=== PATIENT | female | born 1950 | race Hispanic/Latino ===

== ENCOUNTER 2017-02-11 02:32 | Observation (INO) | payer MEDICARE ==
[2017-02-11 02:33] VITALS: BMI 30.9
--- NOTE | 2017-02-11 03:43 | ED PDOC ---
HPI: Chest Pain Time Seen by Provider: 02/11/17 02:54 Chief Complaint (Nursing): Medical Clearance Chief Complaint (Provider): Chest Pain History Per: Patient History/Exam Limitations: no limitations Onset/Duration Of Symptoms: Hrs (x12) Current Symptoms Are (Timing): Still Present Context: Other (Chemotherapy round) Pain Scale Rating Of: 9 Quality: Pressure Exacerbating Factors: Deep Breathing Additional Complaint(s): 66 year old female presents to ED with complaints of chest pain x12 hours and has a past medical history of myasthenia gravis, kidney stones, and questionable "bone cancer". Patient states that she recently underwent a cycle of chemotherapy in which she was given an "immune shot". Notes that she was advised to take ibuprofen to mitigate the "bone pain" that she would feel in her chest, but that the pain has become increasingly worse with time. Describes the pain as a "band" that goes around her entire chest wall, rates it a 9/10 in severity, and notes that the pain worsens with breathing. (-) fever, cough, nausea, vomiting, or diarrhea. PCP: Steven Past Medical History Reviewed: Historical Data, Nursing Documentation, Vital Signs Vital Signs: Last Vital Signs Temp 98.7 F 02/11/17 21:15 Pulse 73 02/11/17 21:15 Resp 18 02/11/17 21:15 BP 136/83 02/11/17 21:15 Pulse Ox 98 02/11/17 21:27 - Medical History PMH: Kidney Stones, Malignancy (bone), Multiple Sclerosis Denies: No Chronic Diseases Other PMH: Myasthenia gravis - Surgical History Surgical History: Appendectomy, Cholecystectomy - Family History Family History: States: No Known Family Hx - Social History Current smoker - smoking cessation education provided: No Ex-Smoker (has not smoked in the last 12 months): No Alcohol: None Drugs: Denies - Allergies Allergies/Adverse Reactions: Allergies Allergy/AdvReac Type Severity Reaction Status Date / Time codeine Allergy RASH Verified 02/11/17 03:06 Penicillins Allergy RASH Verified 02/11/17 03:06 Review of Systems ROS Statement: Except As Marked, All Systems Reviewed And Found Negative Constitutional: Negative for: Fever Cardiovascular: Positive for: Chest Pain Respiratory: Negative for: Cough Gastrointestinal: Negative for: Nausea, Vomiting, Diarrhea Physical Exam - Reviewed Nursing Documentation Reviewed: Yes Vital Signs Reviewed: Yes - Physical Exam Appears: Positive for: Uncomfortable Head Exam: Positive for: ATRAUMATIC, NORMOCEPHALIC Skin: Positive for: Normal Color, Warm, Dry Eye Exam: Positive for: Normal appearance ENT: Positive for: Normal ENT Inspection Neck: Positive for: Normal Cardiovascular/Chest: Positive for: Regular Rate, Rhythm Respiratory: Positive for: Decreased Breath Sounds (decreased air entry at bases of lungs bilaterally). Negative for: Respiratory Distress Gastrointestinal/Abdominal: Positive for: Soft. Negative for: Tenderness Back: Positive for: Normal Inspection Extremity: Positive for: Normal ROM. Negative for: Deformity Neurologic/Psych: Positive for: Alert, Oriented. Negative for: Motor/Sensory Deficits - Laboratory Results Result Diagrams: 02/11/17 03:55 02/11/17 03:55 - ECG O2 Sat by Pulse Oximetry: 98 (RA) Pulse Ox Interpretation: Normal Medical Decision Making Medical Decision Makin Initial impression: chest pain in setting of recent cycle of chemotherapy for bone malignancy Initial plan: * EKG * Labs * Trop I * D Dimer * CXR * Morphine 4mg IVP * BCx * Re-eval 0330 Patient will be put it ED OBS. All further documentation will take place in the ED OBS note. Scribe Attestation: Documented by Maty Jacobson acting as a scribe for Dane Golden MD. Scribe Attestation: All medical record entries made by the Scribe were at my direction and personally dictated by me. I have reviewed the chart and agree that the record accurately reflects my personal performance of the history, physical exam, medical decision making, and the department course for this patient. I have also personally directed, reviewed, and agree with the discharge instructions and disposition. ED OBSERVATION Date of observation admission: 02/11/17 Time of observation admission: 03:30 - Observation admission statement Patient is being placed in observation because:: for further workup of chest pain and CT - Goals of Observation Goals of observation are:: CT results Disposition - Clinical Impression Clinical Impression: Chest pain Counseled Patient/Family Regarding: Studies Performed, Diagnosis - Disposition Disposition: Transfer of Care Disposition Time: 03:30 Condition: FAIR Patient Signed Over To: Jose Chery Jr. (Pending CT) Handoff Comments: Handoff at 0700
[2017-02-11 03:58] LABS: BASO % 0.7 % (0.0-2.0); EOS # 0.3 K/uL (0.0-0.7); EOS % 11.3 % (0.0-4.0); HEMATOCRIT 36.8 % (34.0-47.0); LYMPH # 1.4 K/uL (1.0-4.3); LYMPH % 48.4 % (20.0-40.0); MEAN CELL VOLUME 64.8 fl (81.0-99.0); MEAN CORPUSCULAR HEMOGLOBIN 23.1 pg (27.0-31.0); MEAN CORPUSCULAR HGB CONC 35.7 g/dL (33.0-37.0); MEAN PLATELET VOLUME 8.7 fl (7.2-11.7); MONO # 0.4 K/uL (0.0-0.8); MONO % 13.4 % (0.0-10.0); NEUT # 0.8 K/uL (1.8-7.0); NEUT % 26.2 % (50.0-75.0); NRBC % 3.9 % (0.0-0.0); RED CELL DISTRIBUTION WIDTH 19.2 % (11.5-14.5); WHITE BLOOD COUNT 2.9 K/uL (4.8-10.8)
[2017-02-11 04:21] LABS: ALB/GLOB RATIO 0.6 (1.0-2.1); ALKALINE PHOSPHATASE 77 U/L (38-126); ALT/SGPT 62 U/L (9-52); AST/SGOT 45 U/L (14-36); BILIRUBIN,TOTAL 0.6 mg/dl (0.2-1.3); BLOOD UREA NITROGEN 29 mg/dl (7-17); CALCIUM 10.3 mg/dL (8.4-10.2); CARBON DIOXIDE 29 mmol/L (22-30); CHLORIDE 101 mmol/L (98-107); GFR AFRICAN-AMERICAN > 60; GLUCOSE,RANDOM 142 mg/dL (65-105); POTASSIUM 5.2 MMOL/L (3.6-5.0); SODIUM 141 mmol/l (132-148); TOTAL PROTEIN 8.7 G/DL (6.3-8.2)
[2017-02-11] MEDS ORDERED: Sodium Chloride 0.9% 50 ML IV ONE (05:50)
[2017-02-11] MEDS ORDERED: Iodixanol 320 MG/ML 100 ML BOTTLE IV ONE (05:50)
[2017-02-11] MEDS: Sodium Chloride 0.9% 500 ML IV SCH ×3 (08:36→15:26)
[2017-02-11] MEDS ORDERED: Moxifloxacin IV 400mg/250ml NS 250 ML IVPB STA (09:53)
--- NOTE | 2017-02-11 10:01 | CT ---
PROCEDURE: CT Chest with contrast (Pulmonary Angiogram) HISTORY: chest pain r/o PE COMPARISON: None available. TECHNIQUE: Axial computed tomography images were obtained of the chest in the pulmonary arterial phase of enhancement. Coronal and sagittal reformatted images were created and reviewed. Maximum intensity projection (MIP) reconstructed images in the following planes: Axial projection only. Intravenous contrast dose: 95 cc Visipaque 320. Radiation dose: Total exam DLP = 410.98 mGy-cm. This CT exam was performed using one or more of the following dose reduction techniques: Automated exposure control, adjustment of the mA and/or kV according to patient size, and/or use of iterative reconstruction technique. FINDINGS: PULMONARY ARTERIES: Unremarkable. No pulmonary embolism. AORTA: No acute findings. No thoracic aortic aneurysm. LUNGS: Interval improvement in infiltrates identified at the lung bases on the prior studies. Residual right middle lobe infiltrate. PLEURAL SPACES: Unremarkable. No effusion or pneuomothorax. HEART: Unremarkable. No cardiomegaly. No significant pericardial effusion. LYMPH NODES: Bilateral (right greater than left) axillary and sub carinal adenopathy. BONES, CHEST WALL: Unremarkable. No fracture or destructive lesion OTHER FINDINGS: Questionable mass right hepatic lobe near the dome of the liver. This measures 2.2 x 2.7 cm. Prominence of the pancreatic head a finding not seen on the prior study. Follow-up CT of the abdomen pelvis advised for assessment of both of these findings. IMPRESSION: 1. Negative study for pulmonary embolism. 2. Bilateral axillary and mediastinal adenopathy. 3. Pancreatic head fullness. This represents potentially new finding compared to the prior study. Mass lesion in the dome of the liver. Follow-up CT scan abdomen and pelvis advised for further evaluation, characterization of these findings. Concordant results (preliminary interpretation) provided by [facility]. Procedure Completed: 06:19. Preliminary ([facility]) Report: Dictated and Authenticated: 07:59. Final Interpretation: 09:59. February 11, 2017.
[2017-02-11 10:07] VITALS: RESP 18
--- NOTE | 2017-02-11 10:20 | RAD ---
HISTORY: chest pain COMPARISON: 05/15/2015 TECHNIQUE: Chest PA and lateral FINDINGS: The right subclavian line terminates in the SVC. LUNGS: The lungs are well inflated and clear. PLEURA: No significant pleural effusion identified. No pneumothorax apparent. CARDIOVASCULAR: The heart is normal in size. Status post median sternotomy. OSSEOUS STRUCTURES: No significant abnormalities. VISUALIZED UPPER ABDOMEN: Normal. OTHER FINDINGS: None. IMPRESSION: No active pulmonary disease.
--- NOTE | 2017-02-11 10:47 | CP.PCM.HP ---
History of Present Illness - History of Present Illness History of Present Illness: 66 yo female with history of "bone cancer" and Myasthenia Gravis came in with severe pain around the chest since yesterday. The pain was constant, 10/10, not related to movement and not amenable to over the counter medications, such as Ibuprofen. She claimed she was forewarned about this before receiving her 2 days of chemotherapy (02/08 and 02/09) and immune booster shot yesterday. She however didn't realized it was going to be this bad since she was advised only to take Ibuprofen for the pain. Patient denied coughing, SOB, fever or chills. Present on Admission - Present on Admission Any Indicators Present on Admission: No History of DVT/PE: No History of Uncontrolled Diabetes: No Urinary Catheter: No Decubitus Ulcer Present: No Review of Systems - Review of Systems All systems: reviewed and no additional remarkable complaints except (aside from those mentioned above, 12 point system review were negative by me) Past Patient History - Infectious Disease Hx of Infectious Diseases: None - Past Medical History & Family History Past Medical History?: Yes - Past Social History Smoking Status: Former Smoker Chewing Tobacco Use: No Cigar Use: No Alcohol: None Drugs: Denies - CARDIAC Hx Cardiac Disorders: No - PULMONARY Hx Respiratory Disorders: No - NEUROLOGICAL Hx Neurological Disorder: No - HEENT Hx HEENT Problems: No - RENAL Hx Kidney Stones: Yes - ENDOCRINE/METABOLIC Hx Endocrine Disorders: Yes (Myasthenia Gravis) Other/Comment: Myasthenia Gravis, had thymectomy 15 yrs ago - HEMATOLOGICAL/ONCOLOGICAL Hx Cancer: Yes (bone cancer) Hx Chemotherapy: Yes (3 days ago (2 series)) - INTEGUMENTARY Hx Dermatological Problems: No - MUSCULOSKELETAL/RHEUMATOLOGICAL Hx Musculoskeletal Disorders: Yes (Bone cancer, on chemo) - GENITOURINARY/GYNECOLOGICAL Hx Genitourinary Disorders: No - PSYCHIATRIC Hx Psychophysiologic Disorder: No Hx Substance Use: No - SURGICAL HISTORY Hx Appendectomy: Yes Hx Cholecystectomy: Yes Other/Comment: Thymectomy, 15 yrs ago; Biopsy on right ankle - ANESTHESIA Hx Anesthesia: Yes Hx Anesthesia Reactions: No Hx Malignant Hyperthermia: No Meds Allergies/Adverse Reactions: Allergies Allergy/AdvReac Type Severity Reaction Status Date / Time codeine Allergy RASH Verified 02/11/17 03:06 Penicillins Allergy RASH Verified 02/11/17 03:06 Physical Exam - Constitutional Appears: No Acute Distress - Head Exam Head Exam: ATRAUMATIC - Eye Exam Eye Exam: absent: Scleral icterus - ENT Exam ENT Exam: Mucous Membranes Moist - Neck Exam Neck exam: Negative for: Meningismus - Respiratory Exam Respiratory Exam: absent: Rhonchi, Wheezes, Respiratory Distress - Cardiovascular Exam Cardiovascular Exam: REGULAR RHYTHM, +S1, +S2 - GI/Abdominal Exam GI & Abdominal Exam: Soft. absent: Tenderness - Rectal Exam Rectal Exam: Deferred - Extremities Exam Extremities exam: Negative for: calf tenderness, pedal edema - Back Exam Back exam: absent: tenderness - Neurological Exam Neurological exam: Alert, Oriented x3 - Psychiatric Exam Psychiatric exam: Normal Affect - Skin Skin Exam: Dry, Intact Results - Vital Signs Recent Vital Signs: Last Vital Signs Temp 97.8 F 02/11/17 08:38 Pulse 82 02/11/17 10:06 Resp 18 02/11/17 10:06 BP 126/96 H 02/11/17 10:06 Pulse Ox 95 02/11/17 10:06 - Labs Result Diagrams: 02/11/17 03:55 02/11/17 03:55 Labs: Laboratory Results - last 24 hr 02/11/17 03:55 WBC 2.9 L D RBC 5.69 H Hgb 13.1 Hct 36.8 MCV 64.8 L MCH 23.1 L MCHC 35.7 RDW 19.2 H Plt Count 253 MPV 8.7 Neut % (Auto) 26.2 L Lymph % (Auto) 48.4 H [place] % (Auto) 13.4 H Eos % (Auto) 11.3 H Baso % (Auto) 0.7 Neut # 0.8 L Lymph # 1.4 [place] # 0.4 Eos # 0.3 Baso # 0.0 D-Dimer, Quantitative 1.23 H Sodium 141 Potassium 5.2 H Chloride 101 Carbon Dioxide 29 Anion Gap 16 BUN 29 H Creatinine 0.6 L Est GFR ( Amer) > 60 Est GFR (Non-Af Amer) > 60 Random Glucose 142 H Calcium 10.3 H Total Bilirubin 0.6 AST 45 H ALT 62 H D Alkaline Phosphatase 77 Troponin I < 0.0120 Total Protein 8.7 H Albumin 3.3 L Globulin 5.4 H Albumin/Globulin Ratio 0.6 L Assessment & Plan (1) Intractable pain Status: Acute Comment: place on observation in med/surg. Morphine 2mg IV q 4hrs prn for pain. Flexeril 5mg PO TID prn. pain probably secondary to chemotherapy (2) Bone cancer Status: Acute Comment: follow up name of chemo given to patient (3) Myasthenia gravis Status: Acute Comment: stable
[2017-02-11] MEDS ORDERED: Sod Polystyrene Sulf 15 gm/60 ml Oral Susp PO ONE (11:02)
[2017-02-11] MEDS: Pantoprazole 40 mg EC Tab PO SCH (11:59)
[2017-02-11] MEDS ORDERED: Alum-Mag Hydrox-Simethicone Susp (30 mL) PO PRN (14:06)
[2017-02-11 15:56] LABS: RBC URINE 8 /hpf (0-3); URINE BILIRUBIN NEGATIVE (NEGATIVE); URINE BLOOD MODERATE (NEGATIVE); URINE COLOR YELLOW (YELLOW); URINE GLUCOSE (UA) NEG (Normal); URINE KETONE NEGATIVE (NEGATIVE); URINE LEUKOCYTE ESTERASE NEG Leu/uL (Negative); URINE PROTEIN 100 mg/dL (NEGATIVE); URINE UROBILINOGEN 0.2-1.0 mg/dL (0.2-1.0); WBC URINE 2 /hpf (0-5)
--- NOTE | 2017-02-11 18:18 | CARD ---
APPROVED REPORT EKG Measurement Heart [id number] <Conclusion> Normal sinus rhythm Moderate voltage criteria for LVH, may be normal variant Borderline ECG
[2017-02-12] MEDS: Sodium Chloride 0.9% 500 ML IV SCH ×3 (03:11→06:38)
[2017-02-12 07:42] LABS: BASO % 0.3 % (0.0-2.0); EOS # 0.2 K/uL (0.0-0.7); EOS % 5.7 % (0.0-4.0); HEMATOCRIT 32.4 % (34.0-47.0); LYMPH # 1.4 K/uL (1.0-4.3); LYMPH % 37.9 % (20.0-40.0); MEAN CELL VOLUME 65.5 fl (81.0-99.0); MEAN CORPUSCULAR HEMOGLOBIN 22.5 pg (27.0-31.0); MEAN CORPUSCULAR HGB CONC 34.4 g/dL (33.0-37.0); MEAN PLATELET VOLUME 8.9 fl (7.2-11.7); MONO # 0.5 K/uL (0.0-0.8); MONO % 13.5 % (0.0-10.0); NEUT # 1.6 K/uL (1.8-7.0); NEUT % 42.6 % (50.0-75.0); NRBC % 0.5 % (0.0-0.0); RED CELL DISTRIBUTION WIDTH 19.7 % (11.5-14.5); WHITE BLOOD COUNT 3.8 K/uL (4.8-10.8)
[2017-02-12 08:05] LABS: BLOOD UREA NITROGEN 18 mg/dl (7-17); CALCIUM 8.8 mg/dL (8.4-10.2); CARBON DIOXIDE 31 mmol/L (22-30); CHLORIDE 100 mmol/L (98-107); GFR AFRICAN-AMERICAN > 60; GLUCOSE,RANDOM 101 mg/dL (65-105); POTASSIUM 4.1 MMOL/L (3.6-5.0); SODIUM 138 mmol/l (132-148)
[2017-02-12 08:16] VITALS: BP 147/77; PULSE 59; TEMP 98.6; O2SAT 94
[2017-02-12] MEDS: Pantoprazole 40 mg EC Tab PO SCH (08:32)
--- NOTE | 2017-02-12 12:19 | CP.PCM.DIS ---
Provider - Provider Date of Admission: 02/11/17 09:53 Attending physician: Alec Inman MD Time Spent in preparation of Discharge (in minutes): 35 Diagnosis - Discharge Diagnosis (1) Intractable pain Status: Acute Comment: pain was relieved by Morphine. presently just complained of mild bearable pain. Neurontin 300mg PO BID (2) Myasthenia gravis Status: Acute Comment: asymptomatic (3) Lymphoma Status: Acute Comment: follow up with Oncologist Hospital Course - Lab Results Lab Results: Most Recent Lab Values WBC 3.8 K/uL (4.8-10.8) L 02/12/17 05:30 RBC 4.95 Mil/uL (3.80-5.20) 02/12/17 05:30 Hgb 11.2 g/dL (12.0-16.0) L 02/12/17 05:30 Hct 32.4 % (34.0-47.0) L 02/12/17 05:30 MCV 65.5 fl (81.0-99.0) L 02/12/17 05:30 MCH 22.5 pg (27.0-31.0) L 02/12/17 05:30 MCHC 34.4 g/dL (33.0-37.0) 02/12/17 05:30 RDW 19.7 % (11.5-14.5) H 02/12/17 05:30 Plt Count 224 K/uL (130-400) 02/12/17 05:30 MPV 8.9 fl (7.2-11.7) 02/12/17 05:30 Neut % (Auto) 42.6 % (50.0-75.0) L 02/12/17 05:30 Lymph % (Auto) 37.9 % (20.0-40.0) 02/12/17 05:30 [place] % (Auto) 13.5 % (0.0-10.0) H 02/12/17 05:30 Eos % (Auto) 5.7 % (0.0-4.0) H 02/12/17 05:30 Baso % (Auto) 0.3 % (0.0-2.0) 02/12/17 05:30 Neut # 1.6 K/uL (1.8-7.0) L 02/12/17 05:30 Lymph # 1.4 K/uL (1.0-4.3) 02/12/17 05:30 [place] # 0.5 K/uL (0.0-0.8) 02/12/17 05:30 Eos # 0.2 K/uL (0.0-0.7) 02/12/17 05:30 Baso # 0.0 K/uL (0.0-0.2) 02/12/17 05:30 D-Dimer, Quantitative 1.23 mg/L FEU (0-0.50) H 02/11/17 03:55 Sodium 138 mmol/l (132-148) 02/12/17 05:30 Potassium 4.1 MMOL/L (3.6-5.0) 02/12/17 05:30 Chloride 100 mmol/L (98-107) 02/12/17 05:30 Carbon Dioxide 31 mmol/L (22-30) H 02/12/17 05:30 Anion Gap 11 (10-20) 02/12/17 05:30 BUN 18 mg/dl (7-17) H 02/12/17 05:30 Creatinine 0.5 mg/dL (0.7-1.2) L 02/12/17 05:30 Est GFR ( Amer) > 60 02/12/17 05:30 Est GFR (Non-Af Amer) > 60 02/12/17 05:30 Random Glucose 101 mg/dL (65-105) 02/12/17 05:30 Calcium 8.8 mg/dL (8.4-10.2) 02/12/17 05:30 Total Bilirubin 0.6 mg/dl (0.2-1.3) 02/11/17 03:55 AST 45 U/L (14-36) H 02/11/17 03:55 ALT 62 U/L (9-52) H D 02/11/17 03:55 Alkaline Phosphatase 77 U/L (38-126) 02/11/17 03:55 Troponin I < 0.0120 ng/mL (0.00-0.120) 02/11/17 03:55 Total Protein 8.7 G/DL (6.3-8.2) H 02/11/17 03:55 Albumin 3.3 g/dL (3.5-5.0) L 02/11/17 03:55 Globulin 5.4 gm/dL (2.2-3.9) H 02/11/17 03:55 Albumin/Globulin Ratio 0.6 (1.0-2.1) L 02/11/17 03:55 Urine Color Yellow (YELLOW) 02/11/17 15:42 Urine Clarity Clear (Clear) 02/11/17 15:42 Urine pH 5.0 (5.0-8.0) 02/11/17 15:42 Ur Specific [place] 1.057 (1.003-1.030) H 02/11/17 15:42 Urine Protein 100 mg/dL (NEGATIVE) 02/11/17 15:42 Urine Glucose (UA) Neg mg/dL (Normal) 02/11/17 15:42 Urine Ketones Negative mg/dL (NEGATIVE) 02/11/17 15:42 Urine Blood Moderate (NEGATIVE) 02/11/17 15:42 Urine Nitrate Negative (NEGATIVE) 02/11/17 15:42 Urine Bilirubin Negative (NEGATIVE) 02/11/17 15:42 Urine Urobilinogen 0.2-1.0 mg/dL (0.2-1.0) 02/11/17 15:42 Ur Leukocyte Esterase Neg [place]/uL (Negative) 02/11/17 15:42 Urine RBC (Auto) 8 /hpf (0-3) H 02/11/17 15:42 Urine Microscopic WBC 2 /hpf (0-5) 02/11/17 15:42 Ur Squamous Epith Cells 1 /hpf (0-5) 02/11/17 15:42 - Hospital Course Hospital Course: 66 yo female with history of Lymphoma and Myasthenia Gravis came in with severe pain around the chest since yesterday. The pain was constant, 10/10, not related to movement and not amenable to Ibuprofen. She claimed she was forewarned about this before receiving her 2 days of chemotherapy and immune booster. Patient felt a lot better after receiving pain medications. She is now ready for discharge. Discharge Exam - Head Exam Head Exam: ATRAUMATIC, NORMOCEPHALIC - Eye Exam Eye Exam: absent: Scleral icterus - ENT Exam ENT Exam: Mucous Membranes Moist - Respiratory Exam Respiratory Exam: absent: Wheezes, Respiratory Distress - Cardiovascular Exam Cardiovascular Exam: REGULAR RHYTHM, +S1, +S2 - GI/Abdominal Exam GI & Abdominal Exam: Soft. absent: Tenderness - Rectal Exam Rectal Exam: Deferred - Neurological Exam Neurological exam: Alert, Oriented x3 - Psychiatric Exam Psychiatric exam: Normal Affect - Skin Skin Exam: Dry, Intact Discharge Plan - Discharge Medications Prescriptions: Lactulose Packet [Kristalose] 10 gm PO PRN PRN #10 packet PRN Reason: Constipation Gabapentin [Neurontin] 300 mg PO BID #28 cap - Follow Up Plan Condition: FAIR Disposition: HOME/ ROUTINE Instructions: Constipation (DC), High Fiber Diet (DC), Eating During Cancer Treatment (DC), Chest Wall Pain (GEN)
== END 2017-02-12 14:23 | disposition home or self-care (01) ==
LOC: H.ER 02:32 → H.EROBSV 03:28 → OBSVTOIN 09:53 → H.ERHOLD 09:53 → INTOOBSV 09:53 → H.MEDSURG1 10:38
DX: R07.89 Other chest pain (principal); T45.1X5A Adverse effect of antineoplastic and immunosuppressive drugs, initial encounter; C85.90 Non-Hodgkin lymphoma, unspecified, unspecified site; G70.00 Myasthenia gravis without (acute) exacerbation; G35 Multiple sclerosis; Z87.442 Personal history of urinary calculi; Z90.49 Acquired absence of other specified parts of digestive tract; Y92.9 Unspecified place or not applicable
CPT/HCPCS: 36415; 71020; 71275; 80048; 80053; 81003; 84484; 85025; 85378; 87040; 93005; 96361; 96374; 96375; 96376; 99285; G0378; J2270; J7040; Q9967

== ENCOUNTER 2017-03-03 06:09 | Observation (INO) | payer MEDICARE ==
--- NOTE | 2017-03-03 06:40 | ED PDOC ---
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 Patient currently completing cycle of chemotherapy (oncologist is Dr. Juarez) at [facility] and [place]. Patient reports at midnight she developed lower abdominal pain that is described as sharp, constant, severe, and 9/10. States after chemo she completed 5 day course of prednisone that she just finished yesterday. Denies n/v/d, urinary symptoms, fever. Past Medical History Reviewed: Historical Data, Nursing Documentation, Vital Signs Vital Signs: Last Vital Signs Temp 97.5 F L 03/04/17 00:34 Pulse 74 03/04/17 00:34 Resp 20 03/04/17 00:34 BP 125/86 03/04/17 00:34 Pulse Ox 96 03/04/17 00:34 - Medical History PMH: Kidney Stones, Malignancy (bone), Multiple Sclerosis, Chronic Kidney Disease Other PMH: lymphoma, Myasthenia gravis, inclusion body myositis - Surgical History Surgical History: Appendectomy, Cholecystectomy - Family History Family History: States: No Known Family Hx - Social History Current smoker - smoking cessation education provided: No Alcohol: None Drugs: Denies - Home Medications Home Medications: Ambulatory Orders Medication Instructions Recorded No Known Home Med 03/03/17 - Allergies Allergies/Adverse Reactions: Allergies Allergy/AdvReac Type Severity Reaction Status Date / Time codeine Allergy RASH Verified 02/11/17 03:06 Penicillins Allergy RASH Verified 02/11/17 03:06 Review of Systems ROS Statement: Except As Marked, All Systems Reviewed And Found Negative Constitutional: Negative for: Fever Gastrointestinal: Positive for: Abdominal Pain. Negative for: Nausea, Vomiting , Diarrhea Genitourinary Female: Negative for: Dysuria, Frequency, Incontinence, Hematuria Physical Exam - Reviewed Nursing Documentation Reviewed: Yes Vital Signs Reviewed: Yes - Physical Exam Appears: Positive for: Well, No Acute Distress, Uncomfortable Head Exam: Positive for: ATRAUMATIC, NORMAL INSPECTION, NORMOCEPHALIC Skin: Positive for: Normal Color, Warm, Dry Eye Exam: Positive for: Normal appearance, EOMI, PERRL ENT: Positive for: Normal ENT Inspection Neck: Positive for: Normal, Painless ROM, Supple Cardiovascular/Chest: Positive for: Regular Rate, Rhythm. Negative for: Murmur , Tachycardia Respiratory: Positive for: Normal Breath Sounds. Negative for: Wheezing, Respiratory Distress Gastrointestinal/Abdominal: Positive for: Soft, Tenderness (mild periumbilical ) . Negative for: Guarding, Rebound Back: Positive for: Normal Inspection. Negative for: L CVA Tenderness, R CVA Tenderness Extremity: Positive for: Normal ROM. Negative for: Deformity, Swelling Neurologic/Psych: Positive for: Alert, Oriented - Laboratory Results Result Diagrams: 03/03/17 06:45 03/03/17 06:45 - ECG O2 Sat by Pulse Oximetry: 100 Pulse Ox Interpretation: Normal (RA) Medical Decision Making Medical Decision Makin: Impression: 66yo female w/ abdominal pain in setting of known lymphoma and recent course of chemotherapy Plan: Labs EKG XR abdomen w/ chest Morphine 2mg IVP reassess Patient s/o to Dr. Goldstein at 0700 pending labs, XR, re-eval. Scribe Attestation: Documented by Elsie Coles acting as a scribe for Dane Golden MD. Provider Scribe Attestation: All medical record entries made by the Scribe were at my direction and personally dictated by me. I have reviewed the chart and agree that the record accurately reflects my personal performance of the history, physical exam, medical decision making, and the department course for this patient. I have also personally directed, reviewed, and agree with the discharge instructions and disposition. Disposition - Clinical Impression Clinical Impression: Abdominal pain - Patient ED Disposition Is Patient to be Admitted: Transfer of Care - Disposition Disposition: Transfer of Care Disposition Time: 07:00 Condition: STABLE Patient Signed Over To: Facundo Goldstein III Handoff Comments: pending labs, XR, re-eval
--- NOTE | 2017-03-03 07:09 | ED PDOC ---
- Laboratory Results Result Diagrams: 03/04/17 05:15 03/04/17 05:15 - ECG O2 Sat by Pulse Oximetry: 100 Pulse Ox Interpretation: Normal Medical Decision Making Medical Decision Making: Time: 0700 Patient signed out by Dr. Golden pending labs, XR and re-eval. CXR no acute infiltrate Abd XRay no signs obstruction per radiologist labs reviewed, persistent leukopenia. Elev lactate 3.5 Pt had persistent pain required escalating dose morphine. protonix also initiated. Pt states has been on prednisone intermittently w chemo regimen. ? gastritis - will obtain CT imaging r/o perforation given pain and elev lactate 3.5 CT abd pelvis Accession No. : [id number] Patient Name / ID : ANNIE MEDINA / [id number] Exam Date : 03/03/2017 09:16:57 ( Approved ) Study Comment : Sex / Age : F / 66Y Creator : Wilmar Davies Dictator : Wilmar Davies Dress Draper : Fishing Captain : Wilmar Davies Approver2 : Report Date : 03/03/2017 09:58:53 My Comment : PROCEDURE: CT Abdomen and Pelvis with contrast HISTORY: abd pain, hx lymphoma, elev lactate COMPARISON: Comparison is made to the previous study dated 11/23/2016 TECHNIQUE: Contrast dose: 95 mL of Omnipaque 300. Axial and reformatted coronal and sagittal CT images of the abdomen and pelvis were obtained after IV contrast administration. Radiation dose: Total exam DLP = 946.39 mGy-cm. This CT exam was performed using one or more of the following dose reduction techniques: Automated exposure control, adjustment of the mA and/or kV according to patient size, and/or use of iterative reconstruction technique. FINDINGS: LOWER THORAX: Interval improvement in the previously seen airspace consolidation at the right middle lobe since the previous exam. Residual peribronchial opacity seen at the right middle lobe. LIVER: Mild hepatomegaly is noted. No evidence of mass lesion in the liver. The portal vein is patent. GALLBLADDER AND BILE DUCTS: Status post cholecystectomy. Mildly dilated CBD is again noted. PANCREAS: Unremarkable. No gross lesion or ductal dilatation. SPLEEN: Unremarkable. ADRENALS: Unremarkable. No mass. KIDNEYS AND URETERS: The kidneys enhance symmetrically without evidence of hydronephrosis. 5.4 centimeter cystic lesion again seen exophytic from the upper pole of the left kidney. VASCULATURE: Moderate atherosclerotic disease is again noted. . No aortic aneurysm. BOWEL: Colonic diverticulosis are again seen. Thickening of the sigmoid colon wall is again noted. APPENDIX: No evidence of appendicitis. PERITONEUM: Unremarkable. No free fluid. No free air. LYMPH NODES: No evidence of significant lymphadenopathy in the abdomen and pelvis. Previously seen retroperitoneal lymphadenopathy has almost completely resolved. BLADDER: Unremarkable. REPRODUCTIVE: Unremarkable. BONES: No significant interval change in the osseous structure since the previous exam. No evidence of destructive bony lesion. OTHER FINDINGS: None. IMPRESSION: No evidence of acute pathology in the abdomen and pelvis. Interval almost complete resolving of the previously seen airspace consolidation at the right middle lobe. Interval almost complete resolving of the previously seen retroperitoneal lymphadenopathy. Mild hepatomegaly. Re- demonstration of colonic diverticulosis and sigmoid colon wall thickening. Admit obs tele medicine personnel coordinator. Dr Arredondo. D/w Georgie Delarosa. IVF continuing. UA pending. Scribe Attestation: Documented by Vera Espinoza acting as a scribe for Facundo Goldstein DO MD Scribe Attestation: All medical record entries made by the Scribe were at my direction and personally dictated by me. I have reviewed the chart and agree that the record accurately reflects my personal performance of the history, physical exam, medical decision making, and the department course for this patient. I have also personally directed, reviewed, and agree with the discharge instructions and disposition. Disposition Counseled Patient/Family Regarding: Studies Performed, Diagnosis, Need For Followup - Clinical Impression Clinical Impression: Abdominal pain, Lymphoma - POA Present On Arrival: None - Disposition Disposition: Hospitalized as Observation Patient Disposition Time: 09:30 Condition: STABLE
[2017-03-03 07:11] LABS: ALKALINE PHOSPHATASE 86 U/L (38-126); ALT/SGPT 31 U/L (9-52); AST/SGOT 30 U/L (14-36); BILIRUBIN,TOTAL 1.4 mg/dl (0.2-1.3); BLOOD UREA NITROGEN 24 mg/dl (7-17); CALCIUM 10.3 mg/dL (8.4-10.2); CARBON DIOXIDE 27 mmol/L (22-30); CHLORIDE 97 mmol/L (98-107); GFR AFRICAN-AMERICAN > 60; GLUCOSE,RANDOM 110 mg/dL (65-105); LIPASE 57 U/L (23-300); POTASSIUM 4.5 MMOL/L (3.6-5.0); SODIUM 134 mmol/l (132-148); TOTAL PROTEIN 7.9 G/DL (6.3-8.2)
[2017-03-03 07:15] LABS: ALB/GLOB RATIO 0.8 (1.0-2.1)
[2017-03-03 07:28] LABS: BASO % 0.6 % (0.0-2.0); EOS # 0.1 K/uL (0.0-0.7); EOS % 5.4 % (0.0-4.0); HEMATOCRIT 38.5 % (34.0-47.0); LYMPH # 1.2 K/uL (1.0-4.3); LYMPH % 54.5 % (20.0-40.0); MEAN CELL VOLUME 66.1 fl (81.0-99.0); MEAN CORPUSCULAR HEMOGLOBIN 21.7 pg (27.0-31.0); MEAN CORPUSCULAR HGB CONC 32.9 g/dL (33.0-37.0); MEAN PLATELET VOLUME 9.2 fl (7.2-11.7); MONO # 0.2 K/uL (0.0-0.8); MONO % 9.4 % (0.0-10.0); NEUT # 0.7 K/uL (1.8-7.0); NEUT % 30.1 % (50.0-75.0); NRBC % 1.2 % (0.0-0.0); RED CELL DISTRIBUTION WIDTH 19.9 % (11.5-14.5); WHITE BLOOD COUNT 2.3 K/uL (4.8-10.8)
[2017-03-03 08:28] LABS: PARTIAL THROMBOPLASTIN TIME 21.6 SECONDS (23.3-32.5)
[2017-03-03] MEDS ORDERED: Iohexol 300 100 ML IJ ONE (09:03)
[2017-03-03] MEDS ORDERED: Sodium Chloride 0.9% 50 ML IV ONE (09:03)
[2017-03-03] MEDS ORDERED: Sodium Chloride 0.9% 1,000 ML IV STA ×2 (09:05→11:10)
--- NOTE | 2017-03-03 10:00 | CT ---
PROCEDURE: CT Abdomen and Pelvis with contrast HISTORY: abd pain, hx lymphoma, elev lactate COMPARISON: Comparison is made to the previous study dated 11/23/2016 TECHNIQUE: Contrast dose: 95 mL of Omnipaque 300. Axial and reformatted coronal and sagittal CT images of the abdomen and pelvis were obtained after IV contrast administration. Radiation dose: Total exam DLP = 946.39 mGy-cm. This CT exam was performed using one or more of the following dose reduction techniques: Automated exposure control, adjustment of the mA and/or kV according to patient size, and/or use of iterative reconstruction technique. FINDINGS: LOWER THORAX: Interval improvement in the previously seen airspace consolidation at the right middle lobe since the previous exam. Residual peribronchial opacity seen at the right middle lobe. LIVER: Mild hepatomegaly is noted. No evidence of mass lesion in the liver. The portal vein is patent. GALLBLADDER AND BILE DUCTS: Status post cholecystectomy. Mildly dilated CBD is again noted. PANCREAS: Unremarkable. No gross lesion or ductal dilatation. SPLEEN: Unremarkable. ADRENALS: Unremarkable. No mass. KIDNEYS AND URETERS: The kidneys enhance symmetrically without evidence of hydronephrosis. 5.4 centimeter cystic lesion again seen exophytic from the upper pole of the left kidney. VASCULATURE: Moderate atherosclerotic disease is again noted. . No aortic aneurysm. BOWEL: Colonic diverticulosis are again seen. Thickening of the sigmoid colon wall is again noted. APPENDIX: No evidence of appendicitis. PERITONEUM: Unremarkable. No free fluid. No free air. LYMPH NODES: No evidence of significant lymphadenopathy in the abdomen and pelvis. Previously seen retroperitoneal lymphadenopathy has almost completely resolved. BLADDER: Unremarkable. REPRODUCTIVE: Unremarkable. BONES: No significant interval change in the osseous structure since the previous exam. No evidence of destructive bony lesion. OTHER FINDINGS: None. IMPRESSION: No evidence of acute pathology in the abdomen and pelvis. Interval almost complete resolving of the previously seen airspace consolidation at the right middle lobe. Interval almost complete resolving of the previously seen retroperitoneal lymphadenopathy. Mild hepatomegaly. Re- demonstration of colonic diverticulosis and sigmoid colon wall thickening.
--- NOTE | 2017-03-03 10:38 | RAD ---
PROCEDURE: Radiographs of the chest and abdomen (obstructive series) HISTORY: abd pain COMPARISON: Comparison is made to the previous chest x-ray dated 02/11/2017 TECHNIQUE: AP radiograph of the chest, with upright and supine radiographs of the abdomen. FINDINGS: CHEST: Lungs: Clear. Cardiovascular: Normal size heart. No pulmonary vascular congestion. Pleura: No pleural fluid. No pneumothorax. Other findings: Right-sided Infusaport is seen in place. Status post sternotomy ABDOMEN AND PELVIS: Bowel: Unremarkable bowel gas pattern. No evidence of mechanical obstruction. Free air: None. Bones: Unremarkable. Other findings: None. IMPRESSION: Unremarkable radiographs of chest and abdomen. No evidence of mechanical bowel obstruction.
[2017-03-03 11:34] LABS: RBC URINE 8 /hpf (0-3); URINE BACTERIA RARE (<OCC); URINE BILIRUBIN NEGATIVE (NEGATIVE); URINE BLOOD NEGATIVE (NEGATIVE); URINE COLOR YELLOW (YELLOW); URINE GLUCOSE (UA) NEG (Normal); URINE KETONE NEGATIVE (NEGATIVE); URINE LEUKOCYTE ESTERASE NEG Leu/uL (Negative); URINE PROTEIN NEGATIVE (NEGATIVE); URINE UROBILINOGEN 0.2-1.0 mg/dL (0.2-1.0); WBC URINE 1 /hpf (0-5)
[2017-03-03] MEDS: Sodium Chloride 0.9% 1,000 ML IV SCH ×2 (13:40→20:30)
[2017-03-03] MEDS: metroNIDAZOLE 500mg/100ml NS 100 ML IVPB SCH (16:26)
[2017-03-03] MEDS: Ciprofloxacin 400mg/200ml D5W 400 MG/200 ML BAG IVPB SCH (20:12)
[2017-03-04] MEDS: metroNIDAZOLE 500mg/100ml NS 100 ML IVPB SCH ×2 (00:51→08:33)
[2017-03-04] MEDS: Sodium Chloride 0.9% 1,000 ML IV SCH (03:00)
[2017-03-04 04:59] VITALS: RESP 18
--- NOTE | 2017-03-04 07:24 | CP.PCM.HP ---
History of Present Illness - History of Present Illness History of Present Illness: pt admitted for abd pain and n/v. no fc, diarrhea. pt is on chemo for lympoma. at present kulwant po and w/o n/v. afebrile. case d/c w/ dr joy. Present on Admission - Present on Admission Any Indicators Present on Admission: No Review of Systems - Gastrointestinal Gastrointestinal: As Per HPI, Abdominal Pain, Nausea, Vomiting Past Patient History - Infectious Disease Hx of Infectious Diseases: None - Past Medical History & Family History Past Medical History?: Yes - Past Social History Alcohol: None Drugs: Denies - CARDIAC Hx Cardiac Disorders: No - PULMONARY Hx Respiratory Disorders: No - NEUROLOGICAL Hx Multiple Sclerosis: Yes - HEENT Hx HEENT Problems: No - RENAL Hx Chronic Kidney Disease: Yes Hx Kidney Stones: Yes - ENDOCRINE/METABOLIC Hx Endocrine Disorders: No - HEMATOLOGICAL/ONCOLOGICAL Hx Blood Disorders: Yes Hx Cancer: Yes (bone cancer) Hx Chemotherapy: Yes (3 days ago (2 series)) - INTEGUMENTARY Hx Dermatological Problems: No - MUSCULOSKELETAL/RHEUMATOLOGICAL Hx Musculoskeletal Disorders: Yes (Bone cancer, on chemo) Hx Falls: No Hx Myasthenia Gravis: Yes - GASTROINTESTINAL Hx Gastrointestinal Disorders: No - GENITOURINARY/GYNECOLOGICAL Hx Genitourinary Disorders: No - PSYCHIATRIC Hx Psychophysiologic Disorder: No Hx Substance Use: No - SURGICAL HISTORY Hx Appendectomy: Yes Hx Cholecystectomy: Yes - ANESTHESIA Hx Anesthesia: Yes Hx Anesthesia Reactions: No Hx Malignant Hyperthermia: No Meds Home Medications: Home Medication List Medication Instructions Recorded Confirmed Type Ciprofloxacin HCl [Cipro] 500 mg PO BID #14 tablet 03/04/17 Rx Famotidine [Pepcid] 20 mg PO BID #14 tab 03/04/17 Rx Metronidazole [Flagyl] 500 mg PO Q8 #21 tablet 03/04/17 Rx Ondansetron ODT [Zofran ODT] 4 mg PO Q8 #10 odt 03/04/17 Rx oxyCODONE/Acetaminophen [Percocet 1 tab PO Q4 PRN #10 tab 03/04/17 Rx 5/325 mg Tab] Allergies/Adverse Reactions: Allergies Allergy/AdvReac Type Severity Reaction Status Date / Time codeine Allergy RASH Verified 02/11/17 03:06 Penicillins Allergy RASH Verified 02/11/17 03:06 Physical Exam - Constitutional Appears: Well, Non-toxic, No Acute Distress - Head Exam Head Exam: ATRAUMATIC, NORMAL INSPECTION, NORMOCEPHALIC - Eye Exam Eye Exam: EOMI, Normal appearance, PERRL Pupil Exam: NORMAL ACCOMODATION, PERRL - ENT Exam ENT Exam: Mucous Membranes Moist, Normal Exam - Neck Exam Neck exam: Positive for: Normal Inspection - Respiratory Exam Respiratory Exam: Clear to Auscultation Bilateral, NORMAL BREATHING PATTERN - Cardiovascular Exam Cardiovascular Exam: REGULAR RHYTHM, RRR, +S1, +S2 - GI/Abdominal Exam GI & Abdominal Exam: Normal Bowel Sounds, Soft. absent: Tenderness - Extremities Exam Extremities exam: Positive for: full ROM, normal capillary refill, normal inspection, pedal pulses present - Back Exam Back exam: NORMAL INSPECTION - Neurological Exam Neurological exam: Alert, CN II-XII Intact, Normal Gait, Oriented x3, Reflexes Normal - Psychiatric Exam Psychiatric exam: Normal Affect, Normal Mood - Skin Skin Exam: Dry, Intact, Normal Color, Warm Results - Vital Signs Recent Vital Signs: Last Vital Signs Temp 98.9 F 03/04/17 04:58 Pulse 69 03/04/17 04:58 Resp 18 03/04/17 04:58 BP 149/76 03/04/17 04:58 Pulse Ox 94 L 03/04/17 04:58 - Labs Result Diagrams: 03/04/17 05:15 03/04/17 05:15 Assessment & Plan (1) Colitis Assessment and Plan: cipro/flagyl pain meds zofran/pepcid cleared by gi po as kulwant Status: Acute (2) DVT (deep venous thrombosis) Assessment and Plan: scd and ae hoae ambulation Status: Acute Decision To Admit - Pt Status Changed To: Hospital Disposition Of: Observation - . Bed Request Type: Telemetry Admitting Physician: Amanda rAredondo
[2017-03-04 07:34] LABS: ALB/GLOB RATIO 0.8 (1.0-2.1); ALKALINE PHOSPHATASE 83 U/L (38-126); ALT/SGPT 60 U/L (9-52); AST/SGOT 39 U/L (14-36); BILIRUBIN,TOTAL 0.9 mg/dl (0.2-1.3); BLOOD UREA NITROGEN 12 mg/dl (7-17); CARBON DIOXIDE 29 mmol/L (22-30); CHLORIDE 98 mmol/L (98-107); GFR AFRICAN-AMERICAN > 60; GLUCOSE,RANDOM 95 mg/dL (65-105); POTASSIUM 4.1 MMOL/L (3.6-5.0); SODIUM 131 mmol/l (132-148); TOTAL PROTEIN 6.2 G/DL (6.3-8.2)
[2017-03-04 07:55] LABS: BASO % 0.7 % (0.0-2.0); EOS # 0.1 K/uL (0.0-0.7); LYMPH # 0.9 K/uL (1.0-4.3); LYMPH % 34.7 % (20.0-40.0); MEAN CELL VOLUME 65.2 fl (81.0-99.0); MEAN CORPUSCULAR HEMOGLOBIN 21.9 pg (27.0-31.0); MEAN CORPUSCULAR HGB CONC 33.6 g/dL (33.0-37.0); MEAN PLATELET VOLUME 9.3 fl (7.2-11.7); MONO # 0.5 K/uL (0.0-0.8); MONO % 17.1 % (0.0-10.0); NEUT # 1.1 K/uL (1.8-7.0); NEUT % 42.5 % (50.0-75.0); NRBC % 0.2 % (0.0-0.0); RED CELL DISTRIBUTION WIDTH 19.9 % (11.5-14.5); WHITE BLOOD COUNT 2.6 K/uL (4.8-10.8)
[2017-03-04 08:03] LABS: PLATELET COUNT 195 K/uL (130-400)
[2017-03-04] MEDS: Ciprofloxacin 400mg/200ml D5W 400 MG/200 ML BAG IVPB SCH (08:32)
--- NOTE | 2017-03-04 08:45 | CARD ---
APPROVED REPORT EKG Measurement Heart [id number] <Conclusion> Normal sinus rhythm Moderate voltage criteria for LVH, may be normal variant Borderline ECG
--- NOTE | 2017-03-04 09:08 | CP.PCM.CON ---
<Radha Romero - Last Filed: 03/04/17 10:14> History of Present Illness - History of Present Illness History of Present Illness: This is a GI Consult Note- Dr. 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 She reports, she is currently completing cycle of chemotherapy ( oncologist is Dr. Juarez) at [facility] and [place]. Patient reports at midnight she developed lower abdominal pain that is described as sharp, constant, severe, and 9/10. States after chemo she completed 5 day course of prednisone that she just finished yesterday, states she never does well on prednisone, last round of chemo shealso presented to the ED with similar pain. Pt also reports feeling constipated, this morning pain is controlled with pain medication. Denies n/v/d , urinary symptoms, fever. She also would like bowel regime to home with to help with constipation. Review of Systems - Review of Systems All systems: reviewed and no additional remarkable complaints except Review of Systems: Per HPI Past Patient History - Infectious Disease Hx of Infectious Diseases: None - Past Medical History & Family History Past Medical History?: Yes - Past Social History Alcohol: None Drugs: Denies - CARDIAC Hx Cardiac Disorders: No - PULMONARY Hx Respiratory Disorders: No - NEUROLOGICAL Hx Multiple Sclerosis: Yes - HEENT Hx HEENT Problems: No - RENAL Hx Chronic Kidney Disease: Yes Hx Kidney Stones: Yes - ENDOCRINE/METABOLIC Hx Endocrine Disorders: No - HEMATOLOGICAL/ONCOLOGICAL Hx Blood Disorders: Yes Hx Cancer: Yes (bone cancer) Hx Chemotherapy: Yes (3 days ago (2 series)) - INTEGUMENTARY Hx Dermatological Problems: No - MUSCULOSKELETAL/RHEUMATOLOGICAL Hx Musculoskeletal Disorders: Yes (Bone cancer, on chemo) Hx Falls: No Hx Myasthenia Gravis: Yes - GASTROINTESTINAL Hx Gastrointestinal Disorders: No - GENITOURINARY/GYNECOLOGICAL Hx Genitourinary Disorders: No - PSYCHIATRIC Hx Psychophysiologic Disorder: No Hx Substance Use: No - SURGICAL HISTORY Hx Appendectomy: Yes Hx Cholecystectomy: Yes - ANESTHESIA Hx Anesthesia: Yes Hx Anesthesia Reactions: No Hx Malignant Hyperthermia: No Meds Allergies/Adverse Reactions: Allergies Allergy/AdvReac Type Severity Reaction Status Date / Time codeine Allergy RASH Verified 02/11/17 03:06 Penicillins Allergy RASH Verified 02/11/17 03:06 - Medications Medications: Current Medications Famotidine (Pepcid) 20 mg IVP Q12 [facility] Last Admin: 03/04/17 08:36 Dose: 20 mg Sodium Chloride (Sodium Chloride 0.9%) 1,000 mls @ 150 mls/hr IV .Q6H40M [facility] Stop: 03/04/17 13:09 Last Admin: 03/04/17 03:00 Dose: 150 mls/hr Ciprofloxacin (Cipro 400mg/200ml Dsw) 400 mg in 200 mls @ 200 mls/hr IVPB Q12 [facility] Last Admin: 03/04/17 08:32 Dose: 200 mls/hr Metronidazole (Flagyl 500mg/100ml Ns) 100 mls @ 100 mls/hr IVPB Q8 [facility] Last Admin: 03/04/17 08:33 Dose: 100 mls/hr Ketorolac Tromethamine (Toradol) 30 mg IVP Q6 PRN PRN Reason: Pain, moderate (4-7) Morphine Sulfate (Morphine) 2 mg IVP Q4 PRN PRN Reason: Pain, severe (8-10) Last Admin: 03/04/17 04:18 Dose: 2 mg Ondansetron HCl (Zofran Inj) 4 mg IVP Q6 PRN PRN Reason: Nausea/Vomiting Physical Exam - Constitutional Appears: Non-toxic, No Acute Distress - Head Exam Head Exam: NORMOCEPHALIC - Eye Exam Eye Exam: Normal appearance - ENT Exam ENT Exam: Mucous Membranes Moist - Respiratory Exam Respiratory Exam: Clear to Auscultation Bilateral, NORMAL BREATHING PATTERN. absent: Rhonchi, Wheezes - Cardiovascular Exam Cardiovascular Exam: REGULAR RHYTHM, +S1, +S2 - GI/Abdominal Exam GI & Abdominal Exam: Normal Bowel Sounds, Soft Additional comments: some generalized tenderness on deep palpation - Extremities Exam Extremities exam: Positive for: normal inspection. Negative for: calf tenderness, pedal edema - Neurological Exam Neurological exam: Alert, CN II-XII Intact, Oriented x3 Results - Vital Signs Recent Vital Signs: Last Vital Signs Temp 98.6 F 03/04/17 08:13 Pulse 76 03/04/17 08:29 Resp 18 03/04/17 08:13 BP 129/64 03/04/17 08:13 Pulse Ox 94 L 03/04/17 08:13 - Labs Result Diagrams: 03/04/17 05:15 03/04/17 05:15 Labs: Laboratory Results - last 24 hr 03/04/17 03/04/17 03/04/17 05:15 05:15 05:15 WBC 2.6 L RBC 4.75 Hgb 10.4 L D Hct 31.0 L MCV 65.2 L MCH 21.9 L MCHC 33.6 RDW 19.9 H Plt Count 195 MPV 9.3 Neut % (Auto) 42.5 L Lymph % (Auto) 34.7 Pierce % (Auto) 17.1 H Eos % (Auto) 5.0 H Baso % (Auto) 0.7 Neut # 1.1 L Lymph # 0.9 L Pierce # 0.5 Eos # 0.1 Baso # 0.0 Sodium 131 L Potassium 4.1 Chloride 98 Carbon Dioxide 29 Anion Gap 8 L BUN 12 Creatinine 0.6 L Est GFR ( Amer) > 60 Est GFR (Non-Af Amer) > 60 Random Glucose 95 Lactic Acid 0.9 Calcium 9.0 Total Bilirubin 0.9 AST 39 H D ALT 60 H D Alkaline Phosphatase 83 Total Protein 6.2 L Albumin 2.7 L D Globulin 3.5 Albumin/Globulin Ratio 0.8 L Assessment & Plan - Assessment and Plan (Free Text) Assessment: 66yo female with PMHx including lymphoma, Myasthenia gravis, kidney stones, and inclusion body myositis admitted for abdominal pain, CT abd unremarkable, pt currently on chemotherapy; GI Consulted for abdominal pain with no associated diarrhea,nausea, vomiting +Constipation Plan: Abdominal Pain- more likely due chemotherapy medication or malignancy itself, currently controlled with pain medication CT finding of diverticulosis with no evidence of diverticulitis control pain per medical team For constipation start -Miralax and docusate 2tabs HS Diet- Regular Thank you very much for consult. Signing off. <Bartolome Monteiro MD - Last Filed: 03/04/17 12:07> Meds - Medications Medications: Current Medications Famotidine (Pepcid) 20 mg IVP Q12 [facility] Last Admin: 03/04/17 08:36 Dose: 20 mg Sodium Chloride (Sodium Chloride 0.9%) 1,000 mls @ 150 mls/hr IV .Q6H40M [facility] Stop: 03/04/17 13:09 Last Admin: 03/04/17 03:00 Dose: 150 mls/hr Ciprofloxacin (Cipro 400mg/200ml Dsw) 400 mg in 200 mls @ 200 mls/hr IVPB Q12 [facility] Last Admin: 03/04/17 08:32 Dose: 200 mls/hr Metronidazole (Flagyl 500mg/100ml Ns) 100 mls @ 100 mls/hr IVPB Q8 [facility] Last Admin: 03/04/17 08:33 Dose: 100 mls/hr Ketorolac Tromethamine (Toradol) 30 mg IVP Q6 PRN PRN Reason: Pain, moderate (4-7) Last Admin: 03/04/17 10:02 Dose: 30 mg Morphine Sulfate (Morphine) 2 mg IVP Q4 PRN PRN Reason: Pain, severe (8-10) Last Admin: 03/04/17 04:18 Dose: 2 mg Ondansetron HCl (Zofran Inj) 4 mg IVP Q6 PRN PRN Reason: Nausea/Vomiting Results - Vital Signs Recent Vital Signs: Last Vital Signs Temp 98.6 F 03/04/17 08:13 Pulse 76 03/04/17 08:29 Resp 18 03/04/17 08:13 BP 129/64 03/04/17 08:13 Pulse Ox 94 L 03/04/17 08:13 - Labs Result Diagrams: 03/04/17 05:15 03/04/17 05:15 Labs: Laboratory Results - last 24 hr 03/04/17 03/04/17 03/04/17 05:15 05:15 05:15 WBC 2.6 L RBC 4.75 Hgb 10.4 L D Hct 31.0 L MCV 65.2 L MCH 21.9 L MCHC 33.6 RDW 19.9 H Plt Count 195 MPV 9.3 Neut % (Auto) 42.5 L Lymph % (Auto) 34.7 Pierce % (Auto) 17.1 H Eos % (Auto) 5.0 H Baso % (Auto) 0.7 Neut # 1.1 L Lymph # 0.9 L Pierce # 0.5 Eos # 0.1 Baso # 0.0 Neutrophils % (Manual) 30 L Band Neutrophils % 6 H Lymphocytes % (Manual) 40 Monocytes % (Manual) 17 H Eosinophils % (Manual) 7 Platelet Estimate Normal Large Platelets Present Giant Platelets Present Poikilocytosis (manual Slight Anisocytosis (manual) Slight Microcytosis (manual) Moderate Spherocytes Slight Sodium 131 L Potassium 4.1 Chloride 98 Carbon Dioxide 29 Anion Gap 8 L BUN 12 Creatinine 0.6 L Est GFR ( Amer) > 60 Est GFR (Non-Af Amer) > 60 Random Glucose 95 Lactic Acid 0.9 Calcium 9.0 Total Bilirubin 0.9 AST 39 H D ALT 60 H D Alkaline Phosphatase 83 Total Protein 6.2 L Albumin 2.7 L D Globulin 3.5 Albumin/Globulin Ratio 0.8 L Attending/Attestation - Attestation I have personally seen and examined this patient.: Yes I have fully participated in the care of the patient.: Yes I have reviewed all pertinent clinical information: Yes Notes (Text): 03/04/17 12:05 Patient seen on rounds this am. This is a 66 yo female with PMHx including lymphoma, Myasthenia gravis, kidney stones, and inclusion body myositis admitted for abdominal pain, CT abdomen unremarkable. Last chemotherapy and steroid therapy 5 days ago. This morning pain resolved. has intermittent constipation with pain medications. Will give stool softeners and laxatives and PPI daily in am. If chest pain or odynophagia persists will benefit from endoscopic evaluation for lyly. Thank you very much for letting us participate in the care of this patient
[2017-03-04 10:13] LABS: EOSINOPHIL 7 % (0-7); GIANT PLATELETS PRESENT; LARGE PLATELETS PRESENT; NEUTROPHIL 30 % (42-75); TOTAL CELLS COUNTED 100
[2017-03-04 10:14] LABS: SPHEROCYTES SLIGHT
--- NOTE | 2017-03-04 11:18 | CP.PCM.DIS ---
Provider - Provider Date of Admission: 03/03/17 11:24 Attending physician: Amanda Arredondo MD Time Spent in preparation of Discharge (in minutes): 15 Hospital Course - Lab Results Lab Results: Most Recent Lab Values WBC 2.6 K/uL (4.8-10.8) L 03/04/17 05:15 RBC 4.75 Mil/uL (3.80-5.20) 03/04/17 05:15 Hgb 10.4 g/dL (12.0-16.0) L D 03/04/17 05:15 Hct 31.0 % (34.0-47.0) L 03/04/17 05:15 MCV 65.2 fl (81.0-99.0) L 03/04/17 05:15 MCH 21.9 pg (27.0-31.0) L 03/04/17 05:15 MCHC 33.6 g/dL (33.0-37.0) 03/04/17 05:15 RDW 19.9 % (11.5-14.5) H 03/04/17 05:15 Plt Count 195 K/uL (130-400) 03/04/17 05:15 MPV 9.3 fl (7.2-11.7) 03/04/17 05:15 Neut % (Auto) 42.5 % (50.0-75.0) L 03/04/17 05:15 Lymph % (Auto) 34.7 % (20.0-40.0) 03/04/17 05:15 [place] % (Auto) 17.1 % (0.0-10.0) H 03/04/17 05:15 Eos % (Auto) 5.0 % (0.0-4.0) H 03/04/17 05:15 Baso % (Auto) 0.7 % (0.0-2.0) 03/04/17 05:15 Neut # 1.1 K/uL (1.8-7.0) L 03/04/17 05:15 Lymph # 0.9 K/uL (1.0-4.3) L 03/04/17 05:15 [place] # 0.5 K/uL (0.0-0.8) 03/04/17 05:15 Eos # 0.1 K/uL (0.0-0.7) 03/04/17 05:15 Baso # 0.0 K/uL (0.0-0.2) 03/04/17 05:15 Neutrophils % (Manual) 30 % (42-75) L 03/04/17 05:15 Band Neutrophils % 6 % (0-2) H 03/04/17 05:15 Lymphocytes % (Manual) 40 % (20-50) 03/04/17 05:15 Monocytes % (Manual) 17 % (0-10) H 03/04/17 05:15 Eosinophils % (Manual) 7 % (0-7) 03/04/17 05:15 Platelet Estimate Normal (NORMAL) 03/04/17 05:15 Large Platelets Present 03/04/17 05:15 Giant Platelets Present 03/04/17 05:15 Poikilocytosis (manual Slight 03/04/17 05:15 Anisocytosis (manual) Slight 03/04/17 05:15 Microcytosis (manual) Moderate 03/04/17 05:15 Spherocytes Slight 03/04/17 05:15 PT 10.6 SECONDS (9.6-11.2) 03/03/17 06:45 INR 1.02 (0.92-1.08) 03/03/17 06:45 APTT 21.6 SECONDS (23.3-32.5) L 03/03/17 06:45 Sodium 131 mmol/l (132-148) L 03/04/17 05:15 Potassium 4.1 MMOL/L (3.6-5.0) 03/04/17 05:15 Chloride 98 mmol/L (98-107) 03/04/17 05:15 Carbon Dioxide 29 mmol/L (22-30) 03/04/17 05:15 Anion Gap 8 (10-20) L 03/04/17 05:15 BUN 12 mg/dl (7-17) 03/04/17 05:15 Creatinine 0.6 mg/dL (0.7-1.2) L 03/04/17 05:15 Est GFR ( Amer) > 60 03/04/17 05:15 Est GFR (Non-Af Amer) > 60 03/04/17 05:15 POC Glucose (mg/dL) 103 mg/dL (65-110) 03/03/17 07:39 Random Glucose 95 mg/dL (65-105) 03/04/17 05:15 Lactic Acid 0.9 MMOL/L (0.7-2.1) 03/04/17 05:15 Calcium 9.0 mg/dL (8.4-10.2) 03/04/17 05:15 Total Bilirubin 0.9 mg/dl (0.2-1.3) 03/04/17 05:15 AST 39 U/L (14-36) H D 03/04/17 05:15 ALT 60 U/L (9-52) H D 03/04/17 05:15 Alkaline Phosphatase 83 U/L (38-126) 03/04/17 05:15 Total Protein 6.2 G/DL (6.3-8.2) L 03/04/17 05:15 Albumin 2.7 g/dL (3.5-5.0) L D 03/04/17 05:15 Globulin 3.5 gm/dL (2.2-3.9) 03/04/17 05:15 Albumin/Globulin Ratio 0.8 (1.0-2.1) L 03/04/17 05:15 Lipase 57 U/L (23-300) 03/03/17 06:45 Urine Color Yellow (YELLOW) 03/03/17 11:04 Urine Clarity Clear (Clear) 03/03/17 11:04 Urine pH 6.0 (5.0-8.0) 03/03/17 11:04 Ur Specific [place] 1.010 (1.003-1.030) 03/03/17 11:04 Urine Protein Negative mg/dL (NEGATIVE) 03/03/17 11:04 Urine Glucose (UA) Neg mg/dL (Normal) 03/03/17 11:04 Urine Ketones Negative mg/dL (NEGATIVE) 03/03/17 11:04 Urine Blood Negative (NEGATIVE) 03/03/17 11:04 Urine Nitrate Negative (NEGATIVE) 03/03/17 11:04 Urine Bilirubin Negative (NEGATIVE) 03/03/17 11:04 Urine Urobilinogen 0.2-1.0 mg/dL (0.2-1.0) 03/03/17 11:04 Ur Leukocyte Esterase Neg [place]/uL (Negative) 03/03/17 11:04 Urine RBC (Auto) 8 /hpf (0-3) H 03/03/17 11:04 Urine Microscopic WBC 1 /hpf (0-5) 03/03/17 11:04 Ur Squamous Epith Cells < 1 /hpf (0-5) 03/03/17 11:04 Urine Bacteria Rare (<OCC) 03/03/17 11:04 Discharge Exam - Head Exam Head Exam: NORMOCEPHALIC Discharge Plan - Discharge Medications Prescriptions: Ciprofloxacin HCl [Cipro] 500 mg PO BID #14 tablet Famotidine [Pepcid] 20 mg PO BID #14 tab Metronidazole [Flagyl] 500 mg PO Q8 #21 tablet Ondansetron ODT [Zofran ODT] 4 mg PO Q8 #10 odt oxyCODONE/Acetaminophen [Percocet 5/325 mg Tab] 1 tab PO Q4 PRN #10 tab PRN Reason: pain - Follow Up Plan Condition: STABLE Disposition: HOME/ ROUTINE Additional Instructions: cleared by gi. kulwant po. afebrile. no f/c, n/v/d final dx-colitits, lymphoma
[2017-03-04 12:45] VITALS: BP 141/77; PULSE 70; TEMP 97.8
[2017-03-04 15:09] VITALS: BMI 30.4
[2017-03-04 15:38] VITALS: O2SAT 100
== END 2017-03-04 13:30 | disposition home or self-care (01) ==
LOC: H.ER 06:09 → H.ERHOLD 11:24 → H.TEL 12:59
PROVIDERS: ADMIT Family Medicine; ATTEND Family Medicine
DX: K52.9 Noninfective gastroenteritis and colitis, unspecified (principal); K57.30 Diverticulosis of large intestine without perforation or abscess without bleeding; K29.70 Gastritis, unspecified, without bleeding; C85.90 Non-Hodgkin lymphoma, unspecified, unspecified site; G35 Multiple sclerosis; G70.00 Myasthenia gravis without (acute) exacerbation; Z85.830 Personal history of malignant neoplasm of bone; Z88.0 Allergy status to penicillin; Z88.6 Allergy status to analgesic agent; Z87.442 Personal history of urinary calculi
CPT/HCPCS: 36415; 74022; 74177; 80053; 81003; 82948; 83605; 83690; 85025; 85610; 85730; 93005; 96365; 96366; 96367; 96368; 96375; 96376; 97116; 97161; 99284; C9113; G0378; G8978; G8979; J0744; J1885; J2270; J7040; Q9967

== ENCOUNTER 2017-05-05 10:14 | Inpatient (IN) | payer MEDICARE ==
[2017-05-05 10:14] VITALS: BMI 30.4
--- NOTE | 2017-05-05 11:15 | ED PDOC ---
Syncope/Near Syncope/Dizziness Time Seen by Provider: 05/05/17 10:43 Chief Complaint (Nursing): Syncope Chief Complaint (Provider): Syncope History Per: Patient History/Exam Limitations: no limitations Onset/Duration Of Symptoms: Mins (prior to arrival ) Current Symptoms Are (Timing): Still Present Activity At Onset Of Symptoms: Standing Fall Associated With With Symptoms: Yes Additional Complaint(s): Wandy Carlin is a 67 year old female, with a past medical history of lymphoma , who presents to the emergency department via EMS due to a syncope episode she sustained prior to arrival. Patient was at a radiology office where she was scheduled for a PET scan but refused due to not feeling well. She passed out according to witnesses but she doesn't remember doing so. She reports generalized weakness and chills for x2 days but denies any headache, cough, vomit, and diarrhea. She reports her last round of chemotherapy for her lymphoma was last week. PMD: None provided Past Medical History Reviewed: Historical Data, Nursing Documentation, Vital Signs - Medical History PMH: Kidney Stones, Malignancy (bone), Multiple Sclerosis, Chronic Kidney Disease Other PMH: lymphoma - Surgical History Surgical History: Appendectomy, Cholecystectomy - Family History Family History: States: No Known Family Hx - Home Medications Home Medications: Ambulatory Orders Medication Instructions Recorded Ondansetron ODT [Zofran ODT] 4 mg PO Q8 PRN 05/05/17 Prednisone [Deltasone] 20 mg PO TID 05/05/17 - Allergies Allergies/Adverse Reactions: Allergies Allergy/AdvReac Type Severity Reaction Status Date / Time codeine Allergy RASH Verified 02/11/17 03:06 Penicillins Allergy RASH Verified 02/11/17 03:06 Review of Systems ROS Statement: Except As Marked, All Systems Reviewed And Found Negative Constitutional: Positive for: Chills, Weakness (generalized) Respiratory: Negative for: Cough Gastrointestinal: Negative for: Nausea, Vomiting Neurological: Positive for: Other (syncope ). Negative for: Headache Physical Exam - Reviewed Nursing Documentation Reviewed: Yes Vital Signs Reviewed: Yes - Physical Exam Appears: Positive for: Non-toxic, No Acute Distress. Negative for: Well ( fatigued) Head Exam: Positive for: ATRAUMATIC, NORMAL INSPECTION, NORMOCEPHALIC Skin: Positive for: Normal Color, Warm, Dry Eye Exam: Positive for: Normal appearance, EOMI, PERRL. Negative for: Nystagmus ENT: Positive for: Normal ENT Inspection Neck: Positive for: Normal, Painless ROM, Supple Cardiovascular/Chest: Positive for: Murmur Respiratory: Positive for: Normal Breath Sounds Gastrointestinal/Abdominal: Positive for: Normal Exam, Bowel Sounds, Soft. 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 - Radiology X-Ray: Read By Radiologist (No active disease. No significant interval change compared to the prior examination(s).) - CT Scan/US CT head Other Rad Studies (CT/US): Radiology Report Reviewed (No acute intracranial abnormality. 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 Mild age-related global parenchymal volume loss.) - Critical Care Total Time (In Min): 60 Medical Decision Making Medical Decision Making: Initial Impression: Syncope Initial Plan: --VBG Shock Panel --Head CT w/o Contrast --EKG --Troponin I --Urine dipstick --Labs --PTT --PT --CXR --Tylenol 650mg PO --Motrin 600 mg PO --Merrem IV 1gm --IV NS 1000 mls/hr --Urinalysis --blood culture --urine culture --Reevaluation 11:20 Spoke to Saira @ [facility] ([phone]) who witnessed syncopal episode. States pt refused PET scan because she did not feel well, was standing when she lost consciousness but was caught by bystanders, no head injury, LOC X 2 seconds, no seizure-like activity, no postictal state. 12:26 Upon provider reevaluation patient states he feels much better. 14:00 Pt c/o L rib pain at CT suite. Pt nontender on exam, states this pain is typical of her chemo pain, intermittent, occurs at different places on her body and then resolves on its own. 14:53 CT head FINDINGS: HEMORRHAGE: No intracranial hemorrhage. BRAIN: There are old lacunar infarctions in the left marinelli radiata and basal ganglia. Diaz-white matter differentiation is preserved. There is no mass, mass effect or abnormal extra-axial fluid collection. VENTRICLES: There is mild age-related global parenchymal volume loss and proportionate enlargement of the ventricles and cortical sulci. CALVARIUM: The skull base and calvarium are normal. There is hyperostosis frontalis interna. PARANASAL SINUSES: Predominantly clear. MASTOID AIR CELLS: Predominantly clear. OTHER FINDINGS: None. IMPRESSION: No acute intracranial abnormality. 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 Mild age-related global parenchymal volume loss. 16:00 Pt with second line placed, systolic BP 75 --> 129/93, AAOX3. Case discussed with Dr. Gama, admit to ICU. Scribe Attestation: Documented by Laurie Russo, acting as a scribe for Laurie Rouse MD. Provider Scribe Attestation: All medical record entries made by the Scribe were at my direction and personally dictated by me. I have reviewed the chart and agree that the record accurately reflects my personal performance of the history, physical exam, medical decision making, and the department course for this patient. I have also personally directed, reviewed, and agree with the discharge instructions and disposition. Disposition - Clinical Impression Clinical Impression: Syncope, Neutropenic fever - Patient ED Disposition Is Patient to be Admitted: Yes - Disposition Disposition Time: 16:30 Condition: GUARDED - Pt Status Changed To: Hospital Disposition Of: Inpatient - Admit Certification Admit to Inpatient:: After my assessment, the patient will require hospitalization for at least two midnights. This is because of the severity of symptoms shown, intensity of services needed, and/or the medical risk in this patient being treated as an outpatient. - POA Present On Arrival: None
[2017-05-05] MEDS ORDERED: Sodium Chloride 0.9% 1,000 ML IV STA ×4 (11:17→15:49)
[2017-05-05] MEDS ORDERED: Meropenem 1 GM in Sodium Chloride 0.9% 100 ML IVPB STA (11:24)
[2017-05-05] MEDS ORDERED: levoFLOXacin 750 mg in D5W 150 ML BAG IVPB STA (11:42)
[2017-05-05] MEDS ORDERED: Aztreonam 2 GM in Sodium Chloride 0.9% 100 ML IVPB STA (11:43)
[2017-05-05 11:45] LABS: BASO % 0.1 % (0.0-2.0); EOS % 5.1 % (0.0-4.0); HEMOGLOBIN 11.2 g/dL (12.0-16.0); LYMPH # 0.3 K/uL (1.0-4.3); LYMPH % 76.1 % (20.0-40.0); MEAN CELL VOLUME 72.6 fl (81.0-99.0); MEAN PLATELET VOLUME 8.9 fl (7.2-11.7); MONO # 0.1 K/uL (0.0-0.8); MONO % 12.2 % (0.0-10.0); NEUT % 6.5 % (50.0-75.0); NRBC % 0.5 % (0.0-0.0); PLATELET COUNT 169 K/uL (130-400); RBC 4.67 Mil/uL (3.80-5.20); RED CELL DISTRIBUTION WIDTH 22.8 % (11.5-14.5)
[2017-05-05] MEDS ORDERED: levoFLOXacin 750 mg in D5W 750 MG/150 ML BAG IVPB ONE ×2 (11:45→13:38)
[2017-05-05 12:08] LABS: ALBUMIN 3.6 g/dL (3.5-5.0); ALT/SGPT 25 U/L (9-52); AST/SGOT 31 U/L (14-36); BLOOD UREA NITROGEN 19 mg/dl (7-17); CALCIUM 10.2 mg/dL (8.4-10.2); GFR AFRICAN-AMERICAN > 60; GFR NON-AFRICAN AMERICAN > 60
[2017-05-05 12:10] LABS: INR 1.1 (0.9-1.2); PARTIAL THROMBOPLASTIN TIME 22.3 Seconds (25.6-37.1); PROTHROMBIN TIME 12.6 Seconds (9.8-13.1); WHITE BLOOD COUNT 0.4 K/uL (4.8-10.8)
[2017-05-05 12:21] LABS: VENOUS BLOOD GAS PCO2 40 mmHg (40-60); VENOUS BLOOD GAS PO2 14 mm/Hg (30-55); VENOUS BLOOD PH 7.43 (7.32-7.43)
--- NOTE | 2017-05-05 12:32 | RAD ---
HISTORY: Syncope COMPARISON: 03/03/2017. FINDINGS: LUNGS: No active pulmonary disease. PLEURA: No significant pleural effusion identified, no pneumothorax apparent. CARDIOVASCULAR: No radiographic findings to suggest acute or significant cardiovascular disease. Incidental Finding(s): Postoperative changes related to sternotomy. Venous access catheter in stable, satisfactory position. OSSEOUS STRUCTURES: No significant abnormalities. VISUALIZED UPPER ABDOMEN: Normal. OTHER FINDINGS: None. IMPRESSION: No active disease. No significant interval change compared to the prior examination(s).
[2017-05-05 12:40] LABS: ANISOCYTOSIS MODERATE; HYPOCHROMIC SLIGHT; LYMPHOCYTE 85 % (20-50); MICROCYTOSIS SLIGHT; MONOCYTE 10 % (0-10); NEUTROPHIL 5 % (42-75); PLATELET ESTIMATE NORMAL (NORMAL); TOTAL CELLS COUNTED 100
--- NOTE | 2017-05-05 14:55 | CT ---
PROCEDURE: CT HEAD WITHOUT CONTRAST. HISTORY: Syncope COMPARISON: None available. TECHNIQUE: Axial computed tomography images were obtained through the head/brain without intravenous contrast. Radiation dose: Total exam DLP = 968.88 mGy-cm. This CT exam was performed using one or more of the following dose reduction techniques: Automated exposure control, adjustment of the mA and/or kV according to patient size, and/or use of iterative reconstruction technique. FINDINGS: HEMORRHAGE: No intracranial hemorrhage. BRAIN: There are old lacunar infarctions in the left marinelli radiata and basal ganglia. Diaz-white matter differentiation is preserved. There is no mass, mass effect or abnormal extra-axial fluid collection. VENTRICLES: There is mild age-related global parenchymal volume loss and proportionate enlargement of the ventricles and cortical sulci. CALVARIUM: The skull base and calvarium are normal. There is hyperostosis frontalis interna. PARANASAL SINUSES: Predominantly clear. MASTOID AIR CELLS: Predominantly clear. OTHER FINDINGS: None. IMPRESSION: No acute intracranial abnormality. 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 Mild age-related global parenchymal volume loss.
[2017-05-05 15:58] LABS: VENOUS BLOOD GAS BASE EXCESS -4.8 mmol/L (0.0-2.0); VENOUS BLOOD GAS PCO2 41 mmHg (40-60); VENOUS BLOOD GAS PO2 12 mm/Hg (30-55); VENOUS BLOOD PH 7.32 (7.32-7.43)
[2017-05-05 16:45] LABS: URINE BACTERIA FEW (<OCC); URINE BILIRUBIN NEGATIVE (NEGATIVE); URINE BLOOD NEGATIVE (NEGATIVE); URINE CLARITY SLIGHTY-CLOUDY (Clear); URINE COLOR YELLOW (YELLOW); URINE GLUCOSE (UA) NEG (Normal); URINE LEUKOCYTE ESTERASE NEG Leu/uL (Negative); URINE NITRATE NEGATIVE (NEGATIVE); URINE PROTEIN NEGATIVE (NEGATIVE); URINE UROBILINOGEN 0.2-1.0 mg/dL (0.2-1.0)
[2017-05-05] MEDS ORDERED: Iohexol 240 (50 ml) PO ONE (17:25)
--- NOTE | 2017-05-05 18:03 | CARD ---
APPROVED REPORT EKG Measurement Heart [id number] <Conclusion> Normal sinus rhythm Moderate voltage criteria for LVH, may be normal variant Nonspecific ST abnormality Abnormal ECG
--- NOTE | 2017-05-05 18:21 | CP.CCUPN ---
CCU Subjective - Physician Review Subjective (Free Text): Consult for ICU admission and management: 67F with PMH Lymphoma on Chemotx since January 2017- ( unknown Lymphoma type and unknown Chemotx meds, sees Dr. Juarez at [facility] [place]) admitted today with c/o fevers/ chills and had a syncopal episode at PET scan radiology center. No seizure activity noted, caught before falling to floor. Initial eval in ER noted to have neutropenia with 0.4 WBC, ANC= 26, and fever to 103F. Was not hypotensive, but later BP fell to 702 systolic and given 2 L fluid challenge and BP improved to 120s systolic. She is alert, and oriented x3. She denies any diaphoresis, n/v, diarrhea, abd pain, chest pain, SOB, cough, dizziness, focal weakness, neck pain, photophobia, recent travel, no insect bites, no dysuria, no jaw pain, no recent dental work or gum pain. Last course of Chemo is this week, and has been on a Neulasta patch and c/o pain over the site of patch application near left lower ribs. She admits to thirst, but states she has been fasting for the PET scan study. Allergies: Penicillin , Codeine Home Meds: Zofran ODT, prednisone PMSFH: Myasthenia gravis with Thymectomy, Inclusion Body Myositis; Kidney stones, Diverticulosis, R axillary lymph node resection January 2017. All other nursing and physician documentation for this admission reviewed, no new pertinent info relevant to current medical problems noted. VS: 122/66, HR 100 sinus, RR 24, T= 103F, SPO2 96% on nasal cannula CCU Objective - Physical Exam Head: Positive for: Normocephalic Pupils: Positive for: PERRL Extroacular Muscles: Positive for: EOMI Conjunctiva: Positive for: Normal Ears: Positive for: Normal Mouth: Positive for: Dry Pharnyx: Positive for: Normal. Negative for: EXUDATE Nose (External): Positive for: Atraumatic Nose (Internal): Positive for: Normal Inspection Neck: Positive for: Normal Range of Motion. Negative for: Meningeal Signs, JVD , Lymphadenopathy, Bruit Respiratory/Chest: Positive for: Clear to Auscultation. Negative for: Wheezes, Rhonchi Cardiovascular: Positive for: Regular Rate and Rhythm, Murmurs (+2/6 apical Systolic Murmur, no radiation. ). Negative for: Rub Abdomen: Positive for: Normal Bowel Sounds. Negative for: Tenderness, Distention, Guarding Breast/Axillary: Negative for: Axillary Lymphad, Fluctuance, Masses, Nipple Discharge, Tender to Palpation Lower Extremity: Positive for: Normal Inspection, NORMAL PULSES. Negative for: Edema, CALF TENDERNESS, Cyanosis Neurological: Positive for: GCS=15, Motor Func Grossly Intact, Normal Sensory Function Skin: Positive for: Warm, Other (Skin over R upper chest Port intact, no erythema or tenderness). Negative for: Rashes - Medications Active Medications: Active Medications Generic Name Dose Route Start Last Admin Trade Name Freq PRN Reason Stop Dose Admin Vancomycin HCl 1 gm/ Sodium 250 mls @ 250 mls/hr 05/05/17 18:00 Chloride IVPB Q12H LITO Micafungin Sodium 100 mg/ 100 mls @ 100 mls/hr 05/06/17 09:00 Sodium Chloride IVPB DAILY LITO - Patient Studies Radiology Interpretations (Free Text): 05/05/17 18:24 ( my interp) clear lung garza. Review of Systems - Review of Systems Review of Systems: as above, no other pertinent negs or positives on 10+ system review. Critical Care Progress Note - Extremities/Vascular Does the Patient have a Central Venous Catheter?: No Does the Patient need a Central Venous Catheter?: No Does the Patient have a Geiger Catheter?: Yes Does the Patient need a Geiger Catheter?: Yes Catheter Insertion Criteria: Need for accurate measurement of output in critically ill patient - Prophylaxis GI Prophylaxis GI: Not Indicated - Prophylaxis DVT Prophylaxis DVT: SCDs Assessment/Plan - Assessment and Plan (Free Text) Assessment: MAJOR PROBLEMS: 1. FUO with Neutropenic Sepsis with Shock state: etiology / source unclear. 2. Lymphoma under recent Chemo therapy Plan: PLANS / Recommendations: 1. Pancultures: especially blood cultures from R chest port, UA, Urine cultures. 2. Empiric abx against Gram +, Gram and antifungal coverage. 3. IVF hydration after fluid resuscitation. Has already rec'd 4 liters NSS, Norepinephrine if patient still hypotensive. 4. Continue Neulasta. 5. Serial Lactates till normalized. 6. CT AP with PO/ IV contrast, CT Chest with contrast. 7. Obtain available old medical records for more database information.
--- NOTE | 2017-05-05 19:03 | CP.PCM.CON ---
History of Present Illness - History of Present Illness History of Present Illness: Infectious Disease Consultation Note- Was asked to see this patient at the request of [employer] for sepsis, neutropenic fever. HPI- Patient is a 67 year old female with recent diagnosis of Lymphoma ( pt does not know what type) undergoing chemo , she finished her Last chemo 6th round this week and was at the PET scan center today when she had syncopal episode and hence was kathryn in by ambulance here. Pt. states she does not rememeber passing out but she states earlier in the day she felt chills . She was found to have fever of 103 in ED and was found to be neutropenic and hypotensive and received 4 Liters of IV fluids and received a dose of aztreonam , and levaquin in the ED. Pt. states her Last course of Chemo was this week, and has been on a Neulasta patch and c/o pain over the site of patch application near left lower ribs. Patch is off now. Pt. denies a ny mouth sores or any tooth or jaw pain, denies any sore throat, denies any cough, denies any sob, denies any chest pain, denies any abd. pain except left side of ther ib where she had her last neulasta patch, + chills, denies any dysurea, denies any diarrhea, denies any HOGAN. Allergies: Penicillin (rash only) Home Meds: Zofran ODT, prednisone PMSFH: Myasthenia gravis with Thymectomy, Inclusion Body Myositis; Kidney stones, Diverticulosis, R axillary lymph node resection January 2017. Review of Systems - Review of Systems Review of Systems: Pt. denies any mouth sores or any tooth or jaw pain, denies any sore throat, denies any cough, denies any sob, denies any chest pain, denies any abd. pain except left side of the rib where she had her last neulasta patch, + chills, denies any dysurea, denies any diarrhea, denies any HOGAN. denies any recent travel denies any sick contacts states has one cat at home Past Patient History - Infectious Disease Hx of Infectious Diseases: None - Past Medical History & Family History Past Medical History?: Yes - Past Social History Smoking Status: Never Smoked Alcohol: None Drugs: Denies Home Situation {Lives}: Alone - CARDIAC Hx Cardiac Disorders: No - PULMONARY Hx Respiratory Disorders: No - NEUROLOGICAL Hx Neurological Disorder: No Other/Comment: Myasthenia gravis - HEENT Hx HEENT Problems: No - RENAL Hx Chronic Kidney Disease: No - ENDOCRINE/METABOLIC Hx Endocrine Disorders: No - HEMATOLOGICAL/ONCOLOGICAL Hx Blood Disorders: Yes Hx Chemotherapy: Yes Hx Lymphoma: Yes - INTEGUMENTARY Hx Dermatological Problems: No - MUSCULOSKELETAL/RHEUMATOLOGICAL Hx Falls: No Hx Myasthenia Gravis: Yes Other/Comment: inclusion body myositis - GASTROINTESTINAL Hx Gastrointestinal Disorders: No - GENITOURINARY/GYNECOLOGICAL Hx Genitourinary Disorders: No - PSYCHIATRIC Hx Psychophysiologic Disorder: No Hx Substance Use: No - SURGICAL HISTORY Hx Appendectomy: Yes Hx Cholecystectomy: Yes - ANESTHESIA Hx Anesthesia: Yes Hx Anesthesia Reactions: No Hx Malignant Hyperthermia: No Meds Allergies/Adverse Reactions: Allergies Allergy/AdvReac Type Severity Reaction Status Date / Time codeine Allergy RASH Verified 02/11/17 03:06 Penicillins Allergy RASH Verified 02/11/17 03:06 - Medications Medications: Current Medications Vancomycin HCl 1 gm/ Sodium (Chloride) 250 mls @ 250 mls/hr IVPB Q12H [facility] Micafungin Sodium 100 mg/ (Sodium Chloride) 100 mls @ 100 mls/hr IVPB DAILY [facility] Sodium Chloride (Sodium Chloride 0.9%) 1,000 mls @ 175 mls/hr IV .Q5H43M [facility] Stop: 05/06/17 18:32 Norepinephrine Bitartrate 4 mg (/ Dextrose) 254 mls @ 9.52 mls/hr IV .Q24H [facility] ; 2.5 MCG/MIN PRN Reason: Protocol Ibuprofen (Motrin Tab) 600 mg PO Q6 PRN PRN Reason: Fever >100.4 F Physical Exam - Constitutional Appears: No Acute Distress - Head Exam Head Exam: ATRAUMATIC - Eye Exam Eye Exam: EOMI, PERRL - ENT Exam Additional comments: no lesions, dry oral mucosa - Neck Exam Neck exam: Positive for: Full Rom Additional comments: supple - Respiratory Exam Additional comments: slightly tachypneic no wheezing Left base crackles no rhonchi - Cardiovascular Exam Cardiovascular Exam: Tachycardia, +S1, +S2 Additional comments: 3/6 ejection murmur at LSB - GI/Abdominal Exam GI & Abdominal Exam: Normal Bowel Sounds, Soft Additional comments: No distention left rib region slightly tender No guarding, No rebound No CVA tenderness b/l - Neurological Exam Neurological exam: Alert, Oriented x3 - Skin Additional comments: echymosis on the left inner upper arm region Pt. states "this happened in the ED during venipuncture ", she denies any injury to the arm at home - Additional Findings Additional findings: right chest port site clean/dry/intact no tenderness, no erythema Results - Vital Signs Recent Vital Signs: Last Vital Signs Temp 102 F H 05/05/17 18:28 Pulse 111 H 05/05/17 18:28 Resp 22 05/05/17 18:28 BP 154/108 H 05/05/17 18:28 Pulse Ox 96 05/05/17 18:28 - Labs Result Diagrams: 05/05/17 11:30 05/05/17 11:30 Labs: Laboratory Results - last 72 hr 05/05/17 05/05/17 05/05/17 11:30 11:30 11:30 WBC 0.4 L* D RBC 4.67 Hgb 11.2 L Hct 33.9 L MCV 72.6 L D MCH 24.0 L MCHC 33.0 RDW 22.8 H Plt Count 169 MPV 8.9 Neut % (Auto) 6.5 L Lymph % (Auto) 76.1 H [place] % (Auto) 12.2 H Eos % (Auto) 5.1 H Baso % (Auto) 0.1 Neut # 0.0 L Lymph # 0.3 L [place] # 0.1 Eos # 0.0 Baso # 0.0 Neutrophils % (Manual) 5 L Lymphocytes % (Manual) 85 H Monocytes % (Manual) 10 Platelet Estimate Normal Hypochromasia (manual) Slight Anisocytosis (manual) Moderate Microcytosis (manual) Slight PT 12.6 INR 1.1 APTT 22.3 L pO2 VBG pH VBG pCO2 VBG HCO3 VBG Total CO2 VBG O2 Sat (Calc) VBG Base Excess VBG Potassium Glucose Lactate FiO2 Blood Gas Comments Crit Value Called To Crit Value Called By Crit Value Read Back Blood Gas Notified Time Sodium 135 Potassium 4.0 Chloride 101 Carbon Dioxide 23 Anion Gap 16 BUN 19 H Creatinine 0.7 Est GFR ( Amer) > 60 Est GFR (Non-Af Amer) > 60 Random Glucose 123 H Calcium 10.2 Total Bilirubin 1.0 AST 31 ALT 25 Alkaline Phosphatase 57 Troponin I 0.0320 Total Protein 7.0 Albumin 3.6 Globulin 3.4 Albumin/Globulin Ratio 1.0 Venous Blood Potassium Urine Color Urine Clarity Urine pH Ur Specific [place] Urine Protein Urine Glucose (UA) Urine Ketones Urine Blood Urine Nitrate Urine Bilirubin Urine Urobilinogen Ur Leukocyte Esterase Urine RBC (Auto) Urine Microscopic WBC Urine Bacteria Hyaline Casts 05/05/17 05/05/17 05/05/17 11:52 15:52 18:45 WBC RBC Hgb Hct MCV MCH MCHC RDW Plt Count MPV Neut % (Auto) Lymph % (Auto) [place] % (Auto) Eos % (Auto) Baso % (Auto) Neut # Lymph # [place] # Eos # Baso # Neutrophils % (Manual) Lymphocytes % (Manual) Monocytes % (Manual) Platelet Estimate Hypochromasia (manual) Anisocytosis (manual) Microcytosis (manual) PT INR APTT pO2 14 L 12 L VBG pH 7.43 7.32 VBG pCO2 40 41 VBG HCO3 24.3 18.8 VBG Total CO2 27.7 22.4 VBG O2 Sat (Calc) 21.4 L 15.2 L VBG Base Excess 2.0 -4.8 L VBG Potassium 3.4 L 4.2 Glucose 100 103 Lactate 3.8 H 7.3 H* FiO2 21.0 21.0 Blood Gas Comments Lactate 3.8 Lactate 7.3 Crit Value Called To urmial Bowling linda Crit Value Called By 203 203 Crit Value Read Back Y Y Blood Gas Notified Time 1218 1558 Sodium 135.0 136.0 Potassium Chloride 103.0 104.0 Carbon Dioxide Anion Gap BUN Creatinine Est GFR ( Amer) Est GFR (Non-Af Amer) Random Glucose Calcium Total Bilirubin AST ALT Alkaline Phosphatase Troponin I Total Protein Albumin Globulin Albumin/Globulin Ratio Venous Blood Potassium 3.4 L 4.2 Urine Color Yellow Urine Clarity Slighty-cloudy Urine pH 5.0 Ur Specific [place] 1.015 Urine Protein Negative Urine Glucose (UA) Neg Urine Ketones Negative Urine Blood Negative Urine Nitrate Negative Urine Bilirubin Negative Urine Urobilinogen 0.2-1.0 Ur Leukocyte Esterase Neg Urine RBC (Auto) 2 Urine Microscopic WBC 2 Urine Bacteria Few H Hyaline Casts 6-10 H Accession No. : [id number] Patient Name / ID : ANNIE MEDINA / [id number] Exam Date : 05/05/2017 14:23:12 ( Approved ) Study Comment : Sex / Age : F / 67Y Creator : TRACY ESPARZA MD Dictator : TRACY ESPARZA MD Medicaid Collection Specialist : Rice Drier : TRACY ESPARZA MD Approver2 : Report Date : 05/05/2017 14:53:03 My Comment : PROCEDURE: CT HEAD WITHOUT CONTRAST. HISTORY: Syncope COMPARISON: None available. TECHNIQUE: Axial computed tomography images were obtained through the head/brain without intravenous contrast. Radiation dose: Total exam DLP = 968.88 mGy-cm. This CT exam was performed using one or more of the following dose reduction techniques: Automated exposure control, adjustment of the mA and/or kV according to patient size, and/or use of iterative reconstruction technique. FINDINGS: HEMORRHAGE: No intracranial hemorrhage. BRAIN: There are old lacunar infarctions in the left marinelli radiata and basal ganglia. Diaz-white matter differentiation is preserved. There is no mass, mass effect or abnormal extra-axial fluid collection. VENTRICLES: There is mild age-related global parenchymal volume loss and proportionate enlargement of the ventricles and cortical sulci. CALVARIUM: The skull base and calvarium are normal. There is hyperostosis frontalis interna. PARANASAL SINUSES: Predominantly clear. MASTOID AIR CELLS: Predominantly clear. OTHER FINDINGS: None. IMPRESSION: No acute intracranial abnormality. 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 Mild age-related global parenchymal volume loss. Accession No. : [id number] Patient Name / ID : ANNIE MEDINA / [id number] Exam Date : 05/05/2017 11:30:55 ( Approved ) Study Comment : Sex / Age : F / 67Y Creator : Alec Estrella MD Dictator : Alec Estrella MD Medicaid Collection Specialist : Rice Drier : Alec Estrella MD Approver2 : Report Date : 05/05/2017 12:30:46 My Comment : HISTORY: Syncope COMPARISON: 03/03/2017. FINDINGS: LUNGS: No active pulmonary disease. PLEURA: No significant pleural effusion identified, no pneumothorax apparent. CARDIOVASCULAR: No radiographic findings to suggest acute or significant cardiovascular disease. Incidental Finding(s): Postoperative changes related to sternotomy. Venous access catheter in stable, satisfactory position. OSSEOUS STRUCTURES: No significant abnormalities. VISUALIZED UPPER ABDOMEN: Normal. OTHER FINDINGS: None. IMPRESSION: No active disease. No significant interval change compared to the prior examination(s). Assessment & Plan (1) Neutropenic fever Status: Acute (2) Syncope Status: Acute - Assessment and Plan (Free Text) Assessment: A/P- 67 year old female with newly diagnosed lymphoma in 01/2017 undergoing chemotherpay which was finished this week admitted post syncopal episode and found to be in neutropenic fever, hypotensive and tachycardic. All the pertinent labs, images , notes and med records from previous admission reviewed. 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 is septic based on criteria, however source of sepsis is unclear at this time. cxr clear, brain Ct no acute events as per radiologist' report. Plan- in light of the high lactate and the left sided rib/abd pain advise to check abd /pelvic ct. check blood cx 2 sets both from port and from peripheral. check UA and urine cx, check TTE r/o any vegetations ( she has loud murmur). check chest CT. place on broad spectrum antibiotics for neutropenic fever and antifungal. Hence start IV micafungin. Start Iv vancomycin . keep trough <15. In light of ? PCN allergy advise to start pt. on IV aztreonam and IV levaquin to be continued for double gram neg coverage. monitor temps and ANC carefully. if patient develops any change in mental status or if all other sources are negative may need LP as well. All above d/w patient at length and she verbalizes full understanding of all above. All above also d/w [employer] . Thank you for allowing met o take part in the care of this patient. ICu time 75 minutes.
[2017-05-05] MEDS: Sodium Chloride 0.9% 1,000 ML IV SCH (19:15)
[2017-05-05] MEDS: Aztreonam 1 GM in Sodium Chloride 0.9% 100 ML IVPB SCH (21:32)
--- NOTE | 2017-05-05 21:53 | CP.CCUPN ---
CCU Subjective - Physician Review Events Since Last Encounter (Free Text): 05/05/17 21:40 Called to evaluate patient with excessive shivering whose Systolic blood pressure decreased to 53mmHg with Heart Rate of 80 and SpO2 of 100% on Mechanical ventilator with settings of AC 16; TV 550; PEEP of 5 and fiO2 of 50. on Propofol and Versed drips. Exam: Temperature 36.4F; desk monitor with Sinus Rhythm at 80/min Resp: Mild diffuse rales at both lung garza CVS: S1 S2 regular Abd: Obese, soft, no bowel sounds Ext: no edema Neuro: Sedated and Intubated A&P #. s/p Cardiac Arrest - Hypothermic Therapy protocol #. Hypotension - IV Fluid Normal Saline 1 Liter bolus stat - PEEP of 5 discontinued - Propofol decreased and stopped - Versed reduced At this time patient began to become restless - Ativan 2mg given IV push - Levophed started at 20mcg/min and titrate Not much improvement in Blood pressure initially - Demerol 50mg IV for Tremors from the chill, improved shivering - Jakob-Synephrine IV drip ordered The Blood pressure improved to a Systolic above 100mmHg before the Jakob- Synephrine was started - The Propoful and Versed will be titrated back up slowly to sedation Total Critical care time 35 minutes The family was present 05/05/17 21:54 05/05/17 22:01 CCU Objective - Vital Signs / Intake & Output Vital Signs (Last 4 hours): Vital Signs Temp Pulse Resp BP Pulse Ox 05/05/17 19:19 93 L 05/05/17 18:28 102 F H 111 H 22 154/108 H 96 05/05/17 18:15 100 F H 115 H 22 89/34 L 90 L 05/05/17 17:45 102 F H 105 H 22 147/44 L Intake and Output (Last 8hrs): Intake & Output 05/05/17 05/05/17 05/05/17 06:59 14:59 22:59 Intake Total 0 Balance 0 Intake: IV 0 - Physical Exam Head: Positive for: Normocephalic Pupils: Positive for: PERRL Extroacular Muscles: Positive for: EOMI Conjunctiva: Positive for: Normal Ears: Positive for: Normal Mouth: Positive for: Dry Pharnyx: Positive for: Normal. Negative for: EXUDATE Nose (External): Positive for: Atraumatic Nose (Internal): Positive for: Normal Inspection Neck: Positive for: Normal Range of Motion. Negative for: Meningeal Signs, JVD , Lymphadenopathy, Bruit Respiratory/Chest: Positive for: Clear to Auscultation. Negative for: Wheezes, Rhonchi Cardiovascular: Positive for: Regular Rate and Rhythm, Murmurs (+2/6 apical Systolic Murmur, no radiation. ). Negative for: Rub Abdomen: Positive for: Normal Bowel Sounds. Negative for: Tenderness, Distention, Guarding Breast/Axillary: Negative for: Axillary Lymphad, Fluctuance, Masses, Nipple Discharge, Tender to Palpation Lower Extremity: Positive for: Normal Inspection, NORMAL PULSES. Negative for: Edema, CALF TENDERNESS, Cyanosis Neurological: Positive for: GCS=15, Motor Func Grossly Intact, Normal Sensory Function Skin: Positive for: Warm, Other (Skin over R upper chest Port intact, no erythema or tenderness). Negative for: Rashes - Medications Active Medications: Active Medications Generic Name Dose Route Start Last Admin Trade Name Freq PRN Reason Stop Dose Admin Vancomycin HCl 1 gm/ Sodium 250 mls @ 250 mls/hr 05/05/17 18:00 05/05/17 20: 09 Chloride IVPB 250 mls/hr Q12H [facility] Administration Micafungin Sodium 100 mg/ 100 mls @ 100 mls/hr 05/06/17 09:00 Sodium Chloride IVPB DAILY [facility] Sodium Chloride 1,000 mls @ 175 mls/hr 05/05/17 18:45 05/05/17 19:15 Sodium Chloride 0.9% IV 05/06/17 18:32 175 mls/hr .Q5H43M [facility] Administration Norepinephrine Bitartrate 4 mg 254 mls @ 9.52 mls/hr 05/05/17 18:45 05/05/17 20:54 / Dextrose IV 15 mcg/min .Q24H [facility] 57.15 mls/hr Protocol Titration 2.5 MCG/MIN Aztreonam 1 gm/ Sodium 100 mls @ 100 mls/hr 05/05/17 21:00 05/05/17 21:32 Chloride IVPB 100 mls/hr Q12 [facility] Administration Levofloxacin/Dextrose 750 mg in 150 mls @ 100 mls/hr 05/06/17 09:00 Levaquin 750mg IVPB DAILY [facility] Ibuprofen 600 mg 05/05/17 18:36 Motrin Tab PO Q6 PRN Fever >100.4 F - Patient Studies Lab Studies: Lab Studies 05/05/17 Range/Units 18:45 Urine Color Yellow (YELLOW) Urine Clarity Slighty-cloudy (Clear) Urine pH 5.0 (5.0-8.0) Ur Specific [place] 1.015 (1.003-1.030) Urine Protein Negative (NEGATIVE) mg/dL Urine Glucose (UA) Neg (Normal) mg/dL Urine Ketones Negative (NEGATIVE) mg/dL Urine Blood Negative (NEGATIVE) Urine Nitrate Negative (NEGATIVE) Urine Bilirubin Negative (NEGATIVE) Urine Urobilinogen 0.2-1.0 (0.2-1.0) mg/dL Ur Leukocyte Esterase Neg (Negative) Anna/uL Urine RBC (Auto) 2 (0-3) /hpf Urine Microscopic WBC 2 (0-5) /hpf Urine Bacteria Few H (<OCC) Hyaline Casts 6-10 H (0-2) /hpf Laboratory Results - last 24 hr 05/05/17 18:45 Urine Color Yellow Urine Clarity Slighty-cloudy Urine pH 5.0 Ur Specific [place] 1.015 Urine Protein Negative Urine Glucose (UA) Neg Urine Ketones Negative Urine Blood Negative Urine Nitrate Negative Urine Bilirubin Negative Urine Urobilinogen 0.2-1.0 Ur Leukocyte Esterase Neg Urine RBC (Auto) 2 Urine Microscopic WBC 2 Urine Bacteria Few H Hyaline Casts 6-10 H
[2017-05-05] MEDS ORDERED: Norepinephrine 16 MG in Dextrose 5% In Water 500 ML IV ONE (23:47)
[2017-05-06] MEDS: Sodium Chloride 0.9% 1,000 ML IV SCH ×2 (00:39→06:53)
[2017-05-06] MEDS ORDERED: Sodium Chloride 0.9% 50 ML IV ONE (04:17)
[2017-05-06] MEDS ORDERED: Iohexol 300 100 ML IJ ONE (04:17)
--- NOTE | 2017-05-06 06:04 | CT ---
EXAM: CT Chest With Intravenous Contrast CT Abdomen and Pelvis With Intravenous Contrast CLINICAL HISTORY: 67 years old, female; Signs and symptoms; Fever; Prior surgery; Surgery date: 6+ months; Surgery type: Thymectomy; Additional info: Fever of unkown orgin TECHNIQUE: Axial computed tomography images of the chest, abdomen and pelvis with intravenous contrast. This CT exam was performed using one or more of the following dose reduction techniques: automated exposure control, adjustment of the mA and/or kV according to patient size, and/or use of iterative reconstruction technique. Coronal and sagittal reformatted images were created and reviewed. CONTRAST: 95 mL of [id number] administered intravenously. COMPARISON: CT - ABD PELVIS IV CONTRAST ONLY 03/03/2017 9:16:57 AM FINDINGS: CHEST: Lungs: There is consolidation in the lingula with air bronchograms most suggestive of pneumonia. This could represent atelectasis however. Please correlate clinically. Pleural space: There is a small left pleural effusion which appears partially loculated. There is trace right effusion. Heart: Unremarkable. No cardiomegaly. No significant pericardial effusion. Thyroid: The thyroid gland is normal. ABDOMEN: Liver: There are no focal liver lesions present. Gallbladder and bile ducts: There has been a cholecystectomy. No ductal dilation. Pancreas: The pancreas is normal. No ductal dilation. Spleen: The spleen is normal. Adrenals: The adrenal glands are normal. Kidneys and ureters: A large left pleural pole renal cyst has enlarged currently measuring 5.7 CM previously 4.1 CM. There is no evidence of hydronephrosis. No solid mass. Stomach and bowel: There is suggestion of diffuse mild wall thickening. This could represent a mild colitis, versus underdistention.. Please correlate clinically. Stomach is decompressed. Moderate diverticulosis is present in the sigmoid and descending colon. There is no evidence of diverticulitis. There is no evidence of intestinal obstruction. Appendix: No findings to suggest acute appendicitis. PELVIS: Bladder: Bladder is decompressed around a Geiger catheter. Reproductive: The uterus is normal. CHEST, ABDOMEN and PELVIS: Intraperitoneal space: There is no evidence of free intraperitoneal fluid. There is no free intraperitoneal air. Bones/joints: There are sternal wires consistent with previous sternotomy incision. There are moderate degenerative changes present. There is moderate diffuse osteopenia. Soft tissues: Unremarkable. Vasculature: Abdominal aorta demonstrates moderate to severe atherosclerotic calcification without aneurysm. Lymph nodes: There is no axillary adenopathy. There are some top normal right axillary lymph nodes. There is no evidence of lymphadenopathy. Tubes, lines and devices: There is a right chemotherapy infusion port with catheter tip in the superior vena cava. IMPRESSION: 1. There is a small left pleural effusion which appears partially loculated. 2. There is consolidation in the lingula with air bronchograms most suggestive of pneumonia. This could represent atelectasis however. Please correlate clinically. 3. There is trace right effusion. 4. There is suggestion of diffuse mild wall thickening. This could represent a mild colitis, versus underdistention.. Please correlate clinically.
[2017-05-06 06:49] LABS: ALB/GLOB RATIO 0.9 (1.0-2.1); ALBUMIN 2.4 g/dL (3.5-5.0); ALT/SGPT 34 U/L (9-52); AST/SGOT 26 U/L (14-36); BLOOD UREA NITROGEN 18 mg/dl (7-17); GFR AFRICAN-AMERICAN > 60; GFR NON-AFRICAN AMERICAN > 60
[2017-05-06 07:07] LABS: BASO % 0.2 % (0.0-2.0); EOS % 2.9 % (0.0-4.0); HEMOGLOBIN 9.2 g/dL (12.0-16.0); LYMPH # 0.1 K/uL (1.0-4.3); LYMPH % 35.6 % (20.0-40.0); MEAN CELL VOLUME 73.3 fl (81.0-99.0); MEAN CORPUSCULAR HEMOGLOBIN 23.4 pg (27.0-31.0); MEAN CORPUSCULAR HGB CONC 31.9 g/dL (33.0-37.0); MEAN PLATELET VOLUME 8.6 fl (7.2-11.7); MONO # 0.1 K/uL (0.0-0.8); NEUT # 0.1 K/uL (1.8-7.0); NEUT % 29.3 % (50.0-75.0); NRBC % 0.3 % (0.0-0.0); RBC 3.93 Mil/uL (3.80-5.20); RED CELL DISTRIBUTION WIDTH 23.1 % (11.5-14.5)
[2017-05-06 07:23] LABS: WHITE BLOOD COUNT 0.3 K/uL (4.8-10.8)
[2017-05-06] MEDS: Aztreonam 1 GM in Sodium Chloride 0.9% 100 ML IVPB SCH ×2 (08:41→20:18)
[2017-05-06] MEDS: levoFLOXacin 750 mg in D5W 750 MG/150 ML BAG IVPB SCH (08:51)
--- NOTE | 2017-05-06 08:58 | CP.CCUPN ---
<Codey Frnaco - Last Filed: 05/06/17 12:51> CCU Subjective - Physician Review Subjective (Free Text): 05/06/17 11:35 67 YO F w/ h/o Hodkins Lymphoma, [employer] and myasthenia gravis is seen resting comfortably this morning. She appears to be doing much better then yesterday. Her pain on the left side of her ribs has subsided, is still present but much less then yesterday. She denies any chest pain, SOB, nausea or vomiting. She ate breakfast tolerated PO intake and is doing better. She states she has been having some numbess of her feet since last 2 weeks but denies any pain. - Dr. Juarez's office was contacted this morning to specify the type of lymphoma the patient has, they stated that she has non hodkins lymphoma and they will fax over the paperwork. 05/06/17 12:01 CCU Objective - Vital Signs / Intake & Output Vital Signs (Last 4 hours): Vital Signs Temp Pulse Resp BP Pulse Ox 05/06/17 08:00 98.6 F 79 22 124/58 L 99 05/06/17 07:00 98.6 F 95 H 12 105/67 96 05/06/17 06:21 99.2 F 05/06/17 06:00 102 H 27 H 104/49 L 97 05/06/17 05:21 101.8 F H 05/06/17 05:00 101.8 F H 95 H 18 142/64 97 Intake and Output (Last 8hrs): Intake & Output 05/05/17 05/06/17 05/06/17 22:59 06:59 14:59 Intake Total 463 2158 175 Output Total 700 600 Balance 463 2528 -425 Intake: IV 88 1908 175 Intake, Piggyback 350 Oral 25 250 Output: Urine 700 600 Urethral (Geiger) 700 600 Other: # Bowel Movements 1 - Physical Exam Head: Positive for: Normocephalic Pupils: Positive for: PERRL Extroacular Muscles: Positive for: EOMI Conjunctiva: Positive for: Normal Ears: Positive for: Normal Mouth: Positive for: Dry Pharnyx: Positive for: Normal. Negative for: EXUDATE Nose (External): Positive for: Atraumatic Nose (Internal): Positive for: Normal Inspection Neck: Positive for: Normal Range of Motion. Negative for: Meningeal Signs, JVD , Lymphadenopathy, Bruit Respiratory/Chest: Positive for: Clear to Auscultation. Negative for: Wheezes, Rhonchi Cardiovascular: Positive for: Regular Rate and Rhythm, Murmurs (+2/6 apical Systolic Murmur, no radiation. ). Negative for: Rub Abdomen: Positive for: Normal Bowel Sounds. Negative for: Tenderness, Distention, Guarding Breast/Axillary: Negative for: Axillary Lymphad, Fluctuance, Masses, Nipple Discharge, Tender to Palpation Lower Extremity: Positive for: Normal Inspection, NORMAL PULSES. Negative for: Edema, CALF TENDERNESS, Cyanosis Neurological: Positive for: GCS=15, Motor Func Grossly Intact, Normal Sensory Function Skin: Positive for: Warm, Other (Skin over R upper chest Port intact, no erythema or tenderness). Negative for: Rashes - Medications Active Medications: Active Medications Generic Name Dose Route Start Last Admin Trade Name Freq PRN Reason Stop Dose Admin Vancomycin HCl 1 gm/ Sodium 250 mls @ 250 mls/hr 05/05/17 18:00 05/06/17 05: 53 Chloride IVPB 250 mls/hr Q12H [facility] Administration Micafungin Sodium 100 mg/ 100 mls @ 100 mls/hr 05/06/17 09:00 Sodium Chloride IVPB DAILY L[facility]O Sodium Chloride 1,000 mls @ 175 mls/hr 05/05/17 18:45 05/06/17 06:53 Sodium Chloride 0.9% IV 05/06/17 18:32 175 mls/hr .[id number] L[facility]O Administration Norepinephrine Bitartrate 4 mg 254 mls @ 9.52 mls/hr 05/05/17 18:45 05/06/17 03:18 / Dextrose IV Infused .Q24H L[facility]O Titration Protocol 2.5 MCG/MIN Aztreonam 1 gm/ Sodium 100 mls @ 100 mls/hr 05/05/17 21:00 05/06/17 08:41 Chloride IVPB 100 mls/hr Q12 L[facility]O Administration Levofloxacin/Dextrose 750 mg in 150 mls @ 100 mls/hr 05/06/17 09:00 05/06/17 08:51 Levaquin 750mg IVPB 100 mls/hr DAILY L[facility]O Administration Ibuprofen 600 mg 05/05/17 18:36 05/06/17 05:21 Motrin Tab PO 600 mg Q6 PRN Administration Fever >100.4 F - Patient Studies Lab Studies: Lab Studies 05/06/17 05/06/17 05/06/17 Range/Units 05:45 05:45 05:45 WBC 0.3 L* (4.8-10.8) K/uL RBC 3.93 (3.80-5.20) Mil/uL Hgb 9.2 L D (12.0-16.0) g/dL Hct 28.8 L (34.0-47.0) % MCV 73.3 L (81.0-99.0) fl MCH 23.4 L (27.0-31.0) pg MCHC 31.9 L (33.0-37.0) g/dL RDW 23.1 H (11.5-14.5) % Plt Count 135 (130-400) K/uL MPV 8.6 (7.2-11.7) fl Neut % (Auto) 29.3 L (50.0-75.0) % Lymph % (Auto) 35.6 (20.0-40.0) % Fannin % (Auto) 32.0 H (0.0-10.0) % Eos % (Auto) 2.9 (0.0-4.0) % Baso % (Auto) 0.2 (0.0-2.0) % Neut # 0.1 L (1.8-7.0) K/uL Lymph # 0.1 L (1.0-4.3) K/uL Fannin # 0.1 (0.0-0.8) K/uL Eos # 0.0 (0.0-0.7) K/uL Baso # 0.0 (0.0-0.2) K/uL Sodium 135 (132-148) mmol/l Potassium 3.4 L (3.6-5.0) MMOL/L Chloride 108 H (98-107) mmol/L Carbon Dioxide 17 L (22-30) mmol/L Anion Gap 13 (10-20) BUN 18 H (7-17) mg/dl Creatinine 0.7 (0.7-1.2) mg/dL Est GFR ( Amer) > 60 Est GFR (Non-Af Amer) > 60 Random Glucose 103 (65-105) mg/dL Lactic Acid 4.0 H (0.7-2.1) MMOL/L Calcium 8.0 L (8.4-10.2) mg/dL Total Bilirubin 0.6 (0.2-1.3) mg/dl AST 26 (14-36) U/L ALT 34 (9-52) U/L Alkaline Phosphatase 39 (38-126) U/L Total Protein 5.2 L (6.3-8.2) G/DL Albumin 2.4 L D (3.5-5.0) g/dL Globulin 2.8 (2.2-3.9) gm/dL Albumin/Globulin Ratio 0.9 L (1.0-2.1) Urine Color (YELLOW) Urine Clarity (Clear) Urine pH (5.0-8.0) Ur Specific Jefferson (1.003-1.030) Urine Protein (NEGATIVE) mg/dL Urine Glucose (UA) (Normal) mg/dL Urine Ketones (NEGATIVE) mg/dL Urine Blood (NEGATIVE) Urine Nitrate (NEGATIVE) Urine Bilirubin (NEGATIVE) Urine Urobilinogen (0.2-1.0) mg/dL Ur Leukocyte Esterase (Negative) Anna/uL Urine RBC (Auto) (0-3) /hpf Urine Microscopic WBC (0-5) /hpf Urine Bacteria (<OCC) Hyaline Casts (0-2) /hpf /04/16 Range/Units 18:45 WBC (4.8-10.8) K/uL RBC (3.80-5.20) Mil/uL Hgb (12.0-16.0) g/dL Hct (34.0-47.0) % MCV (81.0-99.0) fl MCH (27.0-31.0) pg MCHC (33.0-37.0) g/dL RDW (11.5-14.5) % Plt Count (130-400) K/uL MPV (7.2-11.7) fl Neut % (Auto) (50.0-75.0) % Lymph % (Auto) (20.0-40.0) % Fannin % (Auto) (0.0-10.0) % Eos % (Auto) (0.0-4.0) % Baso % (Auto) (0.0-2.0) % Neut # (1.8-7.0) K/uL Lymph # (1.0-4.3) K/uL Fannin # (0.0-0.8) K/uL Eos # (0.0-0.7) K/uL Baso # (0.0-0.2) K/uL Sodium (132-148) mmol/l Potassium (3.6-5.0) MMOL/L Chloride (98-107) mmol/L Carbon Dioxide (22-30) mmol/L Anion Gap (10-20) BUN (7-17) mg/dl Creatinine (0.7-1.2) mg/dL Est GFR ( Amer) Est GFR (Non-Af Amer) Random Glucose (65-105) mg/dL Lactic Acid (0.7-2.1) MMOL/L Calcium (8.4-10.2) mg/dL Total Bilirubin (0.2-1.3) mg/dl AST (14-36) U/L ALT (9-52) U/L Alkaline Phosphatase (38-126) U/L Total Protein (6.3-8.2) G/DL Albumin (3.5-5.0) g/dL Globulin (2.2-3.9) gm/dL Albumin/Globulin Ratio (1.0-2.1) Urine Color Yellow (YELLOW) Urine Clarity Slighty-cloudy (Clear) Urine pH 5.0 (5.0-8.0) Ur Specific Jefferson 1.015 (1.003-1.030) Urine Protein Negative (NEGATIVE) mg/dL Urine Glucose (UA) Neg (Normal) mg/dL Urine Ketones Negative (NEGATIVE) mg/dL Urine Blood Negative (NEGATIVE) Urine Nitrate Negative (NEGATIVE) Urine Bilirubin Negative (NEGATIVE) Urine Urobilinogen 0.2-1.0 (0.2-1.0) mg/dL Ur Leukocyte Esterase Neg (Negative) Anna/uL Urine RBC (Auto) 2 (0-3) /hpf Urine Microscopic WBC 2 (0-5) /hpf Urine Bacteria Few H (<OCC) Hyaline Casts 6-10 H (0-2) /hpf Laboratory Results - last 24 hr 05/05/17 05/06/17 05/06/17 18:45 05:45 05:45 WBC 0.3 L* RBC 3.93 Hgb 9.2 L D Hct 28.8 L MCV 73.3 L MCH 23.4 L MCHC 31.9 L RDW 23.1 H Plt Count 135 MPV 8.6 Neut % (Auto) 29.3 L Lymph % (Auto) 35.6 Fannin % (Auto) 32.0 H Eos % (Auto) 2.9 Baso % (Auto) 0.2 Neut # 0.1 L Lymph # 0.1 L Fannin # 0.1 Eos # 0.0 Baso # 0.0 Sodium 135 Potassium 3.4 L Chloride 108 H Carbon Dioxide 17 L Anion Gap 13 BUN 18 H Creatinine 0.7 Est GFR ( Amer) > 60 Est GFR (Non-Af Amer) > 60 Random Glucose 103 Lactic Acid Calcium 8.0 L Total Bilirubin 0.6 AST 26 ALT 34 Alkaline Phosphatase 39 Total Protein 5.2 L Albumin 2.4 L D Globulin 2.8 Albumin/Globulin Ratio 0.9 L Urine Color Yellow Urine Clarity Slighty-cloudy Urine pH 5.0 Ur Specific Jefferson 1.015 Urine Protein Negative Urine Glucose (UA) Neg Urine Ketones Negative Urine Blood Negative Urine Nitrate Negative Urine Bilirubin Negative Urine Urobilinogen 0.2-1.0 Ur Leukocyte Esterase Neg Urine RBC (Auto) 2 Urine Microscopic WBC 2 Urine Bacteria Few H Hyaline Casts 6-10 H 05/06/17 05:45 WBC RBC Hgb Hct MCV MCH MCHC RDW Plt Count MPV Neut % (Auto) Lymph % (Auto) Fannin % (Auto) Eos % (Auto) Baso % (Auto) Neut # Lymph # Fannin # Eos # Baso # Sodium Potassium Chloride Carbon Dioxide Anion Gap BUN Creatinine Est GFR ( Amer) Est GFR (Non-Af Amer) Random Glucose Lactic Acid 4.0 H Calcium Total Bilirubin AST ALT Alkaline Phosphatase Total Protein Albumin Globulin Albumin/Globulin Ratio Urine Color Urine Clarity Urine pH Ur Specific Jefferson Urine Protein Urine Glucose (UA) Urine Ketones Urine Blood Urine Nitrate Urine Bilirubin Urine Urobilinogen Ur Leukocyte Esterase Urine RBC (Auto) Urine Microscopic WBC Urine Bacteria Hyaline Casts Review of Systems - Review of Systems All systems: reviewed and no additional remarkable complaints except - EENT Eyes: UNREMARKABLE Ears: UNREMARKABLE - Cardiovascular Cardiovascular: absent: Dyspnea, Leg Edema, Pedal Edema - Respiratory Respiratory: absent: Cough, Dyspnea, Wheezing - Gastrointestinal Gastrointestinal: absent: Abdominal Pain, Constipation, Cramping, Diarrhea, Vomiting - Genitourinary Genitourinary: absent: Flank Pain, Urinary Frequency - Musculoskeletal Musculoskeletal: Other (descibes some numbness in feet) Assessment/Plan - Assessment and Plan (Free Text) Assessment: MAJOR PROBLEMS: 1. FUO with Neutropenic Sepsis with Shock state: etiology / source unclear. 2. Non hodkins lymphoma under recent Chemo therapy Plan: PLANS / Recommendations: 1. F/U w/ Blood cultures, urine cultures 2. Continue [facility] Rx Aztreonam, Levofloxacin, Micafungin 3. IVF Normal saline at 175 4. PT remains neutropenic, todays wbc dropped from .[address] Sotelo has been consulted. Granix has been ordered daily SC 5. Continue serial Lactates till normalized. This morning lactic acid is 4. 6. CT AP with PO/ IV contrast, CT Chest with contrast: Showed consolidation on lingula w/ air broncogram suggestive of pneumonia but can be atelectasis as well. Advised to correlate clinically. Clinically patient does not have any symptoms of pneumonia. But are continuing prophylactic Rx for FUO. 7. Obtain available old medical records for more database information. 8. Hypokalemia. 40mg of KCL has been ordered via Port. Will f/u with morning potassium. 8. Neutropenic Diet placed for the patient. 9. F/U w/ morning CBC, CMP, LActic acid, Cultures <Cole Gama - Last Filed: 05/06/17 15:41> Critical Care Progress Note - Nutrition Nutrition: Nutrition Category Date Time Status Regular Diet [DIET] Diets 05/06/17 Breakfast Active Assessment/Plan - Assessment and Plan (Free Text) Plan: Attestation: Patient seen and examined at the bedside with Resident Dr. Ata Franco; and I agree with his outline of plans and management as documented and discussed on AM rounds reflecting my review of all applicable clinical data, and participation in the care of the patient throughout the day in ICU; today, May 06, 2017.
[2017-05-06] MEDS: Micafungin 100 MG in Sodium Chloride 0.9% 100 ML IVPB SCH (09:59)
--- NOTE | 2017-05-06 10:12 | CP.PCM.PN ---
Subjective - Date & Time of Evaluation Date of Evaluation: 05/06/17 Time of Evaluation: 10:12 - Subjective Subjective: ID note- Pt. seen and examined today. seems to be slightly agitated but denies any fever or chills today. denies any HOGAN. states she has not been able to sleep and is very tired. denies any cough or any sob. denies any chest pain, denies any abd. pain, sattes she has been urinating alot since she is getting lots of IV fluids, joseph is d/c. no diarrhea as per nurse. Objective - Vital Signs/Intake and Output Vital Signs (last 24 hours): Temp Pulse Resp BP Pulse Ox 98.6 F 79 24 111/76 98 05/06/17 08:00 05/06/17 10:00 05/06/17 10:00 05/06/17 10:00 05/06/17 10:00 Intake and Output: 05/06/17 05/06/17 06:59 18:59 Intake Total 2621 875 Output Total 700 600 Balance 1921 275 - Medications Medications: Current Medications Vancomycin HCl 1 gm/ Sodium (Chloride) 250 mls @ 250 mls/hr IVPB Q12H [facility] Last Admin: 05/06/17 05:53 Dose: 250 mls/hr Micafungin Sodium 100 mg/ (Sodium Chloride) 100 mls @ 100 mls/hr IVPB DAILY [facility] Last Admin: 05/06/17 09:59 Dose: 100 mls/hr Sodium Chloride (Sodium Chloride 0.9%) 1,000 mls @ 175 mls/hr IV .Q5H43M [facility] Stop: 05/06/17 18:32 Last Admin: 05/06/17 06:53 Dose: 175 mls/hr Norepinephrine Bitartrate 4 mg (/ Dextrose) 254 mls @ 9.52 mls/hr IV .Q24H [facility] ; 2.5 MCG/MIN PRN Reason: Protocol Last Titration: 05/06/17 03:18 Dose: Infused Aztreonam 1 gm/ Sodium (Chloride) 100 mls @ 100 mls/hr IVPB Q12 [facility] Last Admin: 05/06/17 08:41 Dose: 100 mls/hr Levofloxacin/Dextrose (Levaquin 750mg) 750 mg in 150 mls @ 100 mls/hr IVPB DAILY [facility] Last Admin: 05/06/17 08:51 Dose: 100 mls/hr Ibuprofen (Motrin Tab) 600 mg PO Q6 PRN PRN Reason: Fever >100.4 F Last Admin: 05/06/17 05:21 Dose: 600 mg - Labs Labs: - Additional Findings Additional findings: Physical Exam - Constitutional Appears: No Acute Distress - Head Exam Head Exam: ATRAUMATIC - Eye Exam Eye Exam: EOMI, PERRL - ENT Exam Additional comments: no lesions, dry oral mucosa - Neck Exam Neck exam: Positive for: Full Rom Additional comments: supple - Respiratory Exam Additional comments: slightly tachypneic no wheezing Left base crackles no rhonchi - Cardiovascular Exam Cardiovascular Exam: Tachycardia, +S1, +S2 Additional comments: 3/6 ejection murmur at LSB - GI/Abdominal Exam GI & Abdominal Exam: Normal Bowel Sounds, Soft Additional comments: No distention No tenderness No guarding, No rebound No CVA tenderness b/l - Neurological Exam Neurological exam: Alert, Oriented x3 - Skin Additional comments: echymosis on the left inner upper arm region - Additional Findings Additional findings: right chest port site clean/dry/intact no tenderness, no erythema Laboratory Results - last 72 hr 05/05/17 05/05/17 05/05/17 11:30 11:30 11:30 WBC 0.4 L* D RBC 4.67 Hgb 11.2 L Hct 33.9 L MCV 72.6 L D MCH 24.0 L MCHC 33.0 RDW 22.8 H Plt Count 169 MPV 8.9 Neut % (Auto) 6.5 L Lymph % (Auto) 76.1 H [place] % (Auto) 12.2 H Eos % (Auto) 5.1 H Baso % (Auto) 0.1 Neut # 0.0 L Lymph # 0.3 L [place] # 0.1 Eos # 0.0 Baso # 0.0 Neutrophils % (Manual) 5 L Lymphocytes % (Manual) 85 H Monocytes % (Manual) 10 Platelet Estimate Normal Hypochromasia (manual) Slight Anisocytosis (manual) Moderate Microcytosis (manual) Slight PT 12.6 INR 1.1 APTT 22.3 L pO2 VBG pH VBG pCO2 VBG HCO3 VBG Total CO2 VBG O2 Sat (Calc) VBG Base Excess VBG Potassium Glucose Lactate FiO2 Blood Gas Comments Crit Value Called To Crit Value Called By Crit Value Read Back Blood Gas Notified Time Sodium 135 Potassium 4.0 Chloride 101 Carbon Dioxide 23 Anion Gap 16 BUN 19 H Creatinine 0.7 Est GFR ( Amer) > 60 Est GFR (Non-Af Amer) > 60 Random Glucose 123 H Lactic Acid Calcium 10.2 Total Bilirubin 1.0 AST 31 ALT 25 Alkaline Phosphatase 57 Troponin I 0.0320 Total Protein 7.0 Albumin 3.6 Globulin 3.4 Albumin/Globulin Ratio 1.0 Procalcitonin Venous Blood Potassium Urine Color Urine Clarity Urine pH Ur Specific [place] Urine Protein Urine Glucose (UA) Urine Ketones Urine Blood Urine Nitrate Urine Bilirubin Urine Urobilinogen Ur Leukocyte Esterase Urine RBC (Auto) Urine Microscopic WBC Urine Bacteria Hyaline Casts 05/05/17 05/05/17 05/05/17 11:52 15:52 18:45 WBC RBC Hgb Hct MCV MCH MCHC RDW Plt Count MPV Neut % (Auto) Lymph % (Auto) [place] % (Auto) Eos % (Auto) Baso % (Auto) Neut # Lymph # [place] # Eos # Baso # Neutrophils % (Manual) Lymphocytes % (Manual) Monocytes % (Manual) Platelet Estimate Hypochromasia (manual) Anisocytosis (manual) Microcytosis (manual) PT INR APTT pO2 14 L 12 L VBG pH 7.43 7.32 VBG pCO2 40 41 VBG HCO3 24.3 18.8 VBG Total CO2 27.7 22.4 VBG O2 Sat (Calc) 21.4 L 15.2 L VBG Base Excess 2.0 -4.8 L VBG Potassium 3.4 L 4.2 Glucose 100 103 Lactate 3.8 H 7.3 H* FiO2 21.0 21.0 Blood Gas Comments Lactate 3.8 Lactate 7.3 Crit Value Called To urmila Bowling linda Crit Value Called By 203 203 Crit Value Read Back Y Y Blood Gas Notified Time 1218 1558 Sodium 135.0 136.0 Potassium Chloride 103.0 104.0 Carbon Dioxide Anion Gap BUN Creatinine Est GFR ( Amer) Est GFR (Non-Af Amer) Random Glucose Lactic Acid Calcium Total Bilirubin AST ALT Alkaline Phosphatase Troponin I Total Protein Albumin Globulin Albumin/Globulin Ratio Procalcitonin Venous Blood Potassium 3.4 L 4.2 Urine Color Yellow Urine Clarity Slighty-cloudy Urine pH 5.0 Ur Specific [place] 1.015 Urine Protein Negative Urine Glucose (UA) Neg Urine Ketones Negative Urine Blood Negative Urine Nitrate Negative Urine Bilirubin Negative Urine Urobilinogen 0.2-1.0 Ur Leukocyte Esterase Neg Urine RBC (Auto) 2 Urine Microscopic WBC 2 Urine Bacteria Few H Hyaline Casts 6-10 H 05/05/17 05/06/17 05/06/17 20:30 05:45 05:45 WBC 0.3 L* RBC 3.93 Hgb 9.2 L D Hct 28.8 L MCV 73.3 L MCH 23.4 L MCHC 31.9 L RDW 23.1 H Plt Count 135 MPV 8.6 Neut % (Auto) 29.3 L Lymph % (Auto) 35.6 [place] % (Auto) 32.0 H Eos % (Auto) 2.9 Baso % (Auto) 0.2 Neut # 0.1 L Lymph # 0.1 L [place] # 0.1 Eos # 0.0 Baso # 0.0 Neutrophils % (Manual) Lymphocytes % (Manual) Monocytes % (Manual) Platelet Estimate Hypochromasia (manual) Anisocytosis (manual) Microcytosis (manual) PT INR APTT pO2 VBG pH VBG pCO2 VBG HCO3 VBG Total CO2 VBG O2 Sat (Calc) VBG Base Excess VBG Potassium Glucose Lactate FiO2 Blood Gas Comments Crit Value Called To Crit Value Called By Crit Value Read Back Blood Gas Notified Time Sodium 135 Potassium 3.4 L Chloride 108 H Carbon Dioxide 17 L Anion Gap 13 BUN 18 H Creatinine 0.7 Est GFR ( Amer) > 60 Est GFR (Non-Af Amer) > 60 Random Glucose 103 Lactic Acid Calcium 8.0 L Total Bilirubin 0.6 AST 26 ALT 34 Alkaline Phosphatase 39 Troponin I Total Protein 5.2 L Albumin 2.4 L D Globulin 2.8 Albumin/Globulin Ratio 0.9 L Procalcitonin 8.28 H Venous Blood Potassium Urine Color Urine Clarity Urine pH Ur Specific [place] Urine Protein Urine Glucose (UA) Urine Ketones Urine Blood Urine Nitrate Urine Bilirubin Urine Urobilinogen Ur Leukocyte Esterase Urine RBC (Auto) Urine Microscopic WBC Urine Bacteria Hyaline Casts 05/06/17 05:45 WBC RBC Hgb Hct MCV MCH MCHC RDW Plt Count MPV Neut % (Auto) Lymph % (Auto) [place] % (Auto) Eos % (Auto) Baso % (Auto) Neut # Lymph # [place] # Eos # Baso # Neutrophils % (Manual) Lymphocytes % (Manual) Monocytes % (Manual) Platelet Estimate Hypochromasia (manual) Anisocytosis (manual) Microcytosis (manual) PT INR APTT pO2 VBG pH VBG pCO2 VBG HCO3 VBG Total CO2 VBG O2 Sat (Calc) VBG Base Excess VBG Potassium Glucose Lactate FiO2 Blood Gas Comments Crit Value Called To Crit Value Called By Crit Value Read Back Blood Gas Notified Time Sodium Potassium Chloride Carbon Dioxide Anion Gap BUN Creatinine Est GFR ( Amer) Est GFR (Non-Af Amer) Random Glucose Lactic Acid 4.0 H Calcium Total Bilirubin AST ALT Alkaline Phosphatase Troponin I Total Protein Albumin Globulin Albumin/Globulin Ratio Procalcitonin Venous Blood Potassium Urine Color Urine Clarity Urine pH Ur Specific [place] Urine Protein Urine Glucose (UA) Urine Ketones Urine Blood Urine Nitrate Urine Bilirubin Urine Urobilinogen Ur Leukocyte Esterase Urine RBC (Auto) Urine Microscopic WBC Urine Bacteria Hyaline Casts Microbiology 05/05/17 11:50 Blood-Venous Blood Culture - Preliminary NO GROWTH AFTER 24 HOURS 05/05/17 11:20 Blood-Venous Blood Culture - Preliminary NO GROWTH AFTER 24 HOURS Accession No. 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 no. Patient Name: ADAM HUBER Pt. Address: [address] [place] [address]. Rec #: [id number] [place] [address]: Joan LOUISE,Codey Pt CELL Order Location: .ICU/ CCU : 1950 Female Age: 67 Order #: [id number] Reason for exam: Fever of unkown orgin CT Scan CHEST,ABD,PEL W/IV PO CONTRAST Exam Date: 05/05/17 This imaging exam was performed at [facility] EXAM: CT Chest With Intravenous Contrast CT Abdomen and Pelvis With Intravenous Contrast CLINICAL HISTORY: 67 years old, female; Signs and symptoms; Fever; Prior surgery; Surgery date : 6+ months; Surgery type: Thymectomy; Additional info: Fever of unkown orgin TECHNIQUE: Axial computed tomography images of the chest, abdomen and pelvis with intravenous contrast. This CT exam was performed using one or more of the following dose reduction techniques: automated exposure control, adjustment of the mA and/or kV according to patient size, and/or use of iterative reconstruction technique. Coronal and sagittal reformatted images were created and reviewed. CONTRAST: 95 mL of administered intravenously. COMPARISON: CT - ABD PELVIS IV CONTRAST ONLY 03/03/2017 9:16:57 AM FINDINGS: CHEST: Lungs: There is consolidation in the lingula with air bronchograms most suggestive of pneumonia. This could represent atelectasis however. Please correlate clinically. Pleural space: There is a small left pleural effusion which appears partially loculated. There is trace right effusion. Heart: Unremarkable. No cardiomegaly. No significant pericardial effusion. Thyroid: The thyroid gland is normal. ABDOMEN: Liver: There are no focal liver lesions present. Gallbladder and bile ducts: There has been a cholecystectomy. No ductal dilation. Pancreas: The pancreas is normal. No ductal dilation. Spleen: The spleen is normal. Adrenals: The adrenal glands are normal. Kidneys and ureters: A large left pleural pole renal cyst has enlarged currently measuring 5.7 CM previously 4.1 CM. There is no evidence of hydronephrosis. No solid mass. Stomach and bowel: There is suggestion of diffuse mild wall thickening. This could represent a mild colitis, versus underdistention.. Please correlate clinically. Stomach is decompressed. Moderate diverticulosis is present in the sigmoid and descending colon. There is no evidence of diverticulitis. There is no evidence of intestinal obstruction. Appendix: No findings to suggest acute appendicitis. PELVIS: Bladder: Bladder is decompressed around a Geiger catheter. Reproductive: The uterus is normal. CHEST, ABDOMEN and PELVIS: Intraperitoneal space: There is no evidence of free intraperitoneal fluid. There is no free intraperitoneal air. Bones/joints: There are sternal wires consistent with previous sternotomy incision. There are moderate degenerative changes present. There is moderate diffuse osteopenia. Soft tissues: Unremarkable. Vasculature: Abdominal aorta demonstrates moderate to severe atherosclerotic calcification without aneurysm. Lymph nodes: There is no axillary adenopathy. There are some top normal right axillary lymph nodes. There is no evidence of lymphadenopathy. Tubes, lines and devices: There is a right chemotherapy infusion port with catheter tip in the superior vena cava. IMPRESSION: 1. There is a small left pleural effusion which appears partially loculated. 2. There is consolidation in the lingula with air bronchograms most suggestive of pneumonia. This could represent atelectasis however. Please correlate clinically. 3. There is trace right effusion. 4. There is suggestion of diffuse mild wall thickening. This could represent a mild colitis, versus underdistention.. Please correlate clinically. Dictated By: Cole Ayala MD, MD Dictated Date/Time: 05/06/17602 Signed By: Cole Ayala MD Date Signed: 602 Transcribed By: JACQUELYN Transcribe Date/Time : 05/06/17602 GLEN/DORIS Assessment and Plan (1) Neutropenic fever Status: Acute (2) Syncope Status: Acute (3) Lymphoma Status: Acute - Assessment and Plan (Free Text) Assessment: A/P- 67 year old female with newly diagnosed lymphoma in 01/2017 undergoing chemotherpay which was finished this week admitted post syncopal episode and found to be in neutropenic fever, hypotensive and tachycardic. All the pertinent labs, images , notes and med records from previous admission reviewed. 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 chest/abd/pelvis sct report noted- small b/l pleural effusions and ? consolidation of the left lower lung as per radiologist's report. blood cx- neg x 2 so far UA- neg. Plan- await TTE result to r/o any vegetations ( she has loud murmur). continue with prophylactic antibiotics and antifungal for now. continue with micafungin day #2. continue with vancomycin, aztreonam and levaquin day #2. keep vanco trough <15. monitor temps and ANC carefully. may need low dose anxiolytic for her agitation and lack of sleep , to be decided by her primary and ICU doc. All above d/w patient at length and she verbalizes full understanding of all above. All above also d/w Log Deckman . ICU time 45 minutes.
[2017-05-06] MEDS: Potassium CL 10mEq/100ml 100 ML IVPB SCH ×4 (12:15→16:10)
--- NOTE | 2017-05-06 12:31 | CP.PCM.CON ---
History of Present Illness - History of Present Illness History of Present Illness: 67 year old female with a history of myesthenia gravis s/p thymectomy, lymphoma (unknown type) on chemotherapy (unknowm), admitted after syncopal episode, found to be pancytopenic with severe neutropenia. The patient was in [place] obtaining a PET CT scan when she had a syncopal episode and was transported to [facility]. She has been receiving Neulasta with each cycle of chemotherapy. Past medical history: myesthenia gravis, lymphoma Past surgical history: thymectomy, portacath Family history: Denies hematologic and oncologic problems Social history: Denies tobacco, alcohol, and illicit drug use. Allergies: Codeine, penicillin Review of systems: All remaining review of systems including HEENT, cardiovascular, respiratory, gastrointestinal, genitourinary, musculoskeletal, dermatologic, neurologic, and psychiatric are negative unless mentioned in the HPI. Past Patient History - Infectious Disease Hx of Infectious Diseases: None - Past Medical History & Family History Past Medical History?: Yes - Past Social History Smoking Status: Former Smoker - CARDIAC Hx Cardiac Disorders: No - PULMONARY Hx Respiratory Disorders: No - NEUROLOGICAL Hx Neurological Disorder: No Other/Comment: Myasthenia gravis - HEENT Hx HEENT Problems: No - RENAL Hx Chronic Kidney Disease: No - ENDOCRINE/METABOLIC Hx Endocrine Disorders: No - HEMATOLOGICAL/ONCOLOGICAL Hx Blood Disorders: Yes Hx Chemotherapy: Yes - INTEGUMENTARY Hx Dermatological Problems: No - MUSCULOSKELETAL/RHEUMATOLOGICAL Hx Falls: Yes - GASTROINTESTINAL Hx Gastrointestinal Disorders: No - GENITOURINARY/GYNECOLOGICAL Hx Genitourinary Disorders: No - PSYCHIATRIC Hx Substance Use: No - SURGICAL HISTORY Hx Appendectomy: Yes Hx Cholecystectomy: Yes - ANESTHESIA Hx Anesthesia: Yes Hx Anesthesia Reactions: No Hx Malignant Hyperthermia: No Meds Allergies/Adverse Reactions: Allergies Allergy/AdvReac Type Severity Reaction Status Date / Time codeine Allergy RASH Verified 02/11/17 03:06 Penicillins Allergy RASH Verified 02/11/17 03:06 - Medications Medications: Current Medications Vancomycin HCl 1 gm/ Sodium (Chloride) 250 mls @ 250 mls/hr IVPB Q12H [facility] Last Admin: 05/06/17 05:53 Dose: 250 mls/hr Micafungin Sodium 100 mg/ (Sodium Chloride) 100 mls @ 100 mls/hr IVPB DAILY [facility] Last Admin: 05/06/17 09:59 Dose: 100 mls/hr Sodium Chloride (Sodium Chloride 0.9%) 1,000 mls @ 175 mls/hr IV .Q5H43M [facility] Stop: 05/06/17 18:32 Last Admin: 05/06/17 06:53 Dose: 175 mls/hr Norepinephrine Bitartrate 4 mg (/ Dextrose) 254 mls @ 9.52 mls/hr IV .Q24H [facility] ; 2.5 MCG/MIN PRN Reason: Protocol Last Titration: 05/06/17 03:18 Dose: Infused Aztreonam 1 gm/ Sodium (Chloride) 100 mls @ 100 mls/hr IVPB Q12 [facility] Last Admin: 05/06/17 08:41 Dose: 100 mls/hr Levofloxacin/Dextrose (Levaquin 750mg) 750 mg in 150 mls @ 100 mls/hr IVPB DAILY [facility] Last Admin: 05/06/17 08:51 Dose: 100 mls/hr Potassium Chloride (Potassium Chloride 10 Meq/100 Ml) 100 mls @ 100 mls/hr IVPB Q1 [facility] Stop: 05/06/17 15:59 Last Admin: 05/06/17 12:15 Dose: 100 mls/hr Ibuprofen (Motrin Tab) 600 mg PO Q6 PRN PRN Reason: Fever >100.4 F Last Admin: 05/06/17 05:21 Dose: 600 mg Physical Exam - Head Exam Head Exam: ATRAUMATIC - Eye Exam Eye Exam: Normal appearance - ENT Exam ENT Exam: Mucous Membranes Dry - Respiratory Exam Respiratory Exam: NORMAL BREATHING PATTERN - Cardiovascular Exam Cardiovascular Exam: +S1, +S2 - GI/Abdominal Exam GI & Abdominal Exam: Normal Bowel Sounds - Extremities Exam Extremities exam: Positive for: normal inspection - Neurological Exam Neurological exam: Normal Gait, Oriented x3 - Psychiatric Exam Psychiatric exam: Normal Affect, Normal Mood - Skin Skin Exam: Warm Results - Vital Signs Recent Vital Signs: Last Vital Signs Temp 97.6 F 05/06/17 12:00 Pulse 85 05/06/17 12:00 Resp 20 05/06/17 12:00 BP 126/75 05/06/17 12:00 Pulse Ox 98 05/06/17 12:00 - Labs Result Diagrams: 05/07/17 06:00 05/07/17 06:00 Labs: Laboratory Results - last 24 hr 0705/06/17 05/06/17 18:45 05:45 05:45 WBC 0.3 L* RBC 3.93 Hgb 9.2 L D Hct 28.8 L MCV 73.3 L MCH 23.4 L MCHC 31.9 L RDW 23.1 H Plt Count 135 MPV 8.6 Neut % (Auto) 29.3 L Lymph % (Auto) 35.6 [place] % (Auto) 32.0 H Eos % (Auto) 2.9 Baso % (Auto) 0.2 Neut # 0.1 L Lymph # 0.1 L [place] # 0.1 Eos # 0.0 Baso # 0.0 Sodium 135 Potassium 3.4 L Chloride 108 H Carbon Dioxide 17 L Anion Gap 13 BUN 18 H Creatinine 0.7 Est GFR ( Amer) > 60 Est GFR (Non-Af Amer) > 60 Random Glucose 103 Lactic Acid Calcium 8.0 L Total Bilirubin 0.6 AST 26 ALT 34 Alkaline Phosphatase 39 Total Protein 5.2 L Albumin 2.4 L D Globulin 2.8 Albumin/Globulin Ratio 0.9 L Urine Color Yellow Urine Clarity Slighty-cloudy Urine pH 5.0 Ur Specific [place] 1.015 Urine Protein Negative Urine Glucose (UA) Neg Urine Ketones Negative Urine Blood Negative Urine Nitrate Negative Urine Bilirubin Negative Urine Urobilinogen 0.2-1.0 Ur Leukocyte Esterase Neg Urine RBC (Auto) 2 Urine Microscopic WBC 2 Urine Bacteria Few H Hyaline Casts 6-10 H 05/06/17 05:45 WBC RBC Hgb Hct MCV MCH MCHC RDW Plt Count MPV Neut % (Auto) Lymph % (Auto) [place] % (Auto) Eos % (Auto) Baso % (Auto) Neut # Lymph # [place] # Eos # Baso # Sodium Potassium Chloride Carbon Dioxide Anion Gap BUN Creatinine Est GFR ( Amer) Est GFR (Non-Af Amer) Random Glucose Lactic Acid 4.0 H Calcium Total Bilirubin AST ALT Alkaline Phosphatase Total Protein Albumin Globulin Albumin/Globulin Ratio Urine Color Urine Clarity Urine pH Ur Specific [place] Urine Protein Urine Glucose (UA) Urine Ketones Urine Blood Urine Nitrate Urine Bilirubin Urine Urobilinogen Ur Leukocyte Esterase Urine RBC (Auto) Urine Microscopic WBC Urine Bacteria Hyaline Casts Assessment & Plan (1) Pancytopenia Assessment and Plan: with severe neutropenia on antibiotics will start Granix for goal ANC > 500 transfusion support PRN Status: Acute (2) Lymphoma Assessment and Plan: outpatient treatment with primary oncologist Thank you for this interesting consult. Status: Acute
--- NOTE | 2017-05-06 12:46 | CP.PCM.CON ---
Past Patient History - Infectious Disease Hx of Infectious Diseases: None - Past Medical History & Family History Past Medical History?: Yes - Past Social History Smoking Status: Former Smoker - CARDIAC Hx Cardiac Disorders: No - PULMONARY Hx Respiratory Disorders: No - NEUROLOGICAL Hx Neurological Disorder: No Other/Comment: Myasthenia gravis - HEENT Hx HEENT Problems: No - RENAL Hx Chronic Kidney Disease: No - ENDOCRINE/METABOLIC Hx Endocrine Disorders: No - HEMATOLOGICAL/ONCOLOGICAL Hx Blood Disorders: Yes Hx Chemotherapy: Yes - INTEGUMENTARY Hx Dermatological Problems: No - MUSCULOSKELETAL/RHEUMATOLOGICAL Hx Falls: Yes - GASTROINTESTINAL Hx Gastrointestinal Disorders: No - GENITOURINARY/GYNECOLOGICAL Hx Genitourinary Disorders: No - PSYCHIATRIC Hx Substance Use: No - SURGICAL HISTORY Hx Appendectomy: Yes Hx Cholecystectomy: Yes - ANESTHESIA Hx Anesthesia: Yes Hx Anesthesia Reactions: No Hx Malignant Hyperthermia: No Meds Allergies/Adverse Reactions: Allergies Allergy/AdvReac Type Severity Reaction Status Date / Time codeine Allergy RASH Verified 02/11/17 03:06 Penicillins Allergy RASH Verified 02/11/17 03:06 - Medications Medications: Current Medications Vancomycin HCl 1 gm/ Sodium (Chloride) 250 mls @ 250 mls/hr IVPB Q12H [facility] Last Admin: 05/06/17 05:53 Dose: 250 mls/hr Micafungin Sodium 100 mg/ (Sodium Chloride) 100 mls @ 100 mls/hr IVPB DAILY [facility] Last Admin: 05/06/17 09:59 Dose: 100 mls/hr Sodium Chloride (Sodium Chloride 0.9%) 1,000 mls @ 175 mls/hr IV .Q5H43M [facility] Stop: 05/06/17 18:32 Last Admin: 05/06/17 06:53 Dose: 175 mls/hr Norepinephrine Bitartrate 4 mg (/ Dextrose) 254 mls @ 9.52 mls/hr IV .Q24H [facility] ; 2.5 MCG/MIN PRN Reason: Protocol Last Titration: 05/06/17 03:18 Dose: Infused Aztreonam 1 gm/ Sodium (Chloride) 100 mls @ 100 mls/hr IVPB Q12 [facility] Last Admin: 05/06/17 08:41 Dose: 100 mls/hr Levofloxacin/Dextrose (Levaquin 750mg) 750 mg in 150 mls @ 100 mls/hr IVPB DAILY [facility] Last Admin: 05/06/17 08:51 Dose: 100 mls/hr Potassium Chloride (Potassium Chloride 10 Meq/100 Ml) 100 mls @ 100 mls/hr IVPB Q1 [facility] Stop: 05/06/17 15:59 Last Admin: 05/06/17 12:15 Dose: 100 mls/hr Ibuprofen (Motrin Tab) 600 mg PO Q6 PRN PRN Reason: Fever >100.4 F Last Admin: 05/06/17 05:21 Dose: 600 mg Results - Vital Signs Recent Vital Signs: Last Vital Signs Temp 97.6 F 05/06/17 12:00 Pulse 85 05/06/17 12:00 Resp 20 05/06/17 12:00 BP 126/75 05/06/17 12:00 Pulse Ox 98 05/06/17 12:00 - Labs Result Diagrams: 05/06/17 05:45 05/06/17 05:45 Labs: Laboratory Results - last 24 hr 05/05/17 05/06/17 05/06/17 18:45 05:45 05:45 WBC 0.3 L* RBC 3.93 Hgb 9.2 L D Hct 28.8 L MCV 73.3 L MCH 23.4 L MCHC 31.9 L RDW 23.1 H Plt Count 135 MPV 8.6 Neut % (Auto) 29.3 L Lymph % (Auto) 35.6 [place] % (Auto) 32.0 H Eos % (Auto) 2.9 Baso % (Auto) 0.2 Neut # 0.1 L Lymph # 0.1 L [place] # 0.1 Eos # 0.0 Baso # 0.0 Sodium 135 Potassium 3.4 L Chloride 108 H Carbon Dioxide 17 L Anion Gap 13 BUN 18 H Creatinine 0.7 Est GFR ( Amer) > 60 Est GFR (Non-Af Amer) > 60 Random Glucose 103 Lactic Acid Calcium 8.0 L Total Bilirubin 0.6 AST 26 ALT 34 Alkaline Phosphatase 39 Total Protein 5.2 L Albumin 2.4 L D Globulin 2.8 Albumin/Globulin Ratio 0.9 L Urine Color Yellow Urine Clarity Slighty-cloudy Urine pH 5.0 Ur Specific [place] 1.015 Urine Protein Negative Urine Glucose (UA) Neg Urine Ketones Negative Urine Blood Negative Urine Nitrate Negative Urine Bilirubin Negative Urine Urobilinogen 0.2-1.0 Ur Leukocyte Esterase Neg Urine RBC (Auto) 2 Urine Microscopic WBC 2 Urine Bacteria Few H Hyaline Casts 6-10 H 05/06/17 05:45 WBC RBC Hgb Hct MCV MCH MCHC RDW Plt Count MPV Neut % (Auto) Lymph % (Auto) [place] % (Auto) Eos % (Auto) Baso % (Auto) Neut # Lymph # [place] # Eos # Baso # Sodium Potassium Chloride Carbon Dioxide Anion Gap BUN Creatinine Est GFR ( Amer) Est GFR (Non-Af Amer) Random Glucose Lactic Acid 4.0 H Calcium Total Bilirubin AST ALT Alkaline Phosphatase Total Protein Albumin Globulin Albumin/Globulin Ratio Urine Color Urine Clarity Urine pH Ur Specific [place] Urine Protein Urine Glucose (UA) Urine Ketones Urine Blood Urine Nitrate Urine Bilirubin Urine Urobilinogen Ur Leukocyte Esterase Urine RBC (Auto) Urine Microscopic WBC Urine Bacteria Hyaline Casts
[2017-05-06] MEDS ORDERED: Sodium Chloride 0.9% 500 ML IV ONE (13:35)
--- NOTE | 2017-05-06 22:55 | CP.PCM.HP ---
History of Present Illness - History of Present Illness History of Present Illness: A 67 yr old female with hx of lymphoma with recent chemo 2 weeks ago brought to ER after she Lost consciousness when she was waiting for PET scan. as per she started feeling sick for 2 days with chills and fever . denies cough,cold, dysuria, chest pain. found to be with neutropenia and high grade fever and hypotensive given fluids,now on levophed. Present on Admission - Present on Admission Any Indicators Present on Admission: No Review of Systems - Review of Systems Systems not reviewed;Unavailable: Unstable Vital Signs - Constitutional Constitutional: Chills, Fatigue, Fever, Malaise, Weakness - EENT Eyes: absent: Photophobia, Other Visual Disturbances Ears: Dizziness. absent: Ear Pain Nose/Mouth/Throat: absent: Epistaxis, Sinus Pain, Dysphagia - Cardiovascular Cardiovascular: Palpitations, Rapid Heart Rate. absent: Chest Pain, Dyspnea, Edema, Pedal Edema - Respiratory Respiratory: absent: Cough, Dyspnea, Chest Congestion, Excessive Mucous Production - Gastrointestinal Gastrointestinal: absent: Abdominal Pain, Constipation, Diarrhea, Heartburn, Nausea, Vomiting - Genitourinary Genitourinary: absent: Urinary Frequency, Urinary Urgency - Musculoskeletal Musculoskeletal: Arthralgias, Limited Range of Motion. absent: Neck Pain - Integumentary Integumentary: Alopecia. absent: Lesions, Rash, Sores - Neurological Neurological: Syncope, Weakness. absent: Vertigo - Psychiatric Psychiatric: absent: Behavioral Changes, Hallucinations - Endocrine Endocrine: Fatigue - Hematologic/Lymphatic Hematologic: absent: Lymphadenopathy Past Patient History - Infectious Disease Hx of Infectious Diseases: None - Past Medical History & Family History Past Medical History?: Yes - Past Social History Smoking Status: Former Smoker - CARDIAC Hx Cardiac Disorders: No - PULMONARY Hx Respiratory Disorders: No - NEUROLOGICAL Hx Neurological Disorder: No Other/Comment: Myasthenia gravis - HEENT Hx HEENT Problems: No - RENAL Hx Chronic Kidney Disease: No - ENDOCRINE/METABOLIC Hx Endocrine Disorders: No - HEMATOLOGICAL/ONCOLOGICAL Hx Blood Disorders: Yes Hx Chemotherapy: Yes - INTEGUMENTARY Hx Dermatological Problems: No - MUSCULOSKELETAL/RHEUMATOLOGICAL Hx Falls: Yes - GASTROINTESTINAL Hx Gastrointestinal Disorders: No - GENITOURINARY/GYNECOLOGICAL Hx Genitourinary Disorders: No - PSYCHIATRIC Hx Substance Use: No - SURGICAL HISTORY Hx Appendectomy: Yes Hx Cholecystectomy: Yes - ANESTHESIA Hx Anesthesia: Yes Hx Anesthesia Reactions: No Hx Malignant Hyperthermia: No Meds Home Medications: Home Medication List Medication Instructions Recorded Confirmed Type Acetaminophen [Tylenol 325mg tab] 650 mg PO Q4 PRN tab 05/10/17 Rx Docusate [Colace] 100 mg PO DAILY cap 05/10/17 Rx Enoxaparin [Lovenox] 40 mg SC DAILY syr 05/10/17 Rx Ibuprofen [Motrin Tab] 600 mg PO Q6 PRN tab 05/10/17 Rx Vancomycin 1gm in NS 250ml 1 gm IVPB Q12 #4 bag 05/10/17 Rx [Vancomycin 1gm] levoFLOXacin 750 mg in D5W 750 mg IVPB DAILY #3 bag 05/10/17 Rx [Levaquin 750MG] Allergies/Adverse Reactions: Allergies Allergy/AdvReac Type Severity Reaction Status Date / Time codeine Allergy RASH Verified 02/11/17 03:06 Penicillins Allergy RASH Verified 02/11/17 03:06 Physical Exam - Head Exam Head Exam: ATRAUMATIC, NORMAL INSPECTION - Eye Exam Eye Exam: PERRL. absent: Scleral icterus - ENT Exam ENT Exam: Mucous Membranes Dry - Neck Exam Neck exam: Positive for: Normal Inspection. Negative for: Lymphadenopathy, Thyromegaly - Respiratory Exam Respiratory Exam: Clear to Auscultation Bilateral, NORMAL BREATHING PATTERN. absent: Rales, Wheezes - Cardiovascular Exam Cardiovascular Exam: REGULAR RHYTHM, +S1, +S2. absent: Systolic Murmur - GI/Abdominal Exam GI & Abdominal Exam: Normal Bowel Sounds, Soft. absent: Tenderness - Rectal Exam Rectal Exam: NORMAL INSPECTION - Extremities Exam Extremities exam: Positive for: normal inspection. Negative for: pedal edema, pedal pulses present - Neurological Exam Neurological exam: Alert, Oriented x3 - Psychiatric Exam Psychiatric exam: Normal Affect, Normal Mood - Skin Skin Exam: Intact, Normal Color Additional comments: ecchymosis on left upperarm right side portacath Results - Vital Signs Recent Vital Signs: Last Vital Signs Temp 99.1 F 05/06/17 19:35 Pulse 93 H 05/06/17 19:35 Resp 33 H 05/06/17 19:35 BP 120/43 L 05/06/17 19:35 Pulse Ox 95 05/06/17 19:35 - Labs Result Diagrams: 05/10/17 10:50 05/09/17 06:15 Labs: Laboratory Results - last 24 hr 05/05/17 05/06/17 05/06/17 20:30 05:45 05:45 WBC 0.3 L* RBC 3.93 Hgb 9.2 L D Hct 28.8 L MCV 73.3 L MCH 23.4 L MCHC 31.9 L RDW 23.1 H Plt Count 135 MPV 8.6 Neut % (Auto) 29.3 L Lymph % (Auto) 35.6 [place] % (Auto) 32.0 H Eos % (Auto) 2.9 Baso % (Auto) 0.2 Neut # 0.1 L Lymph # 0.1 L [place] # 0.1 Eos # 0.0 Baso # 0.0 Sodium 135 Potassium 3.4 L Chloride 108 H Carbon Dioxide 17 L Anion Gap 13 BUN 18 H Creatinine 0.7 Est GFR ( Amer) > 60 Est GFR (Non-Af Amer) > 60 Random Glucose 103 Lactic Acid Calcium 8.0 L Total Bilirubin 0.6 AST 26 ALT 34 Alkaline Phosphatase 39 Total Protein 5.2 L Albumin 2.4 L D Globulin 2.8 Albumin/Globulin Ratio 0.9 L Procalcitonin 8.28 H 05/06/17 05:45 WBC RBC Hgb Hct MCV MCH MCHC RDW Plt Count MPV Neut % (Auto) Lymph % (Auto) [place] % (Auto) Eos % (Auto) Baso % (Auto) Neut # Lymph # [place] # Eos # Baso # Sodium Potassium Chloride Carbon Dioxide Anion Gap BUN Creatinine Est GFR ( Amer) Est GFR (Non-Af Amer) Random Glucose Lactic Acid 4.0 H Calcium Total Bilirubin AST ALT Alkaline Phosphatase Total Protein Albumin Globulin Albumin/Globulin Ratio Procalcitonin - EKG Data EKG Interpreted by: Myself EKG shows normal: Sinus rhythm Rate: Normal - Imaging and Cardiology Chest x-ray Status: Report reviewed by me CT scan - abdomen Status: Report reviewed by me CT scan - chest Status: Report reviewed by me Assessment & Plan (1) Septic shock Status: Acute Comment: on levophed. moniTOr BP. Rice c\s. emperic abx (2) Neutropenic fever Assessment and Plan: june postchemotherapy oncology consult tylenol PRN ctc hest-lingula consolidation\atelactasis Status: Acute (3) Syncope Assessment and Plan: JUNE DUE TO HYPOTENSION echo Status: Acute (4) Lymphoma Status: Chronic (5) Thrombocytopenia Assessment and Plan: likely due to sepsis Status: Acute Decision To Admit - Pt Status Changed To: Hospital Disposition Of: Inpatient - Admit Certification Admit to Inpatient:: After my assessment, the patient will require hospitalization for at least two midnights. This is because of the severity of symptoms shown, intensity of services needed, and/or the medical risk in this patient being treated as an outpatient. - . Bed Request Type: Intensive Care Admitting Physician: Carlito Mello
[2017-05-07] MEDS: Sodium Chloride 0.9% 1,000 ML IV SCH (00:31)
[2017-05-07 06:43] LABS: BASO % 0.2 % (0.0-2.0); EOS # 0.1 K/uL (0.0-0.7); EOS % 3.6 % (0.0-4.0); HEMOGLOBIN 8.6 g/dL (12.0-16.0); LYMPH # 0.2 K/uL (1.0-4.3); LYMPH % 16.1 % (20.0-40.0); MEAN CELL VOLUME 73.1 fl (81.0-99.0); MEAN CORPUSCULAR HEMOGLOBIN 23.6 pg (27.0-31.0); MEAN CORPUSCULAR HGB CONC 32.2 g/dL (33.0-37.0); MEAN PLATELET VOLUME 8.9 fl (7.2-11.7); MONO # 0.2 K/uL (0.0-0.8); MONO % 13.3 % (0.0-10.0); NEUT % 66.8 % (50.0-75.0); RBC 3.65 Mil/uL (3.80-5.20); RED CELL DISTRIBUTION WIDTH 23.5 % (11.5-14.5)
[2017-05-07 06:58] LABS: ALB/GLOB RATIO 0.8 (1.0-2.1); ALBUMIN 2.3 g/dL (3.5-5.0); ALT/SGPT 29 U/L (9-52); AST/SGOT 20 U/L (14-36); BLOOD UREA NITROGEN 13 mg/dl (7-17); CALCIUM 8.4 mg/dL (8.4-10.2); GFR AFRICAN-AMERICAN > 60; GFR NON-AFRICAN AMERICAN > 60
[2017-05-07 07:03] LABS: WHITE BLOOD COUNT 1.5 K/uL (4.8-10.8)
[2017-05-07] MEDS: Aztreonam 1 GM in Sodium Chloride 0.9% 100 ML IVPB SCH ×2 (08:20→21:00)
[2017-05-07] MEDS: Micafungin 100 MG in Sodium Chloride 0.9% 100 ML IVPB SCH (08:21)
--- NOTE | 2017-05-07 08:42 | CP.CCUPN ---
CCU Subjective - Physician Review Events Since Last Encounter (Free Text): 05/07/17 08:38 Patient awake, no distress, follow commands, no SOB, no chest pain, no pressors , events reviewed CCU Objective - Vital Signs / Intake & Output Vital Signs (Last 4 hours): Vital Signs Temp Pulse Resp BP Pulse Ox 05/07/17 08:00 98.3 F 84 27 H 106/52 L 100 05/07/17 06:00 76 23 149/69 95 Intake and Output (Last 8hrs): Intake & Output 05/06/17 05/07/17 05/07/17 22:59 06:59 14:59 Intake Total 2625 1525 4 Output Total 425 1600 Balance 2200 -75 4 Weight 189 lb Intake: IV 1050 1225 4 Intake, Piggyback 1050 250 Oral 525 50 Output: Urine 425 1600 Urethral (Geiger) 425 1600 Other: # Bowel Movements 1 - Physical Exam Head: Positive for: Normocephalic Pupils: Positive for: PERRL Extroacular Muscles: Positive for: EOMI Conjunctiva: Positive for: Normal Ears: Positive for: Normal Mouth: Positive for: Dry Pharnyx: Positive for: Normal. Negative for: EXUDATE Nose (External): Positive for: Atraumatic Nose (Internal): Positive for: Normal Inspection Neck: Positive for: Normal Range of Motion. Negative for: Meningeal Signs, JVD , Lymphadenopathy, Bruit Respiratory/Chest: Positive for: Clear to Auscultation. Negative for: Wheezes, Rhonchi Cardiovascular: Positive for: Regular Rate and Rhythm, Murmurs (+2/6 apical Systolic Murmur, no radiation. ). Negative for: Rub Abdomen: Positive for: Normal Bowel Sounds. Negative for: Tenderness, Distention, Guarding Breast/Axillary: Negative for: Axillary Lymphad, Fluctuance, Masses, Nipple Discharge, Tender to Palpation Lower Extremity: Positive for: Normal Inspection, NORMAL PULSES. Negative for: Edema, CALF TENDERNESS, Cyanosis Neurological: Positive for: GCS=15, Motor Func Grossly Intact, Normal Sensory Function Skin: Positive for: Warm, Other (Skin over R upper chest Port intact, no erythema or tenderness). Negative for: Rashes - Medications Active Medications: Active Medications Generic Name Dose Route Start Last Admin Trade Name Freq PRN Reason Stop Dose Admin Acetaminophen 650 mg 05/06/17 21:51 05/06/17 22:01 Tylenol 325mg Tab PO 650 mg Q4 PRN Administration Pain, moderate (4-7) Vancomycin HCl 1 gm/ Sodium 250 mls @ 250 mls/hr 05/05/17 18:00 05/07/17 05: 14 Chloride IVPB 250 mls/hr Q12H [facility] Administration Micafungin Sodium 100 mg/ 100 mls @ 100 mls/hr 05/06/17 09:00 05/07/17 08:21 Sodium Chloride IVPB 100 mls/hr DAILY [facility] Administration Aztreonam 1 gm/ Sodium 100 mls @ 100 mls/hr 05/05/17 21:00 05/07/17 08:20 Chloride IVPB 100 mls/hr Q12 [facility] Administration Levofloxacin/Dextrose 750 mg in 150 mls @ 100 mls/hr 05/06/17 09:00 05/06/17 08:51 Levaquin 750mg IVPB 100 mls/hr DAILY [facility] Administration Ibuprofen 600 mg 05/05/17 18:36 05/06/17 05:21 Motrin Tab PO 600 mg Q6 PRN Administration Fever >100.4 F - Patient Studies Lab Studies: Microbiology Studies 05/05/17 20:30 Blood Culture - Preliminary Blood-Thru Central Line NO GROWTH AFTER 24 HOURS Lab Studies 05/07/17 05/07/17 05/07/17 Range/Units 06:00 06:00 06:00 WBC 1.5 L* D (4.8-10.8) K/uL RBC 3.65 L (3.80-5.20) Mil/uL Hgb 8.6 L (12.0-16.0) g/dL Hct 26.7 L (34.0-47.0) % MCV 73.1 L (81.0-99.0) fl MCH 23.6 L (27.0-31.0) pg MCHC 32.2 L (33.0-37.0) g/dL RDW 23.5 H (11.5-14.5) % Plt Count 107 L D (130-400) K/uL MPV 8.9 (7.2-11.7) fl Neut % (Auto) 66.8 (50.0-75.0) % Lymph % (Auto) 16.1 L (20.0-40.0) % [place] % (Auto) 13.3 H (0.0-10.0) % Eos % (Auto) 3.6 (0.0-4.0) % Baso % (Auto) 0.2 (0.0-2.0) % Neut # 1.0 L (1.8-7.0) K/uL Lymph # 0.2 L (1.0-4.3) K/uL [place] # 0.2 (0.0-0.8) K/uL Eos # 0.1 (0.0-0.7) K/uL Baso # 0.0 (0.0-0.2) K/uL Sodium 137 (132-148) mmol/l Potassium 2.9 L (3.6-5.0) MMOL/L Chloride 109 H (98-107) mmol/L Carbon Dioxide 22 (22-30) mmol/L Anion Gap 9 L (10-20) BUN 13 (7-17) mg/dl Creatinine 0.6 L (0.7-1.2) mg/dL Est GFR ( Amer) > 60 Est GFR (Non-Af Amer) > 60 Random Glucose 75 (65-105) mg/dL Lactic Acid 1.4 (0.7-2.1) MMOL/L Calcium 8.4 (8.4-10.2) mg/dL Total Bilirubin 0.5 (0.2-1.3) mg/dl AST 20 (14-36) U/L ALT 29 (9-52) U/L Alkaline Phosphatase 46 (38-126) U/L Total Protein 5.0 L (6.3-8.2) G/DL Albumin 2.3 L (3.5-5.0) g/dL Globulin 2.8 (2.2-3.9) gm/dL Albumin/Globulin Ratio 0.8 L (1.0-2.1) Procalcitonin (0.19-0.49) NG/ML 05/05/17 Range/Units 20:30 WBC (4.8-10.8) K/uL RBC (3.80-5.20) Mil/uL Hgb (12.0-16.0) g/dL Hct (34.0-47.0) % MCV (81.0-99.0) fl MCH (27.0-31.0) pg MCHC (33.0-37.0) g/dL RDW (11.5-14.5) % Plt Count (130-400) K/uL MPV (7.2-11.7) fl Neut % (Auto) (50.0-75.0) % Lymph % (Auto) (20.0-40.0) % [place] % (Auto) (0.0-10.0) % Eos % (Auto) (0.0-4.0) % Baso % (Auto) (0.0-2.0) % Neut # (1.8-7.0) K/uL Lymph # (1.0-4.3) K/uL [place] # (0.0-0.8) K/uL Eos # (0.0-0.7) K/uL Baso # (0.0-0.2) K/uL Sodium (132-148) mmol/l Potassium (3.6-5.0) MMOL/L Chloride (98-107) mmol/L Carbon Dioxide (22-30) mmol/L Anion Gap (10-20) BUN (7-17) mg/dl Creatinine (0.7-1.2) mg/dL Est GFR ( Amer) Est GFR (Non-Af Amer) Random Glucose (65-105) mg/dL Lactic Acid (0.7-2.1) MMOL/L Calcium (8.4-10.2) mg/dL Total Bilirubin (0.2-1.3) mg/dl AST (14-36) U/L ALT (9-52) U/L Alkaline Phosphatase (38-126) U/L Total Protein (6.3-8.2) G/DL Albumin (3.5-5.0) g/dL Globulin (2.2-3.9) gm/dL Albumin/Globulin Ratio (1.0-2.1) Procalcitonin 8.28 H (0.19-0.49) NG/ML Laboratory Results - last 24 hr 05/05/17 05/07/17 05/07/17 20:30 06:00 06:00 WBC 1.5 L* D RBC 3.65 L Hgb 8.6 L Hct 26.7 L MCV 73.1 L MCH 23.6 L MCHC 32.2 L RDW 23.5 H Plt Count 107 L D MPV 8.9 Neut % (Auto) 66.8 Lymph % (Auto) 16.1 L [place] % (Auto) 13.3 H Eos % (Auto) 3.6 Baso % (Auto) 0.2 Neut # 1.0 L Lymph # 0.2 L [place] # 0.2 Eos # 0.1 Baso # 0.0 Sodium 137 Potassium 2.9 L Chloride 109 H Carbon Dioxide 22 Anion Gap 9 L BUN 13 Creatinine 0.6 L Est GFR ( Amer) > 60 Est GFR (Non-Af Amer) > 60 Random Glucose 75 Lactic Acid Calcium 8.4 Total Bilirubin 0.5 AST 20 ALT 29 Alkaline Phosphatase 46 Total Protein 5.0 L Albumin 2.3 L Globulin 2.8 Albumin/Globulin Ratio 0.8 L Procalcitonin 8.28 H 05/07/17 06:00 WBC RBC Hgb Hct MCV MCH MCHC RDW Plt Count MPV Neut % (Auto) Lymph % (Auto) [place] % (Auto) Eos % (Auto) Baso % (Auto) Neut # Lymph # [place] # Eos # Baso # Sodium Potassium Chloride Carbon Dioxide Anion Gap BUN Creatinine Est GFR ( Amer) Est GFR (Non-Af Amer) Random Glucose Lactic Acid 1.4 Calcium Total Bilirubin AST ALT Alkaline Phosphatase Total Protein Albumin Globulin Albumin/Globulin Ratio Procalcitonin Critical Care Progress Note - Nutrition Nutrition: Nutrition Category Date Time Status Regular Diet [DIET] Diets 05/06/17 Breakfast Active Assessment/Plan - Assessment and Plan (Free Text) Assessment: A/P FUO, neutropenic fever, sepsis, unclear source, non Hodjekin lymphoma, s/p chemotherapy, h/o mythenia gravis - continue meds - Follow up cultures - Pulmonary toilets - follow up labs
--- NOTE | 2017-05-07 10:02 | CARD ---
APPROVED REPORT EXAM: Two-dimensional and M-mode echocardiogram with Doppler and color Doppler. Other Information Quality : AverageRhythm : NSR INDICATION Infection: FUO 2D DIMENSIONS IVSd0.79 (0.7-1.1cm)LVDd4.47 (3.9-5.9cm) LVOT Diameter2.11 (1.8-2.4cm)PWd0.74 (0.7-1.1cm) IVSs1.05 (0.8-1.2cm)LVDs2.55 (2.5-4.0cm) FS (%) 42.9 %PWs1.10 (0.8-1.2cm) M-Mode DIMENSIONS Left Atrium (MM)5.39 (2.5-4.0cm)IVSd1.52 (0.7-1.1cm) Aortic Root2.88 (2.2-3.7cm)LVDd4.60 (4.0-5.6cm) Aortic Cusp Exc.1.85 (1.5-2.0cm)PWd1.09 (0.7-1.1cm) IVSs1.69 cmFS (%) 32 % LVDs3.11 (2.0-3.8cm)PWs1.46 cm Mitral Valve E/A ratio0.0 TDI E/Lateral E'0.0E/Medial E'0.0 LEFT VENTRICLE The left ventricle is normal size. There is normal left ventricular wall thickness. The left ventricular function is normal. The left ventricular ejection fraction is within the normal range. The Ejection Fraction is 55-60%. There is normal LV segmental wall motion. The left ventricular diastolic function is normal. No left ventricle thrombus noted on this study. There is no mass noted in the left ventricle. RIGHT VENTRICLE The right ventricle is normal size. There is normal right ventricular wall thickness. The right ventricular systolic function is normal. ATRIA The left atrium is mildly dilated. The right atrium size is normal. The interatrial septum is intact with no evidence for an atrial septal defect. AORTIC VALVE The aortic valve is normal in structure and function. No aortic regurgitation is present. There is no aortic valvular stenosis. There is no aortic valvular vegetation. MITRAL VALVE Mitral annular calcification is mild. There is no evidence of mitral valve prolapse. There is no mitral valve stenosis. There is no mitral valve regurgitation noted. TRICUSPID VALVE The tricuspid valve is normal in structure and function. There is no tricuspid valve regurgitation noted. There is no tricuspid valve prolapse or vegetation. There is no tricuspid valve stenosis. PULMONIC VALVE The pulmonary valve is normal in structure and function. There is no pulmonic valvular regurgitation. There is no pulmonic valvular stenosis. GREAT VESSELS The aortic root is normal in size. The IVC is normal in size and collapses >50% with inspiration. PERICARDIAL EFFUSION The pericardium appears normal. There is no pleural effusion. <Conclusion> The left ventricle is normal size. The left ventricular function is normal. The left ventricular ejection fraction is within the normal range. The Ejection Fraction is 55-60%. The left atrium is mildly dilated. Mitral annular calcification is mild.
--- NOTE | 2017-05-07 13:58 | CP.PCM.PN ---
Subjective - Date & Time of Evaluation Date of Evaluation: 05/07/17 Time of Evaluation: 13:00 - Subjective Subjective: ID Note- Pt. seen and examined today in ICU. Pt's son is at her bedside. pt. is in much better spirits today and states she feels much better and was able to sleep 5 hours last night. pt. denies any fever or chills, denies any cough, denies anyu sob, denies any diarrhea. Objective - Vital Signs/Intake and Output Vital Signs (last 24 hours): Temp Pulse Resp BP Pulse Ox 98.7 F 98 H 20 151/56 H 98 05/07/17 12:00 05/07/17 12:00 05/07/17 12:00 05/07/17 12:00 05/07/17 12:00 Intake and Output: 05/07/17 05/07/17 06:59 18:59 Intake Total 2000 668 Output Total 1600 Balance 400 668 - Medications Medications: Current Medications Acetaminophen (Tylenol 325mg Tab) 650 mg PO Q4 PRN PRN Reason: Pain, moderate (4-7) Last Admin: 05/07/17 10:57 Dose: 650 mg Vancomycin HCl 1 gm/ Sodium (Chloride) 250 mls @ 250 mls/hr IVPB Q12H [facility] Last Admin: 05/07/17 05:14 Dose: 250 mls/hr Micafungin Sodium 100 mg/ (Sodium Chloride) 100 mls @ 100 mls/hr IVPB DAILY [facility] Last Admin: 05/07/17 08:21 Dose: 100 mls/hr Aztreonam 1 gm/ Sodium (Chloride) 100 mls @ 100 mls/hr IVPB Q12 [facility] Last Admin: 05/07/17 08:20 Dose: 100 mls/hr Levofloxacin/Dextrose (Levaquin 750mg) 750 mg in 150 mls @ 100 mls/hr IVPB DAILY [facility] Last Admin: 05/06/17 08:51 Dose: 100 mls/hr Ibuprofen (Motrin Tab) 600 mg PO Q6 PRN PRN Reason: Fever >100.4 F Last Admin: 05/06/17 05:21 Dose: 600 mg - Labs Labs: - Constitutional Appears: Non-toxic, No Acute Distress - Eye Exam Eye Exam: EOMI, PERRL - ENT Exam ENT Exam: Normal Oropharynx - Neck Exam Neck Exam: Full ROM - Respiratory Exam Respiratory Exam: NORMAL BREATHING PATTERN Additional comments: no wheezing minimal crackles at left base - Cardiovascular Exam Cardiovascular Exam: RRR, +S1, +S2 Additional comments: 3/6 ejection murmur at LSB - GI/Abdominal Exam GI & Abdominal Exam: Soft, Normal Bowel Sounds Additional comments: NT, ND - Extremities Exam Additional comments: no edema b/l LE - Neurological Exam Neurological Exam: Alert, Oriented x3 - Additional Findings Additional findings: Laboratory Results - last 72 hr 05/05/17 05/05/17 05/05/17 11:30 11:30 11:30 WBC 0.4 L* D RBC 4.67 Hgb 11.2 L Hct 33.9 L MCV 72.6 L D MCH 24.0 L MCHC 33.0 RDW 22.8 H Plt Count 169 MPV 8.9 Neut % (Auto) 6.5 L Lymph % (Auto) 76.1 H [place] % (Auto) 12.2 H Eos % (Auto) 5.1 H Baso % (Auto) 0.1 Neut # 0.0 L Lymph # 0.3 L [place] # 0.1 Eos # 0.0 Baso # 0.0 Neutrophils % (Manual) 5 L Lymphocytes % (Manual) 85 H Monocytes % (Manual) 10 Platelet Estimate Normal Hypochromasia (manual) Slight Anisocytosis (manual) Moderate Microcytosis (manual) Slight PT 12.6 INR 1.1 APTT 22.3 L pO2 VBG pH VBG pCO2 VBG HCO3 VBG Total CO2 VBG O2 Sat (Calc) VBG Base Excess VBG Potassium Glucose Lactate FiO2 Blood Gas Comments Crit Value Called To Crit Value Called By Crit Value Read Back Blood Gas Notified Time Sodium 135 Potassium 4.0 Chloride 101 Carbon Dioxide 23 Anion Gap 16 BUN 19 H Creatinine 0.7 Est GFR ( Amer) > 60 Est GFR (Non-Af Amer) > 60 Random Glucose 123 H Lactic Acid Calcium 10.2 Total Bilirubin 1.0 AST 31 ALT 25 Alkaline Phosphatase 57 Troponin I 0.0320 Total Protein 7.0 Albumin 3.6 Globulin 3.4 Albumin/Globulin Ratio 1.0 Procalcitonin Venous Blood Potassium Urine Color Urine Clarity Urine pH Ur Specific [place] Urine Protein Urine Glucose (UA) Urine Ketones Urine Blood Urine Nitrate Urine Bilirubin Urine Urobilinogen Ur Leukocyte Esterase Urine RBC (Auto) Urine Microscopic WBC Urine Bacteria Hyaline Casts 05/05/17 05/05/17 05/05/17 11:52 15:52 18:45 WBC RBC Hgb Hct MCV MCH MCHC RDW Plt Count MPV Neut % (Auto) Lymph % (Auto) [place] % (Auto) Eos % (Auto) Baso % (Auto) Neut # Lymph # [place] # Eos # Baso # Neutrophils % (Manual) Lymphocytes % (Manual) Monocytes % (Manual) Platelet Estimate Hypochromasia (manual) Anisocytosis (manual) Microcytosis (manual) PT INR APTT pO2 14 L 12 L VBG pH 7.43 7.32 VBG pCO2 40 41 VBG HCO3 24.3 18.8 VBG Total CO2 27.7 22.4 VBG O2 Sat (Calc) 21.4 L 15.2 L VBG Base Excess 2.0 -4.8 L VBG Potassium 3.4 L 4.2 Glucose 100 103 Lactate 3.8 H 7.3 H* FiO2 21.0 21.0 Blood Gas Comments Lactate 3.8 Lactate 7.3 Crit Value Called To urmila Bowling linda Crit Value Called By 203 203 Crit Value Read Back Y Y Blood Gas Notified Time 1218 1558 Sodium 135.0 136.0 Potassium Chloride 103.0 104.0 Carbon Dioxide Anion Gap BUN Creatinine Est GFR ( Amer) Est GFR (Non-Af Amer) Random Glucose Lactic Acid Calcium Total Bilirubin AST ALT Alkaline Phosphatase Troponin I Total Protein Albumin Globulin Albumin/Globulin Ratio Procalcitonin Venous Blood Potassium 3.4 L 4.2 Urine Color Yellow Urine Clarity Slighty-cloudy Urine pH 5.0 Ur Specific [place] 1.015 Urine Protein Negative Urine Glucose (UA) Neg Urine Ketones Negative Urine Blood Negative Urine Nitrate Negative Urine Bilirubin Negative Urine Urobilinogen 0.2-1.0 Ur Leukocyte Esterase Neg Urine RBC (Auto) 2 Urine Microscopic WBC 2 Urine Bacteria Few H Hyaline Casts 6-10 H 05/05/17 05/06/17 05/06/17 20:30 05:45 05:45 WBC 0.3 L* RBC 3.93 Hgb 9.2 L D Hct 28.8 L MCV 73.3 L MCH 23.4 L MCHC 31.9 L RDW 23.1 H Plt Count 135 MPV 8.6 Neut % (Auto) 29.3 L Lymph % (Auto) 35.6 [place] % (Auto) 32.0 H Eos % (Auto) 2.9 Baso % (Auto) 0.2 Neut # 0.1 L Lymph # 0.1 L [place] # 0.1 Eos # 0.0 Baso # 0.0 Neutrophils % (Manual) Lymphocytes % (Manual) Monocytes % (Manual) Platelet Estimate Hypochromasia (manual) Anisocytosis (manual) Microcytosis (manual) PT INR APTT pO2 VBG pH VBG pCO2 VBG HCO3 VBG Total CO2 VBG O2 Sat (Calc) VBG Base Excess VBG Potassium Glucose Lactate FiO2 Blood Gas Comments Crit Value Called To Crit Value Called By Crit Value Read Back Blood Gas Notified Time Sodium 135 Potassium 3.4 L Chloride 108 H Carbon Dioxide 17 L Anion Gap 13 BUN 18 H Creatinine 0.7 Est GFR ( Amer) > 60 Est GFR (Non-Af Amer) > 60 Random Glucose 103 Lactic Acid Calcium 8.0 L Total Bilirubin 0.6 AST 26 ALT 34 Alkaline Phosphatase 39 Troponin I Total Protein 5.2 L Albumin 2.4 L D Globulin 2.8 Albumin/Globulin Ratio 0.9 L Procalcitonin 8.28 H Venous Blood Potassium Urine Color Urine Clarity Urine pH Ur Specific [place] Urine Protein Urine Glucose (UA) Urine Ketones Urine Blood Urine Nitrate Urine Bilirubin Urine Urobilinogen Ur Leukocyte Esterase Urine RBC (Auto) Urine Microscopic WBC Urine Bacteria Hyaline Casts 05/06/17 05/07/17 05/07/17 05:45 06:00 06:00 WBC 1.5 L* D RBC 3.65 L Hgb 8.6 L Hct 26.7 L MCV 73.1 L MCH 23.6 L MCHC 32.2 L RDW 23.5 H Plt Count 107 L D MPV 8.9 Neut % (Auto) 66.8 Lymph % (Auto) 16.1 L [place] % (Auto) 13.3 H Eos % (Auto) 3.6 Baso % (Auto) 0.2 Neut # 1.0 L Lymph # 0.2 L [place] # 0.2 Eos # 0.1 Baso # 0.0 Neutrophils % (Manual) Lymphocytes % (Manual) Monocytes % (Manual) Platelet Estimate Hypochromasia (manual) Anisocytosis (manual) Microcytosis (manual) PT INR APTT pO2 VBG pH VBG pCO2 VBG HCO3 VBG Total CO2 VBG O2 Sat (Calc) VBG Base Excess VBG Potassium Glucose Lactate FiO2 Blood Gas Comments Crit Value Called To Crit Value Called By Crit Value Read Back Blood Gas Notified Time Sodium 137 Potassium 2.9 L Chloride 109 H Carbon Dioxide 22 Anion Gap 9 L BUN 13 Creatinine 0.6 L Est GFR ( Amer) > 60 Est GFR (Non-Af Amer) > 60 Random Glucose 75 Lactic Acid 4.0 H Calcium 8.4 Total Bilirubin 0.5 AST 20 ALT 29 Alkaline Phosphatase 46 Troponin I Total Protein 5.0 L Albumin 2.3 L Globulin 2.8 Albumin/Globulin Ratio 0.8 L Procalcitonin Venous Blood Potassium Urine Color Urine Clarity Urine pH Ur Specific [place] Urine Protein Urine Glucose (UA) Urine Ketones Urine Blood Urine Nitrate Urine Bilirubin Urine Urobilinogen Ur Leukocyte Esterase Urine RBC (Auto) Urine Microscopic WBC Urine Bacteria Hyaline Casts 05/07/17 06:00 WBC RBC Hgb Hct MCV MCH MCHC RDW Plt Count MPV Neut % (Auto) Lymph % (Auto) [place] % (Auto) Eos % (Auto) Baso % (Auto) Neut # Lymph # [place] # Eos # Baso # Neutrophils % (Manual) Lymphocytes % (Manual) Monocytes % (Manual) Platelet Estimate Hypochromasia (manual) Anisocytosis (manual) Microcytosis (manual) PT INR APTT pO2 VBG pH VBG pCO2 VBG HCO3 VBG Total CO2 VBG O2 Sat (Calc) VBG Base Excess VBG Potassium Glucose Lactate FiO2 Blood Gas Comments Crit Value Called To Crit Value Called By Crit Value Read Back Blood Gas Notified Time Sodium Potassium Chloride Carbon Dioxide Anion Gap BUN Creatinine Est GFR ( Amer) Est GFR (Non-Af Amer) Random Glucose Lactic Acid 1.4 Calcium Total Bilirubin AST ALT Alkaline Phosphatase Troponin I Total Protein Albumin Globulin Albumin/Globulin Ratio Procalcitonin Venous Blood Potassium Urine Color Urine Clarity Urine pH Ur Specific [place] Urine Protein Urine Glucose (UA) Urine Ketones Urine Blood Urine Nitrate Urine Bilirubin Urine Urobilinogen Ur Leukocyte Esterase Urine RBC (Auto) Urine Microscopic WBC Urine Bacteria Hyaline Casts Microbiology 05/05/17 11:50 Blood-Venous Blood Culture - Preliminary NO GROWTH AFTER 48 HOURS 05/05/17 11:20 Blood-Venous Blood Culture - Preliminary NO GROWTH AFTER 48 HOURS 05/05/17 20:30 Naris MRSA Culture (Admit) - Final MRSA NOT DETECTED 05/05/17 20:30 Blood-Thru Central Line Blood Culture - Preliminary NO GROWTH AFTER 24 HOURS Assessment and Plan (1) Neutropenic fever Status: Acute (2) Syncope Status: Acute (3) Lymphoma Status: Acute - Assessment and Plan (Free Text) Assessment: A/P- 67 year old female with newly diagnosed lymphoma in 01/2017 undergoing chemotherpay which was finished this week admitted post syncopal episode and found to be in neutropenic fever, hypotensive and tachycardic. remains afebrile today WBC increasd today , ANC is 990 today, no longer neutropenic blood cx- neg x 3 UA- negative chest Ct report noted. mild b/l pleural effusions and ? left lowe lung consolidation . 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 continue with micafungin day #3.. continue with vancomycin, aztreonam and levaquin day #3. keep vanco trough <15. may benefir from incentive spirometry and would also advise Pt evaluation. All above d/w patient at length and she verbalizes full understanding of all above. ICU time 45 minutes.
[2017-05-07] MEDS ORDERED: Potassium Chloride 20 mEq/15 ml LIQ UD PO ONE (14:15)
[2017-05-07] MEDS: Potassium CL 10 MEQ/50 ML 50 ML IVPB SCH ×4 (14:22→17:46)
--- NOTE | 2017-05-07 23:33 | CP.PCM.PN ---
Subjective - Date & Time of Evaluation Date of Evaluation: 05/07/17 Time of Evaluation: 09:00 - Subjective Subjective: k-2.9, wbc-1.5, got granix feels better, able to talk c\o dry mouth blood and urine c\s negative on abx off on pressors early this am. Objective - Vital Signs/Intake and Output Vital Signs (last 24 hours): Temp Pulse Resp BP Pulse Ox 98.1 F 86 32 H 133/72 100 05/07/17 16:00 05/07/17 17:56 05/07/17 17:56 05/07/17 17:56 05/07/17 17:56 Intake and Output: 05/07/17 05/08/17 18:59 06:59 Intake Total 1768 Output Total 550 Balance 1218 - Medications Medications: Current Medications Acetaminophen (Tylenol 325mg Tab) 650 mg PO Q4 PRN PRN Reason: Pain, moderate (4-7) Last Admin: 05/07/17 10:57 Dose: 650 mg Vancomycin HCl 1 gm/ Sodium (Chloride) 250 mls @ 250 mls/hr IVPB Q12H [facility] Last Admin: 05/07/17 17:46 Dose: 250 mls/hr Micafungin Sodium 100 mg/ (Sodium Chloride) 100 mls @ 100 mls/hr IVPB DAILY [facility] Last Admin: 05/07/17 08:21 Dose: 100 mls/hr Aztreonam 1 gm/ Sodium (Chloride) 100 mls @ 100 mls/hr IVPB Q12 [facility] Last Admin: 05/07/17 21:00 Dose: 100 mls/hr Levofloxacin/Dextrose (Levaquin 750mg) 750 mg in 150 mls @ 100 mls/hr IVPB DAILY [facility] Last Admin: 05/06/17 08:51 Dose: 100 mls/hr Ibuprofen (Motrin Tab) 600 mg PO Q6 PRN PRN Reason: Fever >100.4 F Last Admin: 05/06/17 05:21 Dose: 600 mg - Labs Labs: 05/07/17 06:00 05/07/17 06:00 PT 12.6 Seconds (9.8-13.1) 05/05/17 11:30 INR 1.1 (0.9-1.2) 05/05/17 11:30 APTT 22.3 Seconds (25.6-37.1) L 05/05/17 11:30 - Additional Findings Additional findings: Head Exam Head Exam: ATRAUMATIC, NORMAL INSPECTION - Eye Exam Eye Exam: PERRL. absent: Scleral icterus - ENT Exam ENT Exam: Mucous Membranes Dry - Neck Exam Neck exam: Positive for: Normal Inspection. Negative for: Lymphadenopathy, Thyromegaly - Respiratory Exam Respiratory Exam: Clear to Auscultation Bilateral, NORMAL BREATHING PATTERN. absent: Rales, Wheezes - Cardiovascular Exam Cardiovascular Exam: REGULAR RHYTHM, +S1, +S2. absent: Systolic Murmur - GI/Abdominal Exam GI & Abdominal Exam: Normal Bowel Sounds, Soft. absent: Tenderness - Extremities Exam Extremities exam: Positive for: normal inspection. Negative for: pedal edema, pedal pulses present - Neurological Exam Neurological exam: Alert, Oriented x3 - Psychiatric Exam Psychiatric exam: Normal Affect, Normal Mood - Skin Skin Exam: Intact, Normal Color Additional comments: ecchymosis on left upperarm right side portacath Assessment and Plan (1) Hypokalemia Status: Acute (2) Septic shock Status: Resolved (3) Neutropenic fever Status: Resolved (4) Lymphoma Status: Chronic (5) Hepatitis Status: Resolved - Assessment and Plan (Free Text) Plan: replace K monitor BP will rx for pneumonia ID on board d\w son in detail monitor plt\wbc possible tx to telemetry
--- NOTE | 2017-05-08 03:02 | CP.PCM.PN ---
Subjective - Date & Time of Evaluation Date of Evaluation: 05/07/17 Time of Evaluation: 17:00 - Subjective Subjective: Feeling better Objective - Vital Signs/Intake and Output Vital Signs (last 24 hours): Temp Pulse Resp BP Pulse Ox 98.1 F 86 32 H 133/72 100 05/07/17 16:00 05/07/17 17:56 05/07/17 17:56 05/07/17 17:56 05/07/17 17:56 Intake and Output: 05/07/17 05/08/17 18:59 06:59 Intake Total 1768 Output Total 550 Balance 1218 - Medications Medications: Current Medications Acetaminophen (Tylenol 325mg Tab) 650 mg PO Q4 PRN PRN Reason: Pain, moderate (4-7) Last Admin: 05/07/17 10:57 Dose: 650 mg Vancomycin HCl 1 gm/ Sodium (Chloride) 250 mls @ 250 mls/hr IVPB Q12H [facility] Last Admin: 05/07/17 17:46 Dose: 250 mls/hr Micafungin Sodium 100 mg/ (Sodium Chloride) 100 mls @ 100 mls/hr IVPB DAILY [facility] Last Admin: 05/07/17 08:21 Dose: 100 mls/hr Aztreonam 1 gm/ Sodium (Chloride) 100 mls @ 100 mls/hr IVPB Q12 [facility] Last Admin: 05/07/17 21:00 Dose: 100 mls/hr Levofloxacin/Dextrose (Levaquin 750mg) 750 mg in 150 mls @ 100 mls/hr IVPB DAILY [facility] Last Admin: 05/06/17 08:51 Dose: 100 mls/hr Ibuprofen (Motrin Tab) 600 mg PO Q6 PRN PRN Reason: Fever >100.4 F Last Admin: 05/06/17 05:21 Dose: 600 mg - Labs Labs: 05/07/17 06:00 05/07/17 06:00 PT 12.6 Seconds (9.8-13.1) 05/05/17 11:30 INR 1.1 (0.9-1.2) 05/05/17 11:30 APTT 22.3 Seconds (25.6-37.1) L 05/05/17 11:30 - Head Exam Head Exam: ATRAUMATIC - Eye Exam Eye Exam: Normal appearance - ENT Exam ENT Exam: Mucous Membranes Dry - Respiratory Exam Respiratory Exam: NORMAL BREATHING PATTERN - Cardiovascular Exam Cardiovascular Exam: +S1, +S2 - GI/Abdominal Exam GI & Abdominal Exam: Normal Bowel Sounds - Extremities Exam Extremities Exam: Normal Inspection - Neurological Exam Neurological Exam: Oriented x3 - Psychiatric Exam Psychiatric exam: Normal Affect, Normal Mood - Skin Skin Exam: Warm Assessment and Plan (1) Pancytopenia Assessment & Plan: secondary to chemotehrapy neutropenia improving s/p Granix transfusion support PRN Status: Acute (2) Lymphoma Assessment & Plan: outpatient f/u with primary oncologist. Status: Acute
[2017-05-08 06:47] LABS: BASO % 0.4 % (0.0-2.0); EOS # 0.1 K/uL (0.0-0.7); HEMOGLOBIN 8.4 g/dL (12.0-16.0); LYMPH # 0.4 K/uL (1.0-4.3); LYMPH % 7.4 % (20.0-40.0); MEAN CELL VOLUME 73.6 fl (81.0-99.0); MEAN CORPUSCULAR HEMOGLOBIN 23.7 pg (27.0-31.0); MEAN CORPUSCULAR HGB CONC 32.2 g/dL (33.0-37.0); MEAN PLATELET VOLUME 8.9 fl (7.2-11.7); MONO # 0.8 K/uL (0.0-0.8); MONO % 14.6 % (0.0-10.0); NEUT % 76.6 % (50.0-75.0); NRBC % 0.2 % (0.0-0.0); RBC 3.56 Mil/uL (3.80-5.20); RED CELL DISTRIBUTION WIDTH 23.5 % (11.5-14.5); WHITE BLOOD COUNT 5.2 K/uL (4.8-10.8)
[2017-05-08] MEDS: Aztreonam 1 GM in Sodium Chloride 0.9% 100 ML IVPB SCH ×2 (08:21→21:30)
[2017-05-08] MEDS: levoFLOXacin 750 mg in D5W 750 MG/150 ML BAG IVPB SCH (08:22)
[2017-05-08] MEDS: Micafungin 100 MG in Sodium Chloride 0.9% 100 ML IVPB SCH (08:22)
--- NOTE | 2017-05-08 22:43 | CP.PCM.PN ---
Subjective - Date & Time of Evaluation Date of Evaluation: 05/08/17 Time of Evaluation: 08:00 - Subjective Subjective: wbc-5.3, c\o constipation for 2 days. wants prune\softeners alone. stable vitals. feels tired and weak. Objective - Vital Signs/Intake and Output Vital Signs (last 24 hours): Temp Pulse Resp BP Pulse Ox 98 F 78 20 137/80 95 05/08/17 19:28 05/08/17 19:28 05/08/17 19:28 05/08/17 19:28 05/08/17 19:28 Intake and Output: 05/08/17 05/09/17 18:59 06:59 Intake Total 660 Balance 660 - Medications Medications: Current Medications Acetaminophen (Tylenol 325mg Tab) 650 mg PO Q4 PRN PRN Reason: Pain, moderate (4-7) Last Admin: 05/07/17 10:57 Dose: 650 mg Docusate Sodium (Colace) 100 mg PO DAILY [facility] Vancomycin HCl 1 gm/ Sodium (Chloride) 250 mls @ 250 mls/hr IVPB Q12H [facility] Last Admin: 05/08/17 18:36 Dose: 250 mls/hr Micafungin Sodium 100 mg/ (Sodium Chloride) 100 mls @ 100 mls/hr IVPB DAILY [facility] Last Admin: 05/08/17 08:22 Dose: 100 mls/hr Aztreonam 1 gm/ Sodium (Chloride) 100 mls @ 100 mls/hr IVPB Q12 [facility] Last Admin: 05/08/17 08:21 Dose: 100 mls/hr Levofloxacin/Dextrose (Levaquin 750mg) 750 mg in 150 mls @ 100 mls/hr IVPB DAILY [facility] Last Admin: 05/08/17 08:22 Dose: 100 mls/hr Ibuprofen (Motrin Tab) 600 mg PO Q6 PRN PRN Reason: Fever >100.4 F Last Admin: 05/08/17 08:23 Dose: 600 mg - Labs Labs: 05/08/17 06:00 05/07/17 06:00 PT 12.6 Seconds (9.8-13.1) 05/05/17 11:30 INR 1.1 (0.9-1.2) 05/05/17 11:30 APTT 22.3 Seconds (25.6-37.1) L 05/05/17 11:30 - Additional Findings Additional findings: Head Exam Head Exam: ATRAUMATIC, NORMAL INSPECTION - Eye Exam Eye Exam: PERRL. absent: Scleral icterus - ENT Exam ENT Exam: Mucous Membranes Dry - Neck Exam Neck exam: Positive for: Normal Inspection. Negative for: Lymphadenopathy, Thyromegaly - Respiratory Exam Respiratory Exam: Clear to Auscultation Bilateral, NORMAL BREATHING PATTERN. b \l LL Rales, NO Wheezes - Cardiovascular Exam Cardiovascular Exam: REGULAR RHYTHM, +S1, +S2. absent: Systolic Murmur - GI/Abdominal Exam GI & Abdominal Exam: Normal Bowel Sounds, Soft. absent: Tenderness - Extremities Exam Extremities exam: Positive for: normal inspection. Negative for: pedal edema, pedal pulses present - Neurological Exam Neurological exam: Alert, Oriented x3 - Psychiatric Exam Psychiatric exam: Normal Affect, Normal Mood - Skin Skin Exam: Intact, Normal Color Additional comments: ecchymosis on left upperarm right side portacath Assessment and Plan (1) Neutropenia Status: Resolved (2) Constipated Status: Acute (3) Lymphoma Status: Chronic (4) Debility Status: Acute (5) Thrombocytopenia Status: Acute - Assessment and Plan (Free Text) Plan: CONTINUE all meds colace PT eval discuss with patient \son
--- NOTE | 2017-05-09 00:10 | CP.PCM.PN ---
Subjective - Date & Time of Evaluation Date of Evaluation: 05/08/17 Time of Evaluation: 20:00 - Subjective Subjective: Feeing better Objective - Vital Signs/Intake and Output Vital Signs (last 24 hours): Temp Pulse Resp BP Pulse Ox 98 F 78 20 137/80 95 05/08/17 19:28 05/08/17 19:28 05/08/17 19:28 05/08/17 19:28 05/08/17 19:28 Intake and Output: 05/08/17 05/09/17 18:59 06:59 Intake Total 660 Balance 660 - Medications Medications: Current Medications Acetaminophen (Tylenol 325mg Tab) 650 mg PO Q4 PRN PRN Reason: Pain, moderate (4-7) Last Admin: 05/07/17 10:57 Dose: 650 mg Docusate Sodium (Colace) 100 mg PO DAILY [facility] Vancomycin HCl 1 gm/ Sodium (Chloride) 250 mls @ 250 mls/hr IVPB Q12H [facility] Last Admin: 05/08/17 18:36 Dose: 250 mls/hr Micafungin Sodium 100 mg/ (Sodium Chloride) 100 mls @ 100 mls/hr IVPB DAILY [facility] Last Admin: 05/08/17 08:22 Dose: 100 mls/hr Aztreonam 1 gm/ Sodium (Chloride) 100 mls @ 100 mls/hr IVPB Q12 [facility] Last Admin: 05/08/17 08:21 Dose: 100 mls/hr Levofloxacin/Dextrose (Levaquin 750mg) 750 mg in 150 mls @ 100 mls/hr IVPB DAILY [facility] Last Admin: 05/08/17 08:22 Dose: 100 mls/hr Ibuprofen (Motrin Tab) 600 mg PO Q6 PRN PRN Reason: Fever >100.4 F Last Admin: 05/08/17 08:23 Dose: 600 mg - Labs Labs: 05/08/17 06:00 05/07/17 06:00 PT 12.6 Seconds (9.8-13.1) 05/05/17 11:30 INR 1.1 (0.9-1.2) 05/05/17 11:30 APTT 22.3 Seconds (25.6-37.1) L 05/05/17 11:30 - Head Exam Head Exam: ATRAUMATIC - Eye Exam Eye Exam: Normal appearance - ENT Exam ENT Exam: Mucous Membranes Dry - Respiratory Exam Respiratory Exam: NORMAL BREATHING PATTERN - Cardiovascular Exam Cardiovascular Exam: +S1, +S2 - GI/Abdominal Exam GI & Abdominal Exam: Normal Bowel Sounds - Extremities Exam Extremities Exam: Normal Inspection Assessment and Plan (1) Pancytopenia Assessment & Plan: Neutropenia resolved plt count improved Status: Acute (2) Lymphoma Assessment & Plan: outpatient treatment with primary oncologist Status: Acute
[2017-05-09 06:40] LABS: BASO % 0.3 % (0.0-2.0); EOS # 0.1 K/uL (0.0-0.7); HEMOGLOBIN 9.2 g/dL (12.0-16.0); LYMPH # 0.6 K/uL (1.0-4.3); LYMPH % 6.5 % (20.0-40.0); MEAN CELL VOLUME 72.6 fl (81.0-99.0); MEAN CORPUSCULAR HEMOGLOBIN 24.1 pg (27.0-31.0); MEAN CORPUSCULAR HGB CONC 33.2 g/dL (33.0-37.0); MEAN PLATELET VOLUME 8.7 fl (7.2-11.7); MONO # 1.2 K/uL (0.0-0.8); MONO % 12.2 % (0.0-10.0); NEUT # 7.6 K/uL (1.8-7.0); NRBC % 0.1 % (0.0-0.0); PLATELET COUNT 173 K/uL (130-400); RBC 3.83 Mil/uL (3.80-5.20); RED CELL DISTRIBUTION WIDTH 23.1 % (11.5-14.5); WHITE BLOOD COUNT 9.5 K/uL (4.8-10.8)
[2017-05-09 07:38] LABS: ALB/GLOB RATIO 0.9 (1.0-2.1); ALBUMIN 2.7 g/dL (3.5-5.0); ALT/SGPT 37 U/L (9-52); AST/SGOT 39 U/L (14-36); BLOOD UREA NITROGEN 9 mg/dl (7-17); CALCIUM 8.9 mg/dL (8.4-10.2); GFR AFRICAN-AMERICAN > 60; GFR NON-AFRICAN AMERICAN > 60
[2017-05-09] MEDS: Aztreonam 1 GM in Sodium Chloride 0.9% 100 ML IVPB SCH (09:31)
[2017-05-09] MEDS: levoFLOXacin 750 mg in D5W 750 MG/150 ML BAG IVPB SCH (09:32)
[2017-05-09] MEDS: Micafungin 100 MG in Sodium Chloride 0.9% 100 ML IVPB SCH (09:33)
[2017-05-09 10:38] LABS: EOSINOPHIL 1 % (0-7); LYMPHOCYTE 5 % (20-50); MONOCYTE 15 % (0-10); NEUTROPHIL 79 % (42-75); TOTAL CELLS COUNTED 100
[2017-05-09 10:39] LABS: PLATELET ESTIMATE NORMAL (NORMAL)
[2017-05-09 10:40] LABS: ANISOCYTOSIS MODERATE; HYPOCHROMIC SLIGHT; OVALOCYTES SLIGHT; SCHISTOCYTES SLIGHT
--- NOTE | 2017-05-09 13:41 | CP.PCM.PN ---
Subjective - Date & Time of Evaluation Date of Evaluation: 05/09/17 Time of Evaluation: 13:41 - Subjective Subjective: ID Note- Pt. seen and examined today in Tele unit. patient states she feels fine and denies any complaints except she states she has not had BM in few days but denies any abd. pain, denies any n/v. denies any chills, denies any cough. Objective - Vital Signs/Intake and Output Vital Signs (last 24 hours): Temp Pulse Resp BP Pulse Ox 98.3 F 86 20 161/92 H 93 L 05/09/17 12:00 05/09/17 12:00 05/09/17 12:00 05/09/17 12:00 05/09/17 08:38 - Medications Medications: Current Medications Acetaminophen (Tylenol 325mg Tab) 650 mg PO Q4 PRN PRN Reason: Pain, moderate (4-7) Last Admin: 05/07/17 10:57 Dose: 650 mg Docusate Sodium (Colace) 100 mg PO DAILY [facility] Last Admin: 05/09/17 09:33 Dose: 100 mg Vancomycin HCl 1 gm/ Sodium (Chloride) 250 mls @ 250 mls/hr IVPB Q12H [facility] Last Admin: 05/09/17 05:03 Dose: 250 mls/hr Micafungin Sodium 100 mg/ (Sodium Chloride) 100 mls @ 100 mls/hr IVPB DAILY [facility] Last Admin: 05/09/17 09:33 Dose: 100 mls/hr Aztreonam 1 gm/ Sodium (Chloride) 100 mls @ 100 mls/hr IVPB Q12 [facility] Last Admin: 05/09/17 09:31 Dose: 100 mls/hr Levofloxacin/Dextrose (Levaquin 750mg) 750 mg in 150 mls @ 100 mls/hr IVPB DAILY [facility] Last Admin: 05/09/17 09:32 Dose: 100 mls/hr Ibuprofen (Motrin Tab) 600 mg PO Q6 PRN PRN Reason: Fever >100.4 F - Labs Labs: 05/09/17 06:15 05/09/17 06:15 PT 12.6 Seconds (9.8-13.1) 05/05/17 11:30 INR 1.1 (0.9-1.2) 05/05/17 11:30 APTT 22.3 Seconds (25.6-37.1) L 05/05/17 11:30 - Additional Findings Additional findings: - Constitutional Appears: Non-toxic, No Acute Distress - Eye Exam Eye Exam: EOMI, PERRL - ENT Exam ENT Exam: Normal Oropharynx - Neck Exam Neck Exam: Full ROM - Respiratory Exam Respiratory Exam: NORMAL BREATHING PATTERN Additional comments: no wheezing minimal crackles at left base - Cardiovascular Exam Cardiovascular Exam: RRR, +S1, +S2 Additional comments: 3/6 ejection murmur at LSB - GI/Abdominal Exam GI & Abdominal Exam: Soft, Normal Bowel Sounds Additional comments: NT, ND - Extremities Exam Additional comments: no edema b/l LE - Neurological Exam Neurological Exam: Alert, Oriented x 3 Laboratory Results - last 72 hr 05/07/17 05/07/17 05/07/17 06:00 06:00 06:00 WBC 1.5 L* D RBC 3.65 L Hgb 8.6 L Hct 26.7 L MCV 73.1 L MCH 23.6 L MCHC 32.2 L RDW 23.5 H Plt Count 107 L D MPV 8.9 Neut % (Auto) 66.8 Lymph % (Auto) 16.1 L [place] % (Auto) 13.3 H Eos % (Auto) 3.6 Baso % (Auto) 0.2 Neut # 1.0 L Lymph # 0.2 L [place] # 0.2 Eos # 0.1 Baso # 0.0 Neutrophils % (Manual) Lymphocytes % (Manual) Monocytes % (Manual) Eosinophils % (Manual) Platelet Estimate Hypochromasia (manual) Anisocytosis (manual) Ovalocytes Schistocytes Sodium 137 Potassium 2.9 L Chloride 109 H Carbon Dioxide 22 Anion Gap 9 L BUN 13 Creatinine 0.6 L Est GFR ( Amer) > 60 Est GFR (Non-Af Amer) > 60 Random Glucose 75 Lactic Acid 1.4 Calcium 8.4 Total Bilirubin 0.5 AST 20 ALT 29 Alkaline Phosphatase 46 Total Protein 5.0 L Albumin 2.3 L Globulin 2.8 Albumin/Globulin Ratio 0.8 L Vancomycin Trough 05/08/17 05/08/17 05/09/17 06:00 06:00 06:15 WBC 5.2 D 9.5 D RBC 3.56 L 3.83 Hgb 8.4 L 9.2 L Hct 26.2 L 27.8 L MCV 73.6 L 72.6 L MCH 23.7 L 24.1 L MCHC 32.2 L 33.2 RDW 23.5 H 23.1 H Plt Count 128 L D 173 MPV 8.9 8.7 Neut % (Auto) 76.6 H 80.0 H Lymph % (Auto) 7.4 L 6.5 L [place] % (Auto) 14.6 H 12.2 H Eos % (Auto) 1.0 1.0 Baso % (Auto) 0.4 0.3 Neut # 4.0 7.6 H Lymph # 0.4 L 0.6 L [place] # 0.8 1.2 H Eos # 0.1 0.1 Baso # 0.0 0.0 Neutrophils % (Manual) 79 H Lymphocytes % (Manual) 5 L Monocytes % (Manual) 15 H Eosinophils % (Manual) 1 Platelet Estimate Normal Hypochromasia (manual) Slight Anisocytosis (manual) Moderate Ovalocytes Slight Schistocytes Slight Sodium Potassium Chloride Carbon Dioxide Anion Gap BUN Creatinine Est GFR ( Amer) Est GFR (Non-Af Amer) Random Glucose Lactic Acid Calcium Total Bilirubin AST ALT Alkaline Phosphatase Total Protein Albumin Globulin Albumin/Globulin Ratio Vancomycin Trough 8.3 05/09/17 06:15 WBC RBC Hgb Hct MCV MCH MCHC RDW Plt Count MPV Neut % (Auto) Lymph % (Auto) [place] % (Auto) Eos % (Auto) Baso % (Auto) Neut # Lymph # [place] # Eos # Baso # Neutrophils % (Manual) Lymphocytes % (Manual) Monocytes % (Manual) Eosinophils % (Manual) Platelet Estimate Hypochromasia (manual) Anisocytosis (manual) Ovalocytes Schistocytes Sodium 134 Potassium 3.5 L Chloride 103 Carbon Dioxide 28 Anion Gap 7 L BUN 9 Creatinine 0.5 L Est GFR ( Amer) > 60 Est GFR (Non-Af Amer) > 60 Random Glucose 85 Lactic Acid Calcium 8.9 Total Bilirubin 0.3 AST 39 H D ALT 37 Alkaline Phosphatase 85 Total Protein 5.7 L Albumin 2.7 L Globulin 3.1 Albumin/Globulin Ratio 0.9 L Vancomycin Trough Microbiology 05/05/17 11:50 Blood-Venous Blood Culture - Preliminary NO GROWTH AFTER 4 DAYS 05/05/17 11:20 Blood-Venous Blood Culture - Preliminary NO GROWTH AFTER 4 DAYS 05/05/17 20:30 Blood-Thru Central Line Blood Culture - Preliminary NO GROWTH AFTER 3 DAYS 05/05/17 16:50 Urine Urine Culture - Final No Growth (<1,000 CFU/ML) 05/05/17 20:30 Naris MRSA Culture (Admit) - Final MRSA NOT DETECTED Assessment and Plan (1) Neutropenic fever Status: Acute (2) Syncope Status: Acute (3) Lymphoma Status: Acute - Assessment and Plan (Free Text) Assessment: A/P- 67 year old female with newly diagnosed lymphoma in 01/2017 undergoing chemotherpay which was finished this week admitted post syncopal episode and found to be in neutropenic fever, hypotensive and tachycardic. remains afebrile past 72 hours. no longer neutropenic . blood cx- neg x 3 UA- negative chest Ct report noted. mild b/l pleural effusions L>R and ? left lower lung consolidation . TTE- no vegetations as per report Plan- has completed 5 days of prophylactic antifungal for initial presentation of neutropenic fever . can d/c micafungin today. has completed 5 days of Iv aztreonam , can d/c aztreonam at this time. continue with vancomycin and levaquin day #5. keep vanco trough <15. may benefit from incentive spirometry and would also advise Pt evaluation.
[2017-05-09] MEDS: Enoxaparin 40 mg Syringe SC SCH (17:17)
--- NOTE | 2017-05-09 22:39 | CP.PCM.PN ---
Subjective - Date & Time of Evaluation Date of Evaluation: 05/09/17 Time of Evaluation: 10:00 - Subjective Subjective: wbc-9.5, afebrile. feels better,had good BM feels good still not enough energy to walk around as before tolerating abx no new complaints Objective - Vital Signs/Intake and Output Vital Signs (last 24 hours): Temp Pulse Resp BP Pulse Ox 97.8 F 85 20 136/72 91 L 05/09/17 19:44 05/09/17 19:44 05/09/17 19:44 05/09/17 19:44 05/09/17 19:44 Intake and Output: 05/09/17 05/10/17 18:59 06:59 Intake Total 1400 Balance 1400 - Medications Medications: Current Medications Acetaminophen (Tylenol 325mg Tab) 650 mg PO Q4 PRN PRN Reason: Pain, moderate (4-7) Last Admin: 05/07/17 10:57 Dose: 650 mg Docusate Sodium (Colace) 100 mg PO DAILY [facility] Last Admin: 05/09/17 09:33 Dose: 100 mg Enoxaparin Sodium (Lovenox) 40 mg SC DAILY [facility] PRN Reason: Protocol Last Admin: 05/09/17 17:17 Dose: 40 mg Vancomycin HCl 1 gm/ Sodium (Chloride) 250 mls @ 250 mls/hr IVPB Q12H [facility] Last Admin: 05/09/17 17:16 Dose: 250 mls/hr Levofloxacin/Dextrose (Levaquin 750mg) 750 mg in 150 mls @ 100 mls/hr IVPB DAILY [facility] Last Admin: 05/09/17 09:32 Dose: 100 mls/hr Ibuprofen (Motrin Tab) 600 mg PO Q6 PRN PRN Reason: pain 8-10 - Labs Labs: 05/09/17 06:15 05/09/17 06:15 PT 12.6 Seconds (9.8-13.1) 05/05/17 11:30 INR 1.1 (0.9-1.2) 05/05/17 11:30 APTT 22.3 Seconds (25.6-37.1) L 05/05/17 11:30 - Additional Findings Additional findings: Head Exam Head Exam: ATRAUMATIC, NORMAL INSPECTION - Eye Exam Eye Exam: PERRL. absent: Scleral icterus - ENT Exam ENT Exam: Mucous Membranes Dry - Neck Exam Neck exam: Positive for: Normal Inspection. Negative for: Lymphadenopathy, Thyromegaly - Respiratory Exam Respiratory Exam: Clear to Auscultation Bilateral, NORMAL BREATHING PATTERN. b \l LL Rales, NO Wheezes - Cardiovascular Exam Cardiovascular Exam: REGULAR RHYTHM, +S1, +S2. absent: Systolic Murmur - GI/Abdominal Exam GI & Abdominal Exam: Normal Bowel Sounds, Soft. absent: Tenderness - Extremities Exam Extremities exam: Positive for: normal inspection. Negative for: pedal edema, pedal pulses present - Neurological Exam Neurological exam: Alert, Oriented x3 - Psychiatric Exam Psychiatric exam: Normal Affect, Normal Mood - Skin Skin Exam: Intact, Normal Color Additional comments: ecchymosis on left upperarm right side portacath Assessment and Plan (1) Debility Status: Acute (2) Septic shock Status: Resolved (3) Neutropenic fever Status: Resolved (4) Syncope Status: Resolved (5) Lymphoma Status: Chronic (6) Constipated Status: Resolved - Assessment and Plan (Free Text) Plan: continue all meds will d\w ID for abx choice for rehab eval
[2017-05-09 23:50] VITALS: RESP 18
[2017-05-10] MEDS: Enoxaparin 40 mg Syringe SC SCH (08:44)
[2017-05-10] MEDS: levoFLOXacin 750 mg in D5W 750 MG/150 ML BAG IVPB SCH (08:46)
[2017-05-10 11:16] LABS: HEMOGLOBIN 10.3 g/dL (12.0-16.0); MEAN CELL VOLUME 72.8 fl (81.0-99.0); MEAN CORPUSCULAR HEMOGLOBIN 23.5 pg (27.0-31.0); MEAN CORPUSCULAR HGB CONC 32.2 g/dL (33.0-37.0); RBC 4.4 Mil/uL (3.80-5.20); RED CELL DISTRIBUTION WIDTH 23.5 % (11.5-14.5); WHITE BLOOD COUNT 12.1 K/uL (4.8-10.8)
[2017-05-10 15:42] VITALS: O2SAT 95
[2017-05-10 19:33] VITALS: BP 157/89; PULSE 88; TEMP 98.2
--- NOTE | 2017-05-10 20:08 | CP.PCM.PN ---
Subjective - Date & Time of Evaluation Date of Evaluation: 05/10/17 Time of Evaluation: 13:00 - Subjective Subjective: ID note- pt. seen and examined today. states had BM yesterday and feels much better. denies any fever or chills. denies any abd. pain, denies any cough, denies any sob. Objective - Vital Signs/Intake and Output Vital Signs (last 24 hours): Temp Pulse Resp BP Pulse Ox 98.2 F 88 18 157/89 H 95 05/10/17 19:32 05/10/17 19:32 05/10/17 19:32 05/10/17 19:32 05/10/17 19:32 Intake and Output: 05/10/17 05/11/17 18:59 06:59 Intake Total 1000 Balance 1000 - Medications Medications: Current Medications Acetaminophen (Tylenol 325mg Tab) 650 mg PO Q4 PRN PRN Reason: Pain, moderate (4-7) Last Admin: 05/07/17 10:57 Dose: 650 mg Docusate Sodium (Colace) 100 mg PO DAILY [facility] Last Admin: 05/10/17 08:47 Dose: Not Given Enoxaparin Sodium (Lovenox) 40 mg SC DAILY [facility] PRN Reason: Protocol Last Admin: 05/10/17 08:44 Dose: 40 mg Vancomycin HCl 1 gm/ Sodium (Chloride) 250 mls @ 250 mls/hr IVPB Q12H [facility] Last Admin: 05/10/17 17:23 Dose: 250 mls/hr Levofloxacin/Dextrose (Levaquin 750mg) 750 mg in 150 mls @ 100 mls/hr IVPB DAILY [facility] Last Admin: 05/10/17 08:46 Dose: 100 mls/hr Ibuprofen (Motrin Tab) 600 mg PO Q6 PRN PRN Reason: pain 8-10 Last Admin: 05/10/17 08:46 Dose: 600 mg - Labs Labs: - Additional Findings Additional findings: Constitutional Appears: Non-toxic, No Acute Distress - Eye Exam Eye Exam: EOMI, PERRL - ENT Exam ENT Exam: Normal Oropharynx - Neck Exam Neck Exam: Full ROM - Respiratory Exam Respiratory Exam: NORMAL BREATHING PATTERN Additional comments: no wheezing - Cardiovascular Exam Cardiovascular Exam: RRR, +S1, +S2 Additional comments: 3/6 ejection murmur at LSB - GI/Abdominal Exam GI & Abdominal Exam: Soft, Normal Bowel Sounds Additional comments: NT, ND - Extremities Exam Additional comments: no edema b/l LE - Neurological Exam Neurological Exam: Alert, Oriented x 3 Laboratory Results - last 72 hr 05/08/17 05/08/17 05/09/17 06:00 06:00 06:15 WBC 5.2 D 9.5 D RBC 3.56 L 3.83 Hgb 8.4 L 9.2 L Hct 26.2 L 27.8 L MCV 73.6 L 72.6 L MCH 23.7 L 24.1 L MCHC 32.2 L 33.2 RDW 23.5 H 23.1 H Plt Count 128 L D 173 MPV 8.9 8.7 Neut % (Auto) 76.6 H 80.0 H Lymph % (Auto) 7.4 L 6.5 L [place] % (Auto) 14.6 H 12.2 H Eos % (Auto) 1.0 1.0 Baso % (Auto) 0.4 0.3 Neut # 4.0 7.6 H Lymph # 0.4 L 0.6 L [place] # 0.8 1.2 H Eos # 0.1 0.1 Baso # 0.0 0.0 Neutrophils % (Manual) 79 H Lymphocytes % (Manual) 5 L Monocytes % (Manual) 15 H Eosinophils % (Manual) 1 Platelet Estimate Normal Hypochromasia (manual) Slight Anisocytosis (manual) Moderate Ovalocytes Slight Schistocytes Slight Sodium Potassium Chloride Carbon Dioxide Anion Gap BUN Creatinine Est GFR ( Amer) Est GFR (Non-Af Amer) Random Glucose Calcium Total Bilirubin AST ALT Alkaline Phosphatase Total Protein Albumin Globulin Albumin/Globulin Ratio Vancomycin Trough 8.3 05/09/17 05/10/17 06:15 10:50 WBC 12.1 H RBC 4.40 Hgb 10.3 L Hct 32.1 L MCV 72.8 L MCH 23.5 L MCHC 32.2 L RDW 23.5 H Plt Count 262 MPV Neut % (Auto) Lymph % (Auto) [place] % (Auto) Eos % (Auto) Baso % (Auto) Neut # Lymph # [place] # Eos # Baso # Neutrophils % (Manual) Lymphocytes % (Manual) Monocytes % (Manual) Eosinophils % (Manual) Platelet Estimate Hypochromasia (manual) Anisocytosis (manual) Ovalocytes Schistocytes Sodium 134 Potassium 3.5 L Chloride 103 Carbon Dioxide 28 Anion Gap 7 L BUN 9 Creatinine 0.5 L Est GFR ( Amer) > 60 Est GFR (Non-Af Amer) > 60 Random Glucose 85 Calcium 8.9 Total Bilirubin 0.3 AST 39 H D ALT 37 Alkaline Phosphatase 85 Total Protein 5.7 L Albumin 2.7 L Globulin 3.1 Albumin/Globulin Ratio 0.9 L Vancomycin Trough Microbiology 05/05/17 11:50 Blood-Venous Blood Culture - Final NO GROWTH AFTER 5 DAYS 05/05/17 11:50 Blood-Venous Gram Stain - Final TEST NOT PERFORMED 05/05/17 11:20 Blood-Venous Blood Culture - Final NO GROWTH AFTER 5 DAYS 05/05/17 11:20 Blood-Venous Gram Stain - Final TEST NOT PERFORMED 05/08/17 14:28 Naris MRSA Culture (Admit) - Final MRSA NOT DETECTED 05/05/17 20:30 Blood-Thru Central Line Blood Culture - Preliminary NO GROWTH AFTER 4 DAYS 05/05/17 16:50 Urine Urine Culture - Final No Growth (<1,000 CFU/ML) 05/05/17 20:30 Naris MRSA Culture (Admit) - Final MRSA NOT DETECTED Assessment and Plan (1) Neutropenic fever Status: Acute (2) Syncope Status: Acute (3) Lymphoma Status: Acute - Assessment and Plan (Free Text) Assessment: A/P- 67 year old female with newly diagnosed lymphoma in 01/2017 undergoing chemotherpay which was finished this week admitted post syncopal episode and found to be in neutropenic fever, hypotensive and tachycardic. remains afebrile . no longer neutropenic and actually mild leukocytosis most likely secondary to the neulasta blood cx- neg x 3 UA- negative chest Ct report noted. mild b/l pleural effusions L>R and ? left lower lung consolidation . TTE- no vegetations as per report Plan- completed 5 days of prophylactic antifungal for initial presentation of neutropenic fever . completed 5 days of Iv aztreonam . continue with vancomycin and levaquin for 1 more day. today is day #6 keep vanco trough <15. may need f/u chest ct or cxr to see if the left pleural effusion has improved. may benefit from incentive spirometry and would also advise Pt evaluation. all above d/w [employer] [facility] Dave Sloan.
--- NOTE | 2017-05-10 21:42 | CP.PCM.PN ---
Subjective - Date & Time of Evaluation Date of Evaluation: 05/10/17 Time of Evaluation: 13:00 - Subjective Subjective: Feeling better Objective - Vital Signs/Intake and Output Vital Signs (last 24 hours): Temp Pulse Resp BP Pulse Ox 98.2 F 88 18 157/89 H 95 05/10/17 19:32 05/10/17 19:32 05/10/17 19:32 05/10/17 19:32 05/10/17 19:32 Intake and Output: 05/10/17 05/11/17 18:59 06:59 Intake Total 1000 Balance 1000 - Medications Medications: Current Medications Acetaminophen (Tylenol 325mg Tab) 650 mg PO Q4 PRN PRN Reason: Pain, moderate (4-7) Last Admin: 05/07/17 10:57 Dose: 650 mg Docusate Sodium (Colace) 100 mg PO DAILY [facility] Last Admin: 05/10/17 08:47 Dose: Not Given Enoxaparin Sodium (Lovenox) 40 mg SC DAILY [facility] PRN Reason: Protocol Last Admin: 05/10/17 08:44 Dose: 40 mg Vancomycin HCl 1 gm/ Sodium (Chloride) 250 mls @ 250 mls/hr IVPB Q12H [facility] Last Admin: 05/10/17 17:23 Dose: 250 mls/hr Levofloxacin/Dextrose (Levaquin 750mg) 750 mg in 150 mls @ 100 mls/hr IVPB DAILY [facility] Last Admin: 05/10/17 08:46 Dose: 100 mls/hr Ibuprofen (Motrin Tab) 600 mg PO Q6 PRN PRN Reason: pain 8-10 Last Admin: 05/10/17 08:46 Dose: 600 mg - Labs Labs: 05/10/17 10:50 05/09/17 06:15 PT 12.6 Seconds (9.8-13.1) 05/05/17 11:30 INR 1.1 (0.9-1.2) 05/05/17 11:30 APTT 22.3 Seconds (25.6-37.1) L 05/05/17 11:30 - Head Exam Head Exam: ATRAUMATIC - Eye Exam Eye Exam: Normal appearance - ENT Exam ENT Exam: Mucous Membranes Dry - Respiratory Exam Respiratory Exam: NORMAL BREATHING PATTERN - Cardiovascular Exam Cardiovascular Exam: +S1, +S2 - GI/Abdominal Exam GI & Abdominal Exam: Normal Bowel Sounds Assessment and Plan (1) Anemia Assessment & Plan: anemia of chronic disease anemia of chemotherapy Status: Acute (2) Lymphoma Assessment & Plan: outpatient f/u with primary oncologist. Status: Acute
--- NOTE | 2017-05-10 22:25 | CP.PCM.DIS ---
Provider - Provider Date of Admission: 05/05/17 16:39 Attending physician: Carlito Mello MD Time Spent in preparation of Discharge (in minutes): 30 Diagnosis - Discharge Diagnosis (1) Septic shock Status: Resolved (2) Neutropenic fever Status: Resolved (3) Syncope Status: Resolved (4) Lymphoma Status: Chronic (5) Anemia Status: Chronic (6) Debility Status: Acute (7) Hypokalemia Status: Resolved (8) Thrombocytopenia Status: Resolved (9) Constipated Status: Resolved Comment: d\w ID. cont abx. for TCU Hospital Course - Lab Results Lab Results: Micro Results 05/05/17 20:30 Blood-Thru Central Line Blood Culture - Final NO GROWTH AFTER 5 DAYS 05/05/17 20:30 Blood-Thru Central Line Gram Stain - Final TEST NOT PERFORMED 05/08/17 14:28 Naris MRSA Culture (Admit) - Final MRSA NOT DETECTED 05/05/17 16:50 Urine Urine Culture - Final No Growth (<1,000 CFU/ML) 05/05/17 20:30 Naris MRSA Culture (Admit) - Final MRSA NOT DETECTED Most Recent Lab Values WBC 12.1 K/uL (4.8-10.8) H 05/10/17 10:50 RBC 4.40 Mil/uL (3.80-5.20) 05/10/17 10:50 Hgb 10.3 g/dL (12.0-16.0) L 05/10/17 10:50 Hct 32.1 % (34.0-47.0) L 05/10/17 10:50 MCV 72.8 fl (81.0-99.0) L 05/10/17 10:50 MCH 23.5 pg (27.0-31.0) L 05/10/17 10:50 MCHC 32.2 g/dL (33.0-37.0) L 05/10/17 10:50 RDW 23.5 % (11.5-14.5) H 05/10/17 10:50 Plt Count 262 K/uL (130-400) 05/10/17 10:50 MPV 8.7 fl (7.2-11.7) 05/09/17 06:15 Neut % (Auto) 80.0 % (50.0-75.0) H 05/09/17 06:15 Lymph % (Auto) 6.5 % (20.0-40.0) L 05/09/17 06:15 [place] % (Auto) 12.2 % (0.0-10.0) H 05/09/17 06:15 Eos % (Auto) 1.0 % (0.0-4.0) 05/09/17 06:15 Baso % (Auto) 0.3 % (0.0-2.0) 05/09/17 06:15 Neut # 7.6 K/uL (1.8-7.0) H 05/09/17 06:15 Lymph # 0.6 K/uL (1.0-4.3) L 05/09/17 06:15 [place] # 1.2 K/uL (0.0-0.8) H 05/09/17 06:15 Eos # 0.1 K/uL (0.0-0.7) 05/09/17 06:15 Baso # 0.0 K/uL (0.0-0.2) 05/09/17 06:15 Neutrophils % (Manual) 79 % (42-75) H 05/09/17 06:15 Lymphocytes % (Manual) 5 % (20-50) L 05/09/17 06:15 Monocytes % (Manual) 15 % (0-10) H 05/09/17 06:15 Eosinophils % (Manual) 1 % (0-7) 05/09/17 06:15 Platelet Estimate Normal (NORMAL) 05/09/17 06:15 Hypochromasia (manual) Slight 05/09/17 06:15 Anisocytosis (manual) Moderate 05/09/17 06:15 Microcytosis (manual) Slight 05/05/17 11:30 Ovalocytes Slight 05/09/17 06:15 Schistocytes Slight 05/09/17 06:15 PT 12.6 Seconds (9.8-13.1) 05/05/17 11:30 INR 1.1 (0.9-1.2) 05/05/17 11:30 APTT 22.3 Seconds (25.6-37.1) L 05/05/17 11:30 pO2 12 mm/Hg (30-55) L 05/05/17 15:52 VBG pH 7.32 (7.32-7.43) 05/05/17 15:52 VBG pCO2 41 mmHg (40-60) 05/05/17 15:52 VBG HCO3 18.8 mmol/L 05/05/17 15:52 VBG Total CO2 22.4 mmol/L (22-28) 05/05/17 15:52 VBG O2 Sat (Calc) 15.2 % (40-65) L 05/05/17 15:52 VBG Base Excess -4.8 mmol/L (0.0-2.0) L 05/05/17 15:52 VBG Potassium 4.2 mmol/L (3.6-5.2) 05/05/17 15:52 Sodium 136.0 mmol/L (132-148) 05/05/17 15:52 Chloride 104.0 mmol/L (98-107) 05/05/17 15:52 Glucose 103 mg/dL (65-105) 05/05/17 15:52 Lactate 7.3 mmol/L (0.7-2.1) H* 05/05/17 15:52 FiO2 21.0 % 05/05/17 15:52 Blood Gas Comments Lactate 7.3 05/05/17 15:52 Crit Value Called To urmila Bowling 05/05/17 15:52 Crit Value Called By 203 05/05/17 15:52 Crit Value Read Back Y 05/05/17 15:52 Blood Gas Notified Time 1558 05/05/17 15:52 Sodium 134 mmol/l (132-148) 05/09/17 06:15 Potassium 3.5 MMOL/L (3.6-5.0) L 05/09/17 06:15 Chloride 103 mmol/L (98-107) 05/09/17 06:15 Carbon Dioxide 28 mmol/L (22-30) 05/09/17 06:15 Anion Gap 7 (10-20) L 05/09/17 06:15 BUN 9 mg/dl (7-17) 05/09/17 06:15 Creatinine 0.5 mg/dL (0.7-1.2) L 05/09/17 06:15 Est GFR ( Amer) > 60 05/09/17 06:15 Est GFR (Non-Af Amer) > 60 05/09/17 06:15 Random Glucose 85 mg/dL (65-105) 05/09/17 06:15 Lactic Acid 1.4 MMOL/L (0.7-2.1) 05/07/17 06:00 Calcium 8.9 mg/dL (8.4-10.2) 05/09/17 06:15 Total Bilirubin 0.3 mg/dl (0.2-1.3) 05/09/17 06:15 AST 39 U/L (14-36) H D 05/09/17 06:15 ALT 37 U/L (9-52) 05/09/17 06:15 Alkaline Phosphatase 85 U/L (38-126) 05/09/17 06:15 Troponin I 0.0320 ng/mL (0.00-0.120) 05/05/17 11:30 Total Protein 5.7 G/DL (6.3-8.2) L 05/09/17 06:15 Albumin 2.7 g/dL (3.5-5.0) L 05/09/17 06:15 Globulin 3.1 gm/dL (2.2-3.9) 05/09/17 06:15 Albumin/Globulin Ratio 0.9 (1.0-2.1) L 05/09/17 06:15 Procalcitonin 8.28 NG/ML (0.19-0.49) H 05/05/17 20:30 Venous Blood Potassium 4.2 mmol/L (3.6-5.2) 05/05/17 15:52 Urine Color Yellow (YELLOW) 05/05/17 18:45 Urine Clarity Slighty-cloudy (Clear) 05/05/17 18:45 Urine pH 5.0 (5.0-8.0) 05/05/17 18:45 Ur Specific [place] 1.015 (1.003-1.030) 05/05/17 18:45 Urine Protein Negative mg/dL (NEGATIVE) 05/05/17 18:45 Urine Glucose (UA) Neg mg/dL (Normal) 05/05/17 18:45 Urine Ketones Negative mg/dL (NEGATIVE) 05/05/17 18:45 Urine Blood Negative (NEGATIVE) 05/05/17 18:45 Urine Nitrate Negative (NEGATIVE) 05/05/17 18:45 Urine Bilirubin Negative (NEGATIVE) 05/05/17 18:45 Urine Urobilinogen 0.2-1.0 mg/dL (0.2-1.0) 05/05/17 18:45 Ur Leukocyte Esterase Neg Anna/uL (Negative) 05/05/17 18:45 Urine RBC (Auto) 2 /hpf (0-3) 05/05/17 18:45 Urine Microscopic WBC 2 /hpf (0-5) 05/05/17 18:45 Urine Bacteria Few (<OCC) H 05/05/17 18:45 Hyaline Casts 6-10 /hpf (0-2) H 05/05/17 18:45 Vancomycin Trough 8.3 ug/mL (5.0-10.0) 05/08/17 06:00 Discharge Exam - Head Exam Head Exam: ATRAUMATIC - Additional Findings Additional findings: Head Exam Head Exam: ATRAUMATIC, NORMAL INSPECTION - Eye Exam Eye Exam: PERRL. absent: Scleral icterus - ENT Exam ENT Exam: Mucous Membranes Dry - Neck Exam Neck exam: Positive for: Normal Inspection. Negative for: Lymphadenopathy, Thyromegaly - Respiratory Exam Respiratory Exam: Clear to Auscultation Bilateral, NORMAL BREATHING PATTERN. b \l LL Rales, NO Wheezes - Cardiovascular Exam Cardiovascular Exam: REGULAR RHYTHM, +S1, +S2. absent: Systolic Murmur - GI/Abdominal Exam GI & Abdominal Exam: Normal Bowel Sounds, Soft. absent: Tenderness - Extremities Exam Extremities exam: Positive for: normal inspection. Negative for: pedal edema, pedal pulses present - Neurological Exam Neurological exam: Alert, Oriented x3 - Psychiatric Exam Psychiatric exam: Normal Affect, Normal Mood - Skin Skin Exam: Intact, Normal Color Additional comments: ecchymosis on left upperarm right side portacath Discharge Plan - Discharge Medications Prescriptions: levoFLOXacin 750 mg in D5W [Levaquin 750MG] 750 mg IVPB DAILY #3 bag Vancomycin 1gm in NS 250ml [Vancomycin 1gm] 1 gm IVPB Q12 #4 bag - Follow Up Plan Condition: GUARDED Disposition: TRANSF TO SNF Additional Instructions: patient cleared for discharge to TCU today by and cont .Levaquin/ Vanco IV x 2 more days f/u repeat chest xray monitor vanco trough cont. PT/OT above discussed with / Referrals: Therese Tracey MD [Staff Provider] - Carlito Mello MD [Medical Doctor] -
== END 2017-05-10 20:45 | DRG 871 ==
LOC: H.ER 10:14 → H.ERHOLD 16:39 → H.ICU/CCU 18:19 → H.TEL 05-08 10:55
PROVIDERS: ADMIT Internal Medicine; ATTEND Internal Medicine
PROC: 3E033XZ Introduction of Vasopressor into Peripheral Vein, Percutaneous Approach (ICD-10-PCS; principal; 2017-05-05)
DX: A41.9 Sepsis, unspecified organism (principal); R65.21 Severe sepsis with septic shock; C85.90 Non-Hodgkin lymphoma, unspecified, unspecified site; D61.818 Other pancytopenia; J90 Pleural effusion, not elsewhere classified; D70.3 Neutropenia due to infection; R50.81 Fever presenting with conditions classified elsewhere; G72.41 Inclusion body myositis [IBM]; G70.00 Myasthenia gravis without (acute) exacerbation; K57.90 Diverticulosis of intestine, part unspecified, without perforation or abscess without bleeding; E87.6 Hypokalemia; K59.00 Constipation, unspecified; R55 Syncope and collapse; Z88.0 Allergy status to penicillin; Z87.442 Personal history of urinary calculi; Z86.73 Personal history of transient ischemic attack (TIA), and cerebral infarction without residual deficits; Z87.891 Personal history of nicotine dependence

== ENCOUNTER 2017-05-10 16:03 | Inpatient (IN) | payer MEDICARE ==
[2017-05-11 04:50] LABS: MEAN CORPUSCULAR HGB CONC 33.3 g/dL (33.0-37.0); RBC 3.73 Mil/uL (3.80-5.20); RED CELL DISTRIBUTION WIDTH 22.6 % (11.5-14.5); WHITE BLOOD COUNT 13.3 K/uL (4.8-10.8)
[2017-05-11 05:02] LABS: ALB/GLOB RATIO 0.9 (1.0-2.1); ALBUMIN 2.7 g/dL (3.5-5.0); ALT/SGPT 34 U/L (9-52); AST/SGOT 42 U/L (14-36); BLOOD UREA NITROGEN 8 mg/dl (7-17); GFR AFRICAN-AMERICAN > 60; GFR NON-AFRICAN AMERICAN > 60
[2017-05-11] MEDS: Enoxaparin 40 mg Syringe SC SCH (08:15)
[2017-05-11] MEDS: Potassium Chloride 20 mEq ER Tab PO SCH (08:17)
[2017-05-11] MEDS ORDERED: levoFLOXacin 750 mg in D5W 150 ML BAG IVPB SCH (09:00)
[2017-05-11] MEDS ORDERED: Patient's Own Med (Vancomycin 1gm In Ns 250ml [Vancomycin 1gm] 1 GM) IVPB SCH (09:00)
[2017-05-11] MEDS: levoFLOXacin 750 mg in D5W 750 MG/150 ML BAG IVPB SCH (16:30)
--- NOTE | 2017-05-11 19:42 | CP.PCM.HP ---
History of Present Illness - History of Present Illness History of Present Illness: A 67 yr old female with of lymphoma recently diagnosed was on chemo, went to get PET ,had LOC, with neutropenic fver, all c\s were negative improved with IVF \pressors , normalized WBC\Platelets and LFTS is here for IV abx and rehab Present on Admission - Present on Admission Any Indicators Present on Admission: No Review of Systems - Constitutional Constitutional: Weight Loss. absent: Chills, Fever, Headache - EENT Eyes: absent: Other Visual Disturbances Ears: absent: Disequilibrium Nose/Mouth/Throat: absent: Dysphagia, Mouth Lesions - Cardiovascular Cardiovascular: absent: Chest Pain, Dyspnea, Leg Edema - Respiratory Respiratory: absent: Cough, Wheezing, Chest Congestion, Excessive Mucous Production - Gastrointestinal Gastrointestinal: absent: Abdominal Pain, Bloating, Dyspepsia, Nausea, Vomiting - Genitourinary Genitourinary: absent: Urinary Urgency - Musculoskeletal Musculoskeletal: Arthralgias, Limited Range of Motion. absent: Myalgias - Endocrine Endocrine: Fatigue - Hematologic/Lymphatic Hematologic: absent: Lymphadenopathy Past Patient History - Infectious Disease Hx of Infectious Diseases: None - Past Medical History & Family History Past Medical History?: Yes - Past Social History Smoking Status: Former Smoker - CARDIAC Hx Cardiac Disorders: No - PULMONARY Hx Respiratory Disorders: No - NEUROLOGICAL Hx Neurological Disorder: No Other/Comment: Myasthenia gravis - HEENT Hx HEENT Problems: No - RENAL Hx Chronic Kidney Disease: No - ENDOCRINE/METABOLIC Hx Endocrine Disorders: No - HEMATOLOGICAL/ONCOLOGICAL Hx Blood Disorders: Yes Hx AIDS: No Hx Chemotherapy: Yes Hx Human Immunodeficiency Virus (HIV): No - INTEGUMENTARY Hx Dermatological Problems: No - MUSCULOSKELETAL/RHEUMATOLOGICAL Hx Falls: Yes - GASTROINTESTINAL Hx Gastrointestinal Disorders: No - GENITOURINARY/GYNECOLOGICAL Hx Genitourinary Disorders: No - PSYCHIATRIC Hx Substance Use: No - SURGICAL HISTORY Hx Appendectomy: Yes Hx Cholecystectomy: Yes - ANESTHESIA Hx Anesthesia: Yes Hx Anesthesia Reactions: No Hx Malignant Hyperthermia: No Meds Allergies/Adverse Reactions: Allergies Allergy/AdvReac Type Severity Reaction Status Date / Time codeine Allergy RASH Verified 02/11/17 03:06 Penicillins Allergy RASH Verified 02/11/17 03:06 Physical Exam - Additional Findings Additional findings: Head Exam Head Exam: ATRAUMATIC, NORMAL INSPECTION - Eye Exam Eye Exam: PERRL. absent: Scleral icterus - ENT Exam ENT Exam: Mucous Membranes Dry - Neck Exam Neck exam: Positive for: Normal Inspection. Negative for: Lymphadenopathy, Thyromegaly - Respiratory Exam Respiratory Exam: Clear to Auscultation Bilateral, NORMAL BREATHING PATTERN. b \l LL Rales, NO Wheezes - Cardiovascular Exam Cardiovascular Exam: REGULAR RHYTHM, +S1, +S2. absent: Systolic Murmur - GI/Abdominal Exam GI & Abdominal Exam: Normal Bowel Sounds, Soft. absent: Tenderness - Extremities Exam Extremities exam: Positive for: normal inspection. Negative for: pedal edema, pedal pulses present - Neurological Exam Neurological exam: Alert, Oriented x3 - Psychiatric Exam Psychiatric exam: Normal Affect, Normal Mood - Skin Skin Exam: Intact, Normal Color Additional comments: ecchymosis on left upperarm right side portacath Results - Vital Signs Recent Vital Signs: Last Vital Signs Temp 97.9 F 05/11/17 17:11 Pulse 79 05/11/17 17:11 Resp 20 05/11/17 17:11 BP 137/68 05/11/17 17:11 Pulse Ox 95 05/11/17 17:11 - Labs Result Diagrams: 05/11/17 04:46 05/11/17 04:46 Labs: Laboratory Results - last 24 hr 05/11/17 05/11/17 05/11/17 04:46 04:46 04:46 WBC 13.3 H RBC 3.73 L Hgb 9.0 L Hct 26.9 L MCV 72.0 L MCH 24.0 L MCHC 33.3 RDW 22.6 H Plt Count 283 Sodium 134 Potassium 3.5 L Chloride 100 Carbon Dioxide 30 Anion Gap 8 L BUN 8 Creatinine 0.6 L Est GFR ( Amer) > 60 Est GFR (Non-Af Amer) > 60 Random Glucose 97 Calcium 9.0 Total Bilirubin 0.4 AST 42 H ALT 34 Alkaline Phosphatase 64 Total Protein 5.8 L Albumin 2.7 L Globulin 3.1 Albumin/Globulin Ratio 0.9 L Vancomycin Trough 13.2 H Assessment & Plan (1) Neutropenic fever Status: Resolved (2) Constipated Status: Resolved (3) Anemia Status: Chronic (4) Lymphoma Status: Chronic - Assessment and Plan (Free Text) Plan: continue iv levaquin ID consult colace as needed labs continue OT\PT Decision To Admit - Pt Status Changed To: Hospital Disposition Of: Inpatient - Admit Certification Admit to Inpatient:: After my assessment, the patient will require hospitalization for at least two midnights. This is because of the severity of symptoms shown, intensity of services needed, and/or the medical risk in this patient being treated as an outpatient. - . Bed Request Type: Transitional Care Unit Admitting Physician: Carlito Mello
[2017-05-12] MEDS ORDERED: Vitamin A/D oint 60G TP ONE (05:26)
[2017-05-12] MEDS: Enoxaparin 40 mg Syringe SC SCH ×2 (08:39→09:00)
[2017-05-12] MEDS: Potassium Chloride 20 mEq ER Tab PO SCH ×2 (08:39→09:00)
--- NOTE | 2017-05-12 17:25 | CP.PCM.PN ---
Subjective - Date & Time of Evaluation Date of Evaluation: 05/12/17 Time of Evaluation: 17:00 - Subjective Subjective: ID Note- Pt. seen and examined today in TCU. pt. was transferred to TCU for PT and rehab . pt. denies any sob, denies any cough and states has been doing well with PT. She is somewhat upset and states she has not been able to sleep well at night while inpatient but also states she does not wish to have any meds for sleep. Pt. states she wants to go home soon. Objective - Vital Signs/Intake and Output Vital Signs (last 24 hours): Temp Pulse Resp BP Pulse Ox 98.4 F 86 20 127/63 95 05/12/17 16:33 05/12/17 16:33 05/12/17 16:33 05/12/17 16:33 05/12/17 16:33 - Medications Medications: Current Medications Acetaminophen (Tylenol 325mg Tab) 650 mg PO Q4 PRN PRN Reason: Pain, moderate (4-7) Docusate Sodium (Colace) 100 mg PO DAILY [facility] Last Admin: 05/12/17 08:45 Dose: Not Given Enoxaparin Sodium (Lovenox) 40 mg SC DAILY [facility] PRN Reason: Protocol Last Admin: 05/12/17 09:00 Dose: 40 mg Levofloxacin/Dextrose (Levaquin 750mg) 750 mg in 150 mls @ 100 mls/hr IVPB DAILY@1700 [facility] Last Admin: 05/11/17 16:30 Dose: 100 mls/hr Vancomycin HCl 750 mg/ Sodium (Chloride) 250 mls @ 166.667 mls/hr IVPB Q12@0500 ,1700 [facility] Last Admin: 05/12/17 16:36 Dose: 166.667 mls/hr Ibuprofen (Motrin Tab) 600 mg PO Q6 PRN PRN Reason: pain 8-10 Last Admin: 05/11/17 08:17 Dose: 600 mg - Labs Labs: - Additional Findings Additional findings: - Additional Findings Additional findings: Constitutional Appears: Non-toxic, No Acute Distress - Eye Exam Eye Exam: EOMI, PERRL - ENT Exam ENT Exam: Normal Oropharynx - Neck Exam Neck Exam: Full ROM - Respiratory Exam Respiratory Exam: NORMAL BREATHING PATTERN Additional comments: no wheezing - Cardiovascular Exam Cardiovascular Exam: RRR, +S1, +S2 Additional comments: 3/6 ejection murmur at LSB - GI/Abdominal Exam GI & Abdominal Exam: Soft, Normal Bowel Sounds Additional comments: NT, ND - Extremities Exam Additional comments: no edema b/l LE - Neurological Exam Neurological Exam: Alert, Oriented x 3 Laboratory Results - last 72 hr 05/11/17 05/11/17 05/11/17 04:46 04:46 04:46 WBC 13.3 H RBC 3.73 L Hgb 9.0 L Hct 26.9 L MCV 72.0 L MCH 24.0 L MCHC 33.3 RDW 22.6 H Plt Count 283 Sodium 134 Potassium 3.5 L Chloride 100 Carbon Dioxide 30 Anion Gap 8 L BUN 8 Creatinine 0.6 L Est GFR ( Amer) > 60 Est GFR (Non-Af Amer) > 60 Random Glucose 97 Calcium 9.0 Total Bilirubin 0.4 AST 42 H ALT 34 Alkaline Phosphatase 64 Total Protein 5.8 L Albumin 2.7 L Globulin 3.1 Albumin/Globulin Ratio 0.9 L Vancomycin Trough 13.2 H Assessment and Plan - Assessment and Plan (Free Text) Plan: A/P- 67 year old female with newly diagnosed lymphoma in 01/2017 undergoing chemotherpay which was finished this week admitted post syncopal episode and found to be in neutropenic fever, hypotensive and tachycardic. remains afebrile . no longer neutropenic and actually mild leukocytosis most likely secondary to the neulasta blood cx- neg x 3 UA- negative TTE- no vegetations as per report Plan- completed 5 days of prophylactic antifungal for initial presentation of neutropenic fever . completed 5 days of Iv aztreonam . completed 7 days of Iv vanco and levaquin. can d/c iv abx today. can be switched to oral levaquin 750 mg daily for 5-7 days can be given as outpatient. may benefit from incentive spirometry and would also advise Pt evaluation. monitor wbc as outpatient. pt. to f/u closely with her oncologist as outpatient. all above d/w patient and she verbalizes full understanding of all above. all above also d/w . .
[2017-05-12] MEDS: levoFLOXacin 750 mg in D5W 750 MG/150 ML BAG IVPB SCH (18:14)
[2017-05-13] MEDS: Enoxaparin 40 mg Syringe SC SCH (09:53)
[2017-05-13] MEDS: levoFLOXacin 750 MG TAB PO SCH (17:30)
[2017-05-14] MEDS: Enoxaparin 40 mg Syringe SC SCH (08:50)
[2017-05-14] MEDS: levoFLOXacin 750 MG TAB PO SCH (08:50)
[2017-05-14] MEDS ORDERED: Potassium Chloride 20 mEq ER Tab PO SCH (09:00)
--- NOTE | 2017-05-14 09:35 | CP.PCM.DIS ---
Provider - Provider Date of Admission: 05/10/17 20:58 Attending physician: Carlito Mello MD Primary care physician: Facundo Hernandez MD Time Spent in preparation of Discharge (in minutes): 30 Diagnosis - Discharge Diagnosis (1) Neutropenic fever Status: Resolved (2) Anemia Status: Chronic (3) Lymphoma Status: Chronic (4) Constipated Status: Resolved (5) Hypokalemia Status: Resolved Hospital Course - Lab Results Lab Results: Most Recent Lab Values WBC 13.3 K/uL (4.8-10.8) H 05/11/17 04:46 RBC 3.73 Mil/uL (3.80-5.20) L 05/11/17 04:46 Hgb 9.0 g/dL (12.0-16.0) L 05/11/17 04:46 Hct 26.9 % (34.0-47.0) L 05/11/17 04:46 MCV 72.0 fl (81.0-99.0) L 05/11/17 04:46 MCH 24.0 pg (27.0-31.0) L 05/11/17 04:46 MCHC 33.3 g/dL (33.0-37.0) 05/11/17 04:46 RDW 22.6 % (11.5-14.5) H 05/11/17 04:46 Plt Count 283 K/uL (130-400) 05/11/17 04:46 Sodium 134 mmol/l (132-148) 05/11/17 04:46 Potassium 3.5 MMOL/L (3.6-5.0) L 05/11/17 04:46 Chloride 100 mmol/L (98-107) 05/11/17 04:46 Carbon Dioxide 30 mmol/L (22-30) 05/11/17 04:46 Anion Gap 8 (10-20) L 05/11/17 04:46 BUN 8 mg/dl (7-17) 05/11/17 04:46 Creatinine 0.6 mg/dL (0.7-1.2) L 05/11/17 04:46 Est GFR ( Amer) > 60 05/11/17 04:46 Est GFR (Non-Af Amer) > 60 05/11/17 04:46 Random Glucose 97 mg/dL (65-105) 05/11/17 04:46 Calcium 9.0 mg/dL (8.4-10.2) 05/11/17 04:46 Total Bilirubin 0.4 mg/dl (0.2-1.3) 05/11/17 04:46 AST 42 U/L (14-36) H 05/11/17 04:46 ALT 34 U/L (9-52) 05/11/17 04:46 Alkaline Phosphatase 64 U/L (38-126) 05/11/17 04:46 Total Protein 5.8 G/DL (6.3-8.2) L 05/11/17 04:46 Albumin 2.7 g/dL (3.5-5.0) L 05/11/17 04:46 Globulin 3.1 gm/dL (2.2-3.9) 05/11/17 04:46 Albumin/Globulin Ratio 0.9 (1.0-2.1) L 05/11/17 04:46 Vancomycin Trough 13.2 ug/mL (5.0-10.0) H 05/11/17 04:46 - Hospital Course Hospital Course: ID seen pt, advise 5 days of oral levaquin,she does not want pill form, she would wait until she gets med notes she does not want to f\u oncology-as she does not want anymore chemotherapy. son at bed side refuse labs Discharge Exam - Additional Findings Additional findings: - Head Exam Head Exam: ATRAUMATIC - Additional Findings Additional findings: Head Exam Head Exam: ATRAUMATIC, NORMAL INSPECTION - Eye Exam Eye Exam: PERRL. absent: Scleral icterus - ENT Exam ENT Exam: Mucous Membranes Dry - Neck Exam Neck exam: Positive for: Normal Inspection. Negative for: Lymphadenopathy, Thyromegaly - Respiratory Exam Respiratory Exam: Clear to Auscultation Bilateral, NORMAL BREATHING PATTERN. b \l LL Rales, NO Wheezes - Cardiovascular Exam Cardiovascular Exam: REGULAR RHYTHM, +S1, +S2. absent: Systolic Murmur - GI/Abdominal Exam GI & Abdominal Exam: Normal Bowel Sounds, Soft. absent: Tenderness - Extremities Exam Extremities exam: Positive for: normal inspection. Negative for: pedal edema, pedal pulses present - Neurological Exam Neurological exam: Alert, Oriented x3 - Psychiatric Exam Psychiatric exam: Normal Affect, Normal Mood - Skin Skin Exam: Intact, Normal Color Additional comments: ecchymosis on left upperarm-resolving right side portacath Discharge Plan - Follow Up Plan Condition: GOOD Disposition: HOME/ ROUTINE Instructions: Neutropenia (DC) Additional Instructions: LEVAQUIN 750 MG Q DAILY-5 ADVISE BLOOD WORK CBC\CMP IN A WEEK Referrals: Facundo Hernandez MD [Primary Care Provider] -
[2017-05-14 11:57] VITALS: BP 126/72; PULSE 98; RESP 20; TEMP 98.4
[2017-05-14 12:14] VITALS: O2SAT 96
== END 2017-05-14 09:55 | disposition home or self-care (01) | DRG 809 ==
LOC: H.TCU 20:58
PROVIDERS: ADMIT Internal Medicine; ATTEND Internal Medicine
PROC: F07M6FZ Therapeutic Exercise Treatment of Musculoskeletal System - Whole Body using Assistive, Adaptive, Supportive or Protective Equipment (ICD-10-PCS; principal; 2017-05-11)
PROC: F08Z4FZ Home Management Treatment using Assistive, Adaptive, Supportive or Protective Equipment (ICD-10-PCS; 2017-05-11)
DX: D70.9 Neutropenia, unspecified (principal); C85.90 Non-Hodgkin lymphoma, unspecified, unspecified site; R50.81 Fever presenting with conditions classified elsewhere; D64.9 Anemia, unspecified; E87.6 Hypokalemia; K59.00 Constipation, unspecified; Z90.49 Acquired absence of other specified parts of digestive tract

== ENCOUNTER 2018-11-06 10:45 | Inpatient (IN) | payer MEDICARE ==
[2018-11-06] MEDS ORDERED: Etomidate 20 mg/10ml Inj IV ONE ×2 (11:15→12:26)
[2018-11-06] MEDS ORDERED: Propofol 10 mg/ml Inj (20 ML) ONE (11:16)
[2018-11-06] MEDS ORDERED: Lidocaine 1% Inj (20ml) ONE (11:16)
[2018-11-06] MEDS ORDERED: Propofol 10 mg/ml 1,000 MG/100 ML VIAL ONE (11:16)
[2018-11-06] MEDS ORDERED: Rocuronium 10 mg/ml (5 ml) ONE (11:16)
[2018-11-06 11:29] LABS: BASO % 0.4 % (0.0-2.0); EOS # 0.1 K/uL (0.0-0.7); EOS % 0.6 % (0.0-4.0); HEMOGLOBIN 14.2 g/dL (12.0-16.0); LYMPH # 5.6 K/uL (1.0-4.3); LYMPH % 55.3 % (20.0-40.0); MEAN CELL VOLUME 79.2 fl (81.0-99.0); MEAN CORPUSCULAR HEMOGLOBIN 25.8 pg (27.0-31.0); MEAN CORPUSCULAR HGB CONC 32.6 g/dL (33.0-37.0); MEAN PLATELET VOLUME 8.2 fl (7.2-11.7); MONO # 0.8 K/uL (0.0-0.8); MONO % 7.8 % (0.0-10.0); NEUT # 3.6 K/uL (1.8-7.0); NEUT % 35.9 % (50.0-75.0); NRBC % 0.2 % (0.0-0.0); RBC 5.52 Mil/uL (3.80-5.20); RED CELL DISTRIBUTION WIDTH 18.5 % (11.5-14.5); WHITE BLOOD COUNT 10.1 K/uL (4.8-10.8)
[2018-11-06 11:42] LABS: ALB/GLOB RATIO 0.9 (1.0-2.1); ALBUMIN 3.9 g/dL (3.5-5.0); ALT/SGPT 28 U/L (9-52); AST/SGOT 44 U/L (14-36); BLOOD UREA NITROGEN 21 mg/dl (7-17); CALCIUM 10.2 mg/dL (8.4-10.2); GFR NON-AFRICAN AMERICAN > 60
[2018-11-06 11:44] LABS: PROTHROMBIN TIME 11.8 Seconds (9.8-13.1)
[2018-11-06 11:46] LABS: PARTIAL THROMBOPLASTIN TIME 28.4 Seconds (25.6-37.1)
--- NOTE | 2018-11-06 11:55 | CT ---
Date of service: 11/06/2018 PROCEDURE: CT HEAD WITHOUT CONTRAST. HISTORY: Head injury COMPARISON: None available. TECHNIQUE: Axial computed tomography images were obtained through the head/brain without intravenous contrast. Radiation dose: Total exam DLP = 0.0 mGy-cm. This CT exam was performed using one or more of the following dose reduction techniques: Automated exposure control, adjustment of the mA and/or kV according to patient size, and/or use of iterative reconstruction technique. FINDINGS: BRAIN: There are acute on chronic bilateral convexity subdural hematomas, larger on the right width regional mass effect, diffuse effacement of cortical sulci, basilar cisterns and ventricles and 10 mm midline shift from right to left. The hematoma measures 2.5 cm in maximum with on the right and 9 mm in maximum width on the left. There is also associated mild right posterior temporal subarachnoid hemorrhage. There is also subarachnoid hemorrhage in the left sylvian fissure. There are old lacunar infarctions in bilateral basal ganglia. VENTRICLES: No hydrocephalus. CALVARIUM: There is no calvarial fracture. There is a small left frontal scalp hematoma. PARANASAL SINUSES: Predominantly clear. MASTOID AIR CELLS: Predominantly clear. OTHER FINDINGS: None. IMPRESSION: Bilateral acute on chronic convexity subdural hematomas, larger on the right where it measures 2.5 cm in maximum width. Diffuse effacement of cortical sulci, basilar cisterns and ventricles with 10 mm midline shift from right to left. Critical findings were discussed with Dr. Smith in the ER on 11/06/2018 at 11:45 a.m.
--- NOTE | 2018-11-06 12:05 | CT ---
Date of service: 11/06/2018 PROCEDURE: CT Cervical Spine without contrast HISTORY: Head injury COMPARISON: None available. TECHNIQUE: Axial computed tomography images were obtained of the cervical spine without the use of intravenous contrast. Coronal and sagittal reformatted images were created and reviewed. Radiation dose: Total exam DLP = 1327.91 mGy-cm. This CT exam was performed using one or more of the following dose reduction techniques: Automated exposure control, adjustment of the mA and/or kV according to patient size, and/or use of iterative reconstruction technique. FINDINGS: VERTEBRAE: There is severe levoscoliosis in the cervical spine. There is normal alignment of the vertebral bodies. There is diffuse bone demineralization. There is no acute fracture or traumatic anterior listhesis. The craniocervical junction is normal. The atlantoaxial joint is normal. DISCS/SPINAL CANAL/NEURAL FORAMINA: Multilevel degenerative disc disease with multilevel right-sided facet arthropathy. No spinal canal stenosis. PARASPINAL SOFT TISSUES: No prevertebral soft tissue thickening. The paraspinous soft tissues are normal. OTHER FINDINGS: An endotracheal tube remains in place. IMPRESSION: No acute fracture or traumatic anterior listhesis.
--- NOTE | 2018-11-06 12:14 | ED PDOC ---
HPI: Neurologic - General Time Seen by Provider: 11/06/18 10:55 Chief Complaint (Nursing): Headache Chief Complaint (Provider): Headache Source: police, EMS - History of Present Illness Timing/Duration: 1 hour Allergies/Adverse Reactions: Allergies codeine Allergy (Verified 11/06/18 10:53) RASH Penicillins Allergy (Verified 11/06/18 10:53) RASH Home Medications: Ambulatory Orders RX: Aspirin [Ecotrin] 81 mg PO DAILY #30 tabec 11/18/17 RX: Atorvastatin [Lipitor] 20 mg PO HS #30 tab 11/18/17 RX: Clopidogrel [Plavix] 75 mg PO DAILY #30 tab 11/18/17 RX: Metoprolol Tartrate [Lopressor] 25 mg PO Q12 04/18/18 Cholecalciferol (Vitamin D3) [Vitamin D3] 5,000 unit PO DAILY 11/06/18 Additional Complaint(s): 68 year old female brought in by BLS ambulance after witnessed fall in the park. Bystander witnessed patient fall just prior to arrival and called ambulance. She was awake after the fall. According to EMS, patient was awake, alert and oriented x 3 and only complains of a mild headache and bilateral elbow pain. She takes Plavix and aspirin. States that other history is occasional forgetfulness. Shortly after arrival to the ED, when EMS was transferring patient to hospital bed, she become unresponsive. Immediate bedside evaluation shows no response to painful stimuli. C Collar was placed. GCS score of 3. Pupils are minimally responsive/ sluggish with right superior pupillary defect (glaucoma?). Unable to get family collateral at this time. Patient intubated. PMD: Dr. Facundo Robert Past Medical History Reviewed: Historical Data, Nursing Documentation, Vital Signs Vital Signs: Last Vital Signs Temp 97.4 F L 11/06/18 11:56 Pulse 78 11/06/18 11:10 Resp 15 11/06/18 11:10 BP 154/92 H 11/06/18 11:10 Pulse Ox 100 11/06/18 11:10 - Medical History PMH: Anemia, Hypercholesterolemia, Kidney Stones, Malignancy (bone), Multiple Sclerosis Denies: HIV, Chronic Kidney Disease - Surgical History Surgical History: Appendectomy, Cholecystectomy Denies: Pacemaker - Family History Family History: States: Unknown Family Hx - Home Medications Home Medications: Ambulatory Orders Medication Instructions Recorded RX: Aspirin [Ecotrin] 81 mg PO DAILY #30 tabec 11/18/17 RX: Atorvastatin [Lipitor] 20 mg PO HS #30 tab 11/18/17 RX: Clopidogrel [Plavix] 75 mg PO DAILY #30 tab 11/18/17 RX: Metoprolol Tartrate [Lopressor] 25 mg PO Q12 04/18/18 Cholecalciferol (Vitamin D3) 5,000 unit PO DAILY 11/06/18 [Vitamin D3] - Allergies Allergies/Adverse Reactions: Allergies Allergy/AdvReac Type Severity Reaction Status Date / Time codeine Allergy RASH Verified 11/06/18 10:53 Penicillins Allergy RASH Verified 11/06/18 10:53 Review of Systems ROS Statement: Except As Marked, All Systems Reviewed And Found Negative Review Of Systems: ROS cannot be obtained secondary to pt's inabilty to answer questions. (before LOC, complained of mild headache and bilateral elbow pain) Physical Exam - Reviewed Nursing Documentation Reviewed: Yes Vital Signs Reviewed: Yes - Physical Exam Appears: Negative for: No Acute Distress Head Exam: Positive for: ATRAUMATIC (no visible palpable trauma to the scalp. ), NORMOCEPHALIC. Negative for: NORMAL INSPECTION ((+) bleeding hematoma to left forehead) Skin: Positive for: Normal Color, Warm, Dry Eye Exam: Positive for: EOMI, Normal appearance, PERRL ENT: Positive for: Normal ENT Inspection, TM Is/Are (clear; no hemotympanum or De Jesus's sign). Negative for: Other (dentures and bleeding in mouth) Neck: Positive for: Normal, Painless ROM. Negative for: Supple Cardiovascular/Chest: Positive for: Bradycardia (with regular rhythm) Respiratory: Positive for: Normal Breath Sounds (bilaterally), Other (gag reflex intact) Gastrointestinal/Abdominal: Positive for: Soft. Negative for: Tenderness Extremity: Positive for: Other (abrasions to bilateral elbows and knees) - Laboratory Results Result Diagrams: 11/10/18 04:40 11/10/18 04:40 Lab Results: PT 11.8 Seconds (9.8-13.1) 11/06/18 11:15 INR 1.0 11/06/18 11:15 APTT 28.4 Seconds (25.6-37.1) 11/06/18 11:15 Troponin I < 0.0120 ng/mL (0.00-0.120) 11/06/18 11:15 Total Bilirubin 0.7 mg/dl (0.2-1.3) 11/06/18 11:15 AST 44 U/L (14-36) H 11/06/18 11:15 ALT 28 U/L (9-52) 11/06/18 11:15 Alkaline Phosphatase 76 U/L (38-126) 11/06/18 11:15 Total Protein 8.3 G/DL (6.3-8.2) H 11/06/18 11:15 Albumin 3.9 g/dL (3.5-5.0) 11/06/18 11:15 Globulin 4.4 gm/dL (2.2-3.9) H 11/06/18 11:15 Albumin/Globulin Ratio 0.9 (1.0-2.1) L 11/06/18 11:15 - ECG O2 Sat by Pulse Oximetry: 100 (RA) Pulse Ox Interpretation: Normal - Critical Care Total Time (In Min): 60 Medical Decision Making Medical Decision Makin:55 MDM: visible head trauma on blood thinners Intubated with pre treatment of lidocaine, etomidate, and rocuronium C Collar placed Intubation confirmed on CXR CT shows b/l subdural SAH Coagulation profile normal Labs otherwise normal OR to be informed by Dr. Ed Marie prepping patient for OR Will attempt to contact family at this time. Prognosis poor 11:45 CT head FINDINGS: BRAIN: There are acute on chronic bilateral convexity subdural hematomas, larger on the right width regional mass effect, diffuse effacement of cortical sulci, basilar cisterns and ventricles and 10 mm midline shift from right to left. The hematoma measures 2.5 cm in maximum with on the right and 9 mm in maximum width on the left. There is also associated mild right posterior temporal subarachnoid hemorrhage. There is also subarachnoid hemorrhage in the left sylvian fissure. There are old lacunar infarctions in bilateral basal ganglia. VENTRICLES: No hydrocephalus. CALVARIUM: There is no calvarial fracture. There is a small left frontal scalp hematoma. PARANASAL SINUSES: Predominantly clear. MASTOID AIR CELLS: Predominantly clear. OTHER FINDINGS: None. IMPRESSION: Bilateral acute on chronic convexity subdural hematomas, larger on the right where it measures 2.5 cm in maximum width. Diffuse effacement of cortical s ulci, basilar cisterns and ventricles with 10 mm midline shift from right to left. 12:01 CT C Spine FINDINGS: VERTEBRAE: There is severe levoscoliosis in the cervical spine. There is normal alignment of the vertebral bodies. There is diffuse bone demineralization. There is no acute fracture or traumatic anterior listhesis. The craniocervical junction is normal. The atlantoaxial joint is normal. DISCS/SPINAL CANAL/NEURAL FORAMINA: Multilevel degenerative disc disease with multilevel right-sided facet arthropathy. No spinal canal stenosis. PARASPINAL SOFT TISSUES: No prevertebral soft tissue thickening. The paraspinous soft tissues are normal. OTHER FINDINGS: An endotracheal tube remains in place. IMPRESSION: No acute fracture or traumatic anterior listhesis. 12:[address] Randolph, printer slotter helper. 12:41 Saw patient at bedside with Dr. Ward. She no longer has a pupillary or gag reflex. Dr. Ward determined that operation is no longer indicated. Patient will be admitted to ICU. 1305 Spoke with the patient's son, Mario Mcfadden (number listed in pt demographics) and informed him that the patient had been intubated, had poor prognosis due to brain bleed, and was being admitted to the intensive care unit. Mr. Mcfadden will contact his other brother and they will come to the [facility]. 1430 Pt's eldest son whom is the health care proxy/Power of attorny, Jeronimo Garza ([phone]) is present bedside. Mr Garza has been explained the situation and has also spoke to neurosurgeon Dr. Gupta via telephone. Pt to be transfered to the ICU. Scribe Attestation: Documented by Nimo Camacho acting as a scribe for Enid Smith MD Provider Scribe Attestation: All medical record entries made by the Scribe were at my direction and personally dictated by me. I have reviewed the chart and agree that the record accurately reflects my personal performance of the history, physical exam, medical decision making, and the department course for this patient. I have also personally directed, reviewed, and agree with the discharge instructions and disposition. Procedures - Time-Out Correct Patient (with visual ID + MR# on ID Band): Yes Correct Procedure: Yes Correct Site Marked: Yes X-Ray Marked: Yes Medication Reconciliation / Bloodwork / Allergies Checked: Yes Physician Name: Dr. Enid Smith - Intubation Time of Intubation: 08:40 Intubation Method: orotracheal Tube Size (cm): 8.0 Breath Sounds after Intubation: equal Intubation Complications: no complications Post Intubation Xray: Yes (confirmed) Progress/Xray Impression: Placed 21 cm to the lip Disposition - Clinical Impression Clinical Impression: Traumatic hematoma of head, Intracranial hemorrhage, Subarachnoid bleed - Disposition Disposition Time: 12:41 Condition: CRITICAL
[2018-11-06] MEDS ORDERED: LIDOCAINE IV STA (12:25)
[2018-11-06] MEDS ORDERED: SODIUM CHLORIDE 0.9% IV STA (12:25)
[2018-11-06] MEDS ORDERED: Rocuronium 10 mg/ml (5 ml) IV ONE (12:27)
[2018-11-06] MEDS ORDERED: Propofol 10 mg/ml 1,000 MG/100 ML VIAL IV SCH (12:45)
[2018-11-06] MEDS ORDERED: Lidocaine 1% Inj (20ml) IV ONE (13:15)
--- NOTE | 2018-11-06 13:20 | RAD ---
Date of service: 11/06/2018 HISTORY: s/p intubation COMPARISON: 10/27/2017 FINDINGS: LUNGS: No active pulmonary disease. PLEURA: No significant pleural effusion identified, no pneumothorax apparent. CARDIOVASCULAR: No atherosclerotic calcification present No radiographic findings to suggest acute or significant cardiovascular disease. Venous access catheter in stable, satisfactory position. OSSEOUS STRUCTURES: No significant abnormalities. VISUALIZED UPPER ABDOMEN: Normal. OTHER FINDINGS: Satisfactory position of endotracheal tube. The tip is 2.5 cm above the dana. IMPRESSION: No active pulmonary disease. Satisfactory position of endotracheal tube.
[2018-11-06] MEDS ORDERED: Mannitol 12.5 gm/50 ml Inj IV STA (14:59)
--- NOTE | 2018-11-07 00:49 | PCM.PROC ---
Procedures Attestation:: I certify that I have explained the specified Operation(s) or Procedure(s), risks, benefits and reasonable alternatives to the Patient and/or other person responsible. The opportunity was given to ask questions and all questions answered - Central Line Placement Right Femoral Triple Lumen Catheter Aseptic technique was employed throughout the procedure: Hand Hygiene done prior to procedure, Full sterile barriers (mask, hair cover, sterile gown, sterile gloves), Full body sterile drape, Chloraprep Antiseptic: 2 minute prep for Femoral CVP Time Out Performed: No Pt. Placed on Pulse Ox Monitor: Yes Central Line Prep: Chlorhexidine-Alcohol Combination Local Anesthesia Used: Lidocaine 2% Ultrasound Used for Placement: Yes Central Line Lumen Inserted: triple Central Line Length: 20 cm Post Procedure: Sutured in Place, Good Blood Return, All Ports Aspirated, Fl ushed, Capped, Sterile Dressing Applied Secured by: Suture Post procedure dressing: Clear vapor permeable Post Procedure X-Ray: No Patient Tolerated Procedure: No Complications Immediate Complications: None Additional Comments: Central line placed for infusion of 3% Saline
[2018-11-07] MEDS: Sodium Chloride 3% 500 ML IV SCH ×3 (01:00→22:29)
--- NOTE | 2018-11-07 04:35 | CON ---
DATE: 11/06/2018 CRITICAL CARE CONSULTATION LOCATION: The patient is in room 432. REASON FOR CONSULTATION: A 68-year-old female with bilateral subdural hematoma, intubated on mechanical ventilation, for further evaluation and followup. HISTORY OF PRESENT ILLNESS: The patient is intubated and does not respond to verbal or painful stimuli. Information obtained from ER note. 68-year-old female brought by BLS ambulance after a witnessed fall in the park. EMS was called by a bystander. On arrival of the ambulance, the patient was reportedly awake, alert and oriented to name, place and time, complained of mild headache and bilateral elbow pain. The patient reportedly takes aspirin, Plavix, metoprolol, and atorvastatin. Details of the underlying medical problems are not clear. Shortly after arrival to the ED while the patient was being transferred to the hospital bed became unresponsive and immediate bedside evaluation showed no response to painful stimuli, C-collar was in place. Misty coma scale score of 3. Pupils were minimally responsive, sluggish with right superior pupillary defect. Vital signs showed temperature 97.4, heart rate 78, respiratory rate 15, blood pressure 154/92, pulse oximetry 100. Examination was significant for a left frontal hematoma. A CT of the head obtained that showed bilateral [id number] convexity subdural hematomas, larger on the right, measuring 2.58 cm in maximum with diffuse effacement of cortical sulci, basilar cisterns and ventricles with 10 mm midline shift from right to left. The patient was seen by neurosurgery consult and deemed not a surgical candidate. The patient is admitted to ICU for further evaluation and followup. ALLERGIES: PATIENT HAS ALLERGY TO CODEINE AND PENICILLIN. MEDICATIONS: At home include aspirin 81 mg daily, atorvastatin 20 mg daily, Plavix 75 mg daily, metoprolol 25 mg every 12 hours, and vitamin D3 5000 units daily. PHYSICAL EXAMINATION: GENERAL: On examination, elderly female, looks her stated age. Orally intubated, on mechanical ventilation. AC/PRVC rate 14, tidal volume 400, FiO2 100%. No sedation. Observed rate 22, saturation 98%, exhaled tidal volume of 300, minute ventilation 5.8 liters, peak airway pressure 13. VITAL SIGNS: Temperature 97.4, heart rate 47 and regular, blood pressure 129/63, mean arterial pressure 85. HEAD, EYES, EARS, NOSE AND THROAT: Left frontal hematoma. No further active bleeding. Pupils 4 mm, dilated, fixed, and nonreactive. CHEST: Bilateral breath sounds, diminished in intensity. Clear to auscultation anterolaterally. Heart: Rhythm regular. S1, S2 normal. No audible murmur. ABDOMEN: Bowel sounds present. Soft. EXTREMITIES: Trace edema. DP palpable but reduced in intensity. NEUROLOGIC: No response to verbal commands. On deep noxious stimulus decerebrate. CURRENT MEDICATIONS: Include Keppra 750 mg IV every 12 hours, mannitol 25 g IV once. LABORATORY DATA: WBC 10.1, hemoglobin 14.2, hematocrit 43.7, platelet count 274, neutrophils 35.9, lymphocytes 55.3, monocytes 7.8. PT 11.8, INR 1, PTT 28.4. SMA-7: Sodium 139, potassium 4.6, chloride 104, CO2 of 26, blood urea nitrogen 24, creatinine 0.7, random glucose 138, calcium 10.2. Total bilirubin 0.7, AST 44, ALT 28, alkaline phosphatase 76. Troponin less than 0.012, albumin 3.9. Chest x-ray: Endotracheal tube in place. No rib fracture, no pneumothorax, no pleural effusion. Cervical CT shows no fracture or displacement. IMPRESSION AND PLAN: 68-year-old female status post mechanical fall, on aspirin and Plavix at home, became unresponsive in ER. CT showed subdural hematoma with midline shift. The patient's pupils are dilated, fixed and not responsive, minimal primitive reflexes or decerebrate posture on painful stimuli. Seen by neurosurgery consult, not a surgical candidate. We will obtain neurology evaluation to assess the mental status. Prognosis remains guarded. The patient's family is aware of the situation. Uday Urrutia MD [facility]
[2018-11-07 05:18] LABS: ABG ALLEN TEST YES; ARTERIAL BLOOD GAS O2 SAT 100.1 % (95-98); ARTERIAL BLOOD GAS PCO2 37 mm/Hg (35-45); ARTERIAL BLOOD GAS PH 7.46 (7.35-7.45); ARTERIAL BLOOD GAS PO2 399 mm/Hg (80-100); ARTERIAL BLOOD GAS TCO2 27.4 mmol/L (22-28)
[2018-11-07 05:53] LABS: HEMOGLOBIN 12.1 g/dL (12.0-16.0); MEAN CELL VOLUME 77.1 fl (81.0-99.0); MEAN CORPUSCULAR HEMOGLOBIN 26.2 pg (27.0-31.0); MEAN CORPUSCULAR HGB CONC 33.9 g/dL (33.0-37.0); RBC 4.63 Mil/uL (3.80-5.20); RED CELL DISTRIBUTION WIDTH 18.4 % (11.5-14.5); WHITE BLOOD COUNT 7.7 K/uL (4.8-10.8)
[2018-11-07 07:00] LABS: BLOOD UREA NITROGEN 13 mg/dl (7-17); CALCIUM 9.6 mg/dL (8.4-10.2); GFR NON-AFRICAN AMERICAN > 60
--- NOTE | 2018-11-07 07:36 | CP.CCUPN ---
CCU Subjective - Physician Review Subjective (Free Text): 11/07/18 13:36 The patient was Seen and examined by me at the bedside during ICU round, Medical records reviewed and Management issues were discussed and formulated with the house staff. Events reviewed Mrs Mcfadden is a 68 Years old Female with PMHx of Myasthenia Gravis, Non Hodgkins Lymphoma s/p chemo, H/O occasional forgetfulness and CVA ( On Plavix and aspirin) Who was brought in by BLS ambulance to Emergency department after witnessed fall in the park. According to EMS, she was initially awake after the fall, alert and oriented x 3, and only complains of a mild headache and bilateral elbow pain. However shortly after arrival to the ED, when EMS was transferring patient to hospital bed, she become unresponsive. C Collar was placed. GCS score of 3. Patient was emergently intubated. Head CT scan revealed Bilateral acute on chronic convexity subdural hematomas, larger on the right (2.5 cm in maximum width) and Subarachnoid bleed With 10 mm midline shift from right to left. Patient comfortable, orally intubated, no response to painful stimuli. No Vasopressors Na level 139-->144, Started on 3% normal saline Afebrile, NSR on the monitor . 11/07/18 14:13 Patient with very poor prognosis No need for daily ABG or CXR Critical Care Time Spent (in minutes): 45 CCU Objective - Vital Signs / Intake & Output Vital Signs (Last 4 hours): Vital Signs Temp Pulse Resp BP Pulse Ox 11/07/18 06:00 67 21 122/72 100 11/07/18 04:00 97.5 F L 58 L 19 130/74 100 Intake and Output (Last 8hrs): Intake & Output 11/06/18 11/07/18 11/07/18 22:59 06:59 14:59 Intake Total 25 300 Output Total 300 1600 Balance -275 -1300 Weight 186 lb 3.2 oz 190 lb Intake: IV 25 300 Output: Urine 300 1600 Urethral (Geiger) 300 1600 Other: # Bowel Movements 0 0 - Physical Exam Physical Exam Limitations: Positive for: Altered Mental Status, Clinical Condition Head: Positive for: Normocephalic. Negative for: Atraumatic (hematoma to left forehead) Pupils: Positive for: Other (fixed pupils with no corneal reflexes, negative doll's eyes). Negative for: PERRL Conjunctiva: Negative for: Injected, Icteric Ears: Positive for: Normal Mouth: Positive for: Moist Mucous Membranes Neck: Negative for: Normal Range of Motion (cervical collar ) Respiratory/Chest: Positive for: Clear to Auscultation, Good Air Exchange, Rhonchi. Negative for: Respiratory Distress, Accessory Muscle Use, Wheezes, Rales, Retracting Cardiovascular: Positive for: Regular Rate and Rhythm, Normal S1, S2, Peripheal Pulses Present. Negative for: Murmurs, Irregular Rhythm, Tachycardic, Bradycardic Abdomen: Positive for: Normal Bowel Sounds. Negative for: Tenderness, Distention Neurological: Negative for: GCS=15 (GCS 3), Speech Normal, Motor Func Grossly Intact, Normal Sensory Function Psychiatric: Negative for: Alert, Oriented x 3 - Medications Active Medications: Active Medications Generic Name Dose Route Start Last Admin Trade Name Freq PRN Reason Stop Dose Admin Propofol 1,000 mg in 100 mls @ 2.313 mls/hr 11/06/18 12:45 11/06/18 19:00 Diprivan IV 11/07/18 12:39 0 mcg/kg/min .Q24H LITO 0 mls/hr Titration Protocol 5 MCG/KG/MIN Sodium Chloride 500 mls @ 50 mls/hr 11/07/18 00:45 11/07/18 01:00 Hypertonic Saline 3% IV 11/08/18 00:45 50 mls/hr .Q10H LITO Administration - Patient Studies Lab Studies: Lab Studies 11/07/18 11/07/18 11/07/18 Range/Units 05:09 04:20 04:20 WBC 7.7 (4.8-10.8) K/uL RBC 4.63 (3.80-5.20) Mil/uL Hgb 12.1 D (12.0-16.0) g/dL Hct 35.7 (34.0-47.0) % MCV 77.1 L D (81.0-99.0) fl MCH 26.2 L (27.0-31.0) pg MCHC 33.9 (33.0-37.0) g/dL RDW 18.4 H (11.5-14.5) % Plt Count 210 (130-400) K/uL MPV (7.2-11.7) fl Neut % (Auto) (50.0-75.0) % Lymph % (Auto) (20.0-40.0) % [place] % (Auto) (0.0-10.0) % Eos % (Auto) (0.0-4.0) % Baso % (Auto) (0.0-2.0) % Neut # (Auto) (1.8-7.0) K/uL Lymph # (Auto) (1.0-4.3) K/uL [place] # (Auto) (0.0-0.8) K/uL Eos # (Auto) (0.0-0.7) K/uL Baso # (Auto) (0.0-0.2) K/uL PT (9.8-13.1) Seconds INR APTT (25.6-37.1) Seconds pCO2 37 (35-45) mm/Hg pO2 399 H (80-100) mm/Hg HCO3 27.0 (21-28) mmol/L ABG pH 7.46 H (7.35-7.45) ABG Total CO2 27.4 (22-28) mmol/L ABG O2 Saturation 100.1 H (95-98) % ABG Base Excess 2.5 (-2.0-3.0) mmol/L Anam Test Yes ABG Potassium 3.9 (3.6-5.2) mmol/L A-a O2 Difference 268.0 mm/Hg Glucose 145 H (65-105) mg/dL Lactate 1.1 (0.7-2.1) mmol/L Vent Mode A/c Mechanical Rate 14 FiO2 100.0 % Tidal Volume 400 PEEP 5 Sodium 142.0 144 (132-148) mmol/l Potassium 3.8 (3.6-5.0) MMOL/L Chloride 114.0 H 111 H (98-107) mmol/L Carbon Dioxide 28 (22-30) mmol/L Anion Gap 9 L (10-20) BUN 13 (7-17) mg/dl Creatinine 0.5 L (0.7-1.2) mg/dl Est GFR ( Amer) > 60 Est GFR (Non-Af Amer) > 60 POC Glucose (mg/dL) (65-110) mg/dL Random Glucose 135 H (65-105) mg/dL Calcium 9.6 (8.4-10.2) mg/dL Total Bilirubin (0.2-1.3) mg/dl AST (14-36) U/L ALT (9-52) U/L Alkaline Phosphatase (38-126) U/L Troponin I (0.00-0.120) ng/mL Total Protein (6.3-8.2) G/DL Albumin (3.5-5.0) g/dL Globulin (2.2-3.9) gm/dL Albumin/Globulin Ratio (1.0-2.1) Arterial Blood Potassium 3.9 (3.6-5.2) mmol/L Blood Type Blood Type Confirm Antibody Screen BBK History Checked 11/06/18 11/06/18 11/06/18 Range/Units 14:22 12:00 11:15 WBC (4.8-10.8) K/uL RBC (3.80-5.20) Mil/uL Hgb (12.0-16.0) g/dL Hct (34.0-47.0) % MCV (81.0-99.0) fl MCH (27.0-31.0) pg MCHC (33.0-37.0) g/dL RDW (11.5-14.5) % Plt Count (130-400) K/uL MPV (7.2-11.7) fl Neut % (Auto) (50.0-75.0) % Lymph % (Auto) (20.0-40.0) % [place] % (Auto) (0.0-10.0) % Eos % (Auto) (0.0-4.0) % Baso % (Auto) (0.0-2.0) % Neut # (Auto) (1.8-7.0) K/uL Lymph # (Auto) (1.0-4.3) K/uL [place] # (Auto) (0.0-0.8) K/uL Eos # (Auto) (0.0-0.7) K/uL Baso # (Auto) (0.0-0.2) K/uL PT 11.8 (9.8-13.1) Seconds INR 1.0 APTT 28.4 (25.6-37.1) Seconds pCO2 (35-45) mm/Hg pO2 (80-100) mm/Hg HCO3 (21-28) mmol/L ABG pH (7.35-7.45) ABG Total CO2 (22-28) mmol/L ABG O2 Saturation (95-98) % ABG Base Excess (-2.0-3.0) mmol/L Anam Test ABG Potassium (3.6-5.2) mmol/L A-a O2 Difference mm/Hg Glucose (65-105) mg/dL Lactate (0.7-2.1) mmol/L Vent Mode Mechanical Rate FiO2 % Tidal Volume PEEP Sodium (132-148) mmol/l Potassium (3.6-5.0) MMOL/L Chloride (98-107) mmol/L Carbon Dioxide (22-30) mmol/L Anion Gap (10-20) BUN (7-17) mg/dl Creatinine (0.7-1.2) mg/dl Est GFR ( Amer) Est GFR (Non-Af Amer) POC Glucose (mg/dL) (65-110) mg/dL Random Glucose (65-105) mg/dL Calcium (8.4-10.2) mg/dL Total Bilirubin (0.2-1.3) mg/dl AST (14-36) U/L ALT (9-52) U/L Alkaline Phosphatase (38-126) U/L Troponin I (0.00-0.120) ng/mL Total Protein (6.3-8.2) G/DL Albumin (3.5-5.0) g/dL Globulin (2.2-3.9) gm/dL Albumin/Globulin Ratio (1.0-2.1) Arterial Blood Potassium (3.6-5.2) mmol/L Blood Type A NEGATIVE Blood Type Confirm A NEGATIVE Antibody Screen Negative BBK History Checked No verified bt 11/06/18 11/06/18 11/06/18 Range/Units 11:15 11:15 10:54 WBC 10.1 D (4.8-10.8) K/uL RBC 5.52 H (3.80-5.20) Mil/uL Hgb 14.2 (12.0-16.0) g/dL Hct 43.7 (34.0-47.0) % MCV 79.2 L D (81.0-99.0) fl MCH 25.8 L (27.0-31.0) pg MCHC 32.6 L (33.0-37.0) g/dL RDW 18.5 H (11.5-14.5) % Plt Count 274 (130-400) K/uL MPV 8.2 (7.2-11.7) fl Neut % (Auto) 35.9 L (50.0-75.0) % Lymph % (Auto) 55.3 H (20.0-40.0) % [place] % (Auto) 7.8 (0.0-10.0) % Eos % (Auto) 0.6 (0.0-4.0) % Baso % (Auto) 0.4 (0.0-2.0) % Neut # (Auto) 3.6 (1.8-7.0) K/uL Lymph # (Auto) 5.6 H (1.0-4.3) K/uL [place] # (Auto) 0.8 (0.0-0.8) K/uL Eos # (Auto) 0.1 (0.0-0.7) K/uL Baso # (Auto) 0.0 (0.0-0.2) K/uL PT (9.8-13.1) Seconds INR APTT (25.6-37.1) Seconds pCO2 (35-45) mm/Hg pO2 (80-100) mm/Hg HCO3 (21-28) mmol/L ABG pH (7.35-7.45) ABG Total CO2 (22-28) mmol/L ABG O2 Saturation (95-98) % ABG Base Excess (-2.0-3.0) mmol/L Anam Test ABG Potassium (3.6-5.2) mmol/L A-a O2 Difference mm/Hg Glucose (65-105) mg/dL Lactate (0.7-2.1) mmol/L Vent Mode Mechanical Rate FiO2 % Tidal Volume PEEP Sodium 139 (132-148) mmol/l Potassium 4.6 (3.6-5.0) MMOL/L Chloride 104 (98-107) mmol/L Carbon Dioxide 26 (22-30) mmol/L Anion Gap 14 (10-20) BUN 21 H (7-17) mg/dl Creatinine 0.7 (0.7-1.2) mg/dl Est GFR ( Amer) > 60 Est GFR (Non-Af Amer) > 60 POC Glucose (mg/dL) 139 H (65-110) mg/dL Random Glucose 138 H (65-105) mg/dL Calcium 10.2 (8.4-10.2) mg/dL Total Bilirubin 0.7 (0.2-1.3) mg/dl AST 44 H (14-36) U/L ALT 28 (9-52) U/L Alkaline Phosphatase 76 (38-126) U/L Troponin I < 0.0120 (0.00-0.120) ng/mL Total Protein 8.3 H (6.3-8.2) G/DL Albumin 3.9 (3.5-5.0) g/dL Globulin 4.4 H (2.2-3.9) gm/dL Albumin/Globulin Ratio 0.9 L (1.0-2.1) Arterial Blood Potassium (3.6-5.2) mmol/L Blood Type Blood Type Confirm Antibody Screen BBK History Checked Laboratory Results - last 24 hr 11/06/18 11/06/18 11/06/18 10:54 11:15 11:15 WBC 10.1 D RBC 5.52 H Hgb 14.2 Hct 43.7 MCV 79.2 L D MCH 25.8 L MCHC 32.6 L RDW 18.5 H Plt Count 274 MPV 8.2 Neut % (Auto) 35.9 L Lymph % (Auto) 55.3 H [place] % (Auto) 7.8 Eos % (Auto) 0.6 Baso % (Auto) 0.4 Neut # (Auto) 3.6 Lymph # (Auto) 5.6 H [place] # (Auto) 0.8 Eos # (Auto) 0.1 Baso # (Auto) 0.0 PT INR APTT pCO2 pO2 HCO3 ABG pH ABG Total CO2 ABG O2 Saturation ABG Base Excess Anam Test ABG Potassium A-a O2 Difference Glucose Lactate Vent Mode Mechanical Rate FiO2 Tidal Volume PEEP Sodium 139 Potassium 4.6 Chloride 104 Carbon Dioxide 26 Anion Gap 14 BUN 21 H Creatinine 0.7 Est GFR ( Amer) > 60 Est GFR (Non-Af Amer) > 60 POC Glucose (mg/dL) 139 H Random Glucose 138 H Calcium 10.2 Total Bilirubin 0.7 AST 44 H ALT 28 Alkaline Phosphatase 76 Troponin I < 0.0120 Total Protein 8.3 H Albumin 3.9 Globulin 4.4 H Albumin/Globulin Ratio 0.9 L Arterial Blood Potassium Blood Type Blood Type Confirm Antibody Screen BBK History Checked 11/06/18 11/06/18 11/06/18 11:15 12:00 14:22 WBC RBC Hgb Hct MCV MCH MCHC RDW Plt Count MPV Neut % (Auto) Lymph % (Auto) [place] % (Auto) Eos % (Auto) Baso % (Auto) Neut # (Auto) Lymph # (Auto) [place] # (Auto) Eos # (Auto) Baso # (Auto) PT 11.8 INR 1.0 APTT 28.4 pCO2 pO2 HCO3 ABG pH ABG Total CO2 ABG O2 Saturation ABG Base Excess Anam Test ABG Potassium A-a O2 Difference Glucose Lactate Vent Mode Mechanical Rate FiO2 Tidal Volume PEEP Sodium Potassium Chloride Carbon Dioxide Anion Gap BUN Creatinine Est GFR ( Amer) Est GFR (Non-Af Amer) POC Glucose (mg/dL) Random Glucose Calcium Total Bilirubin AST ALT Alkaline Phosphatase Troponin I Total Protein Albumin Globulin Albumin/Globulin Ratio Arterial Blood Potassium Blood Type A NEGATIVE Blood Type Confirm A NEGATIVE Antibody Screen Negative BBK History Checked No verified bt 11/07/18 11/07/18 11/07/18 04:20 04:20 05:09 WBC 7.7 RBC 4.63 Hgb 12.1 D Hct 35.7 MCV 77.1 L D MCH 26.2 L MCHC 33.9 RDW 18.4 H Plt Count 210 MPV Neut % (Auto) Lymph % (Auto) [place] % (Auto) Eos % (Auto) Baso % (Auto) Neut # (Auto) Lymph # (Auto) [place] # (Auto) Eos # (Auto) Baso # (Auto) PT INR APTT pCO2 37 pO2 399 H HCO3 27.0 ABG pH 7.46 H ABG Total CO2 27.4 ABG O2 Saturation 100.1 H ABG Base Excess 2.5 Anam Test Yes ABG Potassium 3.9 A-a O2 Difference 268.0 Glucose 145 H Lactate 1.1 Vent Mode A/c Mechanical Rate 14 FiO2 100.0 Tidal Volume 400 PEEP 5 Sodium 144 142.0 Potassium 3.8 Chloride 111 H 114.0 H Carbon Dioxide 28 Anion Gap 9 L BUN 13 Creatinine 0.5 L Est GFR ( Amer) > 60 Est GFR (Non-Af Amer) > 60 POC Glucose (mg/dL) Random Glucose 135 H Calcium 9.6 Total Bilirubin AST ALT Alkaline Phosphatase Troponin I Total Protein Albumin Globulin Albumin/Globulin Ratio Arterial Blood Potassium 3.9 Blood Type Blood Type Confirm Antibody Screen BBK History Checked Radiology Impressions: Radiology Impressions Head CT 11/06/18 10:55 IMPRESSION: Bilateral acute on chronic convexity subdural hematomas, larger on the right where it measures 2.5 cm in maximum width. Diffuse effacement of cortical sulci, basilar cisterns and ventricles with 10 mm midline shift from right to left. Critical findings were discussed with Dr. Smith in the ER on 11/06/2018 at 11:45 a.m. Chest X-Ray 11/06/18 11:08 IMPRESSION: No active pulmonary disease. Satisfactory position of endotracheal tube. Cervical Spine CT 11/06/18 11:11 IMPRESSION: No acute fracture or traumatic anterior listhesis. Review of Systems - Review of Systems Systems not reviewed;Unavailable: Intubated Critical Care Progress Note - Ventilator Checklist Head of Bed 30 Degrees: Yes Daily Sedation Vacation: Yes Daily Assessment of Readiness to Wean: Yes Daily Spontaneous Breathing Trial: Yes PUD Prophalyxis: Yes DVT Prophylaxis: Yes Oral Care with Chlorhexidine Gluconate {CHG}: Yes - Extremities/Vascular Does the Patient have a Central Venous Catheter?: Yes Does the Patient need a Central Venous Catheter?: Yes Does the Patient have a Geiger Catheter?: Yes Does the Patient need a Geiger Catheter?: Yes Assessment/Plan (1) Acute respiratory failure Current Visit: Yes Status: Acute Priority: High Comment: Patient intubated for airway protstion, She remains unresponsive Not candidate for vent weaning (2) Bilateral subdural hematomas Current Visit: Yes Status: Acute Priority: High Comment: No neurological improvements aspirin and Plavix on Hold Neurology and neurosurgery appretiated (3) Fall Current Visit: Yes Status: Acute Priority: High (4) CVA (cerebral vascular accident) Current Visit: Yes Status: Acute Priority: High (5) Subarachnoid bleed Current Visit: Yes Status: Acute - Assessment and Plan (Free Text) Assessment: # HOB maintained at 30 degrees. # GI/DVT PPX # Stress Ulcer prophylaxis with Pepcid / Protonix 40 mg IVP QD # DVT prophylaxis with SCD # Code Status: Full code Total critical care time 45 minutes
--- NOTE | 2018-11-07 08:44 | CON ---
DATE: 11/06/2018 A 68-year-old woman, consulted by the ER doctor. She had a witnessed fall in the street. She initially was complaining of pain in her elbows where she fell, has abrasions and swelling on her head. She was taken by ambulance to the hospital. On arrival, she lost consciousness and was intubated. CT of the head was done and showed a massive right acute subdural hematoma. The only history available to me was that she was on "blood thinners;" however, her INR was 1 and her PT and PTT were normal. I immediately notified the operating room and came to the emergency room. I instructed the ER to give her 100 gr Manitol, elevate her head and hyperventilate her. On examination, she is fixed and dilated, no corneals, no oculocephalics, no gag reflex, and no respirations noted independent of the respirator. Clinically, she is brain . There is no indication at this time for evacuation of subdural hematoma. I suggest contacting the tissue sharing network. If the family wants to talk to me, please contact me. Dionte Ward MD [facility]
--- NOTE | 2018-11-07 09:24 | RAD ---
Date of service: 11/07/2018 HISTORY: intubated COMPARISON: No prior. FINDINGS: LUNGS: Right MediPort unchanged in position as well as endotracheal tube. No interval airspace disease bilaterally. PLEURA: No significant pleural effusion identified, no pneumothorax apparent. CARDIOVASCULAR: Calcific atherosclerotic changes are seen related to the thoracic aorta. Normal cardiac size. No pulmonary vascular congestion. Sternotomy wires reiterated. OSSEOUS STRUCTURES: No significant abnormalities. VISUALIZED UPPER ABDOMEN: Normal. OTHER FINDINGS: None. IMPRESSION: Stable chest radiography with no definite infiltrate appreciated bilaterally. Endotracheal tube and right MediPort unchanged in position.
--- NOTE | 2018-11-07 12:08 | CP.PCM.HP ---
History of Present Illness - History of Present Illness History of Present Illness: CC: Fall & Unresponsive History of Present Illness: History from Medical Record, and Chart A 68 year old female brought in by BLS ambulance after [place] fall [place] the park. Bystander witnessed patient fall just prior to arrival and called ambulance. She was awake after the fall. According to EMS, patient was awake, alert and oriented x 3 and only complains of a mild headache and bilateral elbow pain. She takes Plavix and Aspirin. +forgetfulness. Shortly after arrival to the ED, when EMS was transferring patient to hospital bed, she become unresponsive. Immediate bedside evaluation shows no response to painful stimuli. C Collar was placed. GCS score of 3. Pupils are minimally responsive. Patient intubated. CT Head w/o Contrast showed B/L SDH with Midline shift. Present on Admission - Present on Admission Any Indicators Present on Admission: No Review of Systems - Review of Systems All systems: reviewed and no additional remarkable complaints except Review of Systems: as per HP Past Patient History - Infectious Disease Hx of Infectious Diseases: None - Past Medical History & Family History Past Medical History?: Yes - Past Social History Smoking Status: unable to Alcohol: None - CARDIAC Hx Hypercholesterolemia: Yes Hx Pacemaker: No - PULMONARY Hx Respiratory Disorders: No - NEUROLOGICAL HX Cerebrovascular Accident: Yes (subdural hematoma,subarachnoid hematoma) Hx Multiple Sclerosis: Yes - HEENT Other/Comment: wears eyeglass - RENAL Hx Chronic Kidney Disease: No Hx Kidney Stones: Yes - ENDOCRINE/METABOLIC Hx Endocrine Disorders: No - HEMATOLOGICAL/ONCOLOGICAL Hx Anemia: Yes Hx Human Immunodeficiency Virus (HIV): No Other/Comment: non hodgkins lymphoma-s/p chemo - INTEGUMENTARY Hx Dermatological Problems: No - MUSCULOSKELETAL/RHEUMATOLOGICAL Hx Falls: Yes - GASTROINTESTINAL Hx Gastrointestinal Disorders: No - GENITOURINARY/GYNECOLOGICAL Hx Genitourinary Disorders: No - PSYCHIATRIC Hx Emotional Abuse: No Hx Physical Abuse: No Hx Substance Use: No - SURGICAL HISTORY Hx Appendectomy: Yes Hx Cholecystectomy: Yes - ANESTHESIA Hx Anesthesia: Yes Hx Anesthesia Reactions: No Hx Malignant Hyperthermia: No Meds Allergies/Adverse Reactions: Allergies Allergy/AdvReac Type Severity Reaction Status Date / Time codeine Allergy RASH Verified 11/06/18 10:53 Penicillins Allergy RASH Verified 11/06/18 10:53 Physical Exam - Constitutional Appears: No Acute Distress Additional comments: Intubated and Midline shift - Head Exam Head Exam: NORMAL INSPECTION, NORMOCEPHALIC - ENT Exam Additional comments: Intubated and unresponsive - Respiratory Exam Respiratory Exam: Clear to Auscultation Bilateral Additional comments: Intubated and GCS score 3 - Cardiovascular Exam Cardiovascular Exam: REGULAR RHYTHM, +S1, +S2 - GI/Abdominal Exam GI & Abdominal Exam: Normal Bowel Sounds - Neurological Exam Additional comments: Intubated with Minimal response. Results - Vital Signs Recent Vital Signs: Last Vital Signs Temp 98.6 F 11/07/18 08:00 Pulse 73 11/07/18 10:00 Resp 17 11/07/18 10:00 BP 139/83 11/07/18 10:00 Pulse Ox 100 11/07/18 10:00 - Labs Result Diagrams: 11/08/18 04:25 11/08/18 04:25 Labs: Laboratory Results - last 24 hr 11/06/18 11/06/18 11/07/18 12:00 14:22 04:20 WBC 7.7 RBC 4.63 Hgb 12.1 D Hct 35.7 MCV 77.1 L D MCH 26.2 L MCHC 33.9 RDW 18.4 H Plt Count 210 pCO2 pO2 HCO3 ABG pH ABG Total CO2 ABG O2 Saturation ABG Base Excess Anam Test ABG Potassium A-a O2 Difference Glucose Lactate Vent Mode Mechanical Rate FiO2 Tidal Volume PEEP Sodium Potassium Chloride Carbon Dioxide Anion Gap BUN Creatinine Est GFR ( Amer) Est GFR (Non-Af Amer) Random Glucose Calcium Arterial Blood Potassium Blood Type A NEGATIVE Blood Type Confirm A NEGATIVE Antibody Screen Negative BBK History Checked No verified bt 11/07/18 11/07/18 04:20 05:09 WBC RBC Hgb Hct MCV MCH MCHC RDW Plt Count pCO2 37 pO2 399 H HCO3 27.0 ABG pH 7.46 H ABG Total CO2 27.4 ABG O2 Saturation 100.1 H ABG Base Excess 2.5 Anam Test Yes ABG Potassium 3.9 A-a O2 Difference 268.0 Glucose 145 H Lactate 1.1 Vent Mode A/c Mechanical Rate 14 FiO2 100.0 Tidal Volume 400 PEEP 5 Sodium 144 142.0 Potassium 3.8 Chloride 111 H 114.0 H Carbon Dioxide 28 Anion Gap 9 L BUN 13 Creatinine 0.5 L Est GFR ( Amer) > 60 Est GFR (Non-Af Amer) > 60 Random Glucose 135 H Calcium 9.6 Arterial Blood Potassium 3.9 Blood Type Blood Type Confirm Antibody Screen BBK History Checked - Imaging and Cardiology CT scan - head Status: Report reviewed by me Additional comment: Date of service: 11/06/2018 PROCEDURE: CT HEAD WITHOUT CONTRAST. HISTORY: Head injury COMPARISON: None available. TECHNIQUE: Axial computed tomography images were obtained through the head/brain without intravenous contrast. Radiation dose: Total exam DLP = 0.0 mGy-cm. This CT exam was performed using one or more of the following dose reduction techniques: Automated exposure control, adjustment of the mA and/or kV according to patient size, and/or use of iterative reconstruction technique. FINDINGS: BRAIN: There are acute on chronic bilateral convexity subdural hematomas, larger on the right width regional mass effect, diffuse effacement of cortical sulci, basilar cisterns and ventricles and 10 mm midline shift from right to left. The hematoma measures 2.5 cm in maximum with on the right and 9 mm in maximum wi dth on the left. There is also associated mild right posterior temporal subarachnoid hemorrhage. There is also subarachnoid hemorrhage in the left sylvian fissure. There are old lacunar infarctions in bilateral basal ganglia. VENTRICLES: No hydrocephalus. CALVARIUM: There is no calvarial fracture. There is a small left frontal scalp hematoma. PARANASAL SINUSES: Predominantly clear. MASTOID AIR CELLS: Predominantly clear. OTHER FINDINGS: None. IMPRESSION: Bilateral acute on chronic convexity subdural hematomas, larger on the right where it measures 2.5 cm in maximum width. Diffuse effacement of cortical sulci, basilar cisterns and ventricles with 10 mm midline shift from right to left. Chest x-ray Status: Report reviewed by me Additional comment: Date of service: 11/06/2018 HISTORY: s/p intubation COMPARISON: 10/27/2017 FINDINGS: LUNGS: No active pulmonary disease. PLEURA: No significant pleural effusion identified, no pneumothorax apparent. CARDIOVASCULAR: No atherosclerotic calcification present No radiographic findings to suggest acute or significant cardiovascular disease . Venous access catheter in stable, satisfactory position. OSSEOUS STRUCTURES: No significant abnormalities. VISUALIZED UPPER ABDOMEN: Normal. OTHER FINDINGS: Satisfactory position of endotracheal tube. The tip is 2.5 cm above the dana. IMPRESSION: No active pulmonary disease. Satisfactory position of endotracheal tube. C-Spine X-Ray: Additional comment: Date of service: 11/06/2018 PROCEDURE: CT Cervical Spine without contrast HISTORY: Head injury COMPARISON: None available. TECHNIQUE: Axial computed tomography images were obtained of the cervical spine without the use of intravenous contrast. Coronal and sagittal reformatted images were created and reviewed. Radiation dose: Total exam DLP = 1327.91 mGy-cm. This CT exam was performed using one or more of the following dose reduction techniques: Automated exposure control, adjustment of the mA and/or kV according to patient size, and/or use of iterative reconstruction technique. FINDINGS: VERTEBRAE: There is severe levoscoliosis in the cervical spine. There is normal alignment of the vertebral bodies. There is diffuse bone demineralization. There is no acute fracture or traumatic anterior listhesis. The craniocervical junction is normal. The atlantoaxial joint is normal. DISCS/SPINAL CANAL/NEURAL FORAMINA: Multilevel degenerative disc disease with multilevel right-sided facet arthropathy. No spinal canal stenosis. PARASPINAL SOFT TISSUES: No prevertebral soft tissue thickening. The paraspinous soft tissues are normal. OTHER FINDINGS: An endotracheal tube remains in place. IMPRESSION: No acute fracture or traumatic anterior listhesis. 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
--- NOTE | 2018-11-07 12:38 | CP.PCM.PN ---
Subjective - Date & Time of Evaluation Date of Evaluation: 11/07/18 Time of Evaluation: 12:35 - Subjective Subjective: Neurology Follow-Up Note: Mrs. Lesa Carlin was evaluated this afternoon in the ICU. She remains intubated with sedation. She is unresponsive. Chart reviewed; discussed with pt's primary RN. ROS unobtainable due to pt's condition. Objective - Vital Signs/Intake and Output Vital Signs (last 24 hours): Temp Pulse Resp BP Pulse Ox 99.5 F 100 H 17 109/68 100 11/07/18 12:00 11/07/18 12:00 11/07/18 12:00 11/07/18 12:00 11/07/18 12:00 Intake and Output: 11/07/18 11/07/18 06:59 18:59 Intake Total 325 250 Output Total 1900 300 Balance -1575 -50 - Medications Medications: Current Medications Propofol (Diprivan) 1,000 mg in 100 mls @ 2.313 mls/hr IV .Q24H LITO; Protocol Stop: 11/07/18 12:39 Last Titration: 11/06/18 19:00 Dose: 0 mcg/kg/min, 0 mls/hr Sodium Chloride (Hypertonic Saline 3%) 500 mls @ 50 mls/hr IV .Q10H LITO Stop: 11/08/18 00:45 Last Admin: 11/07/18 11:11 Dose: 50 mls/hr - Labs Labs: 11/07/18 04:20 11/07/18 04:20 PT 11.8 Seconds (9.8-13.1) 11/06/18 11:15 INR 1.0 11/06/18 11:15 APTT 28.4 Seconds (25.6-37.1) 11/06/18 11:15 - Constitutional Appears: Other (unresponsive; intubated) - Head Exam Head Exam: NORMOCEPHALIC. absent: ATRAUMATIC, NORMAL INSPECTION Additional comments: hematoma to left forehead - Eye Exam Eye Exam: absent: EOMI, Normal appearance, PERRL Pupil Exam: Fixed. absent: NORMAL ACCOMODATION, PERRL Additional comments: fixed pupils with no response negative doll's eyes negative corneal reflexes - ENT Exam ENT Exam: Mucous Membranes Moist Additional comments: intubated - Neck Exam Additional comments: cervical collar on - Respiratory Exam Respiratory Exam: absent: NORMAL BREATHING PATTERN (intubated; not breathing ov er the vent) - Cardiovascular Exam Cardiovascular Exam: Tachycardia (hr 103 on exam) - GI/Abdominal Exam GI & Abdominal Exam: Soft. absent: Distended - Exam Additional comments: ruiz cath in place; urine clear, light yellow - Extremities Exam Extremities Exam: absent: Calf Tenderness, Full ROM, Pedal Edema Additional comments: extremities cold no movement during exam all extremities flaccid - Neurological Exam Neurological Exam: absent: Alert, Awake, CN II-XII Intact, Oriented x3, Reflexes Normal Neuro motor strength exam: Left Upper Extremity: 0, Right Upper Extremity: 0, Left Lower Extremity: 0, Right Lower Extremity: 0 Additional comments: Intubated on sedation Does not move extremities toward or localize painful stimuli during sternal rub All extremities flaccid; fall immediately to bed when raised. Hypoflexia b/l Pupils fixed and dilated approximately 6-7mm Negative doll's eyes, negative corneal reflexes, negative gag reflex. Unable to assess fine motor/sensation - Psychiatric Exam Psychiatric exam: absent: Normal Affect, Normal Mood Additional comments: intubated - Skin Skin Exam: Normal Color (cold to touch) Assessment and Plan (1) Bilateral subdural hematomas Assessment & Plan: Imaging reviewed: -CT C-Spine (11/06/18): No acute fracture or traumatic anterior listhesis. -CT Head (11/06/18): Bilateral acute on chronic convexity subdural hematomas, larger on the right where it measures 2.5 cm in maximum width. Diffuse effacement of cortical sulci, basilar cisterns and ventricles with 10 mm midline shift from right to left. -Continue ICU management for now -Neurosurgery on board; no intervention per note. -We recommend palliative care, comfort measures if family is in agreement. -Notify neuro team of any acute changes in condition. Case discussed with Dr. Adams Status: Acute (2) Subarachnoid bleed Assessment & Plan: see assessment and plan for SDH Status: Acute
--- NOTE | 2018-11-07 14:01 | CP.PCM.CON ---
History of Present Illness - History of Present Illness History of Present Illness: Neurology Consultation Note: Mrs. Mcfadden is a 68-year-old woman with a past medical history of Anemia, Hypercholesterolemia, Kidney Stones, Malignancy (bone), Multiple Sclerosis, who is on aspirin and plavix and had a witnessed fall with head injury resulting in bilateral subdural hematomas. Neurosugery evaluated the patient after she was intubated for airway protection and noted fixed, dilated pupils and did not consider her a good surgical candidate. I was asked to evaluate the patient in the ED after neurosurgery saw the patient and agreed that she had no significant brainstem reflexes likely due to downward herniation. Review of Systems - Review of Systems Systems not reviewed;Unavailable: Intubated Past Patient History - Infectious Disease Hx of Infectious Diseases: None - Past Medical History & Family History Past Medical History?: Yes - Past Social History Smoking Status: unable to - CARDIAC Hx Hypercholesterolemia: Yes Hx Pacemaker: No - PULMONARY Hx Respiratory Disorders: No - NEUROLOGICAL HX Cerebrovascular Accident: Yes (subdural hematoma,subarachnoid hematoma) Hx Multiple Sclerosis: Yes - HEENT Other/Comment: wears eyeglass - RENAL Hx Chronic Kidney Disease: No Hx Kidney Stones: Yes - ENDOCRINE/METABOLIC Hx Endocrine Disorders: No - HEMATOLOGICAL/ONCOLOGICAL Hx Anemia: Yes Hx Human Immunodeficiency Virus (HIV): No Other/Comment: non hodgkins lymphoma-s/p chemo - INTEGUMENTARY Hx Dermatological Problems: No - MUSCULOSKELETAL/RHEUMATOLOGICAL Hx Falls: Yes - GASTROINTESTINAL Hx Gastrointestinal Disorders: No - GENITOURINARY/GYNECOLOGICAL Hx Genitourinary Disorders: No - PSYCHIATRIC Hx Emotional Abuse: No Hx Physical Abuse: No Hx Substance Use: No - SURGICAL HISTORY Hx Appendectomy: Yes Hx Cholecystectomy: Yes - ANESTHESIA Hx Anesthesia: Yes Hx Anesthesia Reactions: No Hx Malignant Hyperthermia: No Meds Allergies/Adverse Reactions: Allergies Allergy/AdvReac Type Severity Reaction Status Date / Time codeine Allergy RASH Verified 11/06/18 10:53 Penicillins Allergy RASH Verified 11/06/18 10:53 - Medications Medications: Current Medications Sodium Chloride (Hypertonic Saline 3%) 500 mls @ 50 mls/hr IV .Q10H LITO Stop: 11/08/18 00:45 Last Admin: 11/07/18 11:11 Dose: 50 mls/hr Physical Exam - Psychiatric Exam Additional comments: Intubated, off sedation, pupils are fixed at 8 mm and dilated, no cough/gag, not breathing over the ventilator. GCS=3T Results - Vital Signs Recent Vital Signs: Last Vital Signs Temp 99.5 F 11/07/18 12:00 Pulse 100 H 11/07/18 12:00 Resp 17 11/07/18 12:00 BP 109/68 11/07/18 12:00 Pulse Ox 100 11/07/18 12:00 - Labs Result Diagrams: 11/07/18 04:20 11/07/18 04:20 Labs: Laboratory Results - last 24 hr 11/06/18 11/06/18 11/07/18 12:00 14:22 04:20 WBC 7.7 RBC 4.63 Hgb 12.1 D Hct 35.7 MCV 77.1 L D MCH 26.2 L MCHC 33.9 RDW 18.4 H Plt Count 210 pCO2 pO2 HCO3 ABG pH ABG Total CO2 ABG O2 Saturation ABG Base Excess Anam Test ABG Potassium A-a O2 Difference Glucose Lactate Vent Mode Mechanical Rate FiO2 Tidal Volume PEEP Sodium Potassium Chloride Carbon Dioxide Anion Gap BUN Creatinine Est GFR ( Amer) Est GFR (Non-Af Amer) Random Glucose Calcium Arterial Blood Potassium Blood Type A NEGATIVE Blood Type Confirm A NEGATIVE Antibody Screen Negative BBK History Checked No verified bt 11/07/18 11/07/18 04:20 05:09 WBC RBC Hgb Hct MCV MCH MCHC RDW Plt Count pCO2 37 pO2 399 H HCO3 27.0 ABG pH 7.46 H ABG Total CO2 27.4 ABG O2 Saturation 100.1 H ABG Base Excess 2.5 Anam Test Yes ABG Potassium 3.9 A-a O2 Difference 268.0 Glucose 145 H Lactate 1.1 Vent Mode A/c Mechanical Rate 14 FiO2 100.0 Tidal Volume 400 PEEP 5 Sodium 144 142.0 Potassium 3.8 Chloride 111 H 114.0 H Carbon Dioxide 28 Anion Gap 9 L BUN 13 Creatinine 0.5 L Est GFR ( Amer) > 60 Est GFR (Non-Af Amer) > 60 Random Glucose 135 H Calcium 9.6 Arterial Blood Potassium 3.9 Blood Type Blood Type Confirm Antibody Screen BBK History Checked Assessment & Plan (1) Bilateral subdural hematomas Assessment and Plan: The patient has a very poor prognosis due to brainstem herniation after bilate ral subdural hematomas. I agree with neurosurgery that no surgical option would improve the outcome. Hypertonics may be tried, but will not reverse the current condition. No further recommendations at this time. Status: Acute Priority: High
[2018-11-07 14:12] LABS: ALB/GLOB RATIO 0.9 (1.0-2.1); ALBUMIN 3.1 g/dL (3.5-5.0); ALT/SGPT 15 U/L (9-52); AST/SGOT 49 U/L (14-36); BLOOD UREA NITROGEN 12 mg/dl (7-17); CALCIUM 9.2 mg/dL (8.4-10.2); GFR NON-AFRICAN AMERICAN > 60
[2018-11-07] MEDS ORDERED: Chlorhexidine Gluconate 1 APPL/PKT TP ONE (21:53)
[2018-11-08 05:21] LABS: ABG ALLEN TEST YES; ARTERIAL BLOOD GAS HCO3 24.5 mmol/L (21-28); ARTERIAL BLOOD GAS PCO2 35 mm/Hg (35-45); ARTERIAL BLOOD GAS PH 7.43 (7.35-7.45); ARTERIAL BLOOD GAS PO2 194 mm/Hg (80-100); ARTERIAL BLOOD GAS TCO2 24.3 mmol/L (22-28)
[2018-11-08 05:41] LABS: HEMOGLOBIN 11.1 g/dL (12.0-16.0); MEAN CELL VOLUME 78.4 fl (81.0-99.0); MEAN CORPUSCULAR HEMOGLOBIN 25.4 pg (27.0-31.0); MEAN CORPUSCULAR HGB CONC 32.5 g/dL (33.0-37.0); RBC 4.37 Mil/uL (3.80-5.20); RED CELL DISTRIBUTION WIDTH 18.5 % (11.5-14.5); WHITE BLOOD COUNT 13.3 K/uL (4.8-10.8)
[2018-11-08 05:44] LABS: BLOOD UREA NITROGEN 16 mg/dl (7-17); CALCIUM 9.6 mg/dL (8.4-10.2); GFR NON-AFRICAN AMERICAN > 60
--- NOTE | 2018-11-08 08:56 | RAD ---
Date of service: 11/08/2018 HISTORY: intubated COMPARISON: 11/07/2018 FINDINGS: LUNGS: No consolidation seen. Endotracheal tube tip approximately 2 cm cephalad to dana. PLEURA: No significant pleural effusion identified, no pneumothorax apparent. CARDIOVASCULAR: No aortic atherosclerotic calcification present. Normal cardiac size. No pulmonary vascular congestion. Right MediPort type venous access present. Tip in superior vena cava. OSSEOUS STRUCTURES: Midline sternotomy wires intact. VISUALIZED UPPER ABDOMEN: Normal. OTHER FINDINGS: None. IMPRESSION: No active disease. No interval pathology noted. Support apparatus as above.
[2018-11-08] MEDS ORDERED: Chlorhexidine Gluconate 1 APPL/PKT TP ONE (10:24)
--- NOTE | 2018-11-08 10:57 | CP.CCUPN ---
CCU Subjective - Physician Review Subjective (Free Text): Comatose, decerebrate posturing of UEs and RLE more than LLE to deep pain stimuli, but breathing 17-18 on AC 14, SBPs 120-130s HR 70s sinus rhythm, polyuric on admission, output 1900ml documented from ER, now 300ml overnight. Has been on 3% saline at 50ml.hr. Nurses report now new neurological changes, nor improvement. Acute decompensation noted in ER yesterday. Febrile with T max 102.3F overnight, cooling measures instituted, now 98.6F. Other vitals and I/O's reviewed. ROS: No other pertinent negs or positives on 10+ system review: unobtainable 2 coma PMSFH: All other Nursing and physician documentation reviewed to date; no new pertinent info noted relevant to current medical problems. EXAM- HEENT: no icterus, no gaze preference, Pupils 4 mm and nonreactive, no corneals, no Dolls eyes. Bruise /scar and swelling over left upper fronto-tempo ral area NECK: Cervical collar remains in place. No JVD visible, supple, carotids equal upstroke bilat/no bruit CHEST: decreased BS at the bases, no wheezes audible HEART: regular, distant, S1S2, no rubs or murmurs noted ABD: softly and nontender, no guarding, no organomegaly, BS hypoactive. EXT: no LE edema, no calf tenderness or palpable cords, distal pulses intact and symmetrical. NEURO: extremities flaccid, decerebrate posturing as described above, no plantar reflex. GCS= 3T SKIN: no rashes, warm and dry LABS: WBC= 13.3 HGB= 11.1 PLTs= 193K INR 1.4 on admission 7.43/35/194 Na= 155 K= 3.6 QP=216 HCO3= 27 BUN/Cr= 16/0.8 BS= 143 Mg= 1.6 Phos 2.8 CXR: ETT position OK above dana, sternal sutires seen, no gross consolidation. (my interp). CT Head / CT C spine: reviewed. IMPRESSION / MAJOR PROBLEMS NOW: 1. Acute on chronic Bilateral SDH (R worse than L, with midline shift)- unclear spontaneous versus traumatic post-Fall; h/o Multiple falls at home in the past. 2. Platelet coagulopathy 2 ASA / Clopidogrel 3. Hypernatremia; induced by hypertonic saline 4. h/o CVA 4 weeks ago 5. h/o Mysthenia Gravis: not active now. PLAN: 1. Stop hypertonic saline, will trial hyperventilation ( AC increased to 22, PEEP minimized)) for now. Check serum osmo, if not above 320, will trial mannitol. 2. NeuroSurg / Neurology recommendations reviewed. 3. OGT for tap water administration. Follow serial Na levels. 4. Consider repeat CT Brain imaging or as directed by NeuroSurg / Neurology. Consider nuclear brain flow study for definitive brain function testing. [facility] notified on 11/06/18 by ICU nursing. Day#3 off antiplatelet therapy. 5. Keep normoglycemic and normothermic, max SBP now higher than 130. 6. Bilat SCDs orders placed (though has been on since yesterday). 7. Family contemplating transfer to [facility] for further care. Time spent with this patient did not overlap with any other provider's medical or critical care time. Additionally the code selected for the services rendered in this note includes the time spent: talking to the patients family, associated physicians and reviewing hospital data/results not listed here which extended to a total of 40 minutes of critical care.
[2018-11-08] MEDS: Insulin Regular 100 units/ml SC SCH ×3 (11:32→21:00)
--- NOTE | 2018-11-08 12:41 | CP.PCM.PN ---
Subjective - Date & Time of Evaluation Date of Evaluation: 11/08/18 Time of Evaluation: 12:41 - Subjective Subjective: Neurology Follow-Up Note: Mrs. Lesa Carlin was evaluated this afternoon in the ICU. She remains intubated, off of sedation. She remains unresponsive. Chart reviewed; discussed with pt's primary RN. ROS unobtainable due to pt's condition. Objective - Vital Signs/Intake and Output Vital Signs (last 24 hours): Temp Pulse Resp BP Pulse Ox 99.0 F 62 22 119/64 99 11/08/18 12:00 11/08/18 12:00 11/08/18 12:00 11/08/18 12:00 11/08/18 12:00 Intake and Output: 11/08/18 11/08/18 06:59 18:59 Intake Total 550 420 Output Total 350 200 Balance 200 220 - Medications Medications: Current Medications Acetaminophen (Tylenol 650 Mg Supp) 650 mg [place] Q4 PRN PRN Reason: Fever >100.4 F Last Admin: 11/07/18 21:57 Dose: 650 mg Insulin Human Regular (Humulin R) 0 units SC ACCU-CHECK LITO; Protocol Last Admin: 11/08/18 11:32 Dose: Not Given Pantoprazole Sodium (Protonix Inj) 40 mg IVP DAILY LITO Last Admin: 11/08/18 08:17 Dose: 40 mg - Labs Labs: 11/08/18 04:25 11/08/18 04:25 PT 11.8 Seconds (9.8-13.1) 11/06/18 11:15 INR 1.0 11/06/18 11:15 APTT 28.4 Seconds (25.6-37.1) 11/06/18 11:15 - Constitutional Appears: Other (intubated, unresponsive) - Head Exam Head Exam: NORMOCEPHALIC Additional comments: left forehead hematoma - Eye Exam Eye Exam: absent: EOMI, Normal appearance, PERRL Pupil Exam: Fixed. absent: NORMAL ACCOMODATION, PERRL Additional comments: Pupils fixed with no response, dilated approximately 6 mm Negative doll's eyes, negative corneal reflexes, negative gag reflex. - ENT Exam ENT Exam: Mucous Membranes Moist Additional comments: intubated - Neck Exam Neck Exam: Normal Inspection - Respiratory Exam Respiratory Exam: absent: NORMAL BREATHING PATTERN Additional comments: intubated on MV; breathing over the MV - Cardiovascular Exam Cardiovascular Exam: REGULAR RHYTHM (60's on tele monitor) - GI/Abdominal Exam Additional comments: NGT in place with feeding - Exam Additional comments: ruiz cath in place - Extremities Exam Extremities Exam: absent: Calf Tenderness, Full ROM, Pedal Edema Additional comments: Extremities flaccid and fall to bed immediately; no resistance. Non-purposeful movements on occasion during neuro exam of BLE and BUE. Decerebate posturing noted. - Back Exam Back Exam: absent: Full ROM - Neurological Exam Neurological Exam: absent: Alert, Awake, CN II-XII Intact, Normal Gait, Oriented x3, Reflexes Normal Neuro motor strength exam: Left Upper Extremity: 0, Right Upper Extremity: 0, Left Lower Extremity: 0, Right Lower Extremity: 0 Additional comments: Intubated off sedation Non-purposeful movements on occasion during neuro exam of BLE and BUE. All extremities flaccid and fall immediately to bed when raised. Decerebate posturing noted. Hypoflexia b/l Pupils fixed and dilated approximately 6mm Negative doll's eyes, negative corneal reflexes, negative gag reflex. Unable to assess fine motor/sensation - Psychiatric Exam Additional comments: intubated - Skin Skin Exam: Normal Color, Warm Assessment and Plan (1) Bilateral subdural hematomas Assessment & Plan: Imaging reviewed: -CT C-Spine (11/06/18): No acute fracture or traumatic anterior listhesis. -CT Head (11/06/18): Bilateral acute on chronic convexity subdural hematomas, l arger on the right where it measures 2.5 cm in maximum width. Diffuse effacement of cortical sulci, basilar cisterns and ventricles with 10 mm midline shift from right to left. -May repeat CT Head without contrast to re-evaluate the SDH and SAH---we will f/u with results once done. -Neurosurgery on board; no intervention per note. -We still recommend palliative care, comfort measures if family is in agreement. -Continue ICU management for now -Notify neuro team of any acute changes in condition. Case discussed with Dr. Adams Status: Acute (2) Subarachnoid bleed Assessment & Plan: see plan above for SDH; same plan Status: Acute
--- NOTE | 2018-11-08 16:31 | CT ---
Date of service: 11/08/2018 PROCEDURE: CT HEAD WITHOUT CONTRAST. HISTORY: re-eval SDH and SAH COMPARISON: None available. TECHNIQUE: Axial computed tomography images were obtained through the head/brain without intravenous contrast. Radiation dose: Total exam DLP = 860.7 mGy-cm. This CT exam was performed using one or more of the following dose reduction techniques: Automated exposure control, adjustment of the mA and/or kV according to patient size, and/or use of iterative reconstruction technique. FINDINGS: HEMORRHAGE: There is redemonstration of a large right acute on chronic convexity subdural hematoma an interval increase in size of left convexity acute subdural hematoma which now measures 12 mm in width. There is also subdural hematoma along the bilateral tentorial leaflets, worse on the left. There is redemonstration of subarachnoid hemorrhage in the left sylvian fissure. BRAIN: There is interval development of right subfalcine, uncal and transtentorial herniation, redemonstration of diffuse effacement of the cortical sulci and basilar cisterns, worsening right to left midline shift which now measures 11 mm and there is mass effect and effacement of the right lateral ventricle, mass effect on the brainstem and complete effacement of the 4th ventricle. There is diffuse edema in the brainstem. There is interval development of a large acute infarction in the right posterior inferior temporal lobe, parieto-occipital watershed territory and occipital lobe. There is redemonstration of lacunar infarctions in bilateral basal ganglia. VENTRICLES: No hydrocephalus. CALVARIUM: There is no calvarial fracture. Large left frontal scalp hematoma. PARANASAL SINUSES: Predominantly clear. MASTOID AIR CELLS: Predominantly clear. OTHER FINDINGS: None. IMPRESSION: 1. Interval significant worsening with development of right uncal and transtentorial herniation, soft false in herniation, mass effect on the brainstem with complete effacement of the cortical sulci, basilar cisterns and 4th ventricle. 2. Interval development of large acute infarction in the right occipital lobe, parieto-occipital territory and posterior inferior temporal lobe. 3. Redemonstration of large acute on chronic right convexity subdural hematoma and interval increase in size of left acute convexity subdural hematoma which now measures 12 mm in maximum width. 4. Redemonstration of bilateral tentorial leaf subdural hematomas, worse on the left and subarachnoid hemorrhage in the left sylvian fissure. Critical findings were discussed with Dr. Cole Gama in the ICU on 11/08/2018 at 4:20 p.m.
--- NOTE | 2018-11-08 23:56 | CP.PCM.PN ---
Subjective - Date & Time of Evaluation Date of Evaluation: 11/08/18 Time of Evaluation: 13:00 - Subjective Subjective: Seen and examined at the bed side. Continue. Comatose with GCS 3, and only decerebrates to deep pain stimuli and breathing over the vent. Neurosurgery evaluated the patient and stated no surgical Intervention as it is poor prognosis. Neurology also agree with the poor prognosis state. Patient was placed on 3% NaCl, and chandrika NA was >150 and S. Osmolality>320 when it was held by the applications project manager. Repeat CT Head w/O Contrast today showed Uncal herniation and Multiple Brain Infarction. Also patient spiked fever 102 last night which has improved to normal today. Aspiration PNA less likely given CXR today is normal study. Fever most likely Central given extensive Acute CVA. Objective - Vital Signs/Intake and Output Vital Signs (last 24 hours): Temp Pulse Resp BP Pulse Ox 98 F 48 L 22 127/63 97 11/08/18 20:00 11/08/18 22:00 11/08/18 22:00 11/08/18 22:00 11/08/18 22:00 Intake and Output: 11/08/18 11/09/18 18:59 06:59 Intake Total 850 410 Output Total 275 Balance 575 410 - Medications Medications: Current Medications Acetaminophen (Tylenol 650 Mg Supp) 650 mg [place] Q4 PRN PRN Reason: Fever >100.4 F Last Admin: 11/07/18 21:57 Dose: 650 mg Insulin Human Regular (Humulin R) 0 units SC ACCU-CHECK LITO; Protocol Last Admin: 11/08/18 16:43 Dose: Not Given Pantoprazole Sodium (Protonix Inj) 40 mg IVP DAILY LITO Last Admin: 11/08/18 08:17 Dose: 40 mg - Labs Labs: 11/08/18 04:25 11/08/18 04:25 PT 11.8 Seconds (9.8-13.1) 11/06/18 11:15 INR 1.0 11/06/18 11:15 APTT 28.4 Seconds (25.6-37.1) 11/06/18 11:15 - ENT Exam Additional comments: Intubated on MV. - Cardiovascular Exam Cardiovascular Exam: REGULAR RHYTHM, +S1, +S2 - GI/Abdominal Exam GI & Abdominal Exam: Normal Bowel Sounds - Neurological Exam Additional comments: Unresponsive with GCS 3T - Additional Findings Additional findings: Date of service: 11/08/2018 CT HEAD WITHOUT CONTRAST IMPRESSION: 1. Interval significant worsening with development of right uncal and transtentorial herniation, soft false in herniation, mass effect on the brainstem with complete effacement of the cortical sulci, basilar cisterns and 4th ventricle. 2. Interval development of large acute infarction in the right occipital lobe, parieto-occipital territory and posterior inferior temporal lobe. 3. Redemonstration of large acute on chronic right convexity subdural hematoma and interval increase in size of left acute convexity subdural hematoma which now measures 12 mm in maximum width. 4. Redemonstration of bilateral tentorial leaf subdural hematomas, worse on the left and subarachnoid hemorrhage in the left sylvian fissure. Assessment and Plan (1) Uncal herniation Status: Acute (2) Acute respiratory failure Status: Acute (3) Bilateral subdural hematomas Status: Acute (4) Subarachnoid bleed Status: Acute (5) Fall Status: Acute (6) Cerebral infarct Status: Acute - Assessment and Plan (Free Text) Plan: Continue Supportive Care Brain Flow study Hold 3% NACl for now Repeat S.Osmolality
[2018-11-09 05:19] LABS: ABG ALLEN TEST YES; ARTERIAL BLOOD GAS HCO3 25.7 mmol/L (21-28); ARTERIAL BLOOD GAS HEMOGLOBIN 11.3 g/dL (11.7-17.4); ARTERIAL BLOOD GAS O2 CAPACITY 15.4 mL/dL (16-24); ARTERIAL BLOOD GAS O2 CONTENT 13.5 ML/dL (15-23); ARTERIAL BLOOD GAS O2 SAT 87.9 % (95-98); ARTERIAL BLOOD GAS PCO2 33 mm/Hg (35-45); ARTERIAL BLOOD GAS PH 7.48 (7.35-7.45); ARTERIAL BLOOD GAS PO2 44 mm/Hg (80-100); ARTERIAL BLOOD GAS TCO2 25.6 mmol/L (22-28)
[2018-11-09 05:51] LABS: HEMOGLOBIN 10.9 g/dL (12.0-16.0); MEAN CELL VOLUME 77.8 fl (81.0-99.0); MEAN CORPUSCULAR HEMOGLOBIN 25.9 pg (27.0-31.0); MEAN CORPUSCULAR HGB CONC 33.3 g/dL (33.0-37.0); RBC 4.22 Mil/uL (3.80-5.20); RED CELL DISTRIBUTION WIDTH 18.7 % (11.5-14.5); WHITE BLOOD COUNT 12.2 K/uL (4.8-10.8)
[2018-11-09 06:28] LABS: BLOOD UREA NITROGEN 21 mg/dl (7-17); GFR NON-AFRICAN AMERICAN > 60
[2018-11-09] MEDS: Insulin Regular 100 units/ml SC SCH ×4 (08:40→22:45)
--- NOTE | 2018-11-09 08:55 | RAD ---
Date of service: 11/09/2018 HISTORY: ETT placement COMPARISON: 11/08/2018 FINDINGS: LUNGS: Interval opacity right perihilar faint air bronchograms-consolidation suggested.. Left hilar appearance is similar. Endotracheal tube tip approximately 2 cm cephalad to dana. PLEURA: Interval slight increase left pleural effusion. Pneumothorax noted. CARDIOVASCULAR: No aortic atherosclerotic calcification present. Normal cardiac size. No significant or acute findings to account for/ related to the clinical presentation. Midline sternotomy wires as before. MediPort type venous access present. Tip in superior vena cava. OSSEOUS STRUCTURES: No significant abnormalities. VISUALIZED UPPER ABDOMEN: Normal. OTHER FINDINGS: None. IMPRESSION: Interval opacity/consolidation right perihilar-compatible with an interval infiltrate here.. Other findings as above. Comments: Study marked for PA review .
--- NOTE | 2018-11-09 15:32 | CP.CCUPN ---
CCU Subjective - Physician Review Subjective (Free Text): Deep coma, slight cough effort noted on deep ETT suctioning, no other abnormal posturing now noted, breathing at 25 on set AC rate 22. Other vitals and I/O's reviewed. Intermittent fevers noted, SBP at times up to 150's, low HR episodes noted into the 30's. ROS: No other pertinent negs or positives on 10+ system review: unobtainable 2 coma PMSFH: All other Nursing and physician documentation reviewed to date; no new pertinent info noted relevant to current medical problems. EXAM- HEENT: no icterus, no gaze preference, Pupils 5mm and nonreactive, no corneals, no Dolls eyes. Bruise /scar and swelling over left upper fronto-temporal area NECK: Cervical collar remains in place. No JVD visible, supple, carotids equal upstroke bilat/no bruit CHEST: decreased BS at the bases, no wheezes audible HEART: regular, distant, S1S2, no rubs or murmurs noted ABD: softly and nontender, no guarding, no organomegaly, BS hypoactive. EXT: no LE edema, no calf tenderness or palpable cords, distal pulses intact and symmetrical. NEURO: extremities flaccid, decerebrate posturing as described above, no plantar reflex. GCS= 3T SKIN: no rashes, warm and dry LABS: WBC= 12.2 HGB= 10.9 PLTs= 181K INR 1.4 on admission 7.48/33/44 (most likely VBG) Na= 147 K= 3.1 JQ=608 HCO3= 27 BUN/Cr= 21/0.7 BS= 144 CXR: ETT position OK above dana, R > L hilar and RML interstitial changes (my interp). IMPRESSION / MAJOR PROBLEMS NOW: 1. Acute on chronic Bilateral SDH (R worse than L, with midline shift)- unclear spontaneous versus traumatic post-Fall; h/o Multiple falls at home in the past. 2. Platelet coagulopathy 2 ASA / Clopidogrel 3. Hypernatremia; induced by hypertonic saline 4. h/o CVA 4 weeks ago 5. h/o Mysthenia Gravis: not active now. PLAN: 1. official repeat CT Brain results reviewed. Findings are worse and progressive. 2. No visitation by family yesterday except for a phone call in the evening, stating a visit today. Consider discussion for goals of care versus comfort measures only, given present poor prognostic clinical signs and hopes for recovery nil. 3. Hypernatremia better. 4. Keep normoglycemic and normothermic, max SBP now higher than 130.
--- NOTE | 2018-11-09 17:01 | CP.PCM.PN ---
Subjective - Date & Time of Evaluation Date of Evaluation: 11/09/18 Time of Evaluation: 17:01 - Subjective Subjective: Neurology Follow-Up Note: Mrs. Lesa Carlin was evaluated this afternoon in the ICU. She remains intubated, off of sedation. She remains unresponsive. Chart reviewed. ROS unobtainable due to pt's condition. Objective - Vital Signs/Intake and Output Vital Signs (last 24 hours): Temp Pulse Resp BP Pulse Ox 98.5 F 155 H 27 H 151/76 H 100 11/09/18 16:00 11/09/18 16:00 11/09/18 16:00 11/09/18 16:00 11/09/18 16:00 Intake and Output: 11/09/18 11/09/18 06:59 18:59 Intake Total 1310 1640 Output Total 250 Balance 1060 1640 - Medications Medications: Current Medications Acetaminophen (Tylenol 650 Mg Supp) 650 mg SC Q4 PRN PRN Reason: Fever >100.4 F Last Admin: 11/07/18 21:57 Dose: 650 mg Insulin Human Regular (Humulin R) 0 units SC ACCU-CHECK LITO; Protocol Last Admin: 11/09/18 12:03 Dose: Not Given Pantoprazole Sodium (Protonix Inj) 40 mg IVP DAILY LITO Last Admin: 11/09/18 08:40 Dose: 40 mg - Labs Labs: 11/09/18 04:20 11/09/18 04:20 PT 11.8 Seconds (9.8-13.1) 11/06/18 11:15 INR 1.0 11/06/18 11:15 APTT 28.4 Seconds (25.6-37.1) 11/06/18 11:15 - Constitutional Appears: Other (intubated) - Head Exam Head Exam: NORMOCEPHALIC Additional comments: hematoma noted to left side forehead - Eye Exam Eye Exam: absent: EOMI, Normal appearance, PERRL Pupil Exam: Fixed. absent: NORMAL ACCOMODATION, PERRL Additional comments: Pupils fixed with no response, dilated approximately 6 mm Negative doll's eyes, negative corneal reflexes, negative gag reflex. - ENT Exam ENT Exam: Mucous Membranes Moist Additional comments: intubated - Neck Exam Neck Exam: Normal Inspection - Respiratory Exam Respiratory Exam: absent: NORMAL BREATHING PATTERN Additional comments: intubated - Cardiovascular Exam Cardiovascular Exam: Tachycardia - GI/Abdominal Exam Additional comments: ngt in place w feedings - Exam Additional comments: ruiz cath in place - Extremities Exam Extremities Exam: absent: Calf Tenderness, Full ROM, Pedal Edema Additional comments: extremities cold to touch and flaccid Decerebate posturing noted - Neurological Exam Neurological Exam: absent: Alert, Awake, CN II-XII Intact, Normal Gait, Oriented x3, Reflexes Normal Neuro motor strength exam: Left Upper Extremity: 0, Right Upper Extremity: 0, Left Lower Extremity: 0, Right Lower Extremity: 0 Additional comments: intubated off sedation Non-purposeful movements on occasion during neuro exam of BLE and BUE, not as much as yesterday. All extremities flaccid and fall immediately to bed when raised. Decerebate posturing noted. Hypoflexia b/l Pupils remain fixed and dilated approximately 6mm Negative doll's eyes, negative corneal reflexes, negative gag reflex. Unable to assess fine motor/sensation - Psychiatric Exam Psychiatric exam: absent: Normal Affect, Normal Mood (intubated; off sedation) - Skin Skin Exam: Normal Color (cold to touch) Assessment and Plan (1) Bilateral subdural hematomas Assessment & Plan: Imaging reviewed: -CT Head (11/08/18): 1. Interval significant worsening with development of right uncal and transtentorial herniation, soft false in herniation, mass effect on the brainstem with complete effacement of the cortical sulci, basilar cisterns and 4th ventricle. 2. Interval development of large acute infarction in the right occipital lobe, parieto-occipital territory and posterior inferior temporal lobe. 3. Redemonstration of large acute on chronic right convexity subdural hematoma and interval increase in size of left acute convexity subdural hematoma which now measures 12 mm in maximum width. 4. Redemonstration of bila teral tentorial leaf subdural hematomas, worse on the left and subarachnoid hemorrhage in the left sylvian fissure. -CT C-Spine (11/06/18): No acute fracture or traumatic anterior listhesis. -CT Head (11/06/18): Bilateral acute on chronic convexity subdural hematomas, larger on the right where it measures 2.5 cm in maximum width. Diffuse effacement of cortical sulci, basilar cisterns and ventricles with 10 mm midline shift from right to left. Repeat CT Head shows worsening of the herniation. Mrs. Lesa Carlin has also developed an acute infarct based on the CT report. Her prognosis is grave and she remains in critical condition. She has shown no improvements neurologically. -We still recommend palliative care and comfort measures if family is in agreement. -Neurosurgery on board; no intervention per note. -Continue ICU management for now -Unable to start antiplatelets and AC 2/2 SDH and SAH. -Continue SCDs -Notify neuro team of any acute changes in condition. If family has questions, please do not hesitate to call us. Thanks. Case discussed with Dr. Adams Status: Acute (2) Subarachnoid bleed Assessment & Plan: same plan as above for SDH Status: Acute
--- NOTE | 2018-11-09 20:29 | CP.PCM.PN ---
Subjective - Date & Time of Evaluation Date of Evaluation: 11/09/18 Time of Evaluation: 13:10 - Subjective Subjective: Seen and examined at the bed side. Discussed with the Reproduction Specialist and RN. No Improvement in Mental Status. Currently off sedation with GCS 3T. Neurologist, Pulmonary, & Cyber Instructor Input appreciated, and patient remains critical. Pallitive/Hospice care if family agree. Objective - Vital Signs/Intake and Output Vital Signs (last 24 hours): Temp Pulse Resp BP Pulse Ox 98.5 F 167 H 24 120/74 100 11/09/18 16:00 11/09/18 18:00 11/09/18 18:00 11/09/18 18:00 11/09/18 18:00 Intake and Output: 11/09/18 11/10/18 18:59 06:59 Intake Total 1780 140 Output Total 250 Balance 1530 140 - Medications Medications: Current Medications Acetaminophen (Tylenol 650 Mg Supp) 650 mg [place] Q4 PRN PRN Reason: Fever >100.4 F Last Admin: 11/07/18 21:57 Dose: 650 mg Insulin Human Regular (Humulin R) 0 units SC ACCU-CHECK LITO; Protocol Last Admin: 11/09/18 17:59 Dose: 2 units Pantoprazole Sodium (Protonix Inj) 40 mg IVP DAILY LITO Last Admin: 11/09/18 08:40 Dose: 40 mg - Labs Labs: 11/09/18 04:20 11/09/18 04:20 PT 11.8 Seconds (9.8-13.1) 11/06/18 11:15 INR 1.0 11/06/18 11:15 APTT 28.4 Seconds (25.6-37.1) 11/06/18 11:15 - Head Exam Head Exam: ATRAUMATIC, NORMAL INSPECTION, NORMOCEPHALIC - ENT Exam ENT Exam: Mucous Membranes Moist, Normal Exam - Cardiovascular Exam Cardiovascular Exam: +S1, +S2 - Neurological Exam Additional comments: GCS 3T, and Minimal Brain activity Assessment and Plan (1) Uncal herniation Status: Acute (2) Acute respiratory failure Status: Acute (3) Bilateral subdural hematomas Status: Acute (4) Subarachnoid bleed Status: Acute (5) Fall Status: Acute (6) Cerebral infarct Status: Acute - Assessment and Plan (Free Text) Plan: Continue Supportive Care Brain Flow study Keep Normoglycemic and Normothermic, Keep SBP about 140 Monitor BMP and S. Osmolality Sharing network onboard
[2018-11-10 05:58] LABS: BLOOD UREA NITROGEN 23 mg/dl (7-17); CALCIUM 9.9 mg/dL (8.4-10.2); GFR NON-AFRICAN AMERICAN > 60
[2018-11-10 06:02] LABS: HEMOGLOBIN 10.7 g/dL (12.0-16.0); MEAN CELL VOLUME 79.3 fl (81.0-99.0); MEAN CORPUSCULAR HGB CONC 32.8 g/dL (33.0-37.0); RBC 4.1 Mil/uL (3.80-5.20); RED CELL DISTRIBUTION WIDTH 18.5 % (11.5-14.5); WHITE BLOOD COUNT 12.3 K/uL (4.8-10.8)
[2018-11-10 06:22] LABS: ABG ALLEN TEST YES; ARTERIAL BLOOD GAS HCO3 25.3 mmol/L (21-28); ARTERIAL BLOOD GAS HEMOGLOBIN 12.1 g/dL (11.7-17.4); ARTERIAL BLOOD GAS O2 CAPACITY 16.4 mL/dL (16-24); ARTERIAL BLOOD GAS O2 CONTENT 14.4 ML/dL (15-23); ARTERIAL BLOOD GAS O2 SAT 87.9 % (95-98); ARTERIAL BLOOD GAS PCO2 39 mm/Hg (35-45); ARTERIAL BLOOD GAS PH 7.42 (7.35-7.45); ARTERIAL BLOOD GAS PO2 47 mm/Hg (80-100); ARTERIAL BLOOD GAS TCO2 26.5 mmol/L (22-28)
[2018-11-10] MEDS: Insulin Regular 100 units/ml SC SCH ×4 (06:25→23:09)
--- NOTE | 2018-11-10 07:58 | RAD ---
Date of service: 11/10/2018 HISTORY: ETT placement COMPARISON: Portable chest 11/09/2018. FINDINGS: LUNGS: Endotracheal tube and right MediPort as well as nasogastric tube are unchanged in position grossly. Right-sided infiltrate has expanded to the right base from the right hilum. Left basilar opacity is unchanged including limited patchy density at the left perihilar region, partially obscured by rotation of the mediastinum toward the left. PLEURA: Trace of pleural effusion not excluded. None is seen at the right, no pneumothorax apparent. CARDIOVASCULAR: No aortic atherosclerotic calcification present. Normal cardiac size. No pulmonary vascular congestion. OSSEOUS STRUCTURES: No significant abnormalities. VISUALIZED UPPER ABDOMEN: Normal. OTHER FINDINGS: None. IMPRESSION: Increased infiltrate right chest predominantly at the base and likely also increased at the left.
--- NOTE | 2018-11-10 08:14 | CP.CCUPN ---
CCU Subjective - Physician Review Subjective (Free Text): Deep coma, she still does trigger the vent, although spontaneous breathing efforts are irregular but non-labored; otherwise breathing at 22 on set AC rate 22. Had episode of tachycardia manifest grade fevers notedst as SVt at 130-140, remained normotensive, resolved spontaneously. Other vitals and I/O's reviewed. Intermittent low, SBP 130's, low HR episodes noted into the 30's. ROS: No other pertinent negs or positives on 10+ system review: unobtainable 2 coma PMSFH: All other Nursing and physician documentation reviewed to date; no new pertinent info noted relevant to current medical problems. EXAM- HEENT: no icterus, no gaze preference, Pupils 5mm and nonreactive, no corneals, no Dolls eyes. Bruise /scar and swelling over left upper fronto-temporal area NECK: Cervical collar remains in place. No JVD visible, supple, carotids equal upstroke bilat/no bruit CHEST: decreased BS at the bases, no wheezes audible HEART: regular, distant, S1S2, no rubs or murmurs noted ABD: softly and nontender, no guarding, no organomegaly, BS hypoactive. EXT: no LE edema, no calf tenderness or palpable cords, distal pulses intact and symmetrical. NEURO: extremities flaccid, decerebrate posturing as described above, no plantar reflex. GCS= 3T SKIN: no rashes, warm and dry LABS: WBC= 12.3 HGB= 10.7 PLTs= 192K 7.42/39/47 (most likely VBG) Na= 144 K= 3.2 UD=536 HCO3= 30 BUN/Cr= 23/0.7 BS= 168 CXR: ETT position OK above dana, worse bibasilar interstitial changes (my interp). IMPRESSION / MAJOR PROBLEMS NOW: 1. Acute on chronic Bilateral SDH (R worse than L, with midline shift)- unclear spontaneous versus traumatic post-Fall; h/o Multiple falls at home in the past. 2. Platelet coagulopathy 2 ASA / Clopidogrel 3. Hypernatremia; induced by hypertonic saline 4. h/o CVA 4 weeks ago 5. h/o Mysthenia Gravis: not active now. PLAN: 1. No family visitation noted yesterday. Need to discuss [id number] regarding goals of care versus comfort measures only, given present poor prognostic clinic al signs and hopes for recovery nil. 2. No further interventions noted by Neurosurg / Neurology. 3. Keep normoglycemic and normothermic, max SBP no higher than 130. 4. Other supportive care ongoing.
[2018-11-10] MEDS ORDERED: Potassium Chloride 20 mEq/15 ml LIQ UD PO ONE (08:24)
--- NOTE | 2018-11-10 12:51 | CP.PCM.PN ---
Subjective - Date & Time of Evaluation Date of Evaluation: 11/10/18 Time of Evaluation: 12:51 - Subjective Subjective: Neurology Follow-Up Note: Mrs. Lesa Carlin was evaluated this afternoon in the ICU. She remains intubated, off of sedation. She remains unresponsive. Chart reviewed. ROS unobtainable due to pt's condition. Objective - Vital Signs/Intake and Output Vital Signs (last 24 hours): Temp Pulse Resp BP Pulse Ox 100.3 F H 90 31 H 140/77 93 L 11/10/18 12:00 11/10/18 12:00 11/10/18 12:00 11/10/18 12:00 11/10/18 12:00 Intake and Output: 11/10/18 11/10/18 06:59 18:59 Intake Total 1590 920 Output Total 350 Balance 1240 920 - Medications Medications: Current Medications Acetaminophen (Tylenol 650 Mg Supp) 650 mg DE Q4 PRN PRN Reason: Fever >100.4 F Last Admin: 11/07/18 21:57 Dose: 650 mg Insulin Human Regular (Humulin R) 0 units SC ACCU-CHECK [facility]; Protocol Last Admin: 11/10/18 11:40 Dose: 2 units Pantoprazole Sodium (Protonix Inj) 40 mg IVP DAILY [facility] Last Admin: 11/10/18 08:20 Dose: 40 mg - Labs Labs: 11/10/18 04:40 11/10/18 04:40 PT 11.8 Seconds (9.8-13.1) 11/06/18 11:15 INR 1.0 11/06/18 11:15 APTT 28.4 Seconds (25.6-37.1) 11/06/18 11:15 - Constitutional Appears: Other (intubated; no change in mental status) - Head Exam Head Exam: NORMOCEPHALIC Additional comments: hematoma noted to left side of forehead - Eye Exam Eye Exam: absent: EOMI, Normal appearance, PERRL Pupil Exam: Fixed. absent: NORMAL ACCOMODATION, PERRL Additional comments: pupils remain fixed and dilated approx 6 mm with no response negative doll's eyes, negative corneal reflex, negative gag reflex - ENT Exam ENT Exam: Mucous Membranes Moist Additional comments: intubated - Neck Exam Neck Exam: Normal Inspection - Respiratory Exam Respiratory Exam: absent: NORMAL BREATHING PATTERN (intubated on MV) - Cardiovascular Exam Cardiovascular Exam: REGULAR RHYTHM - GI/Abdominal Exam GI & Abdominal Exam: Soft Additional comments: ngt in place with feedings - Exam Additional comments: ruiz cath in place - Extremities Exam Extremities Exam: absent: Calf Tenderness, Full ROM, Pedal Edema Additional comments: extremities cool to touch; flaccid; no decerebate posturing noted today - Neurological Exam Neurological Exam: absent: Alert, Awake, CN II-XII Intact, Normal Gait, Oriented x3, Reflexes Normal Neuro motor strength exam: Left Upper Extremity: 0, Right Upper Extremity: 0, Left Lower Extremity: 0, Right Lower Extremity: 0 Additional comments: Remains intubated off sedation No non-purposeful movements noted today during neuro exam Moves head very slightly to the left side during sternal rub. All extremities flaccid and fall immediately to bed when raised. No decerebate posturing noted today. Hypoflexia b/l Pupils remain fixed and dilated approximately 6mm Negative doll's eyes, negative corneal reflexes, negative gag reflex. Unable to assess fine motor/sensation - Psychiatric Exam Psychiatric exam: absent: Normal Affect (intubated, off sedation), Normal Mood - Skin Skin Exam: Normal Color Assessment and Plan (1) Bilateral subdural hematomas Assessment & Plan: Imaging reviewed: -CT Head (11/08/18): 1. Interval significant worsening with development of right uncal and transtentorial herniation, soft false in herniation, mass effect on the brainstem with complete effacement of the cortical sulci, basilar cisterns and 4th ventricle. 2. Interval development of large acute infarction in the right occipital lobe, parieto-occipital territory and posterior inferior temporal lobe. 3. Redemonstration of large acute on chronic right convexity subdural hematoma and interval increase in size of left acute convexity subdural hematoma which now measures 12 mm in maximum width. 4. Redemonstration of bilateral tentorial leaf subdural hematomas, worse on the left and subarachnoid hemorrhage in the left sylvian fissure. -CT C-Spine (11/06/18): No acute fracture or traumatic anterior listhesis. -CT Head (11/06/18): Bilateral acute on chronic convexity subdural hematomas, larger on the right where it measures 2.5 cm in maximum width. Diffuse effacement of cortical sulci, basilar cisterns and ventricles with 10 mm midline shift from right to left. Repeat CT Head shows worsening of the herniation. Mrs. Leas Carlin has also developed an acute infarct based on the CT report. Her prognosis remains grave and she remains in critical condition. She has shown no improvements neurologically. Per notes, family did not visit her yesterday. When family does come in, there needs to be a conversation about the reality of her cond ition and prognosis. -We still recommend palliative care and comfort measures if family is in agr eement. -Neurosurgery on board; no intervention per note. -Continue ICU management for now -Unable to start antiplatelets and AC 2/2 SDH and SAH. -Continue SCDs -Notify neuro team of any acute changes in condition. If family has questions, please do not hesitate to call us. Thanks. Case discussed with Dr. Adams Status: Acute (2) Subarachnoid bleed Assessment & Plan: same plan as above for SDH Status: Acute
[2018-11-10] MEDS ORDERED: Acetaminophen 650mg/20.3ml solution UD PO PRN (15:03)
--- NOTE | 2018-11-10 22:35 | CP.PCM.PN ---
Subjective - Date & Time of Evaluation Date of Evaluation: 11/10/18 Time of Evaluation: 12:15 - Subjective Subjective: Seen and examined at the bedside. Intubated and sedation, and condition unresponsive. Some brain stem activity with breathing over the vent, and some reflex during suctioning. GCS 3 T. Poor prognosis neurosurgery no intervention. Neurology recommended palliative/hospice if family agrees. Positive fever most likely to be central. On continuous temperature. Patient is also on NG tube feeding. Objective - Vital Signs/Intake and Output Vital Signs (last 24 hours): Temp Pulse Resp BP Pulse Ox 100.1 F H 98 H 29 H 149/78 93 L 11/10/18 20:00 11/10/18 20:00 11/10/18 20:00 11/10/18 20:00 11/10/18 20:00 Intake and Output: 11/10/18 11/11/18 18:59 06:59 Intake Total 1590 Output Total 400 Balance 1190 - Medications Medications: Current Medications Acetaminophen (Tylenol 650mg/20.3ml Solution Ud) 650 mg PO Q6 PRN PRN Reason: Temperature Last Admin: 11/10/18 15:27 Dose: 650 mg Insulin Human Regular (Humulin R) 0 units SC ACCU-CHECK [facility]; Protocol Last Admin: 11/10/18 17:04 Dose: 2 units Pantoprazole Sodium (Protonix Inj) 40 mg IVP DAILY [facility] Last Admin: 11/10/18 08:20 Dose: 40 mg - Labs Labs: 11/10/18 04:40 11/10/18 04:40 PT 11.8 Seconds (9.8-13.1) 11/06/18 11:15 INR 1.0 11/06/18 11:15 APTT 28.4 Seconds (25.6-37.1) 11/06/18 11:15 Assessment and Plan (1) Uncal herniation Status: Acute (2) Acute respiratory failure Status: Acute (3) Bilateral subdural hematomas Status: Acute (4) Subarachnoid bleed Status: Acute (5) Fall Status: Acute (6) Cerebral infarct Status: Acute - Assessment and Plan (Free Text) Plan: Continue supportive care Discussed with porcelain turner about trying to reach the family for plan of care discussion. [employer] Prosec[employer] Attorney has spoken to family via telephone.
[2018-11-11 05:35] LABS: ABG ALLEN TEST YES; ARTERIAL BLOOD GAS HCO3 26.4 mmol/L (21-28); ARTERIAL BLOOD GAS O2 SAT 86.9 % (95-98); ARTERIAL BLOOD GAS PCO2 53 mm/Hg (35-45); ARTERIAL BLOOD GAS PH 7.35 (7.35-7.45); ARTERIAL BLOOD GAS PO2 48 mm/Hg (80-100); ARTERIAL BLOOD GAS TCO2 30.9 mmol/L (22-28)
[2018-11-11] MEDS ORDERED: Labetalol 5mg/ml (4ml) IVP STA ×2 (06:24→16:30)
[2018-11-11 06:44] LABS: BLOOD UREA NITROGEN 25 mg/dl (7-17); CALCIUM 10.2 mg/dL (8.4-10.2); GFR NON-AFRICAN AMERICAN > 60
[2018-11-11 06:45] LABS: HEMOGLOBIN 11.3 g/dL (12.0-16.0); MEAN CELL VOLUME 80.1 fl (81.0-99.0); MEAN CORPUSCULAR HEMOGLOBIN 25.9 pg (27.0-31.0); MEAN CORPUSCULAR HGB CONC 32.3 g/dL (33.0-37.0); RBC 4.35 Mil/uL (3.80-5.20); RED CELL DISTRIBUTION WIDTH 18.5 % (11.5-14.5); WHITE BLOOD COUNT 17.9 K/uL (4.8-10.8)
[2018-11-11] MEDS: Insulin Regular 100 units/ml SC SCH ×4 (07:55→23:10)
--- NOTE | 2018-11-11 09:36 | RAD ---
Date of service: 11/11/2018 HISTORY: intubated COMPARISON: Portable chest radiograph 11/10/2018. FINDINGS: LUNGS: Stable endotracheal and nasogastric tubes as well as right MediPort. Improved positioning better defines pulmonary anatomy bilaterally. Left basilar patchy airspace disease remains medially with limited underlying perihilar infiltrates not excluded bilaterally. PLEURA: No significant pleural effusion identified, no pneumothorax apparent. CARDIOVASCULAR: Calcific atherosclerotic changes are seen related to the thoracic aorta. Post CABG changes reiterated. Normal cardiac size. Mild pulmonary vascular congestion is suggested based on slight bat wing type pattern of bilateral hilar opacity. OSSEOUS STRUCTURES: No significant abnormalities. VISUALIZED UPPER ABDOMEN: Normal. OTHER FINDINGS: None. IMPRESSION: Mild pulmonary vascular congestion suggested with better positioning currently compared to prior portable exam in which patient is rotated toward the left. Underlying limited bilateral hilar infiltrates not excluded with medial basilar atelectasis likely. Continued clinical and radiographic monitoring advised.
[2018-11-11] MEDS ORDERED: Metoprolol 1 mg/ml Inj IVP SCH (10:15)
[2018-11-11] MEDS: levoFLOXacin 750 mg in D5W 750 MG/150 ML BAG IVPB SCH ×2 (11:54→22:00)
[2018-11-11] MEDS ORDERED: Potassium Ch 20mEq in D5-1/2NS 1,000 ML IV SCH (12:00)
[2018-11-11] MEDS: Metoprolol 1 mg/ml Inj IVP SCH (22:00)
[2018-11-11] MEDS ORDERED: Lactated Ringer's 500 ML IV SCH (22:30)
--- NOTE | 2018-11-12 01:21 | CP.PCM.PN ---
Subjective - Date & Time of Evaluation Date of Evaluation: 11/11/18 Time of Evaluation: 15:20 - Subjective Subjective: No change. Objective - Vital Signs/Intake and Output Vital Signs (last 24 hours): Temp Pulse Resp BP Pulse Ox 98.2 F 68 24 62/25 L 100 11/11/18 22:00 11/11/18 22:00 11/11/18 22:00 11/11/18 22:00 11/11/18 22:00 Intake and Output: 11/11/18 11/12/18 18:59 06:59 Intake Total 1172 710 Output Total 600 Balance 572 710 - Medications Medications: Current Medications Acetaminophen (Tylenol 650mg/20.3ml Solution Ud) 650 mg PO Q6 PRN PRN Reason: Temperature Last Admin: 11/10/18 15:27 Dose: 650 mg Levofloxacin/Dextrose (Levaquin 750mg) 750 mg in 150 mls @ 100 mls/hr IVPB Q12 [facility]; Protocol Last Admin: 11/11/18 22:00 Dose: 100 mls/hr Potassium Chloride/Dextrose/Sod Cl (Potassium Chl 20 Meq In D5-1/2ns) 1,000 mls @ 42 mls/hr IV .[id number] [facility] Stop: 11/12/18 11:49 Last Admin: 11/11/18 12:12 Dose: 42 mls/hr Lactated Ringer's (Lactated Ringer's 500ml) 500 mls @ 500 mls/hr IV .Q1H [facility] Last Admin: 11/11/18 22:37 Dose: 500 mls/hr Insulin Human Regular (Humulin R) 0 units SC ACCU-CHECK [facility]; Protocol Last Admin: 11/11/18 17:00 Dose: Not Given Metoprolol Tartrate (Lopressor) 5 mg IVP Q12 [facility] Last Admin: 11/11/18 22:00 Dose: Not Given Pantoprazole Sodium (Protonix Inj) 40 mg IVP DAILY [facility] Last Admin: 11/11/18 08:42 Dose: 40 mg - Labs Labs: 11/11/18 05:40 11/11/18 05:40 PT 11.8 Seconds (9.8-13.1) 11/06/18 11:15 INR 1.0 11/06/18 11:15 APTT 28.4 Seconds (25.6-37.1) 11/06/18 11:15 Assessment and Plan (1) Uncal herniation Status: Acute (2) Acute respiratory failure Status: Acute (3) Bilateral subdural hematomas Status: Acute (4) Subarachnoid bleed Status: Acute (5) Fall Status: Acute (6) Cerebral infarct Status: Acute - Assessment and Plan (Free Text) Plan: Continue Supportive Care
[2018-11-12] MEDS ORDERED: Lactated Ringer's 1,000 ML IV SCH (03:30)
--- NOTE | 2018-11-12 04:38 | PN ---
DATE: 11/11/2018 SUBJECTIVE: The patient is seen and evaluated at the bedside. Past medical, surgical, family, social history reviewed. Events since admission noted. A 68-year-old female status post mechanical fall. CT showed subdural hematoma with midline shift, not surgically operable candidate, remains comatose and seen by neurosurgery and neurology consult, remains intubated, mechanically ventilated. AC/PRVC rate 22, tidal volume of 400, FIO2 100%, oxygen saturation 100, peak airway pressure 18, end-tidal CO2 32, observed tidal volume 410, observed respiratory rate 22. No sedation. OBJECTIVE: VITAL SIGNS: Temperature 97.7, heart rate of 77 and regular, blood pressure 142/74, saturation 100%. Intake 2190, output 775, positive balance 1415. HEAD, EYES, EARS, NOSE AND THROAT: Left frontal hematoma improved. Pupils are4 mm midline, nonreactive. NECK: Supple. Endotracheal tube in place. No secretions. NG tube in place. CHEST: Bilateral breath sounds, diminished in intensity. HEART: Rhythm regular. S1, S2 normal. No audible murmur. ABDOMEN: Bowel sounds present. Soft. Liver and spleen not palpable. Bladder not distended. EXTREMITIES: Dependent edema. NEUROLOGIC Remains comatose", does not follow commands verbally, no response to painful stimuli. No corneal or conjunctival reflex. No gag reflex. CURRENT MEDICATIONS: Protonix of 40 IV daily, Lopressor 1.25 mg IV every 12 hours, Accu-Chek with regular insulin coverage, Tylenol 650 every 6 hours p.r.n. LABORATORY DATA: WBC 17.9, hemoglobin 11.3, hematocrit 34.9, platelet count of 192. PT 11.8, INR 1, PTT 28.4. ABG, pH of 7.35, pCO2 53, pO2 48, saturation 86.9 on AC/PRVC rate 22, 400, 50%. PEEP 3. SMA-7, sodium 150, potassium 3.9, chloride 114, CO2 33, blood urea nitrogen is 25, creatinine 0.8, random glucose 148. Microbiology, nasal smear MRSA negative. Chest x-ray done this morning, endotracheal tube in place. No significant pleural effusion, pneumothorax, left basilar patchy airspace disease medially, underlying perihilar infiltrate bilaterally. Repeat head CT on 09/08/2018, interval significant worsening with a development of right uncal and transtentorial herniation, soft folds in herniation, mass effect on the brain stem with complete effacement of the cortical sulci, basilar cisterns and fourth ventricle, interval development of large acute infarction in the right occipital lobe, parietal occipital territory and posterior inferior temporal lobe. A demonstration of large acute on chronic right convexity subdural hematoma, interval increase in size, left acute convexity subdural hematoma about 12 mm, bilateral tentorial and subdural hematoma, worse on the left and subarachnoid hemorrhage in the left subclavian fissure. IMPRESSION: 1. Neuro: Comatose, status post right uncal and transtentorial herniation, mass effect on the brain stem with a complete effacement of the cortical sulci, basilar cisterns fourth ventricle, interval development of large acute infarction in the right occipital parietal occipital territory and posterior inferior temporal lobe, large acute on chronic right convexity subdural hematoma and interval increase in size for left acute convexity subdural hematoma seen by neurosurgery consult, not operable candidate. Overall prognosis remains guarded. 2. Respiratory: Intubated on mechanical ventilation requiring high FIO2 due to hypoxemia. 3. Cardiac: History of hypertension and on aspirin and Plavix. Aspirin and Plavix on hold. Maintain systolic pressure below 130. Use metoprolol intravenous as needed. 4. Leukocytosis trending up. Chest x-ray with new infiltrate in the left base, probably vent associated pneumonia, on levofloxacin 750 intravenously every 12 hours. THE PATIENT ALLERGIC TO PENICILLIN. If family does not make a decision regarding terminal extubation, we will follow with ID consult and there is no response to levofloxacin. 5. Renal: Hypernatremia likely secondary to dehydration and high risk for diabetes insipidus. We will closely monitor the sodium. Start on intravenous fluid D5W at 50 mL/hour, free water 150 mL NG every 6 hours. 6. Endocrine: Maintain a blood sugar below 180 mg. 7. Infectious Disease: Likely vent associated pneumonia on levofloxacin. Continue suctioning of the endotracheal tube, clear of secretions. Keep head of bed 30 degrees up. Deep venous thrombosis prophylaxis with mechanical device. Hold anticoagulation due to subdural subarachnoid hemorrhage. Prognosis remains guarded. Family is aware of the clinical situation, awaiting for for terminal extubation as prognosis is guarded. Uday Urrutia MD [facility] # [id number]
[2018-11-12 05:34] LABS: ABG ALLEN TEST YES; ARTERIAL BLOOD GAS HCO3 26.7 mmol/L (21-28); ARTERIAL BLOOD GAS O2 SAT 99.7 % (95-98); ARTERIAL BLOOD GAS PCO2 49 mm/Hg (35-45); ARTERIAL BLOOD GAS PH 7.37 (7.35-7.45); ARTERIAL BLOOD GAS PO2 183 mm/Hg (80-100); ARTERIAL BLOOD GAS TCO2 29.8 mmol/L (22-28)
[2018-11-12 06:54] LABS: HEMOGLOBIN 8.1 g/dL (12.0-16.0); MEAN CORPUSCULAR HEMOGLOBIN 25.7 pg (27.0-31.0); MEAN CORPUSCULAR HGB CONC 32.1 g/dL (33.0-37.0); RBC 3.18 Mil/uL (3.80-5.20); RED CELL DISTRIBUTION WIDTH 18.9 % (11.5-14.5); WHITE BLOOD COUNT 11.9 K/uL (4.8-10.8)
[2018-11-12 07:08] LABS: BLOOD UREA NITROGEN 34 mg/dl (7-17); CALCIUM 9.4 mg/dL (8.4-10.2); GFR NON-AFRICAN AMERICAN > 60
[2018-11-12] MEDS: levoFLOXacin 750 mg in D5W 750 MG/150 ML BAG IVPB SCH ×2 (08:42→18:44)
[2018-11-12] MEDS: Metoprolol 1 mg/ml Inj IVP SCH ×2 (08:44→21:18)
[2018-11-12] MEDS: Insulin Regular 100 units/ml SC SCH ×4 (08:45→22:16)
--- NOTE | 2018-11-12 08:55 | RAD ---
Date of service: 11/12/2018 HISTORY: R/O pneumonia COMPARISON: Portable chest 11/11/2018. FINDINGS: LUNGS: Endotracheal and nasogastric tubes do not appear significantly changed in position with right MediPort unchanged as well. Patient slightly rotated toward the left. Diminished bilateral perihilar density with left basilar atelectasis or infiltrate remaining. No right basilar infiltrate. PLEURA: Small pleural effusion is not excluded. Developing right pleural effusion may be present as well. No pneumothorax bilaterally. CARDIOVASCULAR: Cardiac silhouette is stable. Diminishing pulmonary vascular congestion pattern noted. Calcific atherosclerotic changes are seen related to the thoracic aorta. OSSEOUS STRUCTURES: No significant abnormalities. VISUALIZED UPPER ABDOMEN: Normal. OTHER FINDINGS: None. IMPRESSION: Improving cardiopulmonary pattern including CHF and perihilar patchy density though smaller pleural effusion is not excluded. Developing minimal right pleural effusion also questioned.
--- NOTE | 2018-11-12 21:42 | PN ---
DATE: 11/12/2018 LOCATION: The patient is in ICU, bed 432. TIME SPENT: 35 minutes. SUBJECTIVE: The patient is seen and evaluated at the bedside. Past medical, surgical, family and social history reviewed. Events overnight noted. A 68-year-old female status post mechanical fall. CT showed subdural hematoma with midline shift. Not a surgically operable candidate. Remains comatose. Seen by neurosurgery and neurology consult. Overnight, intubated and mechanically ventilated. On AC/PRVC rate 22, tidal volume of 400; FiO2 100%, reduced to 80%. No sedation. No response to verbal or painful stimuli. OBJECTIVE: VITAL SIGNS: Temperature 95.7, heart rate 72, blood pressure 105/55. Intake 3382, output 950, positive balance 2432. HEAD, EYES, EARS, NOSE AND THROAT: Pupils are 4 mm, midline, nonreactive. Left frontal hematoma improved. NECK: Supple. Endotracheal tube in place. No secretions. NG tube in place. CHEST: Bilateral breath sounds, diminished in intensity. HEART: Rhythm regular. S1, S2 normal. No audible murmur. ABDOMEN: Bowel sounds present. Soft. Liver and spleen not palpable. Bladder not distended. EXTREMITIES: Dependent edema. NEUROLOGIC: Remains comatose. Does not follow commands verbally. No response to painful stimuli. No corneal or conjunctival reflex. No gag reflex. MEDICATIONS: Current medications include Tylenol 650 p.o. every 6 hours p.r.n., Accu-Chek with regular insulin coverage, Ringer's lactate at 400 mL per hour, levofloxacin 750 IV daily, norepinephrine to maintain a systolic pressure of 100 above and Protonix of 40 IV daily. LABORATORY DATA: WBC 11.9, hemoglobin 8.1, hematocrit 25.4, platelet count pending. ABG: pH of 7.37, pCO2 of 49, pO2 of 183, saturation 99.7 on AC 22, 100% reduced to 80%. SMA-7: Sodium 144, potassium 3.9, chloride 107, CO2 of 32, blood urea nitrogen 34, creatinine 0.9, random glucose 207, calcium 9,4. IMPRESSION: 1. Neuro: Remains comatose, status post right uncal and transtentorial herniation, mass effect on the brainstem with complete effacement of the cortical sulci, basilar cisterns of fourth ventricle, interval development of large acute infarction in the right occipital territory and posterior inferior temporal lobe, large acute on chronic right complexity of subdural hematoma and interval increase in size for left acute complexity of subdural hematoma. Seen by neurosurgery consult, not an operable candidate. Overall, prognosis remains guarded. 2. Respiratory: Intubated on mechanical ventilation, requiring high FIO2. Chest x-ray shows no pneumothorax, no pleural effusion, endotracheal tube in place. 3. Cardiac: Hypotension, on pressors. History of intake of aspirin and Plavix prior to the fall. 4. Hematology: Leukocytosis trending down. Chest x-ray with new infiltrate in the left base, probably vent-associated pneumonia, on levofloxacin 750 intravenously daily. THE PATIENT ALLERGIC TO PENICILLIN. 5. Renal: Hypernatremia, improving on intravenous fluid and water flush. No electrolytes abnormalities. 6. Endocrine: Maintain a blood sugar below 180. 7. Infectious Disease: Likely vent-associated pneumonia, on levofloxacin. Continue suctioning of the endotracheal tube, clear secretions. Keep head of bed 30 degrees up. Deep venous thrombosis prophylaxis with mechanical device. Hold anticoagulation due to subdural subarachnoid hemorrhage. Prognosis is guarded. Family is aware of the clinical situation, reportedly will come to see the patient today late in the afternoon. Uday Urrutia MD
--- NOTE | 2018-11-12 21:45 | CP.PCM.PN ---
Subjective - Date & Time of Evaluation Date of Evaluation: 11/12/18 Time of Evaluation: 18:45 - Subjective Subjective: Seen and examined at the bed side. GCS 3T. Poor prognosis. Objective - Vital Signs/Intake and Output Vital Signs (last 24 hours): Temp Pulse Resp BP Pulse Ox 99.8 F H 82 22 110/56 L 99 11/12/18 20:00 11/12/18 20:00 11/12/18 20:00 11/12/18 20:00 11/12/18 20:00 Intake and Output: 11/12/18 11/13/18 18:59 06:59 Intake Total 1574 144 Output Total 1100 Balance 474 144 - Medications Medications: Current Medications Acetaminophen (Tylenol 650mg/20.3ml Solution Ud) 650 mg PO Q6 PRN PRN Reason: Temperature Last Admin: 11/10/18 15:27 Dose: 650 mg Lactated Ringer's (Lactated Ringer's 500ml) 500 mls @ 500 mls/hr IV .Q1H [facility] Last Admin: 11/11/18 22:37 Dose: 500 mls/hr Norepinephrine Bitartrate 4 mg (/ Dextrose) 254 mls @ 9.53 mls/hr IV .Q24H [facility]; Protocol Last Titration: 11/12/18 18:43 Dose: 5 mcg/min, 19.05 mls/hr Levofloxacin/Dextrose (Levaquin 750mg) 750 mg in 150 mls @ 100 mls/hr IVPB DAILY [facility]; Protocol Last Admin: 11/12/18 18:44 Dose: Not Given Insulin Human Regular (Humulin R) 0 units SC ACCU-CHECK [facility]; Protocol Last Admin: 11/12/18 16:11 Dose: Not Given Metoprolol Tartrate (Lopressor) 5 mg IVP Q12 [facility] Last Admin: 11/12/18 21:18 Dose: Not Given Pantoprazole Sodium (Protonix Inj) 40 mg IVP DAILY [facility] Last Admin: 11/12/18 08:45 Dose: 40 mg - Labs Labs: 11/12/18 05:30 11/12/18 05:30 PT 11.8 Seconds (9.8-13.1) 11/06/18 11:15 INR 1.0 11/06/18 11:15 APTT 28.4 Seconds (25.6-37.1) 11/06/18 11:15 Assessment and Plan (1) Uncal herniation Status: Acute (2) Acute respiratory failure Status: Acute (3) Bilateral subdural hematomas Status: Acute (4) Subarachnoid bleed Status: Acute (5) Fall Status: Acute (6) Cerebral infarct Status: Acute - Assessment and Plan (Free Text) Plan: Continue Supportive Care
[2018-11-13 03:51] VITALS: RESP 22
[2018-11-13 05:27] LABS: ABG ALLEN TEST YES; ARTERIAL BLOOD GAS HEMOGLOBIN 8.7 g/dL (11.7-17.4); ARTERIAL BLOOD GAS O2 SAT 99.9 % (95-98); ARTERIAL BLOOD GAS PCO2 52 mm/Hg (35-45); ARTERIAL BLOOD GAS PO2 92 mm/Hg (80-100); ARTERIAL BLOOD GAS TCO2 33.8 mmol/L (22-28)
[2018-11-13 05:42] LABS: EOS % 0.2 % (0.0-4.0); HEMOGLOBIN 8.4 g/dL (12.0-16.0); LYMPH # 0.5 K/uL (1.0-4.3); LYMPH % 2.8 % (20.0-40.0); MEAN CELL VOLUME 77.9 fl (81.0-99.0); MEAN CORPUSCULAR HEMOGLOBIN 25.8 pg (27.0-31.0); MEAN CORPUSCULAR HGB CONC 33.1 g/dL (33.0-37.0); MONO # 1.1 K/uL (0.0-0.8); MONO % 6.1 % (0.0-10.0); NEUT # 16.9 K/uL (1.8-7.0); NEUT % 90.9 % (50.0-75.0); NRBC % 0.5 % (0.0-0.0); PLATELET COUNT 153 K/uL (130-400); RBC 3.24 Mil/uL (3.80-5.20); RED CELL DISTRIBUTION WIDTH 18.7 % (11.5-14.5); WHITE BLOOD COUNT 18.6 K/uL (4.8-10.8)
[2018-11-13 06:10] LABS: ALB/GLOB RATIO 0.8 (1.0-2.1); ALBUMIN 2.3 g/dL (3.5-5.0); ALT/SGPT 38 U/L (9-52); AST/SGOT 54 U/L (14-36); BLOOD UREA NITROGEN 30 mg/dl (7-17); CALCIUM 9.4 mg/dL (8.4-10.2); GFR NON-AFRICAN AMERICAN > 60
[2018-11-13 07:24] LABS: ANISOCYTOSIS SLIGHT; BANDS 2 % (0-2); EOSINOPHIL 2 % (0-7); HYPOCHROMIC SLIGHT; LARGE PLATELETS PRESENT; LYMPHOCYTE 4 % (20-50); MONOCYTE 5 % (0-10); NEUTROPHIL 87 % (42-75); OVALOCYTES MODERATE; PLATELET ESTIMATE NORMAL (NORMAL); TEARDROP CELLS SLIGHT; TOTAL CELLS COUNTED 100
[2018-11-13] MEDS: Insulin Regular 100 units/ml SC SCH ×4 (08:36→23:58)
[2018-11-13] MEDS: levoFLOXacin 750 mg in D5W 750 MG/150 ML BAG IVPB SCH (08:37)
[2018-11-13] MEDS: Metoprolol 1 mg/ml Inj IVP SCH ×2 (08:38→20:25)
--- NOTE | 2018-11-13 09:07 | RAD ---
Date of service: 11/13/2018 HISTORY: pt is intubated COMPARISON: Portable chest 11/12/2018. FINDINGS: LUNGS: Endotracheal and nasogastric tubes are not significantly changed in deployment though the nasogastric tube appears slightly retracted remains below the left hemidiaphragm. Right MediPort is unchanged in position. Post CABG changes reiterated. Limited left perihilar patchy atelectasis or infiltrate left basilar airspace disease unchanged. Limited patchy atelectasis in the right base. PLEURA: Mild left pleural effusion unchanged borderline right pleural effusion in question at this time. No pneumothorax bilaterally. CARDIOVASCULAR: Calcific atherosclerotic changes are seen related to the thoracic aorta. Stable cardiac size. Further reduction in pulmonary vascular congestion. OSSEOUS STRUCTURES: No significant abnormalities. VISUALIZED UPPER ABDOMEN: Normal. OTHER FINDINGS: None. IMPRESSION: Persistent left basilar airspace disease with limited patchy density overlying the right hemidiaphragm now and interval left perihilar patchy density now present. Diminishing pulmonary vascular congestion. Mild left pleural effusion unchanged with borderline right pleural effusion in question.
--- NOTE | 2018-11-13 11:55 | CP.PCM.PN ---
Subjective - Date & Time of Evaluation Date of Evaluation: 11/13/18 Time of Evaluation: 11:55 - Subjective Subjective: Neurology Follow-Up Note: Mrs. Lesa Carlin was evaluated this morning in the ICU. She remains intubated, off of sedation. She remains unresponsive. Chart and events reviewed. ROS unobtainable due to pt's condition. Objective - Vital Signs/Intake and Output Vital Signs (last 24 hours): Temp Pulse Resp BP Pulse Ox 96.0 F L 72 22 125/54 L 96 11/13/18 08:00 11/13/18 10:00 11/13/18 10:00 11/13/18 10:00 11/13/18 10:00 Intake and Output: 11/13/18 11/13/18 06:59 18:59 Intake Total 1518 486 Output Total 1300 Balance 218 486 - Medications Medications: Current Medications Acetaminophen (Tylenol 650mg/20.3ml Solution Ud) 650 mg PO Q6 PRN PRN Reason: Temperature Last Admin: 11/10/18 15:27 Dose: 650 mg Lactated Ringer's (Lactated Ringer's 500ml) 500 mls @ 500 mls/hr IV .Q1H LITO Last Admin: 11/11/18 22:37 Dose: 500 mls/hr Levofloxacin/Dextrose (Levaquin 750mg) 750 mg in 150 mls @ 100 mls/hr IVPB DAILY LITO; Protocol Last Admin: 11/13/18 08:37 Dose: 100 mls/hr Insulin Human Regular (Humulin R) 0 units SC ACCU-CHECK LITO; Protocol Last Admin: 11/13/18 08:36 Dose: 3 units Metoprolol Tartrate (Lopressor) 5 mg IVP Q12 LITO Last Admin: 11/13/18 08:38 Dose: Not Given Pantoprazole Sodium (Protonix Inj) 40 mg IVP DAILY LITO Last Admin: 11/13/18 08:38 Dose: 40 mg - Labs Labs: 11/13/18 04:20 11/13/18 04:20 PT 11.8 Seconds (9.8-13.1) 11/06/18 11:15 INR 1.0 11/06/18 11:15 APTT 28.4 Seconds (25.6-37.1) 11/06/18 11:15 - Constitutional Appears: Other (intubated; critical condition) - Head Exam Head Exam: NORMOCEPHALIC Additional comments: hematoma to left forehead - Eye Exam Eye Exam: absent: EOMI, Normal appearance, PERRL Pupil Exam: Fixed. absent: NORMAL ACCOMODATION, PERRL Additional comments: pupils remain fixed and dilated approx 6-7 mm with no response negative doll's eyes, negative corneal reflex, negative gag reflex - ENT Exam ENT Exam: Mucous Membranes Moist. absent: Normal Exam (intubated) - Neck Exam Neck Exam: Normal Inspection - Respiratory Exam Respiratory Exam: absent: NORMAL BREATHING PATTERN (intubated) - Cardiovascular Exam Cardiovascular Exam: REGULAR RHYTHM (hr 86) - GI/Abdominal Exam GI & Abdominal Exam: Soft Additional comments: ngt with feedings - Exam Exam: absent: NORMAL INSPECTION (ruiz cath in place) - Extremities Exam Extremities Exam: absent: Calf Tenderness, Full ROM, Pedal Edema Additional comments: BUE and BLE flaccid No non-purposeful or purposeful movements noted today. No decerebate posturing noted today - Neurological Exam Neurological Exam: absent: Alert, Awake, CN II-XII Intact, Normal Gait, Oriented x3, Reflexes Normal Neuro motor strength exam: Left Upper Extremity: 0, Right Upper Extremity: 0, Left Lower Extremity: 0, Right Lower Extremity: 0 Additional comments: Remains intubated off sedation No non-purposeful or purposeful movements noted today No movement during sternal rub. All extremities flaccid and fall immediately to bed when raised. No decerebate posturing noted today. Hypoflexia b/l Pupils remain fixed and dilated approximately 6-7 mm Negative doll's eyes, negative corneal reflexes, negative gag reflex. Unable to assess fine motor/sensation - Psychiatric Exam Psychiatric exam: absent: Normal Affect (intubated; unrepsonsive), Normal Mood - Skin Skin Exam: Normal Color Assessment and Plan (1) Bilateral subdural hematomas Assessment & Plan: Imaging reviewed: -CT Head (11/08/18): 1. Interval significant worsening with development of right uncal and transtentorial herniation, soft false in herniation, mass effect on the brainstem with complete effacement of the cortical sulci, basilar cisterns and 4th ventricle. 2. Interval development of large acute infarction in the right occipital lobe, parieto-occipital territory and posterior inferior temporal lobe. 3. Redemonstration of large acute on chronic right convexity subdural hematoma and interval increase in size of left acute convexity subdural hematoma which now measures 12 mm in maximum width. 4. Redemonstration of bilateral tentorial leaf subdural hematomas, worse on the left and subarachnoid hemorrhage in the left sylvian fissure. -CT C-Spine (11/06/18): No acute fracture or traumatic anterior listhesis. -CT Head (11/06/18): Bilateral acute on chronic convexity subdural hematomas, larger on the right where it measures 2.5 cm in maximum width. Diffuse effacement of cortical sulci, basilar cisterns and ventricles with 10 mm midline shift from right to left. Repeat CT Head from 11/08/18 shows worsening of the herniation. Mrs. Lesa Carlin has also developed an acute infarct based on the 11/08/18 CT report. Her prognosis remains guarded and she remains in critical condition. She has shown no improvements neurologically since we have been on the case. Per notes, family is aware of pt's current condition. -We still recommend palliative care and comfort measures if family is in agreement. -Neurosurgery on board; no intervention per note. -Continue ICU management for now -Unable to start antiplatelets and AC 2/2 SDH and SAH. -Continue SCDs -Notify neuro team of any acute changes in condition. If family has questions, please do not hesitate to call us. Thanks. Case discussed with Dr. Up Status: Acute (2) Subarachnoid bleed Assessment & Plan: same plan as above Dx of SDH Status: Acute
--- NOTE | 2018-11-13 13:10 | CP.CCUPN ---
CCU Subjective - Physician Review Subjective (Free Text): Deep coma persists, but manifests no signs of any brainstem activity today, there is no triggering of the vent and vasopressor dependence now noted. She is hypothermic, no fever spikes noted, HR variable from 60s to 90s in sinus rhythm, BP 120s Systolic on Levophed between 2.5-5.0 mcg dose. AC set rate at 22 to maintain pH. Other vitals and I/O's reviewed. She is not polyuric. ROS: No other pertinent negs or positives on 10+ system review: unobtainable 2 coma PMSFH: All other Nursing and physician documentation reviewed to date; no new pertinent info noted relevant to current medical problems. EXAM- HEENT: no icterus, no gaze preference, Pupils 5mm and nonreactive, no corneals, no Dolls eyes. Bruise /scar and swelling over left upper fronto-temporal area NECK: Cervical collar removed on 2nd hospital day. No JVD visible, supple, carotids equal upstroke bilat/no bruit CHEST: decreased BS at the bases, no wheezes audible HEART: regular, distant, S1S2, no rubs or murmurs noted ABD: softly and nontender, no guarding, no organomegaly, BS hypoactive. EXT: no LE edema, no calf tenderness or palpable cords, distal pulses intact and symmetrical. NEURO: extremities flaccid, no decerebrate nor decorticate posturing, no p lantar reflex. GCS= 3T SKIN: no rashes, warm and dry LABS: WBC= 18.6 HGB= 8.4 PLTs= 153K 7.40/52/92 Na= 148 K= 3.9 LB=262 HCO3= 36 BUN/Cr= 30/0.8 BS= 253 CXR: ETT position OK above dana, essentially unchanged bibasilar interstitial changes (my interp). IMPRESSION / MAJOR PROBLEMS NOW: 1. Acute on chronic Bilateral SDH (R worse than L, with midline shift)- unclear spontaneous versus traumatic post-Fall; h/o Multiple falls at home in the past. 2. Platelet coagulopathy 2 ASA / Clopidogrel 3. Hypernatremia; induced by hypertonic saline 4. h/o CVA 4 weeks ago 5. h/o Mysthenia Gravis: not active now. PLAN: 1. No family visitation noted since first day of hospitalization: sons not seen since at the bedside. Need to discuss [id number] regarding goals of care versus comfort measures only, given present poor prognostic clinical signs and hopes for recovery nil. 2. No further interventions noted by Neurosurg / Neurology. Neuro f/u regarding brain determination by neurologic criteria which may be evident today as per bedside clinical exam. Consider nuclear cerebral blood flow study. 3. Keep normoglycemic and normothermic. 4. Other supportive care ongoing for now unless brain has been definitively determined. CCU Objective - Patient Studies Fingerstick Blood Sugar Results: 214
--- NOTE | 2018-11-13 22:49 | CP.PCM.PN ---
Subjective - Date & Time of Evaluation Date of Evaluation: 11/13/18 Time of Evaluation: 16:15 - Subjective Subjective: Patient status deteriorated. Patient triggering the vent, and lost gag reflex. Hypotensive on Pressor. Objective - Vital Signs/Intake and Output Vital Signs (last 24 hours): Temp Pulse Resp BP Pulse Ox 96.9 F L 110 H 22 114/56 L 100 11/13/18 16:00 11/13/18 20:25 11/13/18 18:00 11/13/18 20:25 11/13/18 18:00 Intake and Output: 11/13/18 11/14/18 18:59 06:59 Intake Total 1446 Output Total 2490 Balance -1044 - Medications Medications: Current Medications Acetaminophen (Tylenol 650mg/20.3ml Solution Ud) 650 mg PO Q6 PRN PRN Reason: Temperature Last Admin: 11/10/18 15:27 Dose: 650 mg Lactated Ringer's (Lactated Ringer's 500ml) 500 mls @ 500 mls/hr IV .Q1H LITO Last Admin: 11/11/18 22:37 Dose: 500 mls/hr Levofloxacin/Dextrose (Levaquin 750mg) 750 mg in 150 mls @ 100 mls/hr IVPB DAILY LITO; Protocol Last Admin: 11/13/18 08:37 Dose: 100 mls/hr Insulin Human Regular (Humulin R) 0 units SC ACCU-CHECK LITO; Protocol Last Admin: 11/13/18 16:46 Dose: 2 units Metoprolol Tartrate (Lopressor) 5 mg IVP Q12 LITO Last Admin: 11/13/18 20:25 Dose: 5 mg Pantoprazole Sodium (Protonix Inj) 40 mg IVP DAILY LITO Last Admin: 11/13/18 08:38 Dose: 40 mg - Labs Labs: 11/13/18 04:20 11/13/18 04:20 PT 11.8 Seconds (9.8-13.1) 11/06/18 11:15 INR 1.0 11/06/18 11:15 APTT 28.4 Seconds (25.6-37.1) 11/06/18 11:15 Assessment and Plan (1) Uncal herniation Status: Acute (2) Acute respiratory failure Status: Acute (3) Bilateral subdural hematomas Status: Acute (4) Subarachnoid bleed Status: Acute (5) Fall Status: Acute (6) Cerebral infarct Status: Acute - Assessment and Plan (Free Text) Plan: Continue Supportive Care Will need Brain flow or Apnea studies to determine Brain .
[2018-11-14 05:26] LABS: ABG ALLEN TEST YES; ARTERIAL BLOOD GAS HCO3 30.9 mmol/L (21-28); ARTERIAL BLOOD GAS HEMOGLOBIN 9.3 g/dL (11.7-17.4); ARTERIAL BLOOD GAS O2 CAPACITY 12.7 mL/dL (16-24); ARTERIAL BLOOD GAS O2 CONTENT 11.6 ML/dL (15-23); ARTERIAL BLOOD GAS O2 SAT 91.2 % (95-98); ARTERIAL BLOOD GAS PCO2 65 mm/Hg (35-45); ARTERIAL BLOOD GAS PH 7.34 (7.35-7.45); ARTERIAL BLOOD GAS PO2 53 mm/Hg (80-100); ARTERIAL BLOOD GAS TCO2 37.1 mmol/L (22-28)
[2018-11-14 05:43] LABS: HEMOGLOBIN 8.8 g/dL (12.0-16.0); MEAN CELL VOLUME 79.5 fl (81.0-99.0); MEAN CORPUSCULAR HEMOGLOBIN 25.8 pg (27.0-31.0); MEAN CORPUSCULAR HGB CONC 32.4 g/dL (33.0-37.0); RBC 3.42 Mil/uL (3.80-5.20); RED CELL DISTRIBUTION WIDTH 19.7 % (11.5-14.5); WHITE BLOOD COUNT 22.3 K/uL (4.8-10.8)
[2018-11-14 05:56] LABS: BLOOD UREA NITROGEN 31 mg/dl (7-17); CALCIUM 9.9 mg/dL (8.4-10.2); GFR NON-AFRICAN AMERICAN > 60
--- NOTE | 2018-11-14 06:15 | CARD ---
APPROVED REPORT Date of service: 11/06/2018 EKG Measurement Heart [id number] <Conclusion> Sinus bradycardia Minimal voltage criteria for LVH, may be normal variant Borderline ECG
[2018-11-14] MEDS: Insulin Regular 100 units/ml SC SCH ×4 (06:22→22:12)
[2018-11-14] MEDS: Metoprolol 1 mg/ml Inj IVP SCH (08:00)
[2018-11-14] MEDS: levoFLOXacin 750 mg in D5W 750 MG/150 ML BAG IVPB SCH (08:27)
--- NOTE | 2018-11-14 10:04 | RAD ---
Date of service: 11/14/2018 HISTORY: ETT placement COMPARISON: 11/13/2018 FINDINGS: LUNGS: Right basilar and right perihilar opacities, slightly increased compared to the prior examination. Left perihilar opacity persists unchanged. PLEURA: Possible very small bilateral pleural effusion. No pneumothorax. CARDIOVASCULAR: Normal heart size. ET tube, NG tube unchanged. Sternotomy wires. No congestive change. No atherosclerotic calcification of the thoracic aorta noted. OSSEOUS STRUCTURES: No significant abnormalities. VISUALIZED UPPER ABDOMEN: Normal. OTHER FINDINGS: None. IMPRESSION: Bilateral patchy pulmonary opacities. Nonspecific. ET tube unchanged. Possible very small bilateral pleural effusion.
--- NOTE | 2018-11-14 11:56 | CP.PCM.PN ---
Subjective - Date & Time of Evaluation Date of Evaluation: 11/14/18 Time of Evaluation: 11:54 - Subjective Subjective: Neurology Follow-Up Note: Mrs. Lesa Carlin was evaluated this morning in the ICU. She remains intubated, off of sedation. She remains unresponsive. Chart and events reviewed; discussed with primary RN. ROS unobtainable due to pt's condition. Objective - Vital Signs/Intake and Output Vital Signs (last 24 hours): Temp Pulse Resp BP Pulse Ox 96.6 F L 75 22 101/56 L 100 11/14/18 08:00 11/14/18 10:00 11/14/18 10:00 11/14/18 10:00 11/14/18 10:00 Intake and Output: 11/14/18 11/14/18 06:59 18:59 Intake Total 1240 480 Output Total 1200 Balance 40 480 - Medications Medications: Current Medications Acetaminophen (Tylenol 650mg/20.3ml Solution Ud) 650 mg PO Q6 PRN PRN Reason: Temperature Last Admin: 11/10/18 15:27 Dose: 650 mg Lactated Ringer's (Lactated Ringer's 500ml) 500 mls @ 500 mls/hr IV .Q1H LITO Last Admin: 11/11/18 22:37 Dose: 500 mls/hr Levofloxacin/Dextrose (Levaquin 750mg) 750 mg in 150 mls @ 100 mls/hr IVPB DAILY LITO; Protocol Last Admin: 11/14/18 08:27 Dose: 100 mls/hr Norepinephrine Bitartrate 4 mg (/ Dextrose) 254 mls @ 9.53 mls/hr IV .Q24H LITO; Protocol Last Admin: 11/14/18 07:50 Dose: 2.5 mcg/min, 9.53 mls/hr Insulin Human Regular (Humulin R) 0 units SC ACCU-CHECK LITO; Protocol Last Admin: 11/14/18 11:27 Dose: 3 units Metoprolol Tartrate (Lopressor) 5 mg IVP Q12 LITO Last Admin: 11/14/18 08:00 Dose: Not Given Pantoprazole Sodium (Protonix Inj) 40 mg IVP DAILY LITO Last Admin: 11/14/18 08:26 Dose: 40 mg - Labs Labs: 11/14/18 05:00 11/14/18 05:00 PT 11.8 Seconds (9.8-13.1) 11/06/18 11:15 INR 1.0 11/06/18 11:15 APTT 28.4 Seconds (25.6-37.1) 11/06/18 11:15 - Constitutional Appears: Other (intubated, off sedation, unresponsive) - Head Exam Head Exam: NORMOCEPHALIC Additional comments: hematoma noted to left forehead - Eye Exam Eye Exam: absent: EOMI, Normal appearance, PERRL Pupil Exam: Fixed. absent: NORMAL ACCOMODATION, PERRL Additional comments: Pupils remain fixed and dilated approximately 6-7 mm Negative doll's eyes, negative corneal reflexes, negative gag reflex. - ENT Exam ENT Exam: Mucous Membranes Moist. absent: Normal Exam (intubated) - Neck Exam Neck Exam: Normal Inspection - Respiratory Exam Respiratory Exam: absent: NORMAL BREATHING PATTERN (intubated, off sedation) - Cardiovascular Exam Cardiovascular Exam: REGULAR RHYTHM (hr 76) - GI/Abdominal Exam GI & Abdominal Exam: Soft Additional comments: NGT with feedings - Exam Additional comments: ruiz cath in place - Extremities Exam Extremities Exam: absent: Calf Tenderness, Full ROM, Pedal Edema Additional comments: No non-purposeful or purposeful movements noted today No movement during sternal rub. All extremities flaccid and fall immediately to bed when raised. - Neurological Exam Neurological Exam: absent: Alert, Awake, CN II-XII Intact, Normal Gait, Oriented x3, Reflexes Normal Neuro motor strength exam: Left Upper Extremity: 0, Right Upper Extremity: 0, Left Lower Extremity: 0, Right Lower Extremity: 0 Additional comments: Remains intubated off sedation No non-purposeful or purposeful movements noted today No movement during sternal rub. All extremities flaccid and fall immediately to bed when raised. No decerebate posturing noted today. Hypoflexia b/l Pupils remain fixed and dilated approximately 6-7 mm Negative doll's eyes, negative corneal reflexes, negative gag reflex. Unable to assess fine motor/sensation - Psychiatric Exam Psychiatric exam: absent: Normal Affect, Normal Mood (intubated, unresponsive) - Skin Skin Exam: Normal Color Additional comments: hematoma to left forehead Assessment and Plan (1) Bilateral subdural hematomas Assessment & Plan: trisha reviewed: -CT Head (11/08/18): 1. Interval significant worsening with development of right uncal and transtentorial herniation, soft false in herniation, mass effect on the brainstem with complete effacement of the cortical sulci, basilar cisterns and 4th ventricle. 2. Interval development of large acute infarction in the right occipital lobe, parieto-occipital territory and posterior inferior temporal lobe. 3. Redemonstration of large acute on chronic right convexity subdural hematoma and interval increase in size of left acute convexity subdural hematoma which now measures 12 mm in maximum width. 4. Redemonstration of bilateral tentorial leaf subdural hematomas, worse on the left and subarachnoid hemorrhage in the left sylvian fissure. -CT C-Spine (11/06/18): No acute fracture or traumatic anterior listhesis. -CT Head (11/06/18): Bilateral acute on chronic convexity subdural hematomas, larger on the right where it measures 2.5 cm in maximum width. Diffuse effacement of cortical sulci, basilar cisterns and ventricles with 10 mm midline shift from right to left. Repeat CT Head from 11/08/18 shows worsening of the herniation. Mrs. Lesa Carlin has also developed an acute infarct based on the 11/08/18 CT report. Her prognosis remains guarded and she remains in critical condition. She has shown no improvements neurologically since we have been on the case. Per notes, family is aware of pt's current condition. -We continue recommend palliative care and comfort measures if family is in agreement. -Neurosurgery on board; no intervention per note. -Continue ICU management for now -Unable to start antiplatelets and AC 2/2 SDH and SAH. -Continue SCDs -Notify neuro team of any acute changes in condition. If family has questions, please do not hesitate to call us. Thanks. Case discussed with Dr. Up Status: Acute (2) Subarachnoid bleed Assessment & Plan: same plan as above for SDH Status: Acute
[2018-11-14] MEDS ORDERED: Potassium Chloride 20 MEQ in Sodium Chloride 0.45% 1,000 ML IV SCH (15:45)
--- NOTE | 2018-11-15 02:56 | PN ---
DATE: 11/14/2018 CRITICAL CARE PROGRESS NOTE LOCATION: The patient is in ICU, bed 432. TIME SPENT: 25 minutes. SUBJECTIVE: The patient is seen and evaluated at the bedside. Past medical, surgical, family and social history noted. Events overnight reviewed. Case discussed in multidisciplinary ICU rounds this morning. Noted no visitation by the family members so far. On AC/PRVC rate 22, tidal volume 400, FiO2 of 100%. No sedation. Remains unresponsive to verbal or painful stimuli. No gag reflex. PHYSICAL EXAMINATION VITAL SIGNS: Temperature 97.2, heart rate 78, blood pressure 99/48, mean arterial pressure 65, oxygen saturation 100%. Intake 2686, output 3690, negative balance of 1004. Weight 194 pounds. HEAD, EYES, EARS, NOSE AND THROAT: Pupils 4-5 mm, nonreactive. NECK: Supple. Endotracheal tube in place. No secretions. NG tube in place. Feeding in progress. CHEST: Bilateral breath sounds diminished in intensity. HEART: Rhythm regular. S1 and S2 normal. No audible murmur. ABDOMEN: Bowel sounds present. Soft. Liver and spleen not palpable. Bladder not distended. EXTREMITIES: With dependent edema. NEURO: Remains comatose. Does not follow commands verbally. No response to painful stimuli. No corneal or conjunctival reflex. No gag reflex. MEDICATIONS: Current medications include Tylenol 650 every 6 hours p.r.n., Accu-Chek with regular insulin coverage, Ringer's lactate at 100 mL per hour, levofloxacin 750 IV daily, Lopressor on hold due to low blood pressure, on norepinephrine drip. LABORATORY DATA: WBC 22.3, hemoglobin 8.8, hematocrit 27.2, platelet count 169. ABG: pH of 7.34, pCO2 of 65, pO2 of 53, saturation 91.2 on AC 22, PEEP 5. SMA-7: Sodium 156, potassium 4.2, chloride 112, CO2 of 36, BUN 31, creatinine 0.8, random glucose 227. Microbiology, nasal smear MRSA negative. Chest x-ray done this morning; bilateral patchy pulmonary opacity nonspecific, endotracheal tube in place, small bilateral pleural effusion. IMPRESSION: 1. Neuro: Remains comatose status post right uncal and transtentorial herniation, mass effect on the brainstem with complete effacement of the cortical sulci, basilar cisterns of fourth ventricle, interval development of large acute infarction in the right occipital territory and also in the posterior inferior temporal lobe, large acute on chronic right complexity of subdural hematoma and interval increase in size for the left acute complexity of subdural hematoma. Seen by Neurosurgery and appreciate neurology followup. Not an operable candidate. Overall, prognosis remains guarded. On supportive care. 2. Respiratory: Intubated on mechanical ventilation, requiring high FiO2. Chest x-ray shows no pneumothorax, no pleural effusion, endotracheal tube in place, bilateral infiltrate, possibly vent-associated pneumonia. 3. Cardiac: Hypotension, on pressors. History of intake of aspirin and Plavix prior to the fall, on hold secondary to subdural and subarachnoid hemorrhage. 4. Hematology: Leukocytosis. Chest x-ray with bilateral infiltrate. THE PATIENT IS ALLERGIC TO PENICILLIN. On levofloxacin. 5. Renal: Hypernatremia. Continue intravenous hydration, water flush. 6. Endocrine: Maintain blood sugar between 90 to 110. 7. Infectious disease: Likely vent-associated pneumonia or atelectasis. Empirically on levofloxacin. Keep the head of bed 30 degrees up. Continue DVT prophylaxis and GI prophylaxis. Prognosis remains guarded. Supportive care until family's decision for terminal extubation. Uday Urrutia MD
[2018-11-15 05:53] LABS: ABG ALLEN TEST YES; ARTERIAL BLOOD GAS HCO3 29.9 mmol/L (21-28); ARTERIAL BLOOD GAS HEMOGLOBIN 8.3 g/dL (11.7-17.4); ARTERIAL BLOOD GAS O2 CAPACITY 11.4 mL/dL (16-24); ARTERIAL BLOOD GAS O2 CONTENT 9.5 ML/dL (15-23); ARTERIAL BLOOD GAS O2 SAT 83.6 % (95-98); ARTERIAL BLOOD GAS PCO2 66 mm/Hg (35-45); ARTERIAL BLOOD GAS PH 7.32 (7.35-7.45); ARTERIAL BLOOD GAS PO2 42 mm/Hg (80-100)
[2018-11-15] MEDS: Insulin Regular 100 units/ml SC SCH (06:45)
[2018-11-15 07:34] LABS: BLOOD UREA NITROGEN 43 mg/dl (7-17); CALCIUM 8.9 mg/dL (8.4-10.2); GFR NON-AFRICAN AMERICAN > 60
[2018-11-15] MEDS: levoFLOXacin 750 mg in D5W 750 MG/150 ML BAG IVPB SCH (08:15)
--- NOTE | 2018-11-15 08:17 | CP.CCUPN ---
CCU Subjective - Physician Review Subjective (Free Text): Remains in deep coma with no response to painful stimuli, manifests no signs of any brainstem activity, there is no triggering of the vent and vasopressor dependence persists with levophed at 2.5 mcg dose. No longer hypothermic, 101F fever spike noted, HR variable from 80-90s in sinus rhythm, BP 80s Systolic on Levophed between 2.5-5.0 mcg dose. AC set rate at 22 to maintain pH. Other vitals and I/O's reviewed. She is not polyuric. ROS: No other pertinent negs or positives on 10+ system review: unobtainable 2 coma PMSFH: All other Nursing and physician documentation reviewed to date; no new pertinent info noted relevant to current medical problems. EXAM- HEENT: no icterus, no gaze preference, Pupils 5mm and nonreactive, no corneals, no Dolls eyes. Bruise /scar and swelling over left upper fronto-temporal area NECK: Cervical collar removed on 2nd hospital day. No JVD visible, supple, carotids equal upstroke bilat/no bruit CHEST: decreased BS at the bases, no wheezes audible HEART: regular, distant, S1S2, no rubs or murmurs noted ABD: softly and nontender, no guarding, no organomegaly, BS hypoactive. EXT: no LE edema, no calf tenderness or palpable cords, distal pulses intact and symmetrical. NEURO: extremities flaccid, no decerebrate nor decorticate posturing, no plantar reflex. GCS= 3T SKIN: no rashes, warm and dry LABS: no bloodwork available yet today, 11/14/18 results noted : WBC= 22.3 HGB= 8.8 PLTs= 169K 7.32/66/42 suspect VBG sample Na= 155 K= 4.4 CK=952 HCO3= 35 BUN/Cr= 43/0.8 BS= 184 CXR: ETT position OK above dana, R worse than L bibasilar interstitial changes (my interp). IMPRESSION / MAJOR PROBLEMS NOW: 1. Acute on chronic Bilateral SDH (R worse than L, with midline shift)- unclear spontaneous versus traumatic post-Fall; h/o Multiple falls at home in the past. 2. Platelet coagulopathy 2 ASA / Clopidogrel 3. Hypernatremia; induced by hypertonic saline 4. h/o CVA 4 weeks ago 5. h/o Mysthenia Gravis: not active now. PLAN: 1. Nurses report Rajinder, visited yesetrday, no new directives noted. 2. Repeat Sputum cx, empiric abx ongoing with only Levaquin. Renew Vancomycin. 3. No further interventions noted by Neurosurg / Neurology. 4. Neuro f/u regarding brain determination by neurologic criteria which may be evident today as per bedside clinical exam. Consider nuclear cerebral blood flow study. 5. Other supportive care ongoing for now unless brain has been definitively determined. Discuss with PMD and Neurology.
[2018-11-15 08:33] VITALS: BP 81/39; PULSE 107; TEMP 97.7; O2SAT 92
[2018-11-15 08:43] LABS: HEMOGLOBIN 8.5 g/dL (12.0-16.0); MEAN CELL VOLUME 83.6 fl (81.0-99.0); MEAN CORPUSCULAR HGB CONC 29.9 g/dL (33.0-37.0); RBC 3.39 Mil/uL (3.80-5.20); RED CELL DISTRIBUTION WIDTH 19.7 % (11.5-14.5); WHITE BLOOD COUNT 23.7 K/uL (4.8-10.8)
[2018-11-15] MEDS ORDERED: Phenylephrine 10 mg/ml Inj ONE (09:48)
--- NOTE | 2018-11-15 10:02 | CP.CCUPN ---
CCU Subjective - Physician Review Subjective (Free Text): Jovani Camacho called for progressive bradycardia and loss of palpable pulses after Levophed placed on max infusion dose. Son Jeronimo also called at that time to inform him of deteriorating status, full resuscitative measures requested by him. CPR / ACLS started immediately, high quality chest compressions ensured, multiple doses of Epi and Atropine given. Bradycardia converted to an SVT at 110 with palpable carotid pulses and femoral pulses via Doppler. This required ma intenance of wide open Levophed, addition of Neosynephrine and Dopamine drips. FiO2 kept at 100% to keep SPO2 at a minimum of 90-91 %.
--- NOTE | 2018-11-15 10:04 | RAD ---
Date of service: 11/15/2018 HISTORY: ETT placement COMPARISON: 11/14/2018 FINDINGS: LUNGS: Bibasilar opacities present Interval bilateral confluent nodular opacities are present. Although metastases can simulate this appearance, the short interval, metastases are believed less likely. Bilateral bronchopneumonia is 1 consideration. Bilateral pulmonary emboli perhaps on an infectious basis is can also simulate this. Areas of confluent pulmonary edema can also simulate this. Pulmonary venous congestion is believed present. Clinical correlation is essential. Bilateral pleural effusions with bibasilar compressive atelectasis with or without bibasilar obscured infiltrates is compatible with this appearance as well. Pathology is not only at the bases as mentioned above but in the mid to upper lung zones as well Endotracheal tube tip approximately 3 cm from the dana. PLEURA: Bilateral pleural effusions-probably moderate in degree. No pneumothorax seen. CARDIOVASCULAR: There is absence of aortic atherosclerotic calcification on x-ray. Cardiomegaly. Pulmonary venous congestion also suspect. Right MediPort subclavian approach in place tip over superior vena cava.-similar in appearance. OSSEOUS STRUCTURES: Midline sternotomy. VISUALIZED UPPER ABDOMEN: Nasogastric tube tip in stomach. OTHER FINDINGS: None. IMPRESSION: Endotracheal tube tip in good position approximately 3 cm from the dana. Interval increased bibasilar opacities-interval increased bibasilar pleural effusions with interval increased bibasilar compressive atelectasis inferred. Concomitant bi basilar infiltrates are possible. Interval increased bilateral confluent nodular airspace opacities bronchopneumonia or other embolic phenomena or are in the differential. Metastases although a radiographic similar appearance appears less likely given short interval time frame. Clinical correlation and follow-up is advised. Other findings as above.
--- NOTE | 2018-11-15 10:26 | CP.CCUPN ---
CCU Subjective - Physician Review Subjective (Free Text): 2nd Code Blue Note: Second Code called for recurrent bradycardia and loss of pulses. CPR / ACLS started immediately, high quality chest compressions ensured, Epi/Atropine given again, and Levophed, Dopamine and Noesynephrine maintained at maximum doses and even at free-flow rate, no effect on HR noted with progressive deterioration to asystole. Patient pronounced at 10:11 AM. No family available at the bedside, will notify by phone. PMD to be notified. EDRS# [id number].
--- NOTE | 2018-11-15 10:28 | CP.PCM.PRO ---
Pronouncement of Note - Clinical Findings Physical Exam: No Response Verbal/Painful Stimuli, Absent Peripheral Puls es{Carotid & Femoral}, Absent Heart & Breath Sounds, No Pupillary Light Reflex, No Corneal Reflex, Pupils Fixed & Dilated, Absence of Vital Signs - Pronouncement Time Time of Pronouncement of : 10:11 - Notifications Pronouncement Notifications: Family Notified, Atending Notified Parachute Officer Notified: No - Autopsy Autopsy Requested: No [place] [id number]
--- NOTE | 2018-11-15 12:39 | CP.PCM.PN ---
Subjective - Date & Time of Evaluation Date of Evaluation: 11/15/18 Time of Evaluation: 07:05 - Subjective Subjective: Patient status deteriorated. Patient triggering the vent, and lost gag reflex. Hypotensive on Pressor. Objective - Vital Signs/Intake and Output Vital Signs (last 24 hours): Temp Pulse Resp BP Pulse Ox 97.7 F 107 H 22 81/39 L 92 L 11/15/18 08:00 11/15/18 08:00 11/15/18 08:00 11/15/18 08:00 11/15/18 08:00 Intake and Output: 11/15/18 11/15/18 06:59 18:59 Intake Total 2409 35 Output Total 1350 Balance 1059 35 - Medications Medications: Current Medications Acetaminophen (Tylenol 650mg/20.3ml Solution Ud) 650 mg PO Q6 PRN PRN Reason: Temperature Last Admin: 11/10/18 15:27 Dose: 650 mg Lactated Ringer's (Lactated Ringer's 500ml) 500 mls @ 500 mls/hr IV .Q1H LITO Last Admin: 11/11/18 22:37 Dose: 500 mls/hr Levofloxacin/Dextrose (Levaquin 750mg) 750 mg in 150 mls @ 100 mls/hr IVPB DAILY LITO; Protocol Last Admin: 11/15/18 08:15 Dose: 100 mls/hr Potassium Chloride 20 meq/ (Sodium Chloride) 1,010 mls @ 50 mls/hr IV .[id number] LITO Stop: 11/15/18 15:43 Last Admin: 11/14/18 16:48 Dose: 50 mls/hr Insulin Human Regular (Humulin R) 0 units SC ACCU-CHECK LITO; Protocol Last Admin: 11/15/18 06:45 Dose: 3 units Metoprolol Tartrate (Lopressor) 5 mg IVP Q12 LITO Last Admin: 11/14/18 08:00 Dose: Not Given - Labs Labs: 11/15/18 08:35 11/15/18 06:55 PT 11.8 Seconds (9.8-13.1) 11/06/18 11:15 INR 1.0 11/06/18 11:15 APTT 28.4 Seconds (25.6-37.1) 11/06/18 11:15 Assessment and Plan (1) Uncal herniation Status: Acute (2) Acute respiratory failure Status: Acute (3) Bilateral subdural hematomas Status: Acute (4) Subarachnoid bleed Status: Acute (5) Fall Status: Acute (6) Cerebral infarct Status: Acute - Assessment and Plan (Free Text) Assessment: C/w Supportive Care For Brain Protocol. on Presser.
--- NOTE | 2018-11-15 12:41 | CP.PCM.DIS ---
Provider - Provider Date of Admission: 11/06/18 12:39 Attending physician: Hannah Randolph MD Consults: 11/06/18 12:45 Neuro Surgery Consult Stat Comment: Consulting Provider: Dionte Ward Consulting Physician: Dionte Ward Reason for Consult: subdural and subarachnoid hematoma 11/06/18 12:51 Critical Care Consult Stat Comment: Consulting Provider: Uday Urrutia V Consulting Physician: Uday Urrutia V Reason for Consult: subdural/subarachnoid bleed, intubated 11/06/18 15:05 Neurology Consult Stat Comment: Consulting Provider: Juliocesar Adams Consulting Physician: Juliocesar Adams Reason for Consult: BL brain bleed. NO neuro reflexes 11/06/18 19:27 Nursing Referral for Palliative Care Routine Comment: Consulting Provider: Marcy Clay Physician Instructions: Reason For Exam: unresponsive Time Spent in preparation of Discharge (in minutes): 25 Diagnosis - Discharge Diagnosis (1) Uncal herniation Status: Acute Priority: High (2) Acute respiratory failure Status: Acute Priority: High (3) Bilateral subdural hematomas Status: Acute Priority: High (4) Subarachnoid bleed Status: Acute Priority: High (5) Fall Status: Acute Priority: High (6) Cerebral infarct Status: Acute Priority: High Hospital Course - Lab Results Lab Results: Micro Results 11/06/18 09:31 Naris MRSA Culture (Admit) - Final MRSA NOT DETECTED Most Recent Lab Values WBC 23.7 K/uL (4.8-10.8) H 11/15/18 08:35 RBC 3.39 Mil/uL (3.80-5.20) L 11/15/18 08:35 Hgb 8.5 g/dL (12.0-16.0) L 11/15/18 08:35 Hct 28.3 % (34.0-47.0) L 11/15/18 08:35 MCV 83.6 fl (81.0-99.0) D 11/15/18 08:35 MCH 25.0 pg (27.0-31.0) L 11/15/18 08:35 MCHC 29.9 g/dL (33.0-37.0) L 11/15/18 08:35 RDW 19.7 % (11.5-14.5) H 11/15/18 08:35 Plt Count 182 K/uL (130-400) 11/15/18 08:35 MPV 9.0 fl (7.2-11.7) 11/13/18 04:20 Neut % (Auto) 90.9 % (50.0-75.0) H 11/13/18 04:20 Lymph % (Auto) 2.8 % (20.0-40.0) L 11/13/18 04:20 [place] % (Auto) 6.1 % (0.0-10.0) 11/13/18 04:20 Eos % (Auto) 0.2 % (0.0-4.0) 11/13/18 04:20 Baso % (Auto) 0.0 % (0.0-2.0) 11/13/18 04:20 Neut # (Auto) 16.9 K/uL (1.8-7.0) H 11/13/18 04:20 Lymph # (Auto) 0.5 K/uL (1.0-4.3) L 11/13/18 04:20 [place] # (Auto) 1.1 K/uL (0.0-0.8) H 11/13/18 04:20 Eos # (Auto) 0.0 K/uL (0.0-0.7) 11/13/18 04:20 Baso # (Auto) 0.0 K/uL (0.0-0.2) 11/13/18 04:20 Neutrophils % (Manual) 87 % (42-75) H 11/13/18 04:20 Band Neutrophils % 2 % (0-2) 11/13/18 04:20 Lymphocytes % (Manual) 4 % (20-50) L 11/13/18 04:20 Monocytes % (Manual) 5 % (0-10) 11/13/18 04:20 Eosinophils % (Manual) 2 % (0-7) 11/13/18 04:20 Platelet Estimate Normal (NORMAL) 11/13/18 04:20 Large Platelets Present 11/13/18 04:20 Hypochromasia (manual) Slight 11/13/18 04:20 Anisocytosis (manual) Slight 11/13/18 04:20 Tear Drop Cells Slight 11/13/18 04:20 Ovalocytes Moderate 11/13/18 04:20 PT 11.8 Seconds (9.8-13.1) 11/06/18 11:15 INR 1.0 11/06/18 11:15 APTT 28.4 Seconds (25.6-37.1) 11/06/18 11:15 pCO2 66 mm/Hg (35-45) H 11/15/18 05:32 pO2 42 mm/Hg (80-100) L* 11/15/18 05:32 HCO3 29.9 mmol/L (21-28) H 11/15/18 05:32 ABG pH 7.32 (7.35-7.45) L 11/15/18 05:32 ABG Total CO2 36.0 mmol/L (22-28) H 11/15/18 05:32 ABG O2 Saturation 83.6 % (95-98) L 11/15/18 05:32 ABG O2 Content 9.5 ML/dL (15-23) L 11/15/18 05:32 ABG Base Excess 6.7 mmol/L (-2.0-3.0) H 11/15/18 05:32 ABG Hemoglobin 8.3 g/dL (11.7-17.4) L 11/15/18 05:32 ABG Carboxyhemoglobin 2.0 % (0.5-1.5) H 11/15/18 05:32 POC ABG HHb (Measured) 15.9 % (0.0-5.0) H 11/15/18 05:32 ABG Methemoglobin 1.3 % (0.0-3.0) 11/15/18 05:32 ABG O2 Capacity 11.4 mL/dL (16-24) L 11/15/18 05:32 Anam Test Yes 11/15/18 05:32 ABG Potassium 3.9 mmol/L (3.6-5.2) 11/12/18 05:25 A-a O2 Difference 589.0 mm/Hg 11/15/18 05:32 Hgb O2 Saturation 80.8 % (95.0-98.0) L 11/15/18 05:32 Sodium 144.0 mmol/L (132-148) 11/12/18 05:25 Chloride 115.0 mmol/L (98-107) H 11/12/18 05:25 Glucose 245 mg/dL (65-105) H 11/12/18 05:25 Lactate 1.7 mmol/L (0.7-2.1) 11/12/18 05:25 Vent Mode A/c 11/15/18 05:32 Mechanical Rate 22 11/15/18 05:32 FiO2 100.0 % 11/15/18 05:32 Tidal Volume 400 11/15/18 05:32 PEEP 5 11/15/18 05:32 Crit Value Called To Stephanie ca rn 11/15/18 05:32 Crit Value Called By Jacqueline walsh rt 11/15/18 05:32 Crit Value Read Back Y 11/15/18 05:32 Blood Gas Notified Time 553 11/15/18 05:32 Sodium 155 mmol/l (132-148) H 11/15/18 06:55 Potassium 4.4 MMOL/L (3.6-5.0) 11/15/18 06:55 Chloride 118 mmol/L (98-107) H 11/15/18 06:55 Carbon Dioxide 35 mmol/L (22-30) H 11/15/18 06:55 Anion Gap 6 (10-20) L 11/15/18 06:55 BUN 43 mg/dl (7-17) H 11/15/18 06:55 Creatinine 0.8 mg/dl (0.7-1.2) 11/15/18 06:55 Est GFR ( Amer) > 60 11/15/18 06:55 Est GFR (Non-Af Amer) > 60 11/15/18 06:55 POC Glucose (mg/dL) 225 mg/dL (65-110) H 11/15/18 06:10 Random Glucose 184 mg/dL (65-105) H 11/15/18 06:55 Serum Osmolality 330 mosm/kg (272-300) H 11/08/18 12:16 Calcium 8.9 mg/dL (8.4-10.2) 11/15/18 06:55 Phosphorus 2.8 mg/dl (2.5-4.5) 11/07/18 13:40 Magnesium 1.6 MG/DL (1.6-2.3) 11/07/18 13:40 Total Bilirubin 0.3 mg/dl (0.2-1.3) 11/13/18 04:20 AST 54 U/L (14-36) H 11/13/18 04:20 ALT 38 U/L (9-52) 11/13/18 04:20 Alkaline Phosphatase 106 U/L (38-126) 11/13/18 04:20 Troponin I < 0.0120 ng/mL (0.00-0.120) 11/06/18 11:15 Total Protein 5.3 G/DL (6.3-8.2) L 11/13/18 04:20 Albumin 2.3 g/dL (3.5-5.0) L D 11/13/18 04:20 Globulin 3.0 gm/dL (2.2-3.9) 11/13/18 04:20 Albumin/Globulin Ratio 0.8 (1.0-2.1) L 11/13/18 04:20 Arterial Blood Potassium 3.9 mmol/L (3.6-5.2) 11/12/18 05:25 Blood Type A NEGATIVE 11/06/18 12:00 Blood Type Confirm A NEGATIVE 11/06/18 14:22 Antibody Screen Negative 11/06/18 12:00 BBK History Checked No verified bt 11/06/18 12:00 Discharge Exam - Head Exam Head Exam: NORMOCEPHALIC Discharge Plan - Follow Up Plan Condition: Disposition: WITH WITHOUT AUTOPSY
--- NOTE | 2018-11-18 13:28 | PQF ---
PROVIDER RESPONSE TEXT: Aspiration PNA REVIEWER QUERY TEXT: Documentation Clarification Your help is requested in clarifying the following clinical documentation, if you can please further specify in the medical record and discharge summary. 11/[address] Urrutia documented "ventialtor associated pneumonia or atelectasis." Pleas e clarify after study if pt had a diagnosis of ventilator associated pneumonia, atelectasis, other, u nspecified. Thank you The patient's Clinical Indicators include: xx Query created by: Charlotte Price on 11/16/2018 12:59 PM Electronically signed by: Hannah Randolph MD 11/18/2018 1:25 PM
== END 2018-11-15 10:11 | DRG 85 ==
LOC: H.ER 10:45 → H.ERHOLD 12:39 → H.ICU/CCU 17:51
PROVIDERS: ADMIT Internal Medicine; ATTEND Internal Medicine
PROC: 0BH17EZ Insertion of Endotracheal Airway into Trachea, Via Natural or Artificial Opening (ICD-10-PCS; 2018-11-06)
PROC: 5A1955Z Respiratory Ventilation, Greater than 96 Consecutive Hours (ICD-10-PCS; 2018-11-06)
PROC: 06HM33Z Insertion of Infusion Device into Right Femoral Vein, Percutaneous Approach (ICD-10-PCS; principal; 2018-11-07)
DX: S06.5X0A Traumatic subdural hemorrhage without loss of consciousness, initial encounter (principal); J96.01 Acute respiratory failure with hypoxia; G93.5 Compression of brain; I63.9 Cerebral infarction, unspecified; J69.0 Pneumonitis due to inhalation of food and vomit; E87.0 Hyperosmolality and hypernatremia; Z88.0 Allergy status to penicillin; Z88.6 Allergy status to analgesic agent; Z79.02 Long term (current) use of antithrombotics/antiplatelets; Z79.82 Long term (current) use of aspirin; Z85.72 Personal history of non-Hodgkin lymphomas; Z92.21 Personal history of antineoplastic chemotherapy; E78.00 Pure hypercholesterolemia, unspecified; G35 Multiple sclerosis; S06.6X0A Traumatic subarachnoid hemorrhage without loss of consciousness, initial encounter; R40.2312 Coma scale, best motor response, none, at arrival to emergency department; R40.2112 Coma scale, eyes open, never, at arrival to emergency department; R40.2212 Coma scale, best verbal response, none, at arrival to emergency department; Z86.73 Personal history of transient ischemic attack (TIA), and cerebral infarction without residual deficits; W18.39XA Other fall on same level, initial encounter; Y92.830 Public park as the place of occurrence of the external cause; I10 Essential (primary) hypertension; R00.1 Bradycardia, unspecified; E86.0 Dehydration